=== PATIENT | female | born 1970 | race Hispanic/Latino ===

== ENCOUNTER 2017-10-21 18:14 | Inpatient (IN) | payer SELFPAY ==
[2017-10-21 19:00] LABS: #Basophils 0.1 thou/uL (0.0-0.2); #Eosinphils 0.2 thou/uL (0.0-0.7); #Lymphocytes 1.7 thou/uL (1.20-3.40); #Monocytes 0.6 thou/uL (0.11-0.59); %Basophils 0.9 % (0.0-1.0); %Lymphocytes 22.5 % (21.0-51.0); %Monocytes 7.6 % (0.0-10.0); Hematocrit 33.2 % (36.0-47.0); Mean Platelet Volume 8.1 fL (7.4-10.4); Red Blood Cell (RBC) Count 3.48 mill/uL (4.20-5.40); White Blood Cell (WBC) Count 7.5 thou/uL (4.8-10.8)
[2017-10-21 19:24] LABS: ALT (SGPT) 9 U/L (8-55); AST (SGOT) 12 U/L (5-34); Alkaline Phosphatase 125 U/L (40-150); Anion Gap 14 mmol/L (10-20); BUN (Urea Nitrogen) 28 mg/dL (7.0-18.7); Bilirubin, Total 0.2 mg/dL (0.2-1.2); CK (CPK) 61 U/L (29-168); Calc. Creatinine Clearance 0 mL/min (70-130); Calcium 8.8 mg/dL (7.8-10.44); Carbon Dioxide 18 mmol/L (22-29); Chloride 110 mmol/L (98-107); Estimated GFR-MDRD 27; Globulin 4.2 g/dL (2.4-3.5)
[2017-10-21 19:28] LABS: Troponin I 0.024 ng/mL (< 0.028)
--- NOTE | 2017-10-21 20:30 | RAD ---
PORTABLE CHEST 10/21/17 PROVIDED CLINICAL HISTORY: Dyspnea. FINDINGS: No comparisons. The cardiac silhouette is within normal limits for portable technique. There is blunting of the left costophrenic angle compatible with pleural fluid. There is patchy parenchymal opacity at the left neetu g base which may reflect subsegmental atelectasis or infiltrate. Right lung appears clear. No evidenc e for pneumothorax. IMPRESSION: Left pleural effusion with adjacent atelectasis or infiltrate. Radiographic followup is recommended. POS: CHRISTO
[2017-10-21] MEDS ORDERED: Dextrose 50% Abboject 50 ML SYRINGE ONE (20:33)
[2017-10-21] MEDS ORDERED: Insulin Regular 300 UNITS/3 ML VIAL ONE (20:33)
[2017-10-21] MEDS ORDERED: Calcium Chloride 1 GM/10 ML Abboject SYRINGE ONE (20:33)
[2017-10-21] MEDS ORDERED: hydrALAZINE 20 MG/ML VIAL ONE (20:48)
[2017-10-21] MEDS ORDERED: Furosemide 20 MG/2 ML VIAL ONE (21:54)
[2017-10-21] MEDS ORDERED: HYDROcodone/Acetaminophen 5/325 mg Tablet ONE (21:54)
[2017-10-21] MEDS ORDERED: HumaLOG 300 UNITS/3 ML VIAL SC PRN (22:30)
[2017-10-21] MEDS ORDERED: Dextrose 5% in Water 1,000 ML IV PRN (22:30)
[2017-10-21] MEDS ORDERED: Ondansetron HCl/PF 4 MG/2 ML Vial IVP PRN (22:30)
[2017-10-21] MEDS ORDERED: Dextrose 50% Abboject 50 ML SYRINGE SLOW IVP PRN (22:30)
[2017-10-21] MEDS ORDERED: Bisacodyl 5 MG TAB PO PRN (22:30)
--- NOTE | 2017-10-21 23:46 | HP ---
PRIMARY CARE PROVIDER: César Lal. CHIEF COMPLAINT: Abnormal blood work. HISTORY OF PRESENT ILLNESS: Ms. Schaeffer is a pleasant 47-year-old lady who was seen at [facility] on 10/21/2017, after she was sent to the emergency room by her primary care pro vider for abnormal blood work. She reportedly had flu-like symptoms, 1-1/2 months ago. At that time, she was not eating or drinking well. Early October, she reports that she had blood work checked and it was presumably normal. At that time, she was started on losartan-hydrochlorothiazide combination pill. She reports that she i s still not eating well. She reports that she has been having orthopnea and paroxysmal nocturnal dys pnea. She denies any chest pain. She reports leg swelling. She was started on furosemide 2 days a go by her primary care provider. Blood work was also done. She was advised to go to the emergency r oom today because of elevated creatinine. She denies any fevers or chills. She denies any nausea, vomiting, or diarrhea. REVIEW OF SYSTEMS: The following complete review of systems was negative, unless otherwise mentioned in the HPI or below: Constitutional: Weight loss or gain, sense of well-being, ability to conduct usual activities, exerc ise tolerance. Skin/Breast: Rash, itching, changes in hair growth or loss, nail changes, breast lumps, tenderness, swelling, nipple discharge. Eyes: Vision, double vision, tearing, blind spots, pain. ENT/Mouth: Headaches (location, time of onset, duration, precipitating factors), vertigo, lightheade dness, injury. Vision, double vision, tearing, blind spots, pain, nose bleeding, colds, obstruction, discharge, dental difficulties, gingival bleeding, dentures, neck stiffness, pain, tenderness, masses in thyroid or other areas. Cardiovascular: Precordial pain, substernal distress, palpitations, syncope, dyspnea on exertion, or thopnea, nocturnal paroxysmal dyspnea, edema, cyanosis, hypertension, heart murmurs, varicosities, ph lebitis, claudication. Respiratory: Pain, shortness of breath, wheezing, stridor, cough, hemoptysis, fever or night sweats. Gastrointestinal: Poor appetite, dysphagia, indigestion, abdominal pain, heartburn, eructation, naus ea, vomiting, hematemesis, jaundice, constipation, or diarrhea, abnormal stools (carla-colored, tarry, bloody, greasy, foul smelling), flatulence, hemorrhoids, recent changes in bowel habits. Genitourinary: Urgency, frequency, dysuria, nocturia, hematuria, polyuria, oliguria, unusual (or niesha nge in) color of urine, stones, hesitancy, change in size of stream, dribbling, acute retention or in continence, libido, potency. Musculoskeletal: Pain, swelling, redness or heat of muscles or joints, limitation, of motion, muscul ar weakness, atrophy, cramps. Neurologic/Psychiatric: Convulsions, paralyzes, tremor, incoordination, paresthesias, difficulties w ith memory of speech, sensory or motor disturbances, or muscular coordination (ataxia, tremor), emoti onal problems, anxiety, depression, previous psychiatric care, unusual perceptions, hallucinations. Allergy/Immunologic: Skin rash, anemia, bleeding tendency, polydipsia, polyuria, intolerance to heat or cold. PAST MEDICAL HISTORY: Significant for diabetes mellitus on insulin therapy, dyslipidemia, and hypert ension. PAST SURGICAL HISTORY: None. FAMILY HISTORY: Significant for diabetes, end-stage renal disease, and stroke in her father. SOCIAL HISTORY: Patient denies tobacco use, alcohol use, or recreational drug use. ALLERGIES: No known drug allergies. CURRENT MEDICATIONS: Include Lasix 40 mg daily, atorvastatin 40 mg daily, losartan/hydrochlorothiazi de 100/25 mg daily, iron 325 mg 2 times a day, aspirin 81 mg daily, and Levemir FlexPen 10 units subc utaneously daily. PHYSICAL EXAMINATION: GENERAL: Ms. Schaeffer is awake and alert, not in acute distress. She appears tired. VITAL SIGNS: Blood pressure is 177/90, pulse is 91. She is breathing at rate of 18 and saturating 9 9% on room air. EYES: No scleral icterus, no conjunctival pallor. ENT: Moist mucosal membranes, no oropharyngeal erythema or exudates. NECK: Supple, nontender, she has jugular venous distention, no thyromegaly, trachea midline. RESPIRATORY: Accessory muscles of breathing are not active. Chest wall movements are symmetric bila terally. LUNGS: Reveals a few bibasilar crackles. CARDIOVASCULAR: S1 and S2 are heard, regular. Peripheral pulses are palpable. No carotid bruit, no pericardial rub. ABDOMEN: Soft, nontender, bowel sounds heard, no hepatomegaly, no splenomegaly. NEUROLOGIC: Cranial nerves II-XII are intact. Deep tendon reflexes are 2+. MUSCULOSKELETAL: Power is 5/5 in all 4 extremities. Normal range of movement at all major extremity joints. SKIN: No rashes or subcutaneous nodules. She has bilateral lower extremity edema. LYMPHATIC: No cervical lymphadenopathy. PSYCHIATRIC: Normal mood, normal affect, patient is oriented to person, place, and time. LABORATORY DATA: Ms. Schaeffer's labs and investigations were reviewed. I reviewed her electrocardio gram, which shows normal sinus rhythm, no ST changes to suggest an acute coronary syndrome. I also r eviewed her chest x-ray, which shows small left pleural effusion. Laboratory investigation show norm al white count, normocytic anemia with hemoglobin 10.3, elevated platelet count of 481,September 25, 017. Sodium normal at 136, potassium elevated at 5.6. Blood urea nitrogen is elevated at 28, creati nine elevated at 1.99, elevated BNP of 1416, albumin decreased at 2.8, liver function tests otherwise unremarkable. ASSESSMENT AND PLAN: Ms. Schaeffer is a pleasant 47-year-old lady who was seen at [facility] on 10/21/2017. Her problem list includes: 1. Acute renal failure: Etiology unclear at this time, could be prerenal secondary to poor oral int armond. She is also on ARB. We will hold ARB for now. She is also in congestive heart failure. We wi ll not provide intravenous fluids at this time, we will recheck her creatinine level and potassium le roberta in the morning. 2. Hyperkalemia: Hold ARB, patient has received calcium, insulin, and Kayexalate. Recheck potassiu m level. 3. Congestive heart failure exacerbation: New onset congestive heart failure, we will check 2D echo cardiogram. We will provide gentle diuresis. We will consult Cardiology Service. 4. Diabetes mellitus: Continue Levemir insulin, start Accu-Cheks and insulin sliding scale. 5. Thrombocythemia: Etiology unclear, recheck platelet level. 6. Hypertension: Monitor vital signs, titrate antihypertensives as needed. Many thanks for allowing me to participate in your patient's care. Please feel free to contact me wi th any questions or concerns. LEVEL OF RISK: High. LEVEL OF COMPLEXITY: High.
[2017-10-21 23:49] VITALS: BMI 22.6
[2017-10-22 03:07] LABS: Potassium, Urine 15.3 mmol/L
[2017-10-22 04:38] LABS: #Eosinphils 0.2 thou/uL (0.0-0.7); #Lymphocytes 1.9 thou/uL (1.20-3.40); #Monocytes 0.6 thou/uL (0.11-0.59); #Neutrophils 4.5 thou/uL (1.40-6.50); %Basophils 0.6 % (0.0-1.0); %Eosinophils 2.9 % (0.0-10.0); %Lymphocytes 26.4 % (21.0-51.0); %Monocytes 7.9 % (0.0-10.0); Hematocrit 26.9 % (36.0-47.0); Red Blood Cell (RBC) Count 2.83 mill/uL (4.20-5.40); White Blood Cell (WBC) Count 7.2 thou/uL (4.8-10.8)
[2017-10-22 04:53] LABS: Anion Gap 11 mmol/L (10-20); BUN (Urea Nitrogen) 27 mg/dL (7.0-18.7); Calc. Creatinine Clearance 34 mL/min (70-130); Calcium 9.3 mg/dL (7.8-10.44); Carbon Dioxide 19 mmol/L (22-29); Chloride 112 mmol/L (98-107); Estimated GFR-MDRD 29
[2017-10-22] MEDS: Furosemide 20 MG/2 ML VIAL SLOW IVP SCH ×2 (06:05→15:20)
[2017-10-22] MEDS: Heparin 5,000 UNITS/ML VIAL SC SCH ×3 (08:52→21:42)
--- NOTE | 2017-10-22 10:36 | PDOC.PN ---
- Subjective Encounter Start Date: 10/22/17 Encounter Start Time: 08:00 Subjective: sob better, no chest pain - Objective MAR Reviewed: Yes Vital Signs & Weight: Vital Signs (12 hours) Temp Pulse Resp BP Pulse Ox 10/22/17 08:18 87 162/87 H 10/22/17 07:20 98.1 F 106 H 16 213/104 H 96 10/22/17 04:00 97.7 F 86 16 174/81 H 97 10/21/17 22:52 97.7 F 89 18 151/74 H 97 Weight Weight 129 lb 12.8 oz I&O: 10/21/17 10/22/17 10/23/17 06:59 06:59 06:59 Output Total 300 Balance -300 Result Diagrams: 10/22/17 04:12 10/22/17 04:12 Additional Labs: Accuchecks 10/21/17 22:44 POC Glucose 102 Phys Exam - Physical Examination HEENT: PERRLA, moist MMs Neck: no JVD, supple Respiratory: no wheezing basal rales+ Cardiovascular: RRR, no significant murmur Gastrointestinal: soft, non-tender, no distention, positive bowel sounds Musculoskeletal: no edema, pulses present Neurological: non-focal, moves all 4 limbs Psychiatric: A&O x 3 Dx/Plan (1) Acute exacerbation of CHF (congestive heart failure) Code(s): I50.9 - HEART FAILURE, UNSPECIFIED Status: Acute Qualifiers: Congestive heart failure type: unspecified congestive heart failure type Qualified Code(s): I50.9 - Heart failure, unspecified (2) WHITNEY (acute kidney injury) Code(s): N17.9 - ACUTE KIDNEY FAILURE, UNSPECIFIED Status: Acute (3) Metabolic acidosis Code(s): E87.2 - ACIDOSIS Status: Acute (4) DM type 2 (diabetes mellitus, type 2) Status: Chronic Qualifiers: Diabetes mellitus complication status: with kidney complications Diabetes mellitus complication detail: with chronic kidney disease Diabetes mellitus penitentiary insulin use: without termite treater use Chronic kidney disease stage: stage 3 (moderate) Qualified Code(s): E11.22 - Type 2 diabetes mellitus with diabetic chronic kidney disease; N18.3 - Chronic kidney disease, stage 3 ( moderate); N18.3 - Chronic kidney disease, stage 3 (moderate) (5) Hypoalbuminemia due to protein-calorie malnutrition Code(s): E46 - UNSPECIFIED PROTEIN-CALORIE MALNUTRITION Status: Chronic (6) HTN (hypertension) Code(s): I10 - ESSENTIAL (PRIMARY) HYPERTENSION Status: Chronic Qualifiers: Hypertension type: essential hypertension Qualified Code(s): I10 - Essential (primary) hypertension (7) Dyslipidemia Code(s): E78.5 - HYPERLIPIDEMIA, UNSPECIFIED Status: Chronic (8) Anemia Code(s): D64.9 - ANEMIA, UNSPECIFIED Status: Chronic Qualifiers: Anemia type: unspecified type Qualified Code(s): D64.9 - Anemia, unspecified - Plan jose r with reflex -: iron studies -: echo pending, is on lasix 20mg q12h -: nephr consult, likely has proteinuria, alb is 2.8 -: cardio consult, tropx1 is -ve. Add coreg and hydralazine for now * . Review of Systems - Medications/Allergies Allergies/Adverse Reactions: Allergies Allergy/AdvReac Type Severity Reaction Status Date / Time No Known Drug Allergies Allergy Verified 10/22/17 01:50 Medications: Current Medications Bisacodyl (Dulcolax) 10 mg PO DAILYPRN PRN PRN Reason: Constipation Dextrose/Water (Dextrose 50%) 25 gm SLOW IVP PRN PRN PRN Reason: Hypoglycemia Furosemide (Lasix) 20 mg SLOW IVP 0600,1400 [facility] Last Admin: 10/22/17 06:05 Dose: 20 mg Glucagon (Glucagon) 1 mg IM PRN PRN PRN Reason: Hypoglycemia Heparin Sodium (Porcine) (Heparin) 5,000 units SC TID [facility] Last Admin: 10/22/17 08:52 Dose: 5,000 units Dextrose/Water (D5w) 1,000 mls @ 0 mls/hr IV .Q0M PRN; As Directed PRN Reason: Hypoglycemia Insulin Human Lispro (Humalog) 0 units SC .MILD SLIDING SCALE PRN PRN Reason: Mild Correctional Scale Ondansetron HCl (Zofran) 4 mg IVP Q6H PRN PRN Reason: Nausea/Vomiting Last Admin: 10/22/17 08:52 Dose: 4 mg
[2017-10-22 12:53] LABS: Iron 24 ug/dL (50-170)
--- NOTE | 2017-10-22 14:10 | CON ---
DATE OF CONSULTATION: 10/22/2017 HISTORY OF PRESENT ILLNESS: The patient is a pleasant 47-year-old woman who presents for evaluation of increasing dyspnea. The patient states approximately a month ago she started noting dyspnea on exertion. She developed progressive shortness of breath. She started developing PND and orthopnea. The patient was started on Lasix. She presented to the emergency room with increasing dyspnea. The patient denies having any chest discomfort. The patient has multiple cardiac risk factors including hypertension, hypercholesterolemia and diabetes mellitus. PAST MEDICAL HISTORY: 1. Diabetes mellitus. 2. Hypertension. 3. Hypercholesterolemia. PAST SURGICAL HISTORY: None. SOCIAL HISTORY: Nonsmoker. MEDICATIONS ON ADMISSION: Losartan 125 daily, Lasix 40 daily, aspirin 81 daily. ALLERGIES: No known drug allergies. REVIEW OF SYSTEMS: Ten-point system otherwise unremarkable. No history of easy bruising or bleeding. PHYSICAL EXAMINATION: GENERAL: This is a well-developed woman in no acute distress. VITAL SIGNS: Blood pressure is 162/87. NECK: Showed no jugular venous distention. LUNGS: Decreased breath sounds in the left base. HEART: Regular rate and rhythm, normal S1, S2, no murmurs. ABDOMEN: Nondistended. EXTREMITIES: Showed trace edema. SKIN: Warm and dry. NEUROLOGIC: Nonfocal. VASCULAR: Radial pulses are 2+. LABORATORY DATA: Sodium 137, potassium 4.8, chloride 112, bicarbonate 19, BUN 27, creatinine 1.86. Troponin 0.24. BNP is 1416. EKG revealed her to have normal sinus rhythm with nonspecific T-wave abnormality. IMPRESSION: 1. Congestive heart failure probably secondary to diastolic dysfunction. 2. Pleural effusion. 3. Hypertension. 4. Diabetes mellitus. 5. Chronic renal insufficiency. 6. Anemia. This patient presents with congestive heart failure with a large pleural effusion. From a cardiac standpoint, she is being diuresed with IV Lasix. We will obtain a Lexiscan stress to see if there is evidence of ischemia. We would recommend a renal evaluation. The patient appears to have chronic renal failure since she is severely anemic. We will also consider the patient for thoracentesis as she appears to have a large pleural effusion on her echocardiogram. We will follow this patient with you through her hospitalization. CONSTANCE
[2017-10-22 15:13] LABS: Bilirubin Negative (Negative); Blood, Urine Trace (Negative); Glucose, Urine (Dipstick) 250 mg/dL (Negative); Ketone, Urine Negative (Negative); Nitrite Negative (Negative); Protein, Urine (Dipstick) 300 mg/dL (Neg-Trace); Urobilinogen 0.2 mg/dL (0.2-1.0)
[2017-10-22 15:16] LABS: Bacteria/HPF 4+ HPF (None Seen); Hyaline Casts/LPF 0-3 HYALINE CAST LPF (0-3 Hyaline); Squamous Epithelial 0-3 HPF (0-3)
[2017-10-22] MEDS: hydrALAZINE 25 MG TAB PO SCH ×2 (15:20→21:41)
[2017-10-22] MEDS: Carvedilol 6.25 MG TAB PO SCH (17:30)
--- NOTE | 2017-10-22 19:29 | ULT ---
RENAL ULTRASOUND COMPLETE: 10/22/17 HISTORY: 47-year-old female with acute kidney insufficiency. The right kidney measures 10.3 x 4.8 x 5.3 cm. The left kidney measures 10.2 x 5.8 x 5.5 cm. There is no renal hydronephrosis. The urinary bladder appears unremarkable. There is evidence for left pleura l effusion. IMPRESSION: No evidence for renal hydronephrosis or perinephric process. Unremarkable appearing bladder. Left ple ural effusion. POS: H
[2017-10-22] MEDS ORDERED: Ferrous Sulfate 325 MG TAB PO SCH (20:30)
[2017-10-22] MEDS ORDERED: INSULIN DETEMIR 100 UNIT SQ SCH (21:00)
[2017-10-22] MEDS ORDERED: Insulin Detemir 100 UNITS/ML 100 UNITS in Pre-Filled Syringe 1 EACH SC SCH (21:00)
[2017-10-22] MEDS: Insulin Detemir 100 UNITS/ML 12 UNITS in Pre-Filled Syringe 1 EACH SC SCH (21:42)
--- NOTE | 2017-10-23 02:07 | CON ---
DATE OF CONSULTATION: 10/22/2017 CONSULTING PHYSICIAN: Luana Karimi M.D. REASON FOR CONSULTATION: Proteinuria. HISTORY OF PRESENT ILLNESS: A 47-year-old female with history of type 2 diabetes, hyperlipidemia, hy pertension, diabetic retinopathy, and diastolic dysfunction, who came to the hospital with abnormal b lood work and is being evaluated. She was found to have acute kidney injury with a creatinine of 1.8 6. Baseline is around 1.9 and also proteinuria of 3+ protein and Nephrology is consulted. The patie nt denies any chest pain, palpitation, no fever or chills. He is having cardiac evaluation to o. The patient was having some nausea, vomiting lately. PAST MEDICAL HISTORY: Positive for type 2 diabetes, hypertension, hyperlipidemia, diabetic retinopat hy. PAST SURGICAL HISTORY: None. HOME MEDICATIONS: Lasix, atorvastatin, losartan, hydrochlorothiazide, iron, aspirin, Levemir. ALLERGIES: No known drug allergies. SOCIAL HISTORY: No smoking, alcohol or illicit drug use. FAMILY HISTORY: Positive for diabetes and end-stage renal disease. REVIEW OF SYSTEMS: The following complete review of systems was negative, unless otherwise mentioned in the HPI or below: Constitutional: Weight loss or gain, ability to conduct usual activities. Skin: Rash, itching. Ey es: Double vision, pain. ENT/Mouth: Nose bleeding, neck stiffness, pain, tenderness. Cardiovascul ar: Palpitations, dyspnea on exertion, orthopnea. Respiratory: Shortness of breath, wheezing, coug h, hemoptysis, fever or night sweats. Gastrointestinal: Poor appetite, abdominal pain, heartburn, n ausea, vomiting, constipation, or diarrhea. Genitourinary: Urgency, frequency, dysuria, nocturia. Musculoskeletal: Pain, swelling. Neurologic/Psychiatric: Anxiety, depression. Allergy/Immunologic : Skin rash, bleeding tendency. PHYSICAL EXAMINATION: GENERAL: This is a thin-built female in no apparent distress. VITAL SIGNS: Temperature 97.9, pulse 84, respiratory rate 18, blood pressure 174/79. HEENT: Atraumatic, normocephalic. Oral mucosa is moist. NECK: Supple, no masses. CARDIOVASCULAR: S1, S2 heard. Rate and rhythm regular. RESPIRATORY: Clear. ABDOMEN: Soft. MUSCULOSKELETAL: DERMATOLOGIC: No skin rash. NEUROLOGIC: Alert, awake. PSYCHIATRIC: Mood and affect normal. LABORATORY AND X-RAY FINDINGS: Hemoglobin is 8.6, is 10, is 23, potassium is 4.8. Urine protein 3+. ASSESSMENT AND PLAN: 1. Acute kidney injury seems like getting better. 2. Acidosis, mild. 3. Severe anemia with hemoglobin less than 10 with iron deficiency. 4. Iron deficiency. We will increase iron tablets to 325 mg p.o. t.i.d. as tolerated and rule out a ny bleed. 5. Consider . 6. Proteinuria, most likely from diabetes. We will check RENUKA and other immunologic workup to rule o ut any immunological process involved. The patient does have a strong history of diabetes and family history of diabetic nephropathy. 7. Hypertension. Titrate blood pressure medicines. I agree with holding losartan for now, up titra te carvedilol as tolerated. 8. Diastolic dysfunction. Follow with Cardiology. Currently on Lasix. 9. We will monitor renal function. Check urine studies and immunological workup. Thank you for the consultation. We will follow.
[2017-10-23 04:57] LABS: Anion Gap 10 mmol/L (10-20); BUN (Urea Nitrogen) 30 mg/dL (7.0-18.7); Calc. Creatinine Clearance 31 mL/min (70-130); Calcium 8.7 mg/dL (7.8-10.44); Carbon Dioxide 23 mmol/L (22-29); Chloride 111 mmol/L (98-107); Estimated GFR-MDRD 26
[2017-10-23 05:05] LABS: #Eosinphils 0.2 thou/uL (0.0-0.7); #Lymphocytes 1.8 thou/uL (1.20-3.40); #Monocytes 0.5 thou/uL (0.11-0.59); #Neutrophils 3.6 thou/uL (1.40-6.50); %Basophils 0.7 % (0.0-1.0); %Eosinophils 3.6 % (0.0-10.0); %Lymphocytes 28.6 % (21.0-51.0); %Monocytes 8.3 % (0.0-10.0); Hematocrit 25.9 % (36.0-47.0); Mean Platelet Volume 8.2 fL (7.4-10.4); Red Blood Cell (RBC) Count 2.73 mill/uL (4.20-5.40); White Blood Cell (WBC) Count 6.2 thou/uL (4.8-10.8)
[2017-10-23] MEDS: Furosemide 20 MG/2 ML VIAL SLOW IVP SCH (06:12)
[2017-10-23] MEDS: Carvedilol 6.25 MG TAB PO SCH ×2 (07:32→17:01)
[2017-10-23 08:15] LABS: U1RNP/snRNP IGG Autoabs <0.2 AI (0.0-0.9)
[2017-10-23] MEDS ORDERED: Ferrous Sulfate 325 MG TAB PO SCH (09:00)
[2017-10-23] MEDS: Heparin 5,000 UNITS/ML VIAL SC SCH ×3 (11:39→20:45)
[2017-10-23] MEDS: Ferrous Sulfate 325 MG TAB PO SCH ×3 (11:41→17:01)
[2017-10-23] MEDS: hydrALAZINE 25 MG TAB PO SCH ×2 (11:42→20:46)
[2017-10-23] MEDS: Atorvastatin Calcium 40 MG TAB PO SCH (11:42)
[2017-10-23] MEDS: Insulin Detemir 100 UNITS/ML 12 UNITS in Pre-Filled Syringe 1 EACH SC SCH ×2 (11:45→20:46)
--- NOTE | 2017-10-23 12:03 | PDOC.PN ---
- Subjective Encounter Start Date: 10/23/17 Encounter Start Time: 08:30 Subjective: getting stress test done - Objective MAR Reviewed: Yes Vital Signs & Weight: Vital Signs (12 hours) Temp Pulse Resp BP BP Pulse Ox 10/23/17 11:42 80 131/66 10/23/17 08:00 98.0 F 80 20 173/86 H 96 10/23/17 07:50 98.4 F 81 18 98 10/23/17 04:00 98.4 F 81 18 142/75 H 98 10/23/17 00:03 98.3 F 83 16 166/79 H 98 Weight Weight 125 lb 3.2 oz I&O: 10/22/17 10/23/17 10/24/17 06:59 06:59 06:59 Intake Total 752 Output Total 300 200 Balance -300 552 Result Diagrams: 10/23/17 03:55 10/23/17 03:55 Additional Labs: Accuchecks 10/23/17 10/22/17 10/22/17 05:36 20:38 17:06 POC Glucose 120 H 191 H 217 H Phys Exam - Physical Examination HEENT: PERRLA, moist MMs Neck: no JVD, supple Respiratory: no wheezing, no rales Cardiovascular: RRR, no significant murmur Gastrointestinal: soft, non-tender, positive bowel sounds Musculoskeletal: no edema, pulses present Neurological: non-focal, moves all 4 limbs Psychiatric: A&O x 3 Dx/Plan (1) Acute exacerbation of CHF (congestive heart failure) Code(s): I50.9 - HEART FAILURE, UNSPECIFIED Status: Acute Qualifiers: Congestive heart failure type: diastolic Qualified Code(s): I50.33 - Acute on chronic diastolic (congestive) heart failure (2) WHITNEY (acute kidney injury) Code(s): N17.9 - ACUTE KIDNEY FAILURE, UNSPECIFIED Status: Acute (3) Metabolic acidosis Code(s): E87.2 - ACIDOSIS Status: Acute (4) DM type 2 (diabetes mellitus, type 2) Status: Chronic Qualifiers: Diabetes mellitus complication status: with kidney complications Diabetes mellitus complication detail: with chronic kidney disease Diabetes mellitus 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 terminal manager insulin use: without intermediate use Chronic kidney disease stage: stage 3 (moderate) Qualified Code(s): E11.22 - Type 2 diabetes mellitus with diabetic chronic kidney disease; N18.3 - Chronic kidney disease, stage 3 ( moderate); N18.3 - Chronic kidney disease, stage 3 (moderate) (5) Hypoalbuminemia due to protein-calorie malnutrition Code(s): E46 - UNSPECIFIED PROTEIN-CALORIE MALNUTRITION Status: Chronic (6) HTN (hypertension) Code(s): I10 - ESSENTIAL (PRIMARY) HYPERTENSION Status: Chronic Qualifiers: Hypertension type: essential hypertension Qualified Code(s): I10 - Essential (primary) hypertension (7) Dyslipidemia Code(s): E78.5 - HYPERLIPIDEMIA, UNSPECIFIED Status: Chronic (8) Anemia Code(s): D64.9 - ANEMIA, UNSPECIFIED Status: Chronic Qualifiers: Anemia type: due to chronic kidney disease Chronic kidney disease stage: stage 3 (moderate) Qualified Code(s): N18.3 - Chronic kidney disease, stage 3 (moderate); D63.1 - Anemia in chronic kidney disease; D63.1 - Anemia in chronic kidney disease - Plan RENUKA is +ve, -ve for lupus -: electrophoresis, anca and stress test results are pending -: clinically feels better, reduce lasix to daily -: most of her symptoms are likely related to d.nephropathy/ckd -: will obtain renal artery resistive indices to r/o stenosis, oral [id number] * . Review of Systems - Medications/Allergies Allergies/Adverse Reactions: Allergies Allergy/AdvReac Type Severity Reaction Status Date / Time No Known Drug Allergies Allergy Verified 10/22/17 01:50 Medications: Current Medications Aspirin (Aspirin Chewable) 81 mg PO DAILY [facility] Last Admin: 10/23/17 11:42 Dose: 81 mg Atorvastatin Calcium (Lipitor) 40 mg PO DAILY [facility] Last Admin: 10/23/17 11:42 Dose: 40 mg Bisacodyl (Dulcolax) 10 mg PO DAILYPRN PRN PRN Reason: Constipation Carvedilol (Coreg) 6.25 mg PO BID-[facility] Last Admin: 10/23/17 07:32 Dose: Not Given Dextrose/Water (Dextrose 50%) 25 gm SLOW IVP PRN PRN PRN Reason: Hypoglycemia Ferrous Sulfate (Feosol) 325 mg PO TID-[facility] Last Admin: 10/23/17 11:46 Dose: Not Given Furosemide (Lasix) 20 mg SLOW IVP DAILY [facility] Glucagon (Glucagon) 1 mg IM PRN PRN PRN Reason: Hypoglycemia Heparin Sodium (Porcine) (Heparin) 5,000 units SC TID [facility] Last Admin: 10/23/17 11:39 Dose: Not Given Hydralazine HCl (Apresoline) 25 mg PO TID [facility] Last Admin: 10/23/17 11:42 Dose: 25 mg Dextrose/Water (D5w) 1,000 mls @ 0 mls/hr IV .Q0M PRN; As Directed PRN Reason: Hypoglycemia Insulin Detemir 12 units/ (Miscellaneous Medication) 0.12 mls @ 0 mls/hr SC BID [facility] Last Admin: 10/23/17 11:45 Dose: Not Given Insulin Human Lispro (Humalog) 0 units SC .MILD SLIDING SCALE PRN PRN Reason: Mild Correctional Scale Ondansetron HCl (Zofran) 4 mg IVP Q6H PRN PRN Reason: Nausea/Vomiting Last Admin: 10/22/17 08:52 Dose: 4 mg
[2017-10-23] MEDS ORDERED: hydrALAZINE 25 MG TAB PO SCH (12:15)
--- NOTE | 2017-10-23 14:13 | NM ---
NUCLEAR MEDICINE CARDIAC STRESS TEST WITH EJECTION FRACTION: HISTORY: Congestive heart failure. COMPARISON: None. FINDINGS: Exam was performed using a nuclear Lexiscan stress protocol. No abnormal findings seen. The stress and rest exam was performed after the intravenous administration of 29 and 9 mCi technetiu m-99m sestamibi, respectively. There is no evidence of ischemia or scar. There is mildly poor contractility with ejection fraction o f 42%. IMPRESSION: 1. No evidence of ischemia or scar. 2. Ejection fraction 42%. POS: CHRISTO
[2017-10-23] MEDS ORDERED: Regadenoson 0.4 MG/5 ML SYRINGE ONE (16:18)
--- NOTE | 2017-10-23 17:40 | CON ---
DATE OF CONSULTATION: 10/23/2017 Ms. Schaeffer is a 47-year-old female. She was sent to the hospital by her physician, because of an a bnormal potassium. I was consulted for a small pleural effusion. PAST MEDICAL HISTORY: She has a history of diabetes, lipid disorder, and hypertension. MEDICATIONS: Prior to admission, she was on Lasix, atorvastatin, losartan, hydrochlorothiazide, iron , aspirin, and Levemir. SOCIAL HISTORY: She is a non-smoker, nondrinker. ALLERGIES: No drug use. FAMILY HISTORY: Positive for diabetes, family members on dialysis, and stroke. She has never been in the hospital here before. PHYSICAL EXAMINATION: GENERAL: She is afebrile, heart rate is 90, respiratory rate is 20, oximetry is 97, blood pressure 1 52/72. Blood pressure has been as high as 171/85 today. HEENT: Pupils are equal. Sclerae is anicteric. Extraocular movements are full. NECK: Supple, no lymphadenopathy. LUNGS: Remarkable for decreased breath sounds, but only at the very bottom of the left lung. HEART: Regular rhythm, no S3. Grade 2/6 systolic murmur. ABDOMEN: Soft and nontender. EXTREMITIES: Without asymmetry. LABORATORY DATA: White count 6.2, hemoglobin 8.3, platelets 410,000. Sodium 139, potassium 4.7, chl oride 111, bicarbonate 23, BUN 30, creatinine 2.04 Urine shows 300 mg per deciliter of protein. Chest radiographs, reviewed by me, shows a small left effusion. IMPRESSION: Left effusion. She had a BNP of 1416 on admission. I suspect this is secondary to some component of diastolic dysfunction with her hypertension as well as mitral regurgitation and low onc otic pressure with an albumin of 2.8. I do not feel thoracentesis is indicated. My index of suspici on for malignant process or an infected pleural space is extremely low. I will be happy to follow th shadi radiographs as an outpatient once she is discharged. Greater than 50% of the time was spent in counseling the patient, reviewing records and on the unit. This is a 70-minute consult note.
--- NOTE | 2017-10-23 17:56 | ULT ---
ULTRASOUND RENAL ARTERY VASCULAR DUPLEX INCLUDING COLOR AND SPECTRAL DOPPLER IMAGIN10/23/17 HISTORY: Elevated blood pressure. Renal anatomy ultrasound examination was performed on 10/22/17 and comparison is made. There is no significant focal abnormal increased renal artery velocities. Resistive indices are borde rline at 0.7 bilaterally. Renal artery to aortic ratios are unremarkable. IMPRESSION: No definitive ultrasound evidence for significant renal artery stenosis. If that remains a clinical c oncern, followup renal artery CTA or MRA study should be considered. POS: [facility]
--- NOTE | 2017-10-23 22:05 | PRG ---
DATE OF SERVICE: 10/23/2017 SUBJECTIVE: The patient was seen and examined at bedside and overnight events noted. The patient den ies any shortness of breath or chest pain or palpitation. No history of nausea or vomiting or diarrh ea or fever or chills or cramps. OBJECTIVE: General: This is a well-built white female in no apparent distress. Vital Signs: Temperature 98.5, pulse 81, respiratory 18, and blood pressure 127/67. HEENT: Atraumatic, normocephalic. Oral mucosa is moist. Neck: Supple. Cardiovascular: S1and S2 heard. Rate and rhythm regular. Respiratory: Clear to auscultation. Gastrointestinal: Abdomen is soft. Musculoskeletal: No tenderness. No edema. Dermatologic: No skin rash. Neurologic: Alert and awake and oriented X3. No focal neurologic deficits. Moving all the extremit ies. Psychiatric: Mood and affect normal. LABORATORY DATA: Sodium is 139, BUN 30, creatinine is 2.04. RENUKA is positive, but substances are neg ative. ASSESSMENT AND PLAN: 1. Acute kidney injury. Seems to be stable. 2. Acidosis. 3. Severe anemia. Continue iron supplements. 4. Proteinuria secondary to most likely from diabetes. RENUKA is positive, but sepsis negative, need R heumatology followup. 5. Hypertension. We will check anti-Strickland antibodies. 6. Diastolic dysfunction, stable. The patient needs follow up with Rheumatology for positive RENUKA test less likely lupus given the negat diane anti-Strickland . We will follow.
[2017-10-24] MEDS ORDERED: Furosemide 20 MG/2 ML VIAL SLOW IVP SCH (09:00)
[2017-10-24] MEDS ORDERED: Amlodipine 5 MG TAB PO SCH (09:00)
[2017-10-24] MEDS: Carvedilol 6.25 MG TAB PO SCH (09:39)
[2017-10-24] MEDS: Ferrous Sulfate 325 MG TAB PO SCH ×2 (09:40→12:57)
[2017-10-24] MEDS: Atorvastatin Calcium 40 MG TAB PO SCH (09:40)
[2017-10-24] MEDS: hydrALAZINE 25 MG TAB PO SCH (09:41)
[2017-10-24] MEDS: Heparin 5,000 UNITS/ML VIAL SC SCH (09:41)
[2017-10-24] MEDS: Insulin Detemir 100 UNITS/ML 12 UNITS in Pre-Filled Syringe 1 EACH SC SCH (09:41)
--- NOTE | 2017-10-24 10:48 | PDOC.PN ---
- Subjective Encounter Start Date: 10/24/17 Encounter Start Time: 07:00 Subjective: no sob, feels better -: is amb in room, wants to go home - Objective MAR Reviewed: Yes Vital Signs & Weight: Vital Signs (12 hours) Temp Pulse Resp BP BP Pulse Ox 10/24/17 09:41 80 166/83 H 10/24/17 09:40 80 166/83 H 10/24/17 09:39 166/83 H 10/24/17 07:06 98.5 F 80 18 166/83 H 98 10/24/17 03:41 98.3 F 78 18 143/74 H 97 10/23/17 23:29 98.3 F 84 16 143/70 H 95 Weight Weight 125 lb 4.8 oz I&O: 10/23/17 10/24/17 10/25/17 06:59 06:59 06:59 Intake Total 752 420 Output Total 200 Balance 552 420 Result Diagrams: 10/23/17 03:55 10/23/17 03:55 Additional Labs: Accuchecks 10/24/17 10/23/17 10/23/17 06:26 20:45 17:18 POC Glucose 129 H 199 H 318 H 10/23/17 12:37 POC Glucose 181 H Phys Exam - Physical Examination HEENT: PERRLA, moist MMs Neck: no JVD, supple Respiratory: no wheezing, no rales Cardiovascular: RRR, no significant murmur Gastrointestinal: soft, non-tender, positive bowel sounds Musculoskeletal: no edema, pulses present Neurological: non-focal, moves all 4 limbs Psychiatric: A&O x 3 Dx/Plan (1) Acute exacerbation of CHF (congestive heart failure) Code(s): I50.9 - HEART FAILURE, UNSPECIFIED Status: Acute Qualifiers: Congestive heart failure type: diastolic Qualified Code(s): I50.33 - Acute on chronic diastolic (congestive) heart failure (2) WHITNEY (acute kidney injury) Code(s): N17.9 - ACUTE KIDNEY FAILURE, UNSPECIFIED Status: Acute (3) Metabolic acidosis Code(s): E87.2 - ACIDOSIS Status: Resolved (4) DM type 2 (diabetes mellitus, type 2) Status: Chronic Qualifiers: Diabetes mellitus complication status: with kidney complications Diabetes mellitus complication detail: with chronic kidney disease Diabetes mellitus watermaster insulin use: without half-way use Chronic kidney disease stage: stage 3 (moderate) Qualified Code(s): E11.22 - Type 2 diabetes mellitus with diabetic chronic kidney disease; N18.3 - Chronic kidney disease, stage 3 ( moderate); N18.3 - Chronic kidney disease, stage 3 (moderate) (5) Hypoalbuminemia due to protein-calorie malnutrition Code(s): E46 - UNSPECIFIED PROTEIN-CALORIE MALNUTRITION Status: Chronic (6) HTN (hypertension) Code(s): I10 - ESSENTIAL (PRIMARY) HYPERTENSION Status: Chronic Qualifiers: Hypertension type: essential hypertension Qualified Code(s): I10 - Essential (primary) hypertension (7) Dyslipidemia Code(s): E78.5 - HYPERLIPIDEMIA, UNSPECIFIED Status: Chronic (8) Anemia Code(s): D64.9 - ANEMIA, UNSPECIFIED Status: Chronic Qualifiers: Anemia type: due to chronic kidney disease Chronic kidney disease stage: stage 3 (moderate) Qualified Code(s): N18.3 - Chronic kidney disease, stage 3 (moderate); D63.1 - Anemia in chronic kidney disease; D63.1 - Anemia in chronic kidney disease - Plan increase norvasc to 10mg daily -: stress test -ve, no sign of renal art stenosis on usg -: may dc home if ok with cardio -: Needs to f/u with [employer] for RENUKA being +ve -: adv to obtain med insurance * .
[2017-10-24 11:53] VITALS: TEMP 98.4
[2017-10-24 13:34] VITALS: BP 115/65
--- NOTE | 2017-10-24 19:29 | DIS ---
DATE OF ADMISSION: 10/21/2017 DATE OF DISCHARGE: 10/24/2017 DISCHARGE DISPOSITION: To home. PRIMARY DISCHARGE DIAGNOSES: Acute congestive heart failure exacerbation with diastolic dysfunction, acute kidney injury with metabolic acidosis, diabetic nephropathy, hypoalbuminemia likely due to falguni betic nephropathy, hypertension which was uncontrolled initially, dyslipidemia, chronic anemia likely due to chronic kidney disease. PROCEDURES DONE DURING HOSPITALIZATION: Echo with 2D Doppler done showed EF of 50%-55%. Chest x-ray done showed left pleural effusion. Nuclear stress test done showed ejection fraction of 42%. There was no evidence of ischemia or scar. Ultrasound kidneys showed no evidence of renal hydronephrosis or perinephric process. Renal artery resistive indices were within normal limits. There is no ultra sound evidence for significant renal artery stenosis, hemoglobin and hematocrit 8 and 25, platelet co unt 410, MCV was 94. BNP was 1416, initial BUN and creatinine 28 and 1.9, potassium was 5.6 with ser um bicarbonate of 18 on the day of admission, albumin was 2.8. Serum iron 24, ferritin was 23. Ninfa min B12 619, folic acid 12, urine creatinine was 43.8. Urine random total protein was 746 mg per dec iliter. RENUKA screen was positive. Anti-Strickland double stranded DNA SSA IgG and SSB IgG and ribo-nuclea r protein IgG all of these were negative, although her RENUKA was positive. DISCHARGE MEDICATIONS: Norvasc 10 mg p.o. daily, aspirin 81 mg p.o. daily, atorvastatin 40 mg p.o. d aily, Coreg 12.5 mg p.o. twice daily, ferrous sulfate 325 mg p.o. three times daily, furosemide 40 mg p.o. daily, hydralazine 50 mg p.o. 3 times daily, and Levemir 12 units subcu twice daily. ALLERGIES: No known drug allergies. INPATIENT CONSULTS: Dr. Mcdonnell for Cardiology and Dr. Medina for Nephrology. BRIEF COURSE DURING HOSPITALIZATION: Patient initially was sent from our primary care physician's of [facility] for abnormal blood work. She was also started on Lasix just 2 days back for lower extremity alee ma. On arrival, the patient had hemoglobin of 10 with BNP of 1400 and creatinine of 1.9 with signs o f metabolic acidosis as well. In view of this, patient was admitted to telemetry. She has had compl ete cardiac workup and nephrology workup done as well. Her echo revealed normal ejection fraction, b ut likely has diastolic dysfunction. The patient also has diabetic nephropathy with proteinuria. Sh mike has had Rheumatology workup done which showed RENUKA being positive, but the rest of the labs and Rheu matology screen with RENUKA reflex was negative. She has had a stress test done as well which was negat diane. The patient is ambulating and eating well. She has been advised to continue ferrous sulfate al thelma with new medications for her blood pressure including Norvasc, hydralazine, Lasix, and Coreg as p rescribed. She will also be on Lipitor, aspirin, and Levemir for diabetes. Patient has been strongl y counseled to go see a machine setter sheet metal in the outpatient setting in view of her RENUKA being positive. She was evaluated by Dr. Mcdonnell for Cardiology and Dr. Medina for Nephrology. The patient needs t o follow up with Dr. Medina in 2 weeks. She does not have health insurance and has been strongly co unseled to obtain one in view of her current multiple medical issues. Please see a face to face docu mentation on [employer] for the day of discharge.
--- NOTE | 2017-10-24 23:23 | PRG ---
DATE OF SERVICE: 10/24/2017 SUBJECTIVE: Patient was seen and examined at bedside and overnight events noted. Patient denies any shortness of breath or chest pain or palpitation. No history of nausea or vomiting or diarrhea or f ever or chills or cramps. OBJECTIVE: GENERAL: This is a well-built female in no apparent distress. VITAL SIGNS: Temperature . HEENT: Atraumatic, normocephalic. Oral mucosa is moist. NECK: Supple. CARDIOVASCULAR: S1, S2 heard. Rate and rhythm regular. RESPIRATORY: Clear to auscultation. GASTROINTESTINAL: Abdomen is soft. MUSCULOSKELETAL: No tenderness. No edema. DERMATOLOGIC: No skin rash. NEUROLOGIC: Alert and awake and oriented X3. No focal neurologic deficits. Moving all the extremit ies. PSYCHIATRIC: Mood and affect normal. LABORATORY DATA: Labs done today, urine with more than 10 grams of protein. ASSESSMENT AND PLAN: 1. Acute kidney injury. Renal function is stable. 2. Edema is much controlled. 3. Severe anemia. 4. Proteinuria, most likely diabetes, but other causes are also possible. The patient does admit to taking lot of jyqa-snj-[id number] pain medications. 5. Hypertension. 6. Positive RENUKA. 7. Diastolic dysfunction. Patient is to follow up with Rheumatology for positive RENUKA. Patient's family was advised that the bunny kerr might need a renal biopsy, but currently she is on aspirin. Patient was advised to hold aspiri n. She was taking aspirin by herself without any advice from the doctors for any cardiac or neurolog ical reasons. Plan is to hold the aspirin. Follow up with the clinic in 1 week and consider a renal biopsy to evaluate the cause of his nephrotic range proteinuria.
[2017-10-26 13:11] LABS: Kappa Lambda Light Chain Ratio 1.73 (0.26-1.65)
[2017-10-26 16:10] LABS: A/G Ratio 0.6 (0.7-1.7); Alpha 1 0.3 g/dL (0.0-0.4); Alpha 2 1.1 g/dL (0.4-1.0); Beta 0.9 g/dL (0.7-1.3); Gamma 0.9 g/dL (0.4-1.8); Globulin, Total 3.1 g/dL (2.2-3.9); M-Spike Not Observed g/dL (Not Observed)
[2017-10-27 09:12] LABS: Beta-Ur 13.9 % (.); Gamma-Ur 12.4 % (.); Protein, Urine 779.9 mg/dL (Not Estab.)
[2017-10-27 14:14] LABS: ANCA Pattern <1:20 titer (Neg:<1:20); ANCA Total <1:20 titer (Neg:<1:20); Myeloperoxidase AutoAbs <9.0 U/mL (0.0-9.0); Proteinase-3 AutoAbs Less than 3.5 U/mL (0.0-3.5)
== END 2017-10-24 13:32 | disposition home or self-care (01) | DRG 291 ==
LOC: ERS 18:14 → 2SE 21:56
PROVIDERS: ADMIT Internal Medicine; ATTEND Internal Medicine
DX: I13.0 Hypertensive heart and chronic kidney disease with heart failure and stage 1 through stage 4 chronic kidney disease, or unspecified chronic kidney disease (principal); I50.33 Acute on chronic diastolic (congestive) heart failure; N17.9 Acute kidney failure, unspecified; E87.2 Acidosis; E46 Unspecified protein-calorie malnutrition; E11.21 Type 2 diabetes mellitus with diabetic nephropathy; N18.3 Chronic kidney disease, stage 3 (moderate); E11.319 Type 2 diabetes mellitus with unspecified diabetic retinopathy without macular edema; E87.5 Hyperkalemia; E88.09 Other disorders of plasma-protein metabolism, not elsewhere classified; D47.3 Essential (hemorrhagic) thrombocythemia; Z79.4 Long term (current) use of insulin; Z79.82 Long term (current) use of aspirin; R79.89 Other specified abnormal findings of blood chemistry; D50.9 Iron deficiency anemia, unspecified; E78.00 Pure hypercholesterolemia, unspecified; E11.22 Type 2 diabetes mellitus with diabetic chronic kidney disease; Z68.21 Body mass index [BMI] 21.0-21.9, adult; D63.1 Anemia in chronic kidney disease
CPT/HCPCS: 36415; 36416; 71010; 76700; 76770; 78452; 80048; 80053; 81001; 82436; 82550; 82553; 82570; 82607; 82728; 82746; 83520; 83540; 83550; 83880; 83883; 84133; 84156; 84165; 84166; 84300; 84484; 85025; 86021; 86038; 93005; 93017; 93306; 93798; 96374; 96375; A9500; J0360; J1644; J1815; J1940; J2405; J2785

== ENCOUNTER 2017-11-11 17:54 | Emergency (ER) | payer OTHER, SELFPAY ==
[2017-11-11 18:58] LABS: #Eosinphils 0.1 thou/uL (0.0-0.7); #Monocytes 0.7 thou/uL (0.11-0.59); #Neutrophils 6.3 thou/uL (1.40-6.50); %Basophils 0.4 % (0.0-1.0); %Eosinophils 1.2 % (0.0-10.0); %Lymphocytes 21.6 % (21.0-51.0); %Monocytes 7.3 % (0.0-10.0); %Neutrophils 69.5 % (42.0-75.0); Hemoglobin 9.9 g/dL (12.0-16.0); Mean Corpuscular HGB CONC 31.6 g/dL (32.0-36.0); Mean Corpuscular Hemoglobin 29.3 pg (27.0-31.0); Mean Corpuscular Volume 92.9 fl (81.0-99.0); Mean Platelet Volume 8.3 fL (7.4-10.4); Platelet Count 508 thou/uL (130-400); RBC Distribution Width 12.8 % (11.5-14.5); Red Blood Cell (RBC) Count 3.36 mill/uL (4.20-5.40); White Blood Cell (WBC) Count 9.1 thou/uL (4.8-10.8)
[2017-11-11 19:20] LABS: ALT (SGPT) 11 U/L (8-55); AST (SGOT) 9 U/L (5-34); Albumin 2.9 g/dL (3.5-5.0); Alkaline Phosphatase 108 U/L (40-150); Anion Gap 10 mmol/L (10-20); BUN (Urea Nitrogen) 59 mg/dL (7.0-18.7); Bilirubin, Total 0.2 mg/dL (0.2-1.2); Calc. Creatinine Clearance 0 mL/min (70-130); Calcium 9.8 mg/dL (7.8-10.44); Carbon Dioxide 19 mmol/L (22-29); Chloride 109 mmol/L (98-107); Estimated GFR-MDRD 20; Globulin 4.4 g/dL (2.4-3.5); Glucose 271 mg/dL (70-105); Potassium 5.3 mmol/L (3.5-5.1); Protein, Total 7.3 g/dL (6.0-8.3); Sodium 133 mmol/L (136-145)
== END 2017-11-11 22:13 | disposition home or self-care (01) ==
LOC: ERS 17:54
DX: E87.5 Hyperkalemia (principal); E11.9 Type 2 diabetes mellitus without complications; E78.5 Hyperlipidemia, unspecified; D64.9 Anemia, unspecified; Z79.4 Long term (current) use of insulin
CPT/HCPCS: 80053; 85025; 93005

== ENCOUNTER 2017-12-03 08:31 | Day surgery (SDC) | payer OTHER ==
[~2017-12-03 08:31] MED LIST: FLU VACC QS2017-18 36 mo. & older 0.5 ML SYRINGE IM ONE; Prevnar 13-Val Conj/PF 0.5 ML SYRINGE IM ONE
[2017-12-03 09:37] LABS: PTT 38.2 SEC (22.9-36.1); Prothrombin Time 13.4 SEC (12.0-14.7)
[2017-12-03 10:05] VITALS: TEMP 99.2
[2017-12-03] MEDS ORDERED: Midazolam HCl 2 mg/2 ml Vial ONE (10:15)
[2017-12-03] MEDS ORDERED: Sodium Bicarbonate 2.4 MEQ/5 ML ONE (10:15)
[2017-12-03] MEDS ORDERED: Fentanyl 100 MCG/2 ML VIAL ONE (10:15)
--- NOTE | 2017-12-03 12:14 | CT ---
CT GUIDED RIGHT RENAL BIOPSY: Date: 12/03/17 INDICATION: History of Stage III chronic kidney disease and diabetes mellitus with increased proteinuria. TECHNIQUE: Informed consent was obtained. The patient was placed prone on the CT table. Preprocedure CT evaluati on was performed for guiding purposes. Site overlying the lower pole of the right kidney was marked. Patient underwent conscious sedation under guidance of the radiology nurse. The patient received 1 mg of Versed and 50 mcg of IV Fentanyl for the exam. Skin overlying the lower pole of the right kidney was prepped and draped in the usual sterile fashion . Buffered 1% lidocaine was administered to overlying subcutaneous tissues. Under CT fluoroscopic beny dance, a 17 gauge 6.7 cm trocar needle was guided down to the lower pole of the right kidney. One 2.2 cm 18 gauge core sample was obtained of the lower pole of the right kidney. Pathology was on site wi Dr. Elliott, verifying adequacy of the tissue sampling. There was a request for an additional tissue sample of the right kidney. The needle was slightly displaced following obtainment of the first core specimen. The needle was then repositioned in the lower pole of the right kidney. An additional 1.3 cm core sample was obtained of the lower pole of the right kidney. Upon confirmed adequacy of the carmelo pling, Surgifoam plugs were then placed within the trocar needle and advanced to the level of the bio psy site. Pressure was held at the biopsy site until hemostasis was obtained. Postprocedural CT exami [facility] demonstrates a small perinephric hematoma overlying the biopsy site of the inferior pole of th e right kidney. The patient tolerated the biopsy without difficulty. FINDINGS: There is nephrolithiasis involving both kidneys without evidence of hydronephrosis. There are mild va scular calcifications involving the abdominal aorta. IMPRESSION: Successful CT guided nonfocal right renal biopsy. POS: [facility]
== END 2017-12-03 13:50 | disposition home or self-care (01) ==
LOC: CT 08:31
PROVIDERS: ATTEND Internal Medicine Nephrology
PROC: 0TB03ZX Excision of Right Kidney, Percutaneous Approach, Diagnostic (ICD-10-PCS; principal; 2017-12-03)
DX: I13.0 Hypertensive heart and chronic kidney disease with heart failure and stage 1 through stage 4 chronic kidney disease, or unspecified chronic kidney disease (principal); E11.22 Type 2 diabetes mellitus with diabetic chronic kidney disease; N18.3 Chronic kidney disease, stage 3 (moderate); I50.32 Chronic diastolic (congestive) heart failure; N17.9 Acute kidney failure, unspecified; D63.1 Anemia in chronic kidney disease; E11.21 Type 2 diabetes mellitus with diabetic nephropathy; E78.5 Hyperlipidemia, unspecified; N20.0 Calculus of kidney; Z79.4 Long term (current) use of insulin; Z79.899 Other long term (current) drug therapy; Z83.3 Family history of diabetes mellitus; Z82.3 Family history of stroke
CPT/HCPCS: 50200; 77012; 85610; 85730; 88329; 99152; 99153; J2250; J3010

== ENCOUNTER 2018-08-10 13:54 | Inpatient (IN) | payer OTHER, SELFPAY ==
[~2018-08-10 13:54] MED LIST changes: -FLU VACC QS2017-18 36 mo. & older 0.5 ML SYRINGE IM ONE; +Heparin 1,000 UNITS/ML VIAL ONE; -Prevnar 13-Val Conj/PF 0.5 ML SYRINGE IM ONE
[2018-08-10 14:20] LABS: #Eosinphils 0.2 thou/uL (0.0-0.7); #Lymphocytes 1.4 thou/uL (1.20-3.40); #Monocytes 0.5 thou/uL (0.11-0.59); #Neutrophils 3.7 thou/uL (1.40-6.50); %Basophils 0.6 % (0.0-1.0); %Eosinophils 3.1 % (0.0-10.0); %Lymphocytes 24.5 % (21.0-51.0); %Monocytes 8.4 % (0.0-10.0); %Neutrophils 63.3 % (42.0-75.0); Hemoglobin 7.9 g/dL (12.0-16.0); Mean Corpuscular HGB CONC 32.2 g/dL (32.0-36.0); Mean Corpuscular Hemoglobin 28.1 pg (27.0-31.0); Mean Corpuscular Volume 87.3 fL (78.0-98.0); Platelet Count 407 thou/uL (130-400); RBC Distribution Width 13.8 % (11.5-14.5); Red Blood Cell (RBC) Count 2.82 mill/uL (4.20-5.40); White Blood Cell (WBC) Count 5.8 thou/uL (4.8-10.8)
[2018-08-10 14:43] LABS: ALT (SGPT) 14 U/L (8-55); AST (SGOT) 9 U/L (5-34); Alkaline Phosphatase 103 U/L (40-150); Anion Gap 19 mmol/L (10-20); BUN (Urea Nitrogen) 119 mg/dL (7.0-18.7); Bilirubin, Total 0.4 mg/dL (0.2-1.2); Calc. Creatinine Clearance 0 mL/min (70-130); Calcium 7.9 mg/dL (7.8-10.44); Carbon Dioxide 13 mmol/L (22-29); Chloride 111 mmol/L (98-107); Estimated GFR-MDRD 6; Globulin 4.1 g/dL (2.4-3.5); Glucose 67 mg/dL (70-105); Lipase 61 U/L (8-78); Potassium 4.8 mmol/L (3.5-5.1); Protein, Total 7.1 g/dL (6.0-8.3); Sodium 138 mmol/L (136-145)
--- NOTE | 2018-08-10 16:13 | HP ---
PRIMARY CARE PROVIDER: Shashi Martinez M.D. STRUCTURED CABLING TECHNICIAN: Treasure Medina M.D. HISTORY OF PRESENT ILLNESS: Patient has been nauseated with diarrhea for 2 weeks. She is making a l ittle amount of urine. She has been short of breath, lightheaded. She was seen by her PCP. Referre d to the emergency room for outstanding laboratory. Sound was called. PAST MEDICAL HISTORY: Chronic kidney disease secondary to diabetes mellitus type 2 which is now insu jessica-dependent, hypertension, elevated cholesterol and chronic anemia. CURRENT MEDICATIONS: Amlodipine 5 mg a day, iron 325 mg twice a day, losartan 25 mg a day, furosemid e 40 mg a day, Coreg 25 mg a day. ALLERGIES: No known medical allergies. PAST SURGICAL HISTORY: Tubal ligation. FAMILY HISTORY: Father and paternal grandmother had end-stage renal disease, diabetes, and hypertens ion. SOCIAL HISTORY: She is , at bedside. Nonsmoker, nonalcohol drinker. CODE STATUS: FULL CODE status. next of kin. REVIEW OF SYSTEMS: GENERAL: Malaise, lightheaded, no fainting. EYES: Blurred vision occasionally . She relates to changes in blood sugar. No double vision, flashing lights. EAR, NOSE, AND THROAT: No ear pain or drainage, nasal bleeding, trouble swallowing. CARDIAC: She has very occasional pre ssure chest pain. She has no paroxysmal nocturnal dyspnea or orthopnea. RESPIRATORY: Dyspnea on ex ertion, no wheezing or asthma. No cough. GASTROINTESTINAL: See present illness. No hematemesis, h ematochezia, or melena. GENITOURINARY: No blood or pain on urination. MUSCULOSKELETAL: Cramps in her legs. No swelling in her legs. No pain in her joints. PSYCHIATRIC: She has mild anxiety, does not take any medicines. NEUROLOGIC: No strokes, seizures or focal weakness. SKIN: No bruising, b leeding or rash. HEME/LYMPH: No tender or swollen lymph nodes in axilla, inguinal or cervical area. PHYSICAL EXAMINATION: GENERAL: Alert, oriented, chronically ill appearing woman. VITAL SIGNS: Blood pressure 126/70, pulse 69, respirations 16, temperature 97.6. HEENT: Examination of head, eyes, ears, nose, and throat reveal pupils equal, round, and reactive. Extraocular movements are intact. Sclerae are white. Tympanic membranes clear. Nose clear. Oral m ucous membranes appear dry. Dental hygiene is adequate. NECK: Supple, without jugular venous distention, adenopathy or thyromegaly. CHEST: Clear to auscultation and percussion. HEART: Regular rate and rhythm. First and second heart sounds are clear. There was a soft 2/6 syst olic murmur. ABDOMEN: Soft, bowel sounds are normal. There is no hepatosplenomegaly, no mass, no rebound, no bru its. EXTREMITIES: Reveal no cyanosis, clubbing or edema. PULSES: Carotid, radial, femoral, and dorsalis pedis pulses intact and symmetric. SKIN: Warm and dry without bruises or rash. HEME/LYMPH: No tender or swollen lymph nodes in axilla, inguinal or cervical area. PULSES: Carotid, radial, femoral, and dorsalis pedis pulses intact. NEUROLOGICAL: Cranial nerves II-XII intact. Deep tendon reflexes symmetric. Moves all extremities. IMAGING DATA: No EKG is presented. No chest x-ray is presented. LABORATORY DATA: Sodium 138, potassium 4.8, chloride 111, carbon dioxide 13, BUN 119, creatinine 7.3 9. Blood sugar 67, albumin 3.0, globulin 4.1, hemoglobin 7.9 with normocytic normochromic indices. White count 5.8 and platelet count 407,000. ADMITTING DIAGNOSES: 1. Uremic syndrome. 2. Acute kidney failure on chronic kidney disease. 3. Hypertension. 4. Diabetes mellitus type 2, insulin-dependent. 5. Metabolic acidosis, most suggestive of uremic syndrome. 6. Nausea, vomiting, diarrhea. 7. Shortness of breath. PLAN: 1. I have called Dr. Treasure Medina about emergent hemodialysis. 2. Gentle IV fluids. 3. Hold ARB Lasix. 4. Accu-Cheks, sliding scale. 5. Serial lab.
[2018-08-10] MEDS ORDERED: CEFAZOLIN/Water 2 GM/20 ML SYRINGE SLOW IVP SCH (16:45)
[2018-08-10 17:06] VITALS: BMI 31.8
[2018-08-10] MEDS: Epoetin (NON-ESRD) 10,000 UNITS/ML VIAL IVP SCH (18:16)
[2018-08-10 19:12] LABS: HBSAg Index 0.15 S/CO (0-0.99); Hep B Surf Ag Non-Reactive S/CO (NonReactive)
[2018-08-10] MEDS ORDERED: Ondansetron HCl/PF 4 MG/2 ML Vial IVP PRN (19:57)
[2018-08-10] MEDS ORDERED: Dextrose 50% Abboject 50 ML SYRINGE SLOW IVP PRN (19:57)
[2018-08-10] MEDS ORDERED: Zolpidem Tartrate 5 MG TAB PO PRN (19:57)
[2018-08-10] MEDS ORDERED: Dextrose 5% in Water 1,000 ML IV PRN (19:57)
[2018-08-10] MEDS ORDERED: Sodium Chloride 0.9% 1,000 ML IV SCH (19:57)
[2018-08-10] MEDS ORDERED: Acetaminophen 325 MG TAB PO PRN (19:57)
[2018-08-10] MEDS ORDERED: Tuberculin PPD 0.1 ML VIAL I-DERMAL SCH (20:00)
[2018-08-10 20:37] LABS: Magnesium 2.1 mg/dL (1.6-2.6); Phosphorus 8.6 mg/dL (2.3-4.7)
--- NOTE | 2018-08-10 20:37 | OP ---
PREOPERATIVE DIAGNOSIS: End-stage renal disease, insulin-dependent diabetes mellitus, hypertension, recently provided in the emergency room. POSTOPERATIVE DIAGNOSIS: End-stage renal disease, insulin-dependent diabetes mellitus, hypertension, recently provided in the emergency room. PROCEDURE: Right femoral vein Trialysis catheter. SURGEON: Dr. Boo Paris. ANESTHESIA: 1% Xylocaine. PROCEDURE: With the patient's bedside, her right groin was prepared with ChloraPrep, draped in routi ne fashion. Local anesthetic infiltrated into skin and subcutaneous tissue. Trocar catheter was use d to cannulate the femoral vein. J-wire threaded. Trocar catheter removed. Skin was incised and en larged sharply. Seldinger technique used to place a smaller and medium sized dilators and a larger c atheter over the J-wire into the femoral vein, removing the J-wire securing the catheter with 3-0 nyl on suture and sterile dressings applied. Each port aspirated blood and flushed with heparinized sali ne solution. Patient tolerated the procedure well.
--- NOTE | 2018-08-10 21:25 | RAD ---
TWO VIEW CHEST: 08/10/18 HISTORY: Shortness of breath. No comparison available. The heart is mildly enlarged. Vascular markings upper normal. There is a small left pleural effusion and possibly tiny right effusion. No infiltrate. IMPRESSION: Borderline cardiomegaly and small left pleural effusion. POS: [facility]
--- NOTE | 2018-08-10 22:35 | HP ---
HISTORY OF PRESENT ILLNESS: A 48-year-old female who presents to the emergency room, referred by her primary care physician for end-stage renal disease and anemia. She was seen in the emergency room a nd given a turkey sandwich, even though she had been n.p.o. since last night. She has chronic kidney disease with acute renal failure, acidotic, CO2 13, GFR 6. I have been asked to place a dialysis ca theter, but will have to place a femoral catheter because she had just eaten. ALLERGIES: None. TOBACCO: None. ALCOHOL: None. MEDICATIONS: Apresoline, insulin, furosemide, iron sulfate, carvedilol, atorvastatin, aspirin, amlod ipine. PAST SURGICAL HISTORY: Tubal ligation. PAST MEDICAL HISTORY: Diabetes mellitus, hypertension, chronic kidney disease. REVIEW OF SYSTEMS: Noncontributory. Echocardiogram normal, recent hospitalization. PHYSICAL EXAMINATION: VITAL SIGNS: Blood pressure 120/70, respiratory rate 18, heart rate 78. HEAD, EARS, EYES, NOSE, AND THROAT: Unremarkable. LUNGS: Clear to auscultation. CARDIAC: Regular rate and rhythm without murmur or gallop. ABDOMEN: Soft, nontender. IV in hand. EXTREMITIES: Unremarkable. Small vein, cephalic wrist. No visibly demonstrable vein, antecubital a surinder. LABORATORY DATA: White count 5, hemoglobin 7.9. Sodium 138, potassium 4.8, carbon dioxide 13, creat inine 7.39, GFR 6. ASSESSMENT AND PLAN: 1. Chronic kidney disease with end-stage renal disease. Plan placement of femoral dialysis catheter due to the fact that she recently consumed turkey sandwich in the emergency room, although she is n. p.o. on presentation. Dr. Seals and I will be out of town next 2 days. Next week, we will place a cuffed tunneled hemodialysis catheter, possibly central line in left or right arm fistula, possible graft pending vein mapping to select side. The patient is a good candidate for peritoneal dialysis a nd should be counseled as to that. She could have a peritoneal dialysis catheter to avoid a prosthet ic graft. We will await her vein mapping and allow her gas burner operator to family life counselor her as far as PD. 2. Diabetes mellitus, insulin dependent. 3. Hypertension.
--- NOTE | 2018-08-11 00:41 | CON ---
DATE OF CONSULTATION: 08/10/2018 CONSULTING PHYSICIAN: Dr. Lamar. REASON FOR CONSULTATION: Worsening renal failure. REASON FOR ADMISSION: Nausea and shortness of breath. HISTORY OF PRESENT ILLNESS: This is a 48-year-old female with a past medical history of type 2 diabe matt, hypertension, hyperlipidemia, chronic anemia, came to the hospital with above symptoms and Nephr ology is consulted as the patient's creatinine was 7.3. The patient does have anemia 7.9 and bicarbo aby of 13 elevated BNP of 1563 which also suggests worsening chronic kidney disease, worsening end-stage renal disease. No fever or chills reported. No skin rash, no chest pain, palpitation, no shortness of breath. PAST MEDICAL HISTORY: 1. Positive for chronic kidney disease, type 2 diabetes, diabetic nephropathy, biopsy proven. 2. Hypertension. 3. Hyperlipidemia. 4. Chronic anemia. PAST SURGICAL HISTORY: Tubal ligation. HOME MEDICATIONS: Amlodipine, iron, losartan, furosemide, Coreg. ALLERGIES: No known drug allergies. SOCIAL HISTORY: No smoking, alcohol, or illicit drug abuse. FAMILY HISTORY: No history of kidney disease. REVIEW OF SYSTEMS: The following complete review of systems was negative, unless otherwise mentioned in the HPI or below: Constitutional: Weight loss or gain, ability to conduct usual activities. Sk in: Rash, itching. Eyes: Double vision, pain. ENT/Mouth: Nose bleeding, neck stiffness, pain, te nderness. Cardiovascular: Palpitations, dyspnea on exertion, orthopnea. Respiratory: Shortness of breath, wheezing, cough, hemoptysis, fever or night sweats. Gastrointestinal: Poor appetite, abdom inal pain, heartburn, nausea, vomiting, constipation, or diarrhea. Genitourinary: Urgency, frequenc y, dysuria, nocturia. Musculoskeletal: Pain, swelling. Neurologic/Psychiatric: Anxiety, depressio n. Allergy/Immunologic: Skin rash, bleeding tendency. PHYSICAL EXAMINATION: GENERAL: This is a thin-built female in no apparent distress. VITAL SIGNS: Temperature 99.4, pulse 84, respiratory rate 18, blood pressure 128/62. HEENT: Atraumatic, normocephalic. Oral mucosa is moist. NECK: Supple, no masses. HEART: S1, S2 heard. Rate and rhythm regular. RESPIRATORY: Clear. ABDOMEN: Soft. MUSCULOSKELETAL: 1+ edema. DERMATOLOGIC: No rash. NEUROLOGIC: Alert and awake. PSYCHIATRIC: Mood and affect normal. LABORATORY DATA: Potassium is 4.8, BUN 119, creatinine 7.3, albumin is 3.0, hemoglobin is 7.9. ASSESSMENT AND PLAN: 1. End-stage renal disease. The patient will be started on hemodialysis. Patient was having worsen ing renal function and is being monitored and it is to the point that she has uremic symptoms and carlie n is to start dialysis. Patient does not have insurance. We will have case management consult for o utpatient placement. We would also appreciate help from Surgery for temporary dialysis catheter. Th e patient needs a tunneled dialysis catheter and possibly PD catheter if patient is agreeable. 2. Metabolic acidosis secondary to renal failure. We will start dialysis. 3. Anemia of chronic kidney disease. We will start Epogen with dialysis. Continue iron supplements . 4. Hypoalbuminemia. 5. Proteinuria. 6. Biopsy proven diabetic nephropathy, slightly better BMP, we will remove fluid if tolerated with d ialysis. 7. Hypertension. Blood pressure is stable. 8. Type 2 diabetes with proteinuria. Plan is to start dialysis as tolerated. Case management consult for outpatient placement, PPD orders placed and a Surgery consult placed for access placement. Patient was educated on PD and might need a PD catheter before discharge planning to place access early next week. Thank you for the consult again. We will follow.
[2018-08-11 05:23] LABS: #Eosinphils 0.1 thou/uL (0.0-0.7); #Monocytes 0.5 thou/uL (0.11-0.59); %Basophils 0.5 % (0.0-1.0); %Eosinophils 1.8 % (0.0-10.0); %Lymphocytes 14.8 % (21.0-51.0); %Monocytes 7.6 % (0.0-10.0); %Neutrophils 75.3 % (42.0-75.0); Hemoglobin 7.8 g/dL (12.0-16.0); Mean Corpuscular HGB CONC 32.1 g/dL (32.0-36.0); Mean Corpuscular Hemoglobin 27.7 pg (27.0-31.0); Mean Corpuscular Volume 86.5 fL (78.0-98.0); Mean Platelet Volume 8.6 fL (7.4-10.4); Platelet Count 398 thou/uL (130-400); RBC Distribution Width 13.6 % (11.5-14.5); Red Blood Cell (RBC) Count 2.82 mill/uL (4.20-5.40); White Blood Cell (WBC) Count 6.6 thou/uL (4.8-10.8)
[2018-08-11 05:44] LABS: Anion Gap 16 mmol/L (10-20); BUN (Urea Nitrogen) 66 mg/dL (7.0-18.7); Calc. Creatinine Clearance 24 mL/min (70-130); Calcium 7.9 mg/dL (7.8-10.44); Carbon Dioxide 19 mmol/L (22-29); Chloride 109 mmol/L (98-107); Estimated GFR-MDRD 9; Glucose 156 mg/dL (70-105); Potassium 3.6 mmol/L (3.5-5.1); Sodium 140 mmol/L (136-145)
--- NOTE | 2018-08-11 08:07 | ULT ---
RENAL ULTRASOUND: HISTORY: Renal failure, frequent UTIs. FINDINGS: Real-time imaging of the right and left kidneys was performed. The right kidney measured 11.0 and th e left kidney 10.4 cm in size. Both kidneys are of increased echogenicity. There are no signs of cy st, mass, or obstruction. There are some small echogenic areas within both kidneys, potentially tiny nonobstructing stones. The bladder is incompletely distended. IMPRESSION: 1. Possible tiny nonobstructing renal calculi. 2. Increased echogenicity to both kidneys suggesting underlying medical renal parenchymal disease. POS: CHRISTO
[2018-08-11] MEDS ORDERED: Heparin 10,000 UNITS/ 10 ML VIAL ONE (08:20)
[2018-08-11] MEDS: Epoetin (NON-ESRD) 10,000 UNITS/ML VIAL IVP SCH (08:55)
--- NOTE | 2018-08-11 09:50 | PRG ---
Patient Name: SABINE MURRAY Date of service: 08/11/2018 Subjective: Patient was seen and examined at bedside and overnight events noted. Patient denies any shortness of breath or chest pain or palpitation. No history of nausea or vomiting or diarrhea or fever or chills or cramps. Objective: General: This is a thin built female in no apparent distress. Vital signs: Temperature 98.4, pulse 80, respiratory rate 18, blood pressure 162/78. HEENT: Atraumatic, normocephalic. Oral mucosa is moist. Neck: Supple. Cardiovascular: S1 S2 heard. Rate and rhythm regular. Respiratory: Clear to auscultation. Gastrointestinal: Abdomen is soft. Musculoskeletal: No tenderness. No edema. Dermatologic: No skin rash. Neurologic: Alert and awake and oriented X3. No focal neurologic deficits. Moving all the extremit ies. Psychiatric: Mood and affect normal. LABORATORY DATA: Potassium 3.6, BUN 66, creatinine is 5.04. ASSESSMENT AND PLAN: 1. End-stage renal disease. Continue on hemodialysis as tolerated. 2. Edema, controlled. 3. Anemia. 4. Metabolic acidosis. 5. Proteinuria. 6. Hypoalbuminemia. Plan is to continue on dialysis as tolerated. We will follow. Case management consult for outpatien t placement and PD education will be given.
--- NOTE | 2018-08-11 13:50 | PDOC.PN ---
- Subjective Encounter Start Date: 08/11/18 Encounter Start Time: 13:49 Subjective: no sob, N&V resolved - Objective Resuscitation Status: Resuscitation Status FULL:Full Resuscitation MAR Reviewed: Yes Vital Signs & Weight: Vital Signs (12 hours) Temp Pulse Resp BP Pulse Ox 08/11/18 11:30 98.4 F 85 16 184/85 H 94 L 08/11/18 07:21 98.4 F 81 20 162/78 H 95 08/11/18 04:00 99.7 F H 84 18 164/78 H 93 L Weight Weight 248 lb 2 oz I&O: 08/10/18 08/11/18 08/12/18 06:59 06:59 06:59 Intake Total 460 Balance 460 Result Diagrams: 08/11/18 05:10 08/11/18 05:10 Additional Labs: Accuchecks 08/11/18 08/10/18 04:07 20:40 POC Glucose 124 H 160 H Phys Exam - Physical Examination Neck: no JVD Respiratory: clear to auscultation bilateral Cardiovascular: RRR, no significant murmur Gastrointestinal: soft, positive bowel sounds Musculoskeletal: no edema Dx/Plan (1) Uremia Code(s): N19 - UNSPECIFIED KIDNEY FAILURE Status: Acute (2) Acute on chronic renal failure Code(s): N17.9 - ACUTE KIDNEY FAILURE, UNSPECIFIED; N18.9 - CHRONIC KIDNEY DISEASE, UNSPECIFIED Status: Acute Qualifiers: Acute renal failure type: unspecified Chronic kidney disease stage: unspecified stage Qualified Code(s): N17.9 - Acute kidney failure, unspecified ; N18.9 - Chronic kidney disease, unspecified (3) Anemia Code(s): D64.9 - ANEMIA, UNSPECIFIED Status: Chronic Qualifiers: Anemia type: due to chronic kidney disease (4) DM type 2 (diabetes mellitus, type 2) Status: Chronic Qualifiers: Diabetes mellitus assisted insulin use: with financial supervisor use Diabetes mellitus complication status: with kidney complications Diabetes mellitus complication detail: with chronic kidney disease Chronic kidney disease stage : unspecified stage Qualified Code(s): E11.22 - Type 2 diabetes mellitus with diabetic chronic kidney disease; 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
[2018-08-11] MEDS ORDERED: Amlodipine 5 MG TAB PO SCH (14:00)
[2018-08-11 14:11] LABS: HBSAB Concentration 1.73 mIU/mL; HBSAg Index 0.15 S/CO (0-0.99); Hep B Core Total Ab Non-Reactive (NonReactive); Hep B Core Total Index 0.13 S/CO (0-0.79); Hep B Surf AB Non-Reactive (NonReactive); Hep B Surf Ag Non-Reactive S/CO (NonReactive); Hep C IgG Ab Non-Reactive (NonReactive); Hep C Index 0.29 S/CO (0-0.79)
--- NOTE | 2018-08-11 15:57 | ULT ---
VENOUS DUPLEX SONOGRAM BILATERAL UPPER EXTREMITY FOR VEIN MAPPING: HISTORY: Renal disease. Need for hemodialysis access. FINDINGS: Good color and spectral Doppler flow are present within each internal jugular and subclavian vein and each axillary and brachial vein. Measurements are as follows. RIGHT: Brachial artery 4 mm Radial artery 1 mm Ulnar artery 2 mm CEPHALIC VEIN: Proximal humerus 2 mm Mid humerus 1 mm Distal 1 mm Antecubital fossa 1 mm Proximal forearm 2 mm Mid 2 mm Distal 2 mm BASILIC VEIN: Proximal humerus 5 mm Mid humerus 4 mm Distal 4 mm Antecubital fossa 2 mm Proximal forearm 2 mm Mid 2 mm Distal 2 mm LEFT: Brachial artery 3 mm Radial artery 2 mm Ulnar artery 2 mm CEPHALIC VEIN: Proximal humerus 4 mm Mid humerus 3 mm Distal 2 mm Antecubital fossa 2 mm Proximal forearm 3 mm Mid 2 mm Distal 2 mm BASILIC VEIN: Proximal humerus 4 mm Mid humerus 3 mm Distal 3 mm Antecubital fossa 3 mm Proximal forearm 2 mm Mid 2 mm Distal 1 mm IMPRESSION: Patent vascular structures within each upper extremity with measurements as detailed above. POS: CHRISTO
[2018-08-11] MEDS: HumaLOG 300 UNITS/3 ML VIAL SC PRN (17:12)
[2018-08-12] MEDS: Amlodipine 5 MG TAB PO SCH (08:21)
[2018-08-12] MEDS: HumaLOG 300 UNITS/3 ML VIAL SC PRN ×2 (13:08→17:38)
--- NOTE | 2018-08-12 14:40 | PDOC.PN ---
- Subjective Encounter Start Date: 08/12/18 Encounter Start Time: 12:00 Subjective: f/u for ESRD initiated on HD. States feeling much better today and -: appetite improved. - Objective Resuscitation Status: Resuscitation Status FULL:Full Resuscitation MAR Reviewed: Yes Vital Signs & Weight: Vital Signs (12 hours) Temp Pulse Resp BP Pulse Ox 08/12/18 11:30 97.8 F 78 20 149/68 H 96 08/12/18 08:19 98.1 F 75 18 157/72 H 96 Weight Weight 248 lb 2 oz I&O: 08/11/18 08/12/18 08/13/18 06:59 06:59 06:59 Intake Total 460 500 Output Total 1800 Balance 460 -1300 Result Diagrams: 08/11/18 05:10 08/11/18 05:10 Additional Labs: Accuchecks 08/12/18 08/11/18 08/11/18 00:20 16:19 11:29 POC Glucose 196 H 232 H 109 Phys Exam - Physical Examination Constitutional: NAD HEENT: PERRLA, sclera anicteric, oral pharynx no lesions Neck: no nodes, no JVD, supple, full ROM Respiratory: no wheezing, no rales, no rhonchi, clear to auscultation bilateral Cardiovascular: RRR, no significant murmur, no rub, gallop Gastrointestinal: soft, non-tender, no distention, positive bowel sounds Musculoskeletal: no edema, pulses present Neurological: non-focal, normal sensation, moves all 4 limbs Psychiatric: normal affect, A&O x 3 Skin: no rash, normal turgor, cap refill <2 seconds Dx/Plan (1) ESRD (end stage renal disease) on dialysis Code(s): N18.6 - END STAGE RENAL DISEASE; Z99.2 - DEPENDENCE ON RENAL DIALYSIS Status: Acute Comment: Receiving HD currently, plan for outpt HD when coordinated with CM (2) Uremia Code(s): N19 - UNSPECIFIED KIDNEY FAILURE Status: Acute Comment: Resolving with HD (3) HTN (hypertension) Code(s): I10 - ESSENTIAL (PRIMARY) HYPERTENSION Status: Chronic Qualifiers: Hypertension type: essential hypertension Comment: Continue Amlodipine 5mg daily, add Coreg 6.25mg BID (4) DM type 2 (diabetes mellitus, type 2) Status: Chronic Qualifiers: Diabetes mellitus ad operations specialist insulin use: with assisted use Diabetes mellitus complication status: with kidney complications Diabetes mellitus complication detail: with chronic kidney disease Chronic kidney disease stage : unspecified stage Qualified Code(s): E11.22 - Type 2 diabetes mellitus with diabetic chronic kidney disease; 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
--- NOTE | 2018-08-12 15:07 | PRG ---
DATE OF SERVICE: 08/12/2018 SUBJECTIVE: Patient was seen and examined at bedside and overnight events noted. Patient denies any shortness of breath or chest pain or palpitation. No history of nausea or vomitin g or diarrhea or fever or chills or cramps. OBJECTIVE: GENERAL: This is a well-built female, in no apparent distress. VITAL SIGNS: Temperature 97.8, pulse 71, respiratory rate 20, blood pressure 149/68. HEENT: Atraumatic, normocephalic. Oral mucosa is moist. NECK: Supple. CARDIOVASCULAR: S1 and S2 heard. Rate and rhythm regular. RESPIRATORY: Clear to auscultation. GASTROINTESTINAL: Abdomen is soft. MUSCULOSKELETAL: No tenderness. No edema. DERMATOLOGIC: No skin rash. NEUROLOGIC: Alert and awake and oriented x3. No focal neurologic deficits. Moving all the extremit ies. PSYCHIATRIC: Mood and affect normal. LABORATORY DATA: No labs done today. ASSESSMENT AND PLAN: 1. End-stage renal disease. Continue on hemodialysis. 2. Edema, controlled. 3. Anemia. 4. Metabolic acidosis. 5. Proteinuria. 6. Hypoalbuminemia. We will continue on dialysis as tolerated.
[2018-08-12 17:06] LABS: #Eosinphils 0.1 thou/uL (0.0-0.7); #Lymphocytes 1.6 thou/uL (1.20-3.40); #Monocytes 0.9 thou/uL (0.11-0.59); #Neutrophils 4.6 thou/uL (1.40-6.50); %Basophils 0.6 % (0.0-1.0); %Eosinophils 2.1 % (0.0-10.0); %Lymphocytes 22.1 % (21.0-51.0); %Monocytes 12.3 % (0.0-10.0); %Neutrophils 62.9 % (42.0-75.0); Hemoglobin 8.3 g/dL (12.0-16.0); Mean Corpuscular HGB CONC 30.9 g/dL (32.0-36.0); Mean Corpuscular Hemoglobin 27.4 pg (27.0-31.0); Mean Corpuscular Volume 88.8 fL (78.0-98.0); Mean Platelet Volume 9.1 fL (7.4-10.4); Platelet Count 395 thou/uL (130-400); RBC Distribution Width 13.9 % (11.5-14.5); Red Blood Cell (RBC) Count 3.02 mill/uL (4.20-5.40); White Blood Cell (WBC) Count 7.3 thou/uL (4.8-10.8)
[2018-08-12] MEDS: READ PPD TEST SITE PO SCH (21:00)
[2018-08-12] MEDS ORDERED: Insulin Glargine 6 UNITS in Pre-Filled Syringe 1 EACH SC SCH (21:00)
[2018-08-12] MEDS: Ferrous Sulfate 325 MG TAB PO SCH (21:38)
[2018-08-13 06:06] LABS: Hemoglobin A1c 7.6 % (4.0-6.0)
[2018-08-13] MEDS: Carvedilol 25 MG TAB PO SCH (08:29)
[2018-08-13] MEDS: Amlodipine 5 MG TAB PO SCH (08:29)
[2018-08-13] MEDS: Ferrous Sulfate 325 MG TAB PO SCH ×2 (08:29→20:35)
--- NOTE | 2018-08-13 09:00 | PRG ---
DATE OF SERVICE: 08/13/2018 SUBJECTIVE: Patient was seen and examined at bedside and overnight events noted. Patient denies any shortness of breath or chest pain or palpitation. No history of nausea or vomiting or diarrhea or f ever or chills or cramps. OBJECTIVE: GENERAL: This is a thin built female in no apparent distress. VITAL SIGNS: Temperature 98.0, pulse 79, respiratory rate 14, blood pressure 158/81. HEENT: Atraumatic, normocephalic. Oral mucosa is moist. NECK: Supple. CARDIOVASCULAR: S1, S2 heard. Rate and rhythm regular. RESPIRATORY: Clear to auscultation. GASTROINTESTINAL: Abdomen is soft. MUSCULOSKELETAL: No tenderness, no edema. DERMATOLOGIC: No skin rash. NEUROLOGIC: Alert and awake and oriented x3. No focal neurologic deficits. Moving all the extremit ies. PSYCHIATRIC: Mood and affect normal. LABORATORY DATA: Not done today. ASSESSMENT AND PLAN: 1. End-stage renal disease. Continue on dialysis Wednesday, Wednesday and Wednesday. 2. Edema. 3. Anemia. 4. Metabolic acidosis. 5. Proteinuria. 6. Hypoalbuminemia. We will continue on dialysis as tolerated.
[2018-08-13] MEDS ORDERED: Heparin 10,000 UNITS/ 10 ML VIAL ONE (10:00)
--- NOTE | 2018-08-13 11:46 | PDOC.PN ---
- Subjective Encounter Start Date: 08/13/18 Encounter Start Time: 11:45 Subjective: f/u for ESRD on HD and DMII. Feeling ok overall. No CP, SOB. Tolerating -: HD. - Objective Resuscitation Status: Resuscitation Status FULL:Full Resuscitation MAR Reviewed: Yes Vital Signs & Weight: Vital Signs (12 hours) Temp Pulse Resp BP BP Pulse Ox 08/13/18 11:00 98.0 F 75 16 131/68 94 L 08/13/18 08:29 79 158/81 H 08/13/18 08:00 95 08/13/18 07:33 98.0 F 79 14 158/81 H 95 Weight Weight 248 lb 2 oz I&O: 08/12/18 08/13/18 08/14/18 06:59 06:59 06:59 Intake Total 500 1250 Output Total 1800 Balance -1300 1250 Result Diagrams: 08/12/18 05:45 08/11/18 05:10 Additional Labs: Accuchecks 08/13/18 08/12/18 08/12/18 04:43 19:46 16:04 POC Glucose 180 H 253 H 362 H 08/12/18 08/12/18 11:05 06:11 POC Glucose 354 H 156 H Laboratory Tests 08/13/18 05:45 Hemoglobin A1c 7.6 H Phys Exam - Physical Examination Constitutional: NAD HEENT: PERRLA, sclera anicteric, oral pharynx no lesions Neck: no nodes, no JVD, supple, full ROM Respiratory: no wheezing, no rales, no rhonchi, clear to auscultation bilateral Cardiovascular: RRR, no significant murmur, no rub, gallop Gastrointestinal: soft, non-tender, no distention, positive bowel sounds Musculoskeletal: no edema, pulses present Neurological: non-focal, normal sensation, moves all 4 limbs Psychiatric: normal affect, A&O x 3 Skin: normal turgor, cap refill <2 seconds Dx/Plan (1) ESRD (end stage renal disease) on dialysis Code(s): N18.6 - END STAGE RENAL DISEASE; Z99.2 - DEPENDENCE ON RENAL DIALYSIS Status: Acute Comment: Receiving HD currently, plan for outpt HD when coordinated with CM (2) Uremia Code(s): N19 - UNSPECIFIED KIDNEY FAILURE Status: Acute Comment: Resolving with HD (3) HTN (hypertension) Code(s): I10 - ESSENTIAL (PRIMARY) HYPERTENSION Status: Chronic Qualifiers: Hypertension type: essential hypertension Comment: Continue Amlodipine 5mg daily, add Coreg 6.25mg BID (4) DM type 2 (diabetes mellitus, type 2) Status: Chronic Qualifiers: Diabetes mellitus intermediate manager insulin use: with nursing home use Diabetes mellitus complication status: with kidney complications Diabetes mellitus complication detail: with chronic kidney disease Chronic kidney disease stage : unspecified stage Qualified Code(s): E11.22 - Type 2 diabetes mellitus with diabetic chronic kidney disease; 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
[2018-08-13] MEDS: HumaLOG 300 UNITS/3 ML VIAL SC PRN ×2 (12:57→17:15)
[2018-08-13] MEDS: Insulin Glargine 12 UNITS in Pre-Filled Syringe 1 EACH SC SCH (20:35)
[2018-08-13] MEDS: READ PPD TEST SITE PO SCH (22:42)
[2018-08-14] MEDS: Amlodipine 5 MG TAB PO SCH (07:52)
[2018-08-14] MEDS: Carvedilol 25 MG TAB PO SCH (07:52)
[2018-08-14] MEDS: Ferrous Sulfate 325 MG TAB PO SCH ×2 (07:52→20:39)
[2018-08-14] MEDS: HumaLOG 300 UNITS/3 ML VIAL SC PRN ×2 (12:05→16:23)
--- NOTE | 2018-08-14 13:35 | PRG ---
DATE OF SERVICE: 08/14/2018 SUBJECTIVE: Patient was seen and examined at bedside and overnight events noted. Patient denies any shortness of breath or chest pain or palpitation. No history of nausea or vomiting or diarrhea or fever or chills or cramps. OBJECTIVE: GENERAL: This is a thin built female in no apparent distress. VITAL SIGNS: Temperature , pulse 77, respiratory rate . HEENT: Atraumatic, normocephalic. Oral mucosa is moist. NECK: Supple. CARDIOVASCULAR: S1 and S2 heard. Rate and rhythm regular. RESPIRATORY: Clear to auscultation. GASTROINTESTINAL: Abdomen is soft. MUSCULOSKELETAL: No tenderness. No edema. DERMATOLOGIC: No skin rash. NEUROLOGIC: Alert and awake and oriented x3. No focal neurologic deficits. Moving all the extremit ies. PSYCHIATRIC: Mood and affect normal. LABORATORY DATA: Not done today. ASSESSMENT AND PLAN: 1. End-stage renal disease. Continue on dialysis as tolerated. Plan is to continue dialysis Grant y. Plan for dialysis access surgery tomorrow. 2. Edema, better. 3. Proteinuria. 4. Hypoalbuminemia. 5. Metabolic acidosis. Follow up with case management for outpatient placement. We will follow.
--- NOTE | 2018-08-14 16:01 | PDOC.PN ---
- Subjective Encounter Start Date: 08/14/18 Encounter Start Time: 15:45 Subjective: f/u for ESRD with current HD. No new complaints. - Objective Resuscitation Status: Resuscitation Status FULL:Full Resuscitation MAR Reviewed: Yes Vital Signs & Weight: Vital Signs (12 hours) Temp Pulse Resp BP BP Pulse Ox 08/14/18 10:51 98.3 F 77 16 130/72 97 08/14/18 08:00 98 08/14/18 07:58 97.9 F 16 98 08/14/18 07:52 74 153/88 H 08/14/18 04:00 98.6 F 73 16 160/79 H 98 Weight Weight 113 lb 2 oz I&O: 08/13/18 08/14/18 08/15/18 06:59 06:59 06:59 Intake Total 1250 480 Output Total 2500 Balance 1250 -2019 Result Diagrams: 08/12/18 05:45 08/11/18 05:10 Additional Labs: Accuchecks 08/14/18 08/14/18 08/13/18 10:49 04:04 20:35 POC Glucose 195 H 104 258 H 08/13/18 17:07 POC Glucose 198 H Phys Exam - Physical Examination Constitutional: NAD HEENT: PERRLA, sclera anicteric, oral pharynx no lesions Neck: no nodes, no JVD, supple, full ROM Respiratory: no wheezing, no rales, no rhonchi, clear to auscultation bilateral Cardiovascular: RRR, no significant murmur, no rub, gallop Gastrointestinal: soft, non-tender, no distention, positive bowel sounds Musculoskeletal: no edema, pulses present Neurological: normal sensation, moves all 4 limbs Psychiatric: normal affect, A&O x 3 Deviation from normal: L forearm with erythema, no prominent induration Skin: normal turgor, cap refill <2 seconds Dx/Plan (1) ESRD (end stage renal disease) on dialysis Code(s): N18.6 - END STAGE RENAL DISEASE; Z99.2 - DEPENDENCE ON RENAL DIALYSIS Status: Acute Comment: Receiving HD currently, plan for outpt HD when coordinated with CM (2) Uremia Code(s): N19 - UNSPECIFIED KIDNEY FAILURE Status: Acute Comment: Resolving with HD (3) HTN (hypertension) Code(s): I10 - ESSENTIAL (PRIMARY) HYPERTENSION Status: Chronic Qualifiers: Hypertension type: essential hypertension Comment: Continue Amlodipine 5mg daily, add Coreg 6.25mg BID (4) DM type 2 (diabetes mellitus, type 2) Status: Chronic Qualifiers: Diabetes mellitus longterm insulin use: with longterm use Diabetes mellitus complication status: with kidney complications Diabetes mellitus complication detail: with chronic kidney disease Chronic kidney disease stage : unspecified stage Qualified Code(s): E11.22 - Type 2 diabetes mellitus with diabetic chronic kidney disease; Z79.4 - emt intermediate (current) use of insulin Comment: ISS, ADA, Increase Levemir 12u sc HS - Plan Stable currently -: Plan for AV fistula placement 08/15/18 -: Will need new temporary HD catheter placed given current femoral -: Reviewed PCXR 08/10/18 and clear -: OOB/ambulate * .
[2018-08-14] MEDS: Insulin Glargine 12 UNITS in Pre-Filled Syringe 1 EACH SC SCH (20:41)
[2018-08-15] MEDS: Carvedilol 25 MG TAB PO SCH (05:27)
[2018-08-15 06:10] LABS: Anion Gap 14 mmol/L (10-20); BUN (Urea Nitrogen) 43 mg/dL (7.0-18.7); Calc. Creatinine Clearance 11 mL/min (70-130); Calcium 8.6 mg/dL (7.8-10.44); Carbon Dioxide 24 mmol/L (22-29); Chloride 103 mmol/L (98-107); Estimated GFR-MDRD 9; Glucose 76 mg/dL (70-105); Potassium 4.1 mmol/L (3.5-5.1); Sodium 137 mmol/L (136-145)
[2018-08-15] MEDS: Amlodipine 5 MG TAB PO SCH (08:17)
[2018-08-15] MEDS: Ferrous Sulfate 325 MG TAB PO SCH ×2 (08:17→19:58)
[2018-08-15] MEDS ORDERED: Midazolam HCl 2 mg/2 ml Vial ONE ×2 (10:56→12:06)
[2018-08-15] MEDS ORDERED: Fentanyl 100 MCG/2 ML VIAL ONE ×2 (10:56→12:06)
[2018-08-15] MEDS ORDERED: Lidocaine 1% (PF) 30 ML VIAL ONE (10:56)
--- NOTE | 2018-08-15 11:01 | PRG ---
Patient Name: SABINE MURRAY Date of service: 08/15/2018 Subjective: Patient was seen and examined at bedside and overnight events noted. Patient denies any shortness of breath or chest pain or palpitation. No history of nausea or vomiting or diarrhea or fever or chills or cramps. Objective: General: This is a thin built female in no apparent distress. Vital signs: Temperature 97.5, pulse 60, respiratory 18, blood pressure 142/73. HEENT: Atraumatic, normocephalic. Oral mucosa is moist. Neck: Supple. Cardiovascular: S1 S2 heard. Rate and rhythm regular. Respiratory: Clear to auscultation. Gastrointestinal: Abdomen is soft. Musculoskeletal: No tenderness. No edema. Dermatologic: No skin rash. Neurologic: Alert and awake and oriented X3. No focal neurologic deficits. Moving all the extremit ies. Psychiatric: Mood and affect normal. LABORATORY DATA: Potassium is 4.1, BUN 43, creatinine 5.7. ASSESSMENT AND PLAN: 1. End-stage renal disease. Continue dialysis as tolerated. Plan for dialysis tomorrow. I appreci ate help from surgeon for dialysis access placement. 2. Follow with case management for outpatient placement. 3. Edema, better, stable. 4. Proteinuria. 5. Hypoalbuminemia. 6. Metabolic acidosis, stable. Overall, stable. We will continue dialysis as tolerated.
[2018-08-15] MEDS ORDERED: Propofol 500 MG/50 ML VIAL ONE (12:06)
[2018-08-15] MEDS ORDERED: traMADol HCl 50 MG TAB PO PRN (12:19)
[2018-08-15] MEDS ORDERED: Acetaminophen 500 MG TAB PO PRN (12:19)
[2018-08-15] MEDS ORDERED: CEFAZOLIN/Water 2 GM/20 ML SYRINGE ONE (12:24)
[2018-08-15] MEDS ORDERED: Sodium Chloride 0.9% 10 ML ONE (13:05)
[2018-08-15] MEDS ORDERED: Promethazine HCl 25 MG/ML VIAL IM PRN (13:50)
[2018-08-15] MEDS ORDERED: Promethazine HCl 25 MG/ML VIAL SLOW IVP PRN (13:50)
[2018-08-15] MEDS ORDERED: Bupivacaine HCl 0.5%/Epinephrine 1:200,000/PF 30 ml Vial ONE ×2 (14:10→16:22)
[2018-08-15] MEDS ORDERED: Heparin 5,000 UNITS/ML VIAL ONE (14:12)
[2018-08-15] MEDS ORDERED: Sodium Chloride 0.9% 30 ML ONE (14:12)
[2018-08-15] MEDS ORDERED: Lidocaine 2% PF Inj 2 ML VIAL ONE (14:12)
[2018-08-15] MEDS ORDERED: Heparin 0 ML ONE (14:12)
[2018-08-15] MEDS ORDERED: Heparin 10,000 UNITS/1 ML VIAL ONE (14:12)
[2018-08-15] MEDS ORDERED: Protamine Sulfate 50 MG/5 ML VIAL ONE (14:12)
--- NOTE | 2018-08-15 15:26 | OP ---
DATE OF PROCEDURE: 08/15/2018 PREOPERATIVE DIAGNOSIS: End-stage renal disease, poor IV access. POSTOPERATIVE DIAGNOSIS: End-stage renal disease, poor IV access. PROCEDURE: Right IJ cuffed tunnel hemodialysis catheter, left IJ central line, left arm primary fist sultana, perforating branch antecubital vein to the proximal radial artery, outflow cephalic vein only, r etrograde antecubital vein preserved. No communication of basilic vein appreciated. SURGEON: Boo Paris M.D. ANESTHESIA: Left arm regional anesthesia, intravenous sedation, local 0.5% Marcaine with epinephrine 30 mL mixed with 2% Xylocaine 10 mL. Fluoroscopy and ultrasound used for central line placement. PROCEDURE IN DETAIL: Patient was taken to the operating room where under intravenous sedation, neck and chest and left upper extremity prepared with ChloraPrep, draped in routine fashion. Ultrasound u sed to cannulate the right and left internal jugular veins after anesthetizing the operative field an d the neck and chest with local anesthetic. J-wire was threaded into both the right and left interna l jugular veins and trocar catheter removed. Skin incised and enlarged sharply. On the left side, S eldinger technique used to place a triple-lumen catheter securing it with 3-0 Prolene suture. Aspira joslyn each port with saline blood and flushed with saline solution. Sterile dressing was applied. On the right side, a stab incision made over the right chest. A precurved angiodynamics cuffed tunne l hemodialysis catheter tunneled between two incisions, placing the fabric cuff beneath the skin exit site and catheter secured with 2 interrupted sutures of 3-0 Prolene. Smaller medium-sized dilators placed over the J-wire into the internal jugular vein removed. Dilator and pull-away sheath placed o jasmina the J-wire into the superior vena cava and dilator and J-wire removed. Catheter placed with pull -away sheath. Pull-away sheath removed. Platysma approximated with 4-0 Monocryl, skin with subderma l 4-0 Monocryl and DermaGlue and sterile dressings applied. Each port aspirated blood and flushed wi th heparinized saline solution, 1000 units heparin per mL indicated volume of the port. Fluoroscopic images revealed good line placement. Attention was turned to the left arm. Incision made in the proximal volar forearm longitudinally, ca rried down the skin and subcutaneous tissue just below the antecubital fossa and antecubital vein dis sected free. The cephalic vein was adequate caliber. Perforating branch antecubital vein was of goo d caliber and dissected free. Branches divided between 4-0 silk ties and clips. It was spatulated o jasmina a branch point and interrogated. Coronary dilators passed from a 2 mm to a 3.5 mm coronary dilat or, unobstructed up the cephalic vein. No communication to the basilic vein appreciated. Retrograde antecubital vein preserved. Proximal radial artery dissected free, controlled proximally and distal ly with vascular clamps after administering 6000 units heparin intravenously. Longitudinal arterioto my made sharply and elongated with Schilling scissors and end vein to side proximal radial artery anastom osis created with continuous suture of 6-0 Prolene and vascular clamps released noting good flow in t he fistula outflow. Doppler interrogation revealed good flow. The patient given 25 mg intravenously protamine by Anesthesia. Surgicel applied. Good hemostasis noted. Skin and subcutaneous tissues a pproximated with 3-0 Monocryl, skin with subdermal 4-0 Monocryl, and DermaGlue applied. The patient tolerated the procedure well.
--- NOTE | 2018-08-15 15:32 | RAD ---
PORTABLE CHEST ONE VIEW: History: 48-year-old female with history of right vascular access catheter placement for position evaluation. Comparison: 08-10-18 FINDINGS: Left central venous catheter and right dual-lumen venous access catheters are in place. There is card iomegaly. No pneumothorax or other significant acute process. IMPRESSION: Cardiomegaly. No pneumothorax or other post procedure complication following left jugular venous cath eter and right dual-lumen venous access catheter. POS: [facility]
[2018-08-15] MEDS ORDERED: Heparin 10,000 UNITS/ 10 ML VIAL ONE (16:33)
[2018-08-15] MEDS ORDERED: Lidocaine 1% PF 5 ML VIAL ONE (16:33)
[2018-08-15] MEDS ORDERED: PROPOFOL 200 MG/20 ML VIAL ONE (16:33)
--- NOTE | 2018-08-15 18:46 | PDOC.PN ---
- Subjective Encounter Start Date: 08/15/18 Encounter Start Time: 17:00 Subjective: f/u ESRD with HD, s/p L AV fistula placement and R IJ tunneled HD -: catheter placment. No new complaints - Objective Resuscitation Status: Resuscitation Status FULL:Full Resuscitation MAR Reviewed: Yes Vital Signs & Weight: Vital Signs (12 hours) Temp Pulse Resp BP Pulse Ox 08/15/18 08:17 68 08/15/18 08:00 99 08/15/18 07:16 97.5 F L 68 18 142/73 H 99 Weight Weight 114 lb 5 oz I&O: 08/14/18 08/15/18 08/16/18 06:59 06:59 06:59 Intake Total 480 1200 150 Output Total 2500 Balance -2019 1200 150 Result Diagrams: 08/12/18 05:45 08/15/18 05:30 Additional Labs: Accuchecks 08/15/18 08/15/18 08/14/18 16:24 05:31 20:06 POC Glucose 89 76 303 H Phys Exam - Physical Examination Constitutional: NAD HEENT: PERRLA, sclera anicteric, oral pharynx no lesions Neck: no nodes, no JVD, supple, full ROM Respiratory: no wheezing, no rales, no rhonchi, clear to auscultation bilateral S1, S2 Cardiovascular: RRR, no significant murmur, no rub, gallop Gastrointestinal: soft, non-tender, no distention, positive bowel sounds LUE AV fistula in place R IJ tunneled HD catheter Musculoskeletal: pulses present Neurological: normal sensation, moves all 4 limbs Psychiatric: normal affect, A&O x 3 Skin: normal turgor, cap refill <2 seconds Dx/Plan (1) ESRD (end stage renal disease) on dialysis Code(s): N18.6 - END STAGE RENAL DISEASE; Z99.2 - DEPENDENCE ON RENAL DIALYSIS Status: Acute Comment: Receiving HD currently, plan for outpt HD when coordinated with CM (2) Uremia Code(s): N19 - UNSPECIFIED KIDNEY FAILURE Status: Acute Comment: Resolving with HD (3) HTN (hypertension) Code(s): I10 - ESSENTIAL (PRIMARY) HYPERTENSION Status: Chronic Qualifiers: Hypertension type: essential hypertension Comment: Continue Amlodipine 5mg daily, add Coreg 6.25mg BID (4) DM type 2 (diabetes mellitus, type 2) Status: Chronic Qualifiers: Diabetes mellitus senior living insulin use: with moth exterminator use Diabetes mellitus complication status: with kidney complications Diabetes mellitus complication detail: with chronic kidney disease Chronic kidney disease stage : unspecified stage Qualified Code(s): E11.22 - Type 2 diabetes mellitus with diabetic chronic kidney disease; Z79.4 - long term care social worker (current) use of insulin Comment: ISS, ADA, Increase Levemir 12u sc HS - Plan social media senior associate, out of bed/ambulate Stable overall -: Continue HD per Renal service -: Continue Amlodipine/Coreg -: OOB/ambulate -: Likely home in 24-48h * .
[2018-08-15] MEDS: Insulin Glargine 12 UNITS in Pre-Filled Syringe 1 EACH SC SCH (19:58)
[2018-08-15] MEDS: traMADol HCl 50 MG TAB PO PRN (19:58)
[2018-08-16] MEDS: HumaLOG 300 UNITS/3 ML VIAL SC PRN (05:51)
[2018-08-16] MEDS ORDERED: Heparin 10,000 UNITS/ 10 ML VIAL ONE (09:00)
--- NOTE | 2018-08-16 11:12 | PRG ---
DATE OF SERVICE: 08/16/2018 Subjective: Patient was seen and examined at bedside and overnight events noted. Patient denies any shortness of breath or chest pain or palpitation. No history of nausea or vomiting or diarrhea or fever or chills or cramps. Objective: General: This is a well-built female, in no acute distress Vital signs : Temperature 97.8. Pulse 71. Respiratory rate 18. Blood pressure 151/78. HEENT: Atraumatic, normocephalic, Oral mucosa is moist Neck: Supple Cardiovascular: S1S2 heard, Rate and rhythm regular Respiratory: Clear to auscultation Gastrointestinal: Abdomen is soft Musculoskeletal : No tenderness, No edema Dermatologic : No skin rash Neurologic: Alert and awake and oriented X3, No focal neurologic deficits. Moving all the extremities . Psychiatric: Mood and affect normal Laboratory data: . Assessment and Plan: 1. End-stage renal disease. Continue dialysis and positive PPD skin test. Denies much symptoms. W e will have chest x-ray to rule out TB. 2. Edema. 3. Proteinuria. 4. Hypoalbuminemia . 5. Metabolic acidosis. Overall, tolerating dialysis well. Follow with Case Management for outpatient placement. We will ch grace chest x-ray today.
--- NOTE | 2018-08-16 11:32 | PRG ---
DATE OF SERVICE: 08/16/2018 Viji Schaeffer is doing well today. Her left arm was good. Her surgical site looks good. She lizama s a good signal in her left upper arm cephalic vein fistula, hemodialysis catheter is present. Groin catheter has been removed. Good hand function, left. VITAL SIGNS: Temperature 97.8 degrees, 151/78. ASSESSMENT AND PLAN: 1. End-stage renal disease with a left upper arm fistula. There was no communication branch to the basilic vein. Hopefully, this will work out well for her for dialysis access. There are collateral veins in the upper arm and despite her small stature, BMI 15, 117 pounds, 6 feet 2 inches height, she does not have a visible cephalic vein and hopefully this will mature. If it does not, she is at ris k for having to have a dialysis prosthetic graft or consider PD. I have recommended she exercise her left arm. There are no restraints in usage of her left arm. There are no weight limits. I have en couraged her to visit my office in 3-4 weeks, sooner if she has any problems. I will see her as need ed this hospitalization. Please call if necessary. The patient is stable for discharge from a surgi tian standpoint at any time.
[2018-08-16] MEDS: Ferrous Sulfate 325 MG TAB PO SCH ×2 (13:39→20:59)
[2018-08-16] MEDS: traMADol HCl 50 MG TAB PO PRN (13:39)
[2018-08-16] MEDS: Carvedilol 25 MG TAB PO SCH (13:39)
[2018-08-16] MEDS: Amlodipine 5 MG TAB PO SCH (13:40)
--- NOTE | 2018-08-16 15:36 | RAD ---
TWO VIEWS CHEST: Date: 08-16-18 Provided Clinical History: Screening for tuberculosis. Comparison: 08-15-18 FINDINGS: Cardiac silhouette remains enlarged. Right and left IJ central catheters were again noted in similar positions. No focal consolidation, pleural fluid, or pneumothorax apparent. IMPRESSION: Cardiomegaly without evidence for acute cardiopulmonary process. POS: [facility]
[2018-08-16] MEDS: Insulin Glargine 12 UNITS in Pre-Filled Syringe 1 EACH SC SCH (20:59)
--- NOTE | 2018-08-16 21:35 | PDOC.PN ---
- Subjective Encounter Start Date: 08/16/18 Encounter Start Time: 14:00 Subjective: f/u for ESRD with HD. s/p LUE AV fistula and Tunneled R IJ HD catheter -: 08/15/18. Feels ok overall with some soreness of L arm and R neck region. - Objective Resuscitation Status: Resuscitation Status FULL:Full Resuscitation MAR Reviewed: Yes Vital Signs & Weight: Vital Signs (12 hours) Temp Pulse Resp BP Pulse Ox 08/16/18 20:20 98.0 F 76 16 156/74 H 97 08/16/18 13:40 82 Weight Weight 117 lb I&O: 08/15/18 08/16/18 08/17/18 06:59 06:59 06:59 Intake Total 1200 150 200 Balance 1200 150 200 Result Diagrams: 08/12/18 05:45 08/15/18 05:30 Additional Labs: Accuchecks 08/16/18 08/16/18 08/15/18 16:16 04:20 19:44 POC Glucose 147 H 168 H 243 H Radiology Reviewed by me: Yes (PCXR - no acute process) Phys Exam - Physical Examination Constitutional: NAD HEENT: PERRLA, sclera anicteric, oral pharynx no lesions tunneled R IJ HD catheter in place Neck: no nodes, no JVD, supple, full ROM Respiratory: no wheezing, no rales, no rhonchi, clear to auscultation bilateral S1, S2 Cardiovascular: RRR, no significant murmur, no rub, gallop Gastrointestinal: soft, non-tender, no distention, positive bowel sounds LUE with mild edema, pulses palpable distally Musculoskeletal: pulses present Neurological: normal sensation, moves all 4 limbs Psychiatric: normal affect, A&O x 3 Skin: normal turgor, cap refill <2 seconds Dx/Plan (1) ESRD (end stage renal disease) on dialysis Code(s): N18.6 - END STAGE RENAL DISEASE; Z99.2 - DEPENDENCE ON RENAL DIALYSIS Status: Acute Comment: Receiving HD currently, plan for outpt HD when coordinated with CM (2) Uremia Code(s): N19 - UNSPECIFIED KIDNEY FAILURE Status: Acute Comment: Resolving with HD (3) HTN (hypertension) Code(s): I10 - ESSENTIAL (PRIMARY) HYPERTENSION Status: Chronic Qualifiers: Hypertension type: essential hypertension Comment: Continue Amlodipine 5mg daily, add Coreg 6.25mg BID (4) DM type 2 (diabetes mellitus, type 2) Status: Chronic Qualifiers: Diabetes mellitus half-way insulin use: with half-way use Diabetes mellitus complication status: with kidney complications Diabetes mellitus complication detail: with chronic kidney disease Chronic kidney disease stage : unspecified stage Qualified Code(s): E11.22 - Type 2 diabetes mellitus with diabetic chronic kidney disease; Z79.4 - rotary drier (current) use of insulin Comment: ISS, ADA, Increase Levemir 12u sc HS - Plan plan discussed w/ family, child protective services social worker, out of bed/ambulate Stable overall -: Continue HD per Renal service -: OOB/ambulate -: Continue Norvasc and Coreg -: CM assisting with outpt coordination for HD * .
[2018-08-17 07:47] VITALS: TEMP 97.9
[2018-08-17] MEDS: Carvedilol 25 MG TAB PO SCH (08:09)
[2018-08-17] MEDS: Amlodipine 5 MG TAB PO SCH (08:09)
[2018-08-17] MEDS: Ferrous Sulfate 325 MG TAB PO SCH (08:09)
[2018-08-17 11:19] VITALS: BP 123/72
[2018-08-17] MEDS: HumaLOG 300 UNITS/3 ML VIAL SC PRN (13:25)
--- NOTE | 2018-08-18 13:43 | DIS ---
DATE OF ADMISSION: 08/10/2018 DATE OF DISCHARGE: 08/17/2018 DISCHARGE DISPOSITION: Home. FOLLOWUP: 1. Follow up with primary care physician at [facility] in 1 week. 2. Follow up with Nephrology, Dr. Medina as scheduled. 3. Follow up with Dr. Paris in 3-4 weeks. 4. Outpatient dialysis has been arranged. ALLERGIES: No known drug allergies. DISCHARGE MEDICATIONS: Lasix and lisinopril are held. 1. Amlodipine 5 mg daily. 2. Carvedilol 25 mg daily. 3. Ferrous sulfate 325 mg b.i.d. INPATIENT CONSULTANTS: Nephrology, Dr. Medina and General Surgery, Dr. Paris. INPATIENT PROCEDURES: On 08/10/2018, the patient underwent right femoral vein Trialysis catheter carlie cement. On 08/15/2018, the patient underwent right IJ cuffed tunnel hemodialysis catheter with left arm fistula. BRIEF HOSPITAL COURSE: The patient is a 48-year-old female with diabetes mellitus type 2 and chronic kidney disease who presented to the emergency room with diarrhea of 2 weeks' duration. She was shor t of breath, lightheaded and was making little amount of urine. Please refer to the history and phys ical for further details. The patient was admitted to the medical floor with a diagnosis of worsening acute kidney injury and u remic symptoms. She was started on emergent hemodialysis. She is doing okay now. Her symptoms have significantly improved. She will follow up with General Surgery and Nephrology as outpatient. Outp atient dialysis has been arranged. FINAL DIAGNOSES: 1. Acute kidney injury on chronic kidney disease stage 5. The patient has been started on hemodialy sis. 2. Uremic symptoms. 3. Diabetes mellitus type 2 with diabetic nephropathy. 4. Hypertension. 5. Hyperlipidemia. 6. Anemia secondary to renal insufficiency. 7. Mild protein calorie malnutrition. 8. Secondary hyperparathyroidism. 9. Metabolic acidosis secondary to renal failure. 10. Nausea, vomiting and diarrhea secondary to uremia, resolved. 11. Shortness of breath secondary to volume overload, resolved. Plan of care was discussed with the patient in detail. She stated understanding.
== END 2018-08-17 15:50 | disposition home or self-care (01) | DRG 673 ==
LOC: ERS 13:54 → OBSVTOIN 15:07 → 2SW 15:07 → T4-B 16:57
PROVIDERS: ADMIT Internal Medicine; ATTEND Internal Medicine
PROC: 06HM33Z Insertion of Infusion Device into Right Femoral Vein, Percutaneous Approach (ICD-10-PCS; principal; 2018-08-10)
PROC: 5A1D70Z Performance of Urinary Filtration, Intermittent, Less than 6 Hours Per Day (ICD-10-PCS; 2018-08-10)
PROC: 031B0ZF Bypass Right Radial Artery to Lower Arm Vein, Open Approach (ICD-10-PCS; 2018-08-15)
PROC: 0JH63XZ Insertion of Tunneled Vascular Access Device into Chest Subcutaneous Tissue and Fascia, Percutaneous Approach (ICD-10-PCS; 2018-08-15)
PROC: 05HY33Z Insertion of Infusion Device into Upper Vein, Percutaneous Approach (ICD-10-PCS; 2018-08-15)
DX: I12.0 Hypertensive chronic kidney disease with stage 5 chronic kidney disease or end stage renal disease (principal); N18.6 End stage renal disease; N17.9 Acute kidney failure, unspecified; E87.2 Acidosis; Z68.1 Body mass index [BMI] 19.9 or less, adult; N25.81 Secondary hyperparathyroidism of renal origin; E44.1 Mild protein-calorie malnutrition; E11.22 Type 2 diabetes mellitus with diabetic chronic kidney disease; D63.1 Anemia in chronic kidney disease; E78.00 Pure hypercholesterolemia, unspecified; R80.9 Proteinuria, unspecified; R11.2 Nausea with vomiting, unspecified; R19.7 Diarrhea, unspecified; R06.02 Shortness of breath; R76.11 Nonspecific reaction to tuberculin skin test without active tuberculosis; Z79.4 Long term (current) use of insulin
CPT/HCPCS: 36416; 71045; 71046; 76770; 80048; 80053; 83036; 83690; 83735; 83880; 84100; 85025; 86580; 86704; 86706; 86803; 86850; 86900; 86901; 87340; 90935; 93005; 93010; 93970; 99284; C1752; C1769; G0257; G0365; J0670; J0885; J1642; J1644; J2001; J2250; J2704; J2720; J3010

== ENCOUNTER 2018-09-06 18:23 | Observation (INO) | payer OTHER, SELFPAY ==
[2018-09-06 18:54] LABS: #Eosinphils 0.2 thou/uL (0.0-0.7); #Lymphocytes 1.8 thou/uL (1.20-3.40); #Monocytes 0.7 thou/uL (0.11-0.59); #Neutrophils 5.8 thou/uL (1.40-6.50); %Basophils 0.4 % (0.0-1.0); %Eosinophils 2.3 % (0.0-10.0); %Lymphocytes 21.4 % (21.0-51.0); %Monocytes 7.8 % (0.0-10.0); %Neutrophils 68.1 % (42.0-75.0); Hemoglobin 8.2 g/dL (12.0-16.0); Mean Corpuscular HGB CONC 31.4 g/dL (32.0-36.0); Mean Corpuscular Hemoglobin 28.6 pg (27.0-31.0); Mean Corpuscular Volume 91.1 fL (78.0-98.0); Mean Platelet Volume 9.3 fL (7.4-10.4); Platelet Count 274 thou/uL (130-400); RBC Distribution Width 15.3 % (11.5-14.5); Red Blood Cell (RBC) Count 2.87 mill/uL (4.20-5.40); White Blood Cell (WBC) Count 8.5 thou/uL (4.8-10.8)
[2018-09-06 19:04] LABS: PTT 27.2 SEC (22.9-36.1)
[2018-09-06 19:14] LABS: ALT (SGPT) 19 U/L (8-55); AST (SGOT) 20 U/L (5-34); Albumin 3.2 g/dL (3.5-5.0); Alkaline Phosphatase 133 U/L (40-150); Anion Gap 15 mmol/L (10-20); BUN (Urea Nitrogen) 39 mg/dL (7.0-18.7); Bilirubin, Total 0.4 mg/dL (0.2-1.2); CK (CPK) 64 U/L (29-168); Calc. Creatinine Clearance 0 mL/min (70-130); Calcium 8.5 mg/dL (7.8-10.44); Carbon Dioxide 27 mmol/L (22-29); Chloride 92 mmol/L (98-107); Estimated GFR-MDRD 10; Globulin 4.4 g/dL (2.4-3.5); Glucose 521 mg/dL (70-105); Protein, Total 7.6 g/dL (6.0-8.3); Sodium 130 mmol/L (136-145)
[2018-09-06 19:18] LABS: CKMB 2.1 ng/mL (0-6.6)
[2018-09-06 19:22] LABS: Troponin I 0.029 ng/mL (< 0.028)
--- NOTE | 2018-09-06 19:57 | CT ---
CT OF THE BRAIN WITHOUT CONTRAST: 09/06/18 INDICATION; Level II stroke alert with aphasia. COMPARISON: None. FINDINGS: No definite acute infarct, hemorrhage, or hydrocephalus is present. The septum pellucidum and third v entricle are midline. Mastoid air cells and paranasal sinuses are clear. There are vascular calcifica tions involving the intracranial arteries. IMPRESSION: 1. No acute intracranial abnormality. 2. Findings to Dr. Washington at 6:57 p.m. on 09/06/18. Code CR POS: [facility]
[2018-09-06] MEDS ORDERED: Insulin Glargine 17 UNITS in Pre-Filled Syringe 1 EACH SC SCH (20:15)
[2018-09-06] MEDS ORDERED: Bisacodyl 5 MG TAB PO PRN (22:53)
[2018-09-06] MEDS ORDERED: Ondansetron ODT 4 MG TAB PO PRN (22:53)
[2018-09-06] MEDS ORDERED: Ondansetron PF 4 MG/2 ML Vial IVP PRN (22:53)
[2018-09-06] MEDS ORDERED: Acetaminophen 325 MG TAB PO PRN (22:53)
[2018-09-06] MEDS ORDERED: Senokot S 8.6-50 MG TAB PO PRN (22:53)
[2018-09-06] MEDS ORDERED: Labetalol HCl 100 MG/20 ML VIAL SLOW IVP PRN (22:53)
[2018-09-06] MEDS ORDERED: hydrALAZINE 20 MG/ML VIAL SLOW IVP PRN (22:53)
[2018-09-06 22:55] VITALS: BMI 20.5
[2018-09-06] MEDS ORDERED: Dextrose 50% Abboject 50 ML SYRINGE SLOW IVP PRN (23:02)
[2018-09-06] MEDS ORDERED: Dextrose 5% in Water 1,000 ML IV PRN (23:02)
[2018-09-06] MEDS ORDERED: HumaLOG 300 UNITS/3 ML VIAL SC PRN (23:02)
[2018-09-07 04:46] LABS: Reticulocyte Count 2.6 % (0.5-1.5)
[2018-09-07 04:53] LABS: #Eosinphils 0.3 thou/uL (0.0-0.7); #Lymphocytes 1.9 thou/uL (1.20-3.40); #Monocytes 0.7 thou/uL (0.11-0.59); #Neutrophils 4.7 thou/uL (1.40-6.50); %Basophils 0.5 % (0.0-1.0); %Eosinophils 3.9 % (0.0-10.0); %Lymphocytes 24.8 % (21.0-51.0); %Monocytes 9.4 % (0.0-10.0); %Neutrophils 61.4 % (42.0-75.0); Mean Corpuscular Hemoglobin 27.2 pg (27.0-31.0); Mean Corpuscular Volume 90.9 fL (78.0-98.0); Mean Platelet Volume 8.4 fL (7.4-10.4); Platelet Count 265 thou/uL (130-400); Red Blood Cell (RBC) Count 2.92 mill/uL (4.20-5.40); White Blood Cell (WBC) Count 7.7 thou/uL (4.8-10.8)
[2018-09-07 05:09] LABS: Anion Gap 14 mmol/L (10-20); BUN (Urea Nitrogen) 44 mg/dL (7.0-18.7); Calc. Creatinine Clearance 12 mL/min (70-130); Calcium 8.8 mg/dL (7.8-10.44); Carbon Dioxide 29 mmol/L (22-29); Cardiac Risk 3.8 (Less than 4.5); Chloride 97 mmol/L (98-107); Cholesterol 232 mg/dl (< 200 Desired); Estimated GFR-MDRD 10; Glucose 63 mg/dL (70-105); HDL Cholesterol 61 mg/dL (>60 Neg Risk); Iron 39 ug/dL (50-170); Iron Binding Capacity, Total 258 mcg/dL (265-497); LDL Cholesterol, Calculated 144 mg/dL; Potassium 3.1 mmol/L (3.5-5.1); Sodium 137 mmol/L (136-145); Triglycerides 134 mg/dL (Less than 150)
--- NOTE | 2018-09-07 05:23 | HP ---
CHIEF COMPLAINT: "I am not able to speak." HISTORY OF PRESENT ILLNESS: This is a 48-year-old female with past medical history significant for t ype 2 diabetes mellitus, hyperlipidemia, hypertension, anemia, end-stage renal disease on hemodialysi s, being admitted for chief complaint of not being able to speak. Per the patient, she is able to us ually speak without any difficulties. She states that in the past couple of days, she has been havin g vomiting and diarrhea and prior to the day of admission, she was having severe diarrhea, which she thought that it was most likely due to a viral infection. Patient stated that she has not been aroun d any sick contact, but she stated that she has just been feeling sick. Patient also states that she was on the phone with the bank and she was not able to state her social security number when she was asked for her to recite her social security number. Patient also stated that she was looking her cr edit cards, she saw the number 5, but she was not able to tell the number 5. Patient stated that she could not remember the name of the number and she was having difficulty speaking. Per electronic me dical records, the patient had been having the symptoms for quite some time, but has currently now im proved and per the son, patient had nausea at dialysis yesterday and the patient was given medication to help with nausea. Otherwise, the patient denies any blurry vision, weakness, difficulty with swa llowing, fever, chills, abdominal pain. REVIEW OF SYSTEMS: Positive for aphasia, nausea, otherwise as documented in the HPI. All other syst ems were reviewed and are negative. FAMILY HISTORY: Reviewed and noncontributory. PAST MEDICAL HISTORY: Diabetes mellitus type 2; hyperlipidemia; anemia; end-stage renal disease, on hemodialysis, Mondays, Wednesdays, and Fridays; hypertension. PAST SURGICAL HISTORY: Tubal ligation,, HemoSplit right subclavian, left arm AV fistula placement. PSYCHIATRIC HISTORY: No previous psychiatric history. SOCIAL HISTORY: The patient denies alcohol use. The patient denies any illicit drug use. The patie nt denies smoking history. Patient lives at home. ALLERGIES: No known drug allergies. CURRENT MEDICATION: The patient is on amlodipine 5 mg, carvedilol 25 mg, Levemir 17 units subc u. PHYSICAL EXAMINATION: VITAL SIGNS: Blood pressure 162/102, pulse is 80, respiratory rate is 22, temperature is 98.5, O2 sa t 100 on room air. GENERAL: The patient is lying in bed, alert, oriented to person, place, and time. Patient is able t o now speak, but has some subtle agitation and patient is able to speak eventually, but patient state d that this is not her baseline. HEENT: Normocephalic, atraumatic. Pupils are equal, round, and reactive to light. Extraocular move ments are intact. No scleral icterus. No conjunctival pallor. Mucous membranes are moist. NECK: No JVD. Trachea is midline. Full range of motion. LUNGS: Clear to auscultation bilaterally. No wheezing, no rales, no rhonchi appreciated. CARDIOVASCULAR: Positive S1, S2. Regular rate and rhythm. No murmurs, no gallops, no rubs apprecia jolsyn. The patient has a 3/6 systolic murmur that can be appreciated. ABDOMEN: Soft, nontender, nondistended, positive bowel sounds in all quadrants. No masses, no perit cardona signs. EXTREMITIES: Patient has 5/5 upper extremity strength with good pulses bilaterally. No edema. At t he lower extremity, the patient has 5/5 strength with good pulses and no edema. NEUROLOGIC: Cranial nerves II through XII grossly intact. No gross deficits noted. SKIN: Warm, dry, and intact. EK-lead shows sinus rhythm with a rate of 80. IMAGING: Head CT is negative, no bleed, no mass, no acute ischemic stroke, no acute changes. ED COURSE: The patient was given Levemir in the ED. LABORATORY DATA: WBC is 8.5, hemoglobin is 8.2, hematocrit is 26.1, MCV is 91.1, RDW is 15.3, platel et count is 274,000. Electrolytes: Sodium is 130, potassium is 4.0, chloride is 92, carbon dioxide 27, anion gap of 15, BUN is 39, creatinine is 4.62, glucose is 521, AST is 20, ALT is 19, alkaline ph osphatase is 113. Troponins x1 is 0.029. INR is 1.0. ASSESSMENT AND PLAN: This is a 48-year-old female with past medical history of diabetes mellitus typ e 2, hypertension, hyperlipidemia, being admitted for; 1. Aphasia, most likely due to possible cerebrovascular accident. At this point, CT scan of the hea d is negative. We are going to admit the patient and we are going to order MRI of the head to rule o ut any ischemic or hemorrhagic strokes. We will start the patient on aspirin, atorvastatin, and will continue this medication. We have consulted Neurology. We will follow up with neurology's recommen dations. Patient is currently improving. We will monitor the patient closely. 2. Normocytic anemia most likely due to chronic inflammation. Patient's hemoglobin is 8.6. At this point, we will continue to monitor the patient with ordered anemia panel, we will follow up on the r esults. 3. End-stage renal disease, on hemodialysis Mondays, Wednesdays, and Fridays. We will continue charlotte ent on her regimen of hemodialysis. We will continue to monitor the patient. 4. Diabetes mellitus type 2. Patient's blood glucose is currently uncontrolled. We will start the patient on aggressive insulin sliding scale. We will continue patient on sliding scale. We will sta rt patient on her home medications. We will continue to monitor the patient. 5. Hyperlipidemia. We will continue patient on current regimen. We will continue to monitor the pa cirilo. 6. Hyperlipidemia. We will monitor the patient's blood pressure closely and we will adjust medicati ons accordingly. We will continue to follow the patient.
[2018-09-07 05:41] LABS: Folate (Folic Acid) 11.9 ng/mL (7.0-31.4)
[2018-09-07] MEDS ORDERED: Enoxaparin Sodium 40 MG/0.4 ML SYRINGE SC SCH (09:00)
[2018-09-07] MEDS ORDERED: Famotidine/PF 20 mg/2ml Vial SLOW IVP SCH (09:00)
[2018-09-07] MEDS: Aspirin 81 mg Enteric Coated Tablet PO SCH (09:04)
[2018-09-07] MEDS: Ferrous Sulfate 325 MG TAB PO SCH ×2 (09:04→20:57)
[2018-09-07] MEDS: Carvedilol 25 MG TAB PO SCH ×2 (09:05→20:57)
[2018-09-07] MEDS: Amlodipine 10 MG TAB PO SCH (09:06)
[2018-09-07] MEDS ORDERED: Lorazepam 0.5 MG TAB PO SCH (09:45)
--- NOTE | 2018-09-07 10:36 | PRG ---
DATE OF SERVICE: 09/07/2018 SUBJECTIVE: The patient is seen and examined at the bedside. Her is present in the room dur ing my visit. She is able to speak. According to him, her speech is almost back to normal. There w as not any unexpected event overnight. OBJECTIVE: VITAL SIGNS: Blood pressure is 163/74, pulse is 76, temperature is 98.0, respiratory rate 18, pulse oximetry is 96% on room air. HEENT: Head is atraumatic and normocephalic. Eyes: PERRLA. Sclerae are nonicteric. Oral mucosa is slightly dry. NECK: She has a Kenney catheter in the right subclavian vein. She has a fistula in the left upper extremity, just recently placed. LUNGS: Bilateral wheezes present. No rales, no crackles. HEART: S1 and S2, somewhat distant. No S3 and no S4. ABDOMEN: Soft and nontender. Bowel sounds are present, no organomegaly. EXTREMITIES: No clubbing, cyanosis, or edema. NEUROLOGICAL EXAMINATION: She follows my commands. She moves all 4 extremities. There are not any sensory deficits. Cranial nerves are intact. Her speech is somewhat slow and a little bit slurred. SKIN: No skin rash or erythema. LABORATORY DATA: Labs showed white count of 7.7, hemoglobin 8.0, hematocrit 26.5, platelet count 265 ,000. Retic count is 2.6. Sodium of 137, potassium 3.1, chloride 97, CO2 of 29, BUN 44, creatinine 4.78. Glycemia ranging from 145-475. Iron 39, total iron binding capacity 258 with percent saturati on of 15, triglycerides 134, cholesterol 232, LDL 144, HDL 61. Vitamin B12 of 911, folate 11.9. IMPRESSION: 1. Aphasia, improved with negative CT scan of the brain. MRI is pending. It will be done today. C linically, she is improved. Neurology consultation pending. 2. End-stage renal disease, on hemodialysis [address] Medina was consulted and he will s ee the patient and make some arrangements for 2 days hemodialysis she is supposed to have. 3. Diabetes mellitus, uncontrolled. Hemoglobin A1c at home was almost 8. She is only on 17 units o f long-acting insulin. She might have postprandial hyperglycemia what I suspect. We will check her Accu-Cheks 2 hours after the meal x3 and continue the regimen. 4. Hyperlipidemia. She is on a statin. 5. Normocytic anemia, which is secondary to chronic inflammation secondary to chronic kidney disease . PLAN: As mentioned above, she will have 1 dose of Ativan p.o. 0.5 mg prior to her MRI since she voic ed some claustrophobia problem. We will have MRI done. We will have neurologist to see her and Dr. Medina is going to arrange her dialysis today, and we will continue DVT prophylaxis with SCDs. Cont inue her amlodipine, aspirin, atorvastatin, carvedilol, and 17 units of insulin Glargine once a day.
[2018-09-07] MEDS ORDERED: Potassium Chloride 20 MEQ TAB PO SCH (11:00)
[2018-09-07] MEDS ORDERED: Heparin 10,000 UNITS/ 10 ML VIAL ONE (12:00)
--- NOTE | 2018-09-07 12:47 | MRI ---
BRAIN MRI NONCONTRAST: Indication: TIA, slurred speech. FINDINGS: Ventricular system is normal in size. There is no acute territorial infarction, intracranial mass eff ect, midline shift of hemorrhagic susceptibility. Skull base flow voids are patent, where visualized. There is mild right mastoid fluid. IMPRESSION: No acute intracranial abnormality. POS: [facility]
--- NOTE | 2018-09-07 13:21 | CON ---
DATE OF CONSULTATION: 09/07/2018 REASON FOR CONSULTATION: End-stage renal disease, on maintenance hemodialysis. HISTORY OF PRESENT ILLNESS: This is a very pleasant 48-year-old female who presented to the hospital with expressive aphasia. The patient at this time denies . Denies any nausea, vomiting, chest pain. PAST MEDICAL HISTORY: Significant for hypertension, anemia, end-stage renal disease and diabetes karri litus. PAST SURGICAL HISTORY: Significant for tubal ligation, AV fistula, tunneled dialysis catheter. SOCIAL HISTORY: No alcohol or drug use. FAMILY HISTORY: Negative for ESRD. ALLERGIES: Reviewed. HOME MEDICATIONS: List reviewed. PHYSICAL EXAMINATION: GENERAL: Patient is awake, alert. VITAL SIGNS: Afebrile, pulse 75, breathing at 16, blood pressure was 159/75. HEAD/NECK: Normocephalic. Atraumatic. EYES: EOMI. No deformity. EARS: Clear. No ulcers. NOSE: Intact. No lesions. MOUTH: Clear. No discharge. THROAT: Clear. No exudate. LUNGS: Clear. No crackles. CARDIAC: S1, S2. No rub. ABDOMEN: Benign. BS+. GENITALIA/RECTUM: Morris absent. BACK/EXTREMITIES: Edema 0+ Ulcer- NEUROLOGICAL: Alert and motor intact. SKIN: Rash- Bruise- LYMPHATICS: Edema- Ulcer- ASSESSMENT AND RECOMMENDATIONS: 1. Stage 6 chronic kidney disease, plan hemodialysis. 2. Hypertension, stable. 3. Hypokalemia. Use a 4 K bath. 4. Medications based on glomerular filtration rate are appropriate.
[2018-09-07] MEDS: HumaLOG 300 UNITS/3 ML VIAL SC PRN (19:20)
[2018-09-07] MEDS ORDERED: INSULIN DETEMIR SC SCH (21:00)
[2018-09-07] MEDS ORDERED: INSULIN GLARGINE SC SCH (21:00)
[2018-09-07] MEDS ORDERED: Atorvastatin Calcium 40 MG TAB PO SCH (21:00)
--- NOTE | 2018-09-07 23:33 | CON ---
DATE OF CONSULTATION: 09/07/2018 CONSULTING PHYSICIAN: Hospitalist Service. IMPRESSION: Transient ischemic attack versus complex migraine. PLAN: 1. Aspirin 81 mg per day. 2. Start statin. 3. Echocardiogram. 4. Carotid ultrasound. HISTORY OF PRESENT ILLNESS: Ms. Schaeffer is a 48-year-old female with a history of hyperten josselin, end-stage renal disease. She had an episode of expressive aphasia that lasted for what she tho ught to be a few hours. It is not associated with headache, facial droop, right-sided weakness or nu mbness. She never had anything like this before. She has had migraines when she was a child, but lizama s not been bothered with them lately. She has no other vascular risk factors. PAST MEDICAL HISTORY: End-stage renal disease, hypertension. ALLERGIES: As per chart. SOCIAL HISTORY: No tobacco use. FAMILY HISTORY: Noncontributory. REVIEW OF SYSTEMS: No complaints of chest pain, shortness of breath. PHYSICAL EXAMINATION: GENERAL: She is a healthy-appearing middle-aged woman in no distress. HEENT: Unremarkable. EXTREMITIES: No cyanosis. NEUROLOGIC: She is alert and appropriate. Her speech is fluent and clear. Cranial nerves II-XII ar e intact. Motor exam shows equal strength. Sensation is equal to touch. No abnormal movements were seen. Gait was not testable at this time due to dialysis. MRI of the brain was reviewed and appears unremarkable. EKG normal sinus rhythm. SUMMARY: A middle-aged woman with a transient episode of expressive aphasia and a normal MRI given h er risk factors, I would go ahead and start her on antiplatelet therapy and be happy to follow up wit h her.
[2018-09-08 04:46] LABS: #Eosinphils 0.2 thou/uL (0.0-0.7); #Lymphocytes 1.5 thou/uL (1.20-3.40); #Monocytes 0.6 thou/uL (0.11-0.59); #Neutrophils 4.2 thou/uL (1.40-6.50); %Basophils 0.6 % (0.0-1.0); %Eosinophils 2.9 % (0.0-10.0); %Lymphocytes 23.2 % (21.0-51.0); %Monocytes 9.1 % (0.0-10.0); %Neutrophils 64.3 % (42.0-75.0); Hemoglobin 7.7 g/dL (12.0-16.0); Mean Corpuscular HGB CONC 30.7 g/dL (32.0-36.0); Mean Corpuscular Hemoglobin 28.3 pg (27.0-31.0); Mean Platelet Volume 8.5 fL (7.4-10.4); Platelet Count 265 thou/uL (130-400); RBC Distribution Width 15.1 % (11.5-14.5); Red Blood Cell (RBC) Count 2.72 mill/uL (4.20-5.40); White Blood Cell (WBC) Count 6.6 thou/uL (4.8-10.8)
[2018-09-08 05:03] LABS: Anion Gap 8 mmol/L (10-20); BUN (Urea Nitrogen) 20 mg/dL (7.0-18.7); Calc. Creatinine Clearance 18 mL/min (70-130); Calcium 8.1 mg/dL (7.8-10.44); Carbon Dioxide 30 mmol/L (22-29); Chloride 101 mmol/L (98-107); Estimated GFR-MDRD 15; Glucose 258 mg/dL (70-105); Potassium 3.8 mmol/L (3.5-5.1); Sodium 135 mmol/L (136-145)
[2018-09-08] MEDS: HumaLOG 300 UNITS/3 ML VIAL SC PRN ×3 (05:49→16:58)
[2018-09-08] MEDS ORDERED: Famotidine 20 MG TAB PO SCH (09:00)
[2018-09-08] MEDS ORDERED: Enoxaparin Sodium 30 MG/0.3 ML SYRINGE SC SCH (09:00)
[2018-09-08] MEDS: Aspirin 81 mg Enteric Coated Tablet PO SCH (09:02)
[2018-09-08] MEDS: Ferrous Sulfate 325 MG TAB PO SCH (09:02)
[2018-09-08] MEDS: Amlodipine 10 MG TAB PO SCH (09:03)
[2018-09-08] MEDS: Carvedilol 25 MG TAB PO SCH (09:03)
--- NOTE | 2018-09-08 09:06 | ULT ---
BILATERAL CAROTID DUPLEX ULTRASOUND WITH SPECTRAL ANALYSIS AND COLOR FLOW EVALUATION: Date: 09/08/18 HISTORY: TIA. Slurred speech 1 day ago. FINDINGS: Keenna scale, color flow, Doppler evaluation, and spectral analysis of the bilateral carotid arteries i s performed with 2D imaging. There is mild atherosclerotic plaque seen in the region of the carotid bulbs bilaterally. There is a moderate (50-69%) stenosis involving the left internal carotid artery based on a peak syst olic velocity of 183.1 cm/sec. The left ICA/CCA ratio is 1.97. There is less than 50% maximal stenosis in the right internal carotid artery based on a peak systolic velocity of 101.9 cm/sec. The right ICA/CCA ratio is 1.18. There is a prominent calcified atherosclerotic plaque seen within the mid left common carotid artery. Antegrade flow is demonstrated in vertebral arteries bilaterally. IMPRESSION: 1. Moderate (50-69%) stenosis involving the left internal carotid artery. 2. Prominent calcified atherosclerotic plaque in the mid left common carotid artery. 3. No hemodynamically significant stenosis in the right internal carotid artery. POS: [facility]
[2018-09-08 12:08] VITALS: TEMP 97.9
[2018-09-08] MEDS ORDERED: Epoetin (ESRD) 10,000 UNITS/ML VIAL SC SCH (14:00)
--- NOTE | 2018-09-08 14:00 | PRG ---
DATE OF SERVICE: 09/08/2018 SUBJECTIVE: This is a 48-year-old female being seen for end-stage renal disease. The patient denies any nausea, vomiting, or chest pain. PHYSICAL EXAMINATION: GENERAL: Patient is awake, alert. VITAL SIGNS: Afebrile, pulse 73, breathing 16, blood pressure 136/62. OBJECTIVE: See above. Awake, alert, in no acute distress. GENERAL APPEARANCE AND MENTAL STATUS: Fair. HEAD/NECK: Normocephalic. Atraumatic. EYES: EOMI. No deformity. EARS: Clear. No ulcers. NOSE: Intact. No lesions. MOUTH: Clear. No discharge. THROAT: Clear. No exudate. LUNGS: Clear. No crackles. CARDIAC: S1, S2. No rub. ABDOMEN: Benign. BS+. GENITALIA/RECTUM: Morris absent. BACK/EXTREMITIES: Edema 0+ Ulcer- NEUROLOGICAL: Alert and motor intact. SKIN: Rash- Bruise- LYMPHATICS: Edema- Ulcer- LABORATORY: Hemoglobin 7.7, potassium 3.8. ASSESSMENT AND RECOMMENDATIONS: 1. Stage 6 chronic kidney disease, continue hemodialysis with a 4 K bath. 2. Hypertension, stable. 3. Anemia, stable. 4. Medications based on glomerular filtration rate are appropriate.
[2018-09-08 16:20] VITALS: BP 149/70
--- NOTE | 2018-09-09 00:16 | DIS ---
DATE OF ADMISSION: 09/06/2018 DATE OF DISCHARGE: 09/08/2018 CONSULTANTS: Dr. Gómez, neurology service; Dr. Armstrong, nephrology service. FINAL DIAGNOSES: 1. Transient ischemic attack presenting as aphasia with negative CT and negative MRI of the brain. 2. End-stage renal disease on hemodialysis, 3 times a week. 3. Carotid atherosclerosis. 4. Diabetes mellitus, uncontrolled. 5. Hyperlipidemia. 6. Normocytic anemia secondary to chronic kidney disease. HOSPITAL COURSE: The patient is a 48-year-old female with past medical history significant for type 2 diabetes mellitus, hyperlipidemia, hypertension, anemia, end-stage renal disease on hemod ialysis who presented to the emergency room with inability to speak. Prior to this hospitalization, she had some vomiting and diarrhea. It was felt that this was caused by viral infection. Apparently when she was on the phone with somebody, she was not able to state her social security number when s he was asked for her to reside her social security number and when she was looking at her credit card s, she is only #5, but she was not able to say #5. She could not remember the name of the number and she was having difficulty speaking. In the emergency room, her white count was 8.5, hemoglobin 8.2, hematocrit 26.1, MCV 91.1, RDW 15.3, platelet count 274,000. Sodium 130, potassium 4.0, chloride 92 , CO2 of 27. BUN 39, creatinine 4.62, glucose 521. AST was 20, ALT 19, alkaline phosphatase 113. T roponin was 0.029 and INR was 1.0. Her EKG showed normal sinus rhythm with a rate of 80 no any other abnormalities. Imaging showed CT of the head was negative for any bleed, mass, or acute ischemic st roke. The patient got admitted to the hospital to stroke unit. MRI of the brain was set up for the next day. She was started on aspirin, atorvastatin, and Neurology was consulted. Her hemoglobin was 8.6. Dr. Armstrong was consulted for Nephrology management. She got dialyzed the next day. Her glycemi a was elevated and it was felt that maybe she has postprandial hyperglycemia on her current regimen a t home. When she checks her blood sugar every morning, it is running quite good, but Accu-Cheks show ed some at the end of the day. The patient was observed in stroke unit. She had MRI of the br ain, which did not show any intracranial abnormalities. Her aphasia improved completely to the basel ine. Echocardiogram was done which showed ejection fraction estimated at 50%-55%, moderate concentri c left ventricular hypertrophy and diastolic dysfunction was present. The left atrium was mildly dil ated. Also, she underwent carotid Doppler study, which showed moderate from 50%-69% stenosis involvi ng the left internal carotid artery. Also, she had prominent calcified atherosclerotic plaque at the mid left common carotid artery, and there was not any hemodynamically significant stenosis in the [facility] internal carotid artery. The patient did well, her symptoms improved to the point that she is at her baseline. She is able to speak. Her blood pressure is 136/62, pulse is 76, temperature is 97.9 , respirations 16, and O2 saturation is 98% on room air. She is examined and evaluated before, she is discharged home. She was seen by Dr. Gómez during thi s hospitalization and he recommended to start her on antiplatelet therapy and follow up with him in h is office. DISCHARGE DISPOSITION: Home. ACTIVITIES: As tolerated. DIET: Renal diet and 1800 calories ADA diet. Her medications at the time of discharge, amlodipine 5 mg once a day, aspirin 81 mg once a day, atorv astatin 80 mg at bedtime, Carvedilol 25 mg twice a day, epoetin 10,000 units every 7 days during dial ysis, ferrous sulfate mg twice a day, insulin glargine 20 units subcutaneously at bedtime. She will follow up with her primary care physician in 1 week and she will follow up with Dr. Gómez. mike needs to call his office and find out when she wants to see her as a followup post-hospitalization. Patient is released in good condition. The time on this discharge is less than 30 minutes.
== END 2018-09-08 18:04 | disposition home or self-care (01) ==
LOC: ERS 18:23 → 2SE 21:04
PROVIDERS: ADMIT Internal Medicine; ATTEND Internal Medicine
DX: G45.9 Transient cerebral ischemic attack, unspecified (principal); R47.01 Aphasia; I12.0 Hypertensive chronic kidney disease with stage 5 chronic kidney disease or end stage renal disease; E11.22 Type 2 diabetes mellitus with diabetic chronic kidney disease; N18.6 End stage renal disease; D63.1 Anemia in chronic kidney disease; E78.5 Hyperlipidemia, unspecified; E87.6 Hypokalemia; Z79.4 Long term (current) use of insulin; Z79.899 Other long term (current) drug therapy; Z99.2 Dependence on renal dialysis
CPT/HCPCS: 36415; 36416; 70450; 70551; 80048; 80053; 80061; 82550; 82553; 82607; 82728; 82746; 83540; 83550; 84484; 85025; 85046; 85610; 85730; 90935; 93005; 93306; 93880; 96372; 96374; G0257; G0378; G8978-GP-CK; G8979-GP-CK; G8980-GP-CK; G9162-GN-CI; G9163-GN-CH; J1644; J1650; Q4081; S0028

== ENCOUNTER 2018-09-09 00:44 | Inpatient (IN) | payer SELFPAY ==
[2018-09-09] MEDS ORDERED: Lorazepam 2 MG/ML VIAL ONE (00:55)
[2018-09-09 01:21] LABS: Base Excess-Venous 1.6 mmol/L (0 (+/- 2.5)); Bicarbonate (HCO3v) 25.2 mmol/L (1.0-85.0); CO2 Tension (PvCO2) 34.2 mmHg (41.0-51.0); Calcium, Ionized 1.03 mmol/L (1.12-1.32); Hemoglobin - Calc 8.4 g/dL (12.0-18.0); O2 Tension (PvO2) 54.5 mmHg (35.0-45.0); T. Carbon Dioxide 26.2 mmol/L (1.0-85.0); pH (Venous) 7.476 (7.35-7.45); vO2 Saturation-calc 90.3 % (94-98)
[2018-09-09 01:23] LABS: #Eosinphils 0.2 thou/uL (0.0-0.7); #Lymphocytes 1.4 thou/uL (1.20-3.40); #Monocytes 0.7 thou/uL (0.11-0.59); #Neutrophils 5.2 thou/uL (1.40-6.50); %Basophils 0.6 % (0.0-1.0); %Eosinophils 2.5 % (0.0-10.0); %Lymphocytes 19.2 % (21.0-51.0); %Monocytes 8.8 % (0.0-10.0); %Neutrophils 68.9 % (42.0-75.0); Hemoglobin 7.9 g/dL (12.0-16.0); Mean Corpuscular HGB CONC 30.5 g/dL (32.0-36.0); Mean Corpuscular Hemoglobin 28.6 pg (27.0-31.0); Mean Corpuscular Volume 93.6 fL (78.0-98.0); Mean Platelet Volume 8.8 fL (7.4-10.4); Platelet Count 294 thou/uL (130-400); RBC Distribution Width 15.6 % (11.5-14.5); Red Blood Cell (RBC) Count 2.78 mill/uL (4.20-5.40); White Blood Cell (WBC) Count 7.5 thou/uL (4.8-10.8)
[2018-09-09 01:28] LABS: INR-International Normal Ratio 0.9; PTT 33.2 SEC (22.9-36.1); Prothrombin Time 12.7 SEC (12.0-14.7)
[2018-09-09] MEDS ORDERED: levETIRAcetam In NaCl (Iso-Os) 1,000 MG in Premix Bag 1 BAG IVPB SCH (01:30)
[2018-09-09 01:36] LABS: Bilirubin Negative (Negative); Blood, Urine Small (Negative); Clarity CLOUDY (Clear); Glucose, Urine (Dipstick) >=1000 mg/dL (Negative); Leukocyte Trace (Negative); Nitrite Negative (Negative); Protein, Urine (Dipstick) > or equal to 300 mg/dL (Neg-Trace); Specific Gravity, Urine 1.021 (1.002-1.036); Urobilinogen 0.2 mg/dL (0.2-1.0); pH, Urine 7.5 (5.0-9.0)
[2018-09-09 01:39] LABS: Bacteria/HPF None Seen HPF (None Seen); Squamous Epithelial None Seen HPF (0-3)
[2018-09-09 01:40] LABS: ALT (SGPT) 21 U/L (8-55); AST (SGOT) 17 U/L (5-34); Albumin 3.1 g/dL (3.5-5.0); Alkaline Phosphatase 123 U/L (40-150); Anion Gap 15 mmol/L (10-20); BUN (Urea Nitrogen) 33 mg/dL (7.0-18.7); Bilirubin, Total 0.3 mg/dL (0.2-1.2); CK (CPK) 49 U/L (29-168); Calc. Creatinine Clearance 0 mL/min (70-130); Calcium 8.4 mg/dL (7.8-10.44); Carbon Dioxide 24 mmol/L (22-29); Chloride 100 mmol/L (98-107); Estimated GFR-MDRD 11; Globulin 3.8 g/dL (2.4-3.5); Glucose 428 mg/dL (70-105); Lipase 41 U/L (8-78); Potassium 4.3 mmol/L (3.5-5.1); Protein, Total 6.9 g/dL (6.0-8.3); Sodium 135 mmol/L (136-145)
[2018-09-09 01:40] LABS: Pathc Cast-AUWi Flag 4.79 (0-2.49)
[2018-09-09 01:41] LABS: Hyaline Casts/LPF NONE SEEN LPF (0-3 Hyaline); Other Casts/LPF None Seen LPF (0-3 Hyaline)
[2018-09-09 01:41] LABS: CKMB 2.3 ng/mL (0-6.6); Troponin I Less than 0.010 ng/mL (< 0.028)
[2018-09-09] MEDS ORDERED: cefTRIAXone\\ROCEPHIN 1 GM VIAL ONE (02:03)
[2018-09-09] MEDS ORDERED: HumaLOG 300 UNITS/3 ML VIAL ONE (02:33)
[2018-09-09] MEDS ORDERED: Insulin Regular 300 UNITS/3 ML VIAL ONE (02:34)
[2018-09-09] MEDS ORDERED: Ondansetron ODT 4 MG TAB SL PRN (03:54)
[2018-09-09] MEDS ORDERED: Acetaminophen 325 MG TAB PO PRN (03:54)
[2018-09-09] MEDS ORDERED: Ondansetron PF 4 MG/2 ML Vial IVP PRN ×2 (03:54→15:19)
[2018-09-09] MEDS ORDERED: Dextrose 5% in Water 1,000 ML IV PRN (03:59)
[2018-09-09] MEDS ORDERED: Insulin Regular 300 UNITS/3 ML VIAL SC PRN (03:59)
[2018-09-09] MEDS ORDERED: Dextrose 50% Abboject 50 ML SYRINGE IVP PRN (03:59)
[2018-09-09] MEDS ORDERED: Senokot S 8.6-50 MG TAB PO PRN (04:32)
[2018-09-09 04:46] VITALS: BMI 19.9
[2018-09-09] MEDS ORDERED: Lorazepam 2 MG/ML VIAL SLOW IVP PRN (04:52)
--- NOTE | 2018-09-09 05:33 | HP ---
PRIMARY CARE PROVIDER: [facility]. CHIEF COMPLAINT: Seizure. HISTORY OF PRESENT ILLNESS: Ms. Schaeffer is a pleasant 48-year-old lady, who was seen at [facility] on 09/09/2018. She was hospitalized here from 09/06/2018 to 09/08/2018 and wa s discharged home yesterday. That hospitalization was for transient ischemic attack, presenting as a phasia. She had a negative CT and negative MRI of the brain. The patient is lethargic right now, unable to provide any significant history. Collateral history wa s obtained from the patient's spouse by the bedside, review of medical records and discussion with mike emergency room physician. After the patient went home yesterday, she continued to improve. She was last seen normal at 2230 ho urs yesterday. Shortly after midnight, she had an episode where she woke up and tensed up and became unresponsive after that. She was therefore brought to the emergency room. In the emergency room, s he had another witnessed seizure involving face and right upper extremity. She received Ativan. REVIEW OF SYSTEMS: Could not be completed because of patient's nonresponsive status. PAST MEDICAL HISTORY: Diabetes mellitus, type 2; dyslipidemia; hypertension; TIA; anemia; end-stage renal disease with dialysis on Wednesday, Wednesday, and Wednesday. PAST SURGICAL HISTORY: Tubal ligation and a right subclavian HemoSplit. SOCIAL HISTORY: No history of tobacco use, alcohol use or recreational drug use. FAMILY HISTORY: No history of seizure disorder. ALLERGIES: No known drug allergies. CURRENT MEDICATIONS: Amlodipine 5 mg daily, carvedilol 25 mg 2 times a day, Auryxia 210 mg daily, Le vemir 20 units subcutaneously daily, Plavix 75 mg daily, Lipitor 20 mg daily, and aspirin 81 mg daily . PHYSICAL EXAMINATION: GENERAL: On examination, Ms. Schaeffer is sleepy, but arousable, not in acute distress. VITAL SIGNS: Blood pressure is 157/86, pulse 83, respiratory rate 12, and oxygen saturation 96% on 2 liters of oxygen by nasal cannula. She is afebrile. EYES: No scleral icterus. No conjunctival pallor. ENT: Moist mucosal membranes, no oropharyngeal erythema or exudate. NECK: Supple, nontender, trachea is midline. RESPIRATORY: Accessory muscles of breathing are not active. Chest wall movements are symmetric bila terally. Lungs are clear to auscultation without wheeze, rhonchi or crepitations. CARDIOVASCULAR: S1 and S2 are heard, regular. Peripheral pulses palpable. No carotid bruit, no per icardial rub. ABDOMEN: Soft, nontender, bowel sounds are heard, no hepatomegaly, no splenomegaly. NEUROLOGIC: Full neurologic examination was not possible secondary to the patient's noncooperation. Cranial nerves II-XII intact. Power is 5/5 in all 4 extremities. Deep tendon reflexes are 2+. Jacuqie ntars downgoing bilaterally. SKIN: No rashes or subcutaneous nodules. LYMPHATIC: No cervical lymphadenopathy. PSYCHIATRIC: Normal mood, patient is oriented to person and place, not to time. IMAGING AND LABORATORY DATA: Ms. Schaeffer's labs and investigations were reviewed. I reviewed her e lectrocardiogram, which shows normal sinus rhythm, no ST changes to suggest an acute coronary syndrom e. I also reviewed her chest x-ray, which does not show any pulmonary infiltrates. She also had a n oncontrast CT scan of the brain, which did not show any acute intracranial findings. She has a raven l white count, normocytic anemia with hemoglobin 7.9, which is around her baseline, normal platelet c ount, INR 0.9, decreased sodium of 135, normal potassium, elevated blood urea nitrogen of 33, elevate d creatinine of 4.36, elevated glucose of 428, decreased albumin of 3.1, otherwise unremarkable liver profile, elevated prolactin level of 123, urinalysis positive for small amount of blood and trace le ukocyte esterase and beta hydroxybutyrate level normal at 0.08. ASSESSMENT AND PLAN: Ms. Schaeffer is a pleasant 48-year-old lady, who was seen at [facility] on 09/09/2018. Her problem list includes: 1. Acute metabolic encephalopathy: Most likely secondary to seizure. [facility]. 2. Seizure: This is a new diagnosis of seizure for this patient. We will check EEG. She recently had MRI, therefore I will not repeat imaging. We will consult Neurology Service for opinion and help with further management. 3. Diabetes mellitus, type 2: Sugars are poorly controlled. We will start her on insulin sliding s iva and monitor Accu-Cheks. 4. End-stage renal disease, on dialysis: Nephrology Service will be consulted for help with mainten ance dialysis. 5. Dyslipidemia: Continue statin. 6. Hypertension: Monitor vital signs, titrate antihypertensives as needed. Many thanks for allowing me to participate in your patient's care. Please feel free to contact me wi th any questions or concerns. LEVEL OF RISK: High. LEVEL OF COMPLEXITY: High.
[2018-09-09] MEDS: Sodium Chloride 0.9% 1,000 ML IV SCH ×2 (05:41→15:23)
[2018-09-09] MEDS: HumaLOG 300 UNITS/3 ML VIAL SC PRN (06:32)
--- NOTE | 2018-09-09 08:15 | PRG ---
DATE OF SERVICE: 09/09/2018 CONSULTING PHYSICIAN: Hospitalist Service. Ms. Schaeffer had a witnessed generalized seizure while sleeping. Her reports that it recurre d again while she was in the emergency room. She was brought back to the emergency room for evaluati on. They repeated a CT scan of the brain. Laboratory studies were unremarkable other than blood glu coses in the 300s. She reports at this point she is feeling fairly tired, but has no other particula r complaints. Her vital signs have been stable and she has been afebrile. I go ahead and start her on Keppra 500 mg twice a day. She has had an MRI of the brain done just rec ently and there is no point in repeating any more imaging. There is no point in an EEG either. I wi ll be happy to follow up with her as an outpatient.
--- NOTE | 2018-09-09 08:25 | RAD ---
CHEST 1 VIEW: Date: 09/09/18 HISTORY: Chest pain. Stroke alert. COMPARISON: Radiograph dated 08/15/18. FINDINGS: There are extensive interstitial opacities throughout the lungs. Small effusions, larger on the left. No pneumothorax. Cardiac silhouette is enlarged. IMPRESSION: Findings suggesting volume overload. POS: [facility]
--- NOTE | 2018-09-09 08:50 | CT ---
PRELIMINARY REPORT/[facility]/EMERGENTY AFTER-HOURS PROCEDURE The findings were verbally communicated via telephone conference with VAHE RAMSEY at 1:02 AM MARA o dea 09/09/2018. The findings were acknowledged and understood. Initial Report created on 09/09/2018 12:59 AM Central Time ([place] & [place]) CT Head Without Intravenous Contrast EXAM DATE/TIME: 09/09/2018 12:49 AM CLINICAL HISTORY: 48 years old, female; Signs and symptoms; Other: Unresponsible; Patient HX: stroke alert f49, dis charged today with TIA, around 2230 was unresponsive, patient becoming for responsive TECHNIQUE: Axial computed tomography images of the head/brain without intravenous contrast. COMPARISON: No relevant prior studies available. FINDINGS: Brain: No evidence for acute territorial infarct. No hemorrhage. No significant white matter disease. No edema. Ventricles: No ventriculomegaly. Bones/joints: No acute fracture. Sinuses: No significant abnormality. Mastoid air cells: No mastoid effusion. Soft tissues: No acute abnormality. Vasculature: There is vascular calcification in the internal carotid and vertebral arteries at the sk ull base. IMPRESSION: 1: No acute intracranial findings. 2: ASPECT Score 10 Thank you for allowing us to participate in the care of your patient. Dictated and Authenticated by: Yovany Loyd MD 09/09/2018 12:59 AM Central Time ([place] & [place]) FINAL REPORT CT HEAD NONCONTRAST: DATE: 09/09/2018. TIME: Performed on an emergency basis at 0049 hours. HISTORY: Altered mental status. COMPARISON: 09/06/2018. FINDINGS: Agree with the preliminary report by Dr. Loyd from [facility]. No acute intracranial abnorma lities are demonstrated. POS: [facility]
--- NOTE | 2018-09-09 08:58 | PRG ---
DATE OF SERVICE: 09/09/2018 SUBJECTIVE: This is a female being seen for end-stage renal disease. The patient denies any nausea, vomiting or chest pain. PHYSICAL EXAMINATION: GENERAL: Patient is awake, alert. VITAL SIGNS: Afebrile, pulse 80, breathing 16, blood pressure 103/76. OBJECTIVE: See above. Awake, alert, in no acute distress. GENERAL APPEARANCE AND MENTAL STATUS: Fair. HEAD/NECK: Normocephalic. Atraumatic. EYES: EOMI. No deformity. EARS: Clear. No ulcers. NOSE: Intact. No lesions. MOUTH: Clear. No discharge. THROAT: Clear. No exudate. LUNGS: Clear. No crackles. CARDIAC: S1, S2. No rub. ABDOMEN: Benign. BS+. GENITALIA/RECTUM: Morris absent. BACK/EXTREMITIES: Edema 0+ Ulcer- NEUROLOGICAL: Alert and motor intact. SKIN: Rash- Bruise- LYMPHATICS: Edema- Ulcer- LABORATORY DATA: Show hemoglobin 7.9, potassium 4. ASSESSMENT: 1. Stage 6 chronic kidney disease, continue hemodialysis. 2. Hypertension, stable. 3. Anemia, stable. 4. Medication based on glomerular filtration rate are appropriate.
[2018-09-09] MEDS: Enoxaparin Sodium 30 MG/0.3 ML SYRINGE SC SCH (09:45)
[2018-09-09] MEDS ORDERED: Ondansetron ODT 4 MG TAB PO PRN (15:18)
--- NOTE | 2018-09-09 15:23 | PDOC.PN ---
- Subjective Encounter Start Date: 09/09/18 Encounter Start Time: 15:10 Subjective: f/u for new-onset seizures of unclear etiology. Started on Keppra -: and no seizures noted per nursing. Feels ok except some nausea after -: eating. - Objective MAR Reviewed: Yes Vital Signs & Weight: Vital Signs (12 hours) Temp Pulse Resp BP Pulse Ox 09/09/18 11:59 100.6 F H 90 16 158/75 H 93 L 09/09/18 09:45 95 09/09/18 07:50 97.9 F 83 20 163/72 H 95 09/09/18 03:40 96 09/09/18 03:30 97.8 F 83 12 157/86 H 96 Weight Weight 116 lb Result Diagrams: 09/09/18 01:10 09/09/18 01:10 Additional Labs: Accuchecks 09/09/18 09/09/18 09/09/18 10:35 07:09 06:16 POC Glucose 94 242 H 255 H 09/09/18 09/09/18 09/09/18 04:06 03:16 02:30 POC Glucose 255 H 306 H 364 H 09/09/18 00:48 POC Glucose 392 H Laboratory Tests 08/13/18 09/07/18 09/08/18 05:45 04:35 04:29 Hgb 8.0 L 7.7 L Hemoglobin A1c 7.6 H B-Natriuretic Peptide Prolactin 09/09/18 09/09/18 01:10 01:10 Hgb Hemoglobin A1c B-Natriuretic Peptide 1680.2 H Prolactin 123.56 H Radiology Reviewed by me: Yes (CT brain - negative) EKG Reviewed by me: Yes (Tele - SR) Phys Exam - Physical Examination Constitutional: NAD sleepy HEENT: PERRLA, sclera anicteric, oral pharynx no lesions Neck: no nodes, no JVD, supple, full ROM Respiratory: no wheezing, no rales, no rhonchi, clear to auscultation bilateral S1, S2 Cardiovascular: RRR, no significant murmur, no rub, gallop Gastrointestinal: soft, non-tender, no distention, positive bowel sounds Musculoskeletal: no edema, pulses present Neurological: normal sensation, moves all 4 limbs Psychiatric: normal affect, A&O x 3 Skin: no rash, normal turgor, cap refill <2 seconds Dx/Plan (1) New onset seizure Code(s): R56.9 - UNSPECIFIED CONVULSIONS Status: Acute Comment: ? etiology, monitor glucose trend, Keppra 500mg BID (2) Acute metabolic encephalopathy Code(s): G93.41 - METABOLIC ENCEPHALOPATHY Status: Acute Comment: Likey post -ictal as main component, resolving (3) ESRD (end stage renal disease) on dialysis Code(s): N18.6 - END STAGE RENAL DISEASE; Z99.2 - DEPENDENCE ON RENAL DIALYSIS Status: Acute Comment: Receiving HD currently, plan for outpt HD when coordinated with CM (4) DM type 2 (diabetes mellitus, type 2) Status: Chronic Qualifiers: Diabetes mellitus skilled nursing insulin use: with skilled nursing use Diabetes mellitus complication status: with kidney complications Diabetes mellitus complication detail: with chronic kidney disease Chronic kidney disease stage : unspecified stage Qualified Code(s): E11.22 - Type 2 diabetes mellitus with diabetic chronic kidney disease; Z79.4 - custodial (current) use of insulin Comment: ISS, ADA, Levemir 10u HS (5) HTN (hypertension) Code(s): I10 - ESSENTIAL (PRIMARY) HYPERTENSION Status: Chronic Qualifiers: Hypertension type: essential hypertension Comment: Continue Amlodipine 5mg daily, add Coreg 6.25mg BID - Plan PT/OT, social worker school, out of bed/ambulate, DVT proph w/SCDs Stable overall -: Continue Keppra 500mg BID -: Resume home Coreg, Amlodipine and monitor BP trend -: Zofran prn nausea -: HD per Renal service * Likely home in 09/10/18
[2018-09-09] MEDS: Acetaminophen 325 MG TAB PO PRN (15:59)
[2018-09-09] MEDS: Carvedilol 25 MG TAB PO SCH (20:56)
[2018-09-09] MEDS: levETIRAcetam 500 MG TAB PO SCH (20:56)
[2018-09-09] MEDS ORDERED: Non-Formulary Item 1 EACH (Levemir Flexpen [Levemir Flexpen] 10 UNIT) SC SCH (21:00)
[2018-09-09] MEDS: Insulin Glargine 10 UNITS in Pre-Filled Syringe 1 EACH SC SCH (21:02)
[2018-09-10 04:34] LABS: #Basophils 0.1 thou/uL (0.0-0.2); #Eosinphils 0.1 thou/uL (0.0-0.7); #Lymphocytes 1.7 thou/uL (1.20-3.40); #Monocytes 0.7 thou/uL (0.11-0.59); %Basophils 0.7 % (0.0-1.0); %Eosinophils 1.4 % (0.0-10.0); %Lymphocytes 19.7 % (21.0-51.0); %Monocytes 8.5 % (0.0-10.0); %Neutrophils 69.6 % (42.0-75.0); Hemoglobin 6.9 g/dL (12.0-16.0); Mean Corpuscular HGB CONC 30.7 g/dL (32.0-36.0); Mean Corpuscular Hemoglobin 28.5 pg (27.0-31.0); Mean Corpuscular Volume 92.8 fL (78.0-98.0); Platelet Count 261 thou/uL (130-400); RBC Distribution Width 15.3 % (11.5-14.5); Red Blood Cell (RBC) Count 2.42 mill/uL (4.20-5.40); White Blood Cell (WBC) Count 8.7 thou/uL (4.8-10.8)
[2018-09-10 05:07] LABS: Anion Gap 8 mmol/L (10-20); BUN (Urea Nitrogen) 41 mg/dL (7.0-18.7); Calc. Creatinine Clearance 12 mL/min (70-130); Calcium 8.4 mg/dL (7.8-10.44); Carbon Dioxide 26 mmol/L (22-29); Chloride 109 mmol/L (98-107); Estimated GFR-MDRD 10; Glucose 68 mg/dL (70-105); Potassium 4.4 mmol/L (3.5-5.1); Sodium 139 mmol/L (136-145)
[2018-09-10] MEDS ORDERED: FERRIC CITRATE 210 MG PO SCH (09:00)
[2018-09-10] MEDS: Enoxaparin Sodium 30 MG/0.3 ML SYRINGE SC SCH (09:46)
[2018-09-10] MEDS: Amlodipine 10 MG TAB PO SCH (09:46)
[2018-09-10] MEDS: levETIRAcetam 500 MG TAB PO SCH (09:48)
[2018-09-10] MEDS: Carvedilol 25 MG TAB PO SCH ×2 (09:48→22:21)
[2018-09-10] MEDS: Clopidogrel Bisulfate 75 MG TAB PO SCH (09:48)
[2018-09-10] MEDS: Aspirin 81 mg Enteric Coated Tablet PO SCH (09:48)
[2018-09-10] MEDS ORDERED: Heparin 1,000 UNITS/ML VIAL ONE (11:11)
--- NOTE | 2018-09-10 11:13 | PRG ---
DATE OF SERVICE: 09/06/2018 SUBJECTIVE: This is a 48-year-old female being seen for end-stage renal disease. The patient is res ting, vital signs afebrile, no nausea, vomiting reported. PHYSICAL EXAMINATION: GENERAL: Patient is resting. VITAL SIGNS: Afebrile, pulse 79, breathing 16, blood pressure 130/61. HEAD/NECK: Normocephalic. Atraumatic. EYES: EOMI. No deformity. EARS: Clear. No ulcers. NOSE: Intact. No lesions. MOUTH: Clear. No discharge. THROAT: Clear. No exudate. LUNGS: Clear. No crackles. CARDIAC: S1, S2. No rub. ABDOMEN: Benign. BS+. GENITALIA/RECTUM: Morris absent. BACK/EXTREMITIES: Edema 0+ Ulcer- NEUROLOGICAL: Alert and motor intact. SKIN: Rash- Bruise- LYMPHATICS: Edema- Ulcer- LABORATORY DATA: Show hemoglobin 6.9. ASSESSMENT AND RECOMMENDATIONS: 1. Stage 6 chronic kidney disease, plan hemodialysis. 2. Hypertension, stable. 3. Anemia, stable. 4. Hyperkalemia, stable.
--- NOTE | 2018-09-10 12:42 | PDOC.PN ---
- Subjective Encounter Start Date: 09/10/18 Encounter Start Time: 12:30 Subjective: f/u for new seizure onset on current Keppra. Feels better overall but still -: sleepy. Plan for HD today. - Objective MAR Reviewed: Yes Vital Signs & Weight: Vital Signs (12 hours) Temp Pulse Resp BP Pulse Ox 09/10/18 09:46 79 09/10/18 07:40 98.2 F 79 16 132/61 95 09/10/18 03:35 99.3 F 83 18 140/68 93 L Weight Weight 116 lb I&O: 09/09/18 09/10/18 09/11/18 06:59 06:59 06:59 Intake Total 375 Balance 375 Result Diagrams: 09/10/18 04:13 09/10/18 04:13 Additional Labs: Accuchecks 09/10/18 09/09/18 09/09/18 05:34 20:40 16:37 POC Glucose 66 L 200 H 156 H Microbiology 09/09/18 01:41 Venous blood - Left Arm Blood Culture - Preliminary Specimen has been received and culture in progress. No Growth to date. 09/09/18 01:20 Urine Straight Catheter Urine Culture - Preliminary NO GROWTH AT 12 HOURS 09/09/18 01:08 Venous blood - Right Hand Blood Culture - Preliminary Specimen has been received and culture in progress. No Growth to date. Laboratory Tests 08/13/18 09/07/18 09/08/18 05:45 04:35 04:29 Hgb 8.0 L 7.7 L Hemoglobin A1c 7.6 H B-Natriuretic Peptide Prolactin 09/09/18 09/09/18 09/09/18 01:10 01:10 01:10 Hgb 7.9 L Hemoglobin A1c B-Natriuretic Peptide 1680.2 H Prolactin 123.56 H EKG Reviewed by me: Yes (Tele - SR in 70's) Phys Exam - Physical Examination Constitutional: NAD sleepy, awakes and answers questions HEENT: PERRLA, sclera anicteric, oral pharynx no lesions Neck: no nodes, no JVD, supple, full ROM Respiratory: no wheezing, no rales, no rhonchi, clear to auscultation bilateral S1, S2 Cardiovascular: RRR, no significant murmur, no rub, gallop Gastrointestinal: soft, non-tender, no distention, positive bowel sounds Musculoskeletal: no edema, pulses present Neurological: normal sensation, moves all 4 limbs Skin: normal turgor, cap refill <2 seconds Dx/Plan (1) New onset seizure Code(s): R56.9 - UNSPECIFIED CONVULSIONS Status: Acute Comment: ? etiology, monitor glucose trend, decrease Keppra 250mg BID due to somnolence (2) Acute metabolic encephalopathy Code(s): G93.41 - METABOLIC ENCEPHALOPATHY Status: Acute Comment: Likey post -ictal as main component, resolving (3) ESRD (end stage renal disease) on dialysis Code(s): N18.6 - END STAGE RENAL DISEASE; Z99.2 - DEPENDENCE ON RENAL DIALYSIS Status: Acute Comment: Receiving HD currently, plan for outpt HD when coordinated with CM (4) DM type 2 (diabetes mellitus, type 2) Status: Chronic Qualifiers: Diabetes mellitus ad terminal makeup operator insulin use: with detention use Diabetes mellitus complication status: with kidney complications Diabetes mellitus complication detail: with chronic kidney disease Chronic kidney disease stage : unspecified stage Qualified Code(s): E11.22 - Type 2 diabetes mellitus with diabetic chronic kidney disease; Z79.4 - retirement (current) use of insulin Comment: ISS, ADA, Levemir 10u HS (5) HTN (hypertension) Code(s): I10 - ESSENTIAL (PRIMARY) HYPERTENSION Status: Chronic Qualifiers: Hypertension type: essential hypertension Comment: Continue Amlodipine 5mg daily, add Coreg 6.25mg BID (6) Anemia due to chronic kidney disease Code(s): N18.9 - CHRONIC KIDNEY DISEASE, UNSPECIFIED; D63.1 - ANEMIA IN CHRONIC KIDNEY DISEASE Status: Chronic Comment: Transfuse 1u PRBC's with HD today, repeat CBC in am - Plan plan discussed w/ family, PT/OT, social welfare administrator, out of bed/ambulate Stable currently -: HD planned for today -: Transfuse 1u PRBC's today -: Decrease Keppra 250mg BID -: AM lab: CBC * Likely home 09/11/18
[2018-09-10 16:52] LABS: Hep B Surf Ag Non-Reactive S/CO (NonReactive)
[2018-09-10 16:53] LABS: HBSAg Index 0.19 S/CO (0-0.99)
[2018-09-10] MEDS ORDERED: Nitroglycerin 0.4 MG TAB (25 Tab Bottle) ONE (18:53)
[2018-09-10] MEDS: Insulin Glargine 10 UNITS in Pre-Filled Syringe 1 EACH SC SCH (22:20)
[2018-09-10] MEDS: levETIRAcetam 500 mg/5 ml Oral Solution PO SCH (22:21)
[2018-09-10] MEDS: Acetaminophen 325 MG TAB PO PRN (22:31)
[2018-09-11 04:37] LABS: Anion Gap 9 mmol/L (10-20); BUN (Urea Nitrogen) 20 mg/dL (7.0-18.7); Calc. Creatinine Clearance 18 mL/min (70-130); Carbon Dioxide 28 mmol/L (22-29); Chloride 104 mmol/L (98-107); Estimated GFR-MDRD 16; Potassium 3.9 mmol/L (3.5-5.1); Sodium 137 mmol/L (136-145)
[2018-09-11 04:39] LABS: Band 3 % (5-11); Eosinophils 2 % (0-10); Hemoglobin 7.8 g/dL (12.0-16.0); Lymphocytes 31 % (21-51); MDiff Complete? YES; Mean Corpuscular HGB CONC 31.4 g/dL (32.0-36.0); Mean Corpuscular Hemoglobin 28.5 pg (27.0-31.0); Mean Platelet Volume 8.7 fL (7.4-10.4); Monocytes 6 % (0-10); Neutrophil 58 % (42-75); Platelet Count 268 thou/uL (130-400); RBC Distribution Width 14.7 % (11.5-14.5); Red Blood Cell (RBC) Count 2.74 mill/uL (4.20-5.40); White Blood Cell (WBC) Count 7.7 thou/uL (4.8-10.8)
[2018-09-11 04:49] LABS: Glucose 52 mg/dL (70-105)
[2018-09-11] MEDS: levETIRAcetam 500 mg/5 ml Oral Solution PO SCH (09:39)
[2018-09-11] MEDS: Amlodipine 10 MG TAB PO SCH (09:40)
[2018-09-11] MEDS: Clopidogrel Bisulfate 75 MG TAB PO SCH (09:41)
[2018-09-11] MEDS: Aspirin 81 mg Enteric Coated Tablet PO SCH (09:41)
[2018-09-11] MEDS: Enoxaparin Sodium 30 MG/0.3 ML SYRINGE SC SCH (09:41)
[2018-09-11] MEDS: Carvedilol 25 MG TAB PO SCH (09:41)
[2018-09-11] MEDS: HumaLOG 300 UNITS/3 ML VIAL SC PRN (11:28)
[2018-09-11 11:55] VITALS: BP 162/76; TEMP 98.4
--- NOTE | 2018-09-11 14:55 | PRG ---
DATE OF SERVICE: 09/11/2018 SUBJECTIVE: A 48-year-old female being seen for end-stage renal disease. The patient denies any shahnaz sea, vomiting or chest pain. PHYSICAL EXAMINATION: GENERAL: Patient is awake, alert. VITAL SIGNS: Afebrile, pulse 80, breathing 16, blood pressure 123/73. HEAD/NECK: Normocephalic. Atraumatic. EYES: EOMI. No deformity. EARS: Clear. No ulcers. NOSE: Intact. No lesions. MOUTH: Clear. No discharge. THROAT: Clear. No exudate. LUNGS: Clear. No crackles. CARDIAC: S1, S2. No rub. ABDOMEN: Benign. BS+. GENITALIA/RECTUM: Morris absent. BACK/EXTREMITIES: Edema 0+ Ulcer- NEUROLOGICAL: Alert and motor intact. SKIN: Rash- Bruise- LYMPHATICS: Edema- Ulcer- LABORATORY DATA: Show hemoglobin 7.8. ASSESSMENT AND RECOMMENDATIONS: 1. Stage 6 chronic kidney disease, stable. 2. Hypertension, stable. 3. Anemia, stable. 4. Medications based on glomerular filtration rate are appropriate.
--- NOTE | 2018-09-11 16:21 | DIS ---
DATE OF ADMISSION: 09/09/2018 DATE OF DISCHARGE: 09/11/2018 DISCHARGE DIAGNOSES: 1. New onset seizure disorder, stable. 2. Acute metabolic encephalopathy secondarily to #1, resolved. 3. End-stage renal disease with hemodialysis. 4. Diabetes mellitus type 2, insulin requiring. 5. Hypertension, stable. 6. Anemia due to chronic kidney disease status post 1 unit of packed red blood cells. CONSULTATIONS: Dr. Stan Gómez with Neurology Service and Dr. Armstrong with Nephrology Service. PERTINENT LABORATORY DATA: Creatinine ranged between 3.13-4.79, estimated GFR ranged between 11-16, prolactin level 124. LFTs within normal limits. BNP 1680. CBC showed hemoglobin ranging between 6. 9-7.9, MCV 91, beta hydroxybutyrate level 09/09/2018 is 0.08. Hepatitis B surface antigen nonreactiv e on 09/10/2018. Blood cultures x2 dated 09/09/2018 showed no growth at 48 hours. Urine culture sacha ed 09/09/2018 showed no growth at [address] of the brain without contrast dated 09/09/2018 showed no acute intracranial process. Portable chest x-ray dated 09/09/2018 showed mild volume overload. Carotid Doppler study dated 09/08/2018 showed moderate stenosis of the left internal carotid artery. No hemodynamically significant stenosis noted. A 2D transthoracic echocardiogram dated 09/07/2018 s howed ejection fraction of 50%-55%. Moderate left ventricular hypertrophy. Diastolic dysfunction no joslyn. MRI of the brain dated 09/07/2018 showed no acute intracranial process. HOSPITAL COURSE: The patient was initially admitted to the stroke unit after presenting with seizure activity of new onset. The patient with recent hospitalization on 09/06/2018-09/08/2018 for questio nable TIA. The patient's workup was essentially unremarkable as noted with negative MRI imaging. Th e patient was treated for metabolic encephalopathy due to seizure activity and placed on IV Keppra. The patient clinically improved and was evaluated by the Neurology Service. Current recommendations are to continue Keppra and follow up as an outpatient for further management and monitoring. Keppra dose was decreased to 250 mg b.i.d. due to increased somnolence with 500 b.i.d. dosing. The patient may need additional titration on an ongoing basis after discharge. The patient continued her mainten ance hemodialysis sessions during the hospital course without complication. The patient did receive 1 unit of packed red blood cells with hemodialysis with stable hemoglobin by the time of discharge. I have examined the patient at the time of discharge and discussed followup instructions. The patien t verbalized understanding and agreement and ready for discharge on 09/11/2018. DISCHARGE MEDICATIONS: 1. Amlodipine 5 mg p.o. daily. 2. Carvedilol 25 mg p.o. b.i.d. 3. Ferric citrate 210 mg p.o. daily. 4. Enteric-coated aspirin 81 mg p.o. daily. 5. Plavix 75 mg p.o. daily. 6. Lantus 8 units subcutaneously at bedtime. 7. Keppra 250 mg p.o. b.i.d. FOLLOWUP: Patient may follow up with her primary care provider at [facility] in [place], [place]. The patient will follow up with Dr. Stan Gómez with Neurology Service and to call his office for appoin tment time and date. CONDITION ON DISCHARGE: Stable. ACTIVITY: Ad rogelio. DIET: Heart healthy and renal. CODE STATUS: FULL. DISPOSITION: Home 09/11/2018.
[2018-09-11] MEDS ORDERED: Insulin Glargine 8 UNITS in Pre-Filled Syringe SC SCH (21:00)
--- NOTE | 2018-09-12 16:59 | EKG ---
Test Reason : Blood Pressure : / mmHG Vent. Rate : 096 BPM Atrial Rate : 096 BPM P-R Int : 148 ms QRS Dur : 094 ms QT Int : 372 ms P-R-T Axes : 023 012 065 degrees QTc Int : 469 ms Sinus rhythm WNL Confirmed by DR. Celestino MICHELLE ([id number]) on 09/12/2018 4:59:30 PM Referred By: GARRISON Confirmed By:DR. Celestino MICHELLE
== END 2018-09-11 14:37 | disposition home or self-care (01) | DRG 100 ==
LOC: ERS 00:44 → 2SE 02:35
PROVIDERS: ADMIT Internal Medicine; ATTEND Internal Medicine
PROC: 30233N1 Transfusion of Nonautologous Red Blood Cells into Peripheral Vein, Percutaneous Approach (ICD-10-PCS; principal; 2018-09-10)
PROC: 5A1D70Z Performance of Urinary Filtration, Intermittent, Less than 6 Hours Per Day (ICD-10-PCS; 2018-09-10)
DX: G40.409 Other generalized epilepsy and epileptic syndromes, not intractable, without status epilepticus (principal); N18.6 End stage renal disease; I12.0 Hypertensive chronic kidney disease with stage 5 chronic kidney disease or end stage renal disease; Z99.2 Dependence on renal dialysis; E11.22 Type 2 diabetes mellitus with diabetic chronic kidney disease; Z79.4 Long term (current) use of insulin; D63.1 Anemia in chronic kidney disease; Z91.81 History of falling; E78.5 Hyperlipidemia, unspecified; E11.65 Type 2 diabetes mellitus with hyperglycemia; Z86.73 Personal history of transient ischemic attack (TIA), and cerebral infarction without residual deficits; E87.5 Hyperkalemia
CPT/HCPCS: 36415; 36416; 36430; 51701; 70450; 71045; 80048; 80053; 81003; 81015; 82010; 82330; 82553; 82803; 83690; 83880; 84146; 84484; 85007; 85025; 85027; 85610; 85730; 86850; 86900; 86901; 87040; 87086; 87340; 90935; 93005; 93010; 96365; 96367; 96375; A4353; G0257; J0696; J1644; J1650; J1815; J1953; J2060; J2405; P9016

== ENCOUNTER 2018-12-14 20:12 | Inpatient (IN) | payer MEDICARE, MEDICAID ==
[2018-12-14] MEDS ORDERED: hydrALAZINE 20 MG/ML VIAL ONE (20:44)
[2018-12-14 20:59] LABS: #Eosinphils 0.1 thou/uL (0.0-0.7); #Lymphocytes 1.2 thou/uL (1.20-3.40); #Monocytes 0.5 thou/uL (0.11-0.59); #Neutrophils 4.9 thou/uL (1.40-6.50); %Basophils 0.7 % (0.0-1.0); %Eosinophils 1.5 % (0.0-10.0); %Lymphocytes 17.7 % (21.0-51.0); %Monocytes 7.7 % (0.0-10.0); %Neutrophils 72.5 % (42.0-75.0); Hemoglobin 12.1 g/dL (12.0-16.0); Mean Corpuscular HGB CONC 32.2 g/dL (32.0-36.0); Mean Corpuscular Hemoglobin 31.5 pg (27.0-31.0); Mean Corpuscular Volume 98.1 fL (78.0-98.0); Mean Platelet Volume 8.2 fL (7.4-10.4); Platelet Count 323 thou/uL (130-400); RBC Distribution Width 13.8 % (11.5-14.5); Red Blood Cell (RBC) Count 3.84 mill/uL (4.20-5.40); White Blood Cell (WBC) Count 6.8 thou/uL (4.8-10.8)
--- NOTE | 2018-12-14 21:09 | RAD ---
PORTABLE CHEST: 12/14/18 HISTORY: Dyspnea. Hypertension. COMPARISON: 09/09/18 study. Right sided hemosplit catheter is again present. Heart size is enlarged. Pulmonary vessels are engorg ed with increased interstitial markings very similar to the prior examination suggestive of recurren t edema. IMPRESSION: Cardiomegaly with pulmonary edema type changes. POS: [facility]
[2018-12-14 21:18] LABS: ALT (SGPT) 31 U/L (8-55); AST (SGOT) 23 U/L (5-34); Albumin 3.8 g/dL (3.5-5.0); Alkaline Phosphatase 121 U/L (40-150); Anion Gap 13 mmol/L (10-20); BUN (Urea Nitrogen) 21 mg/dL (7.0-18.7); Bilirubin, Total 0.5 mg/dL (0.2-1.2); CK (CPK) 33 U/L (29-168); Calc. Creatinine Clearance 0 mL/min (70-130); Calcium 9.9 mg/dL (7.8-10.44); Carbon Dioxide 33 mmol/L (22-29); Chloride 95 mmol/L (98-107); Estimated GFR-MDRD 16; Globulin 4.3 g/dL (2.4-3.5); Glucose 299 mg/dL (70-105); Protein, Total 8.1 g/dL (6.0-8.3)
[2018-12-14 21:25] LABS: Sodium 137 mmol/L (136-145)
[2018-12-14] MEDS ORDERED: Carvedilol 25 MG TAB PO SCH (21:45)
[2018-12-14] MEDS ORDERED: cloNIDine 0.1 MG TAB PO PRN (23:20)
[2018-12-15 00:22] LABS: Troponin I 0.036 ng/mL (< 0.028)
[2018-12-15] MEDS ORDERED: Ondansetron ODT 4 MG TAB PO PRN (00:42)
[2018-12-15] MEDS ORDERED: Ondansetron PF 4 MG/2 ML Vial IVP PRN (00:42)
[2018-12-15] MEDS ORDERED: Acetaminophen 325 MG TAB PO PRN (00:42)
[2018-12-15 02:54] LABS: #Basophils 0.1 thou/uL (0.0-0.2); #Eosinphils 0.2 thou/uL (0.0-0.7); #Lymphocytes 1.2 thou/uL (1.20-3.40); #Monocytes 0.8 thou/uL (0.11-0.59); #Neutrophils 6.7 thou/uL (1.40-6.50); %Basophils 0.7 % (0.0-1.0); %Eosinophils 1.9 % (0.0-10.0); %Lymphocytes 13.7 % (21.0-51.0); %Monocytes 8.5 % (0.0-10.0); %Neutrophils 75.2 % (42.0-75.0); Hemoglobin 10.9 g/dL (12.0-16.0); Mean Corpuscular HGB CONC 31.9 g/dL (32.0-36.0); Mean Corpuscular Hemoglobin 31.5 pg (27.0-31.0); Mean Corpuscular Volume 98.8 fL (78.0-98.0); Mean Platelet Volume 8.3 fL (7.4-10.4); Platelet Count 292 thou/uL (130-400); RBC Distribution Width 13.7 % (11.5-14.5); Red Blood Cell (RBC) Count 3.46 mill/uL (4.20-5.40); White Blood Cell (WBC) Count 8.9 thou/uL (4.8-10.8)
[2018-12-15 03:17] LABS: Troponin I 0.031 ng/mL (< 0.028)
[2018-12-15 03:46] LABS: Anion Gap 18 mmol/L (10-20); BUN (Urea Nitrogen) 25 mg/dL (7.0-18.7); Calc. Creatinine Clearance 0 mL/min (70-130); Calcium 9.5 mg/dL (7.8-10.44); Carbon Dioxide 26 mmol/L (22-29); Chloride 99 mmol/L (98-107); Estimated GFR-MDRD 14; Glucose 274 mg/dL (70-105); Potassium 4.1 mmol/L (3.5-5.1); Sodium 139 mmol/L (136-145)
--- NOTE | 2018-12-15 06:19 | HP ---
PRIMARY CARE DOCTOR: The patient goes to [facility]. CODE STATUS: Full code. TIME OF EVALUATION: 1215 hours. CHIEF COMPLAINT: Blood pressure is uncontrolled. HISTORY OF PRESENT ILLNESS: This is a 48-year-old female patient with past medical history of hypertension and end-stage renal disease, on hemodialysis, came to the hospital after having systolic blood pressure higher than 200 as stated by the patient's fiancee. She went to dialysis and her initial blood pressure was good and when she went home, then the systolic was above 200. The patient follows with Dr. Medina, who has been trying to adjust medication in the past few encounters with the patient. The patient has no other significant symptoms except for nausea and fatigue. No clear triggers. No alleviating factors. Symptoms were reported as mild to moderate. Blood pressure was severely high. REVIEW OF SYSTEMS: CONSTITUTIONAL: The patient had no fever, chills, or generalized weakness. RESPIRATORY: No cough, sputum production, or shortness of breath. CARDIOVASCULAR: The patient has high blood pressure. No chest pain or palpitation. GASTROINTESTINAL: The patient has nausea. No vomiting, diarrhea, or abdominal pain. ENGAGEMENT DIRECTOR: No dizziness, headache, or feeling lightheaded. GENITOURINARY: No burning on urination. EXTREMITIES: No leg swelling. All other systems were reviewed and negative except for the findings mentioned above. PAST MEDICAL HISTORY: Positive for seizures, diabetes type 2, hypertension, end-stage renal disease on hemodialysis, she goes to see Dr. Medina Wednesday, Wednesday, and Wednesday, also history of TIA. PAST SURGICAL HISTORY: Tubal ligation, left arm AV fistula. PSYCHIATRIC HISTORY: No previous psych history. SOCIAL HISTORY: History of alcohol abuse. drink alcohol for a long time. No smoking history. Lives at home with family. FAMILY HISTORY: Reviewed. The patient has a history of diabetes, heart problems, and hypertension in the family. KNOWN ALLERGIES: No known drug allergies reported. MEDICATIONS: 1. Carvedilol. 2. Auryxia. 3. Plavix. 4. Aspirin 81. 5. Nifedipine. 6. Atorvastatin. 7. Levetiracetam. PHYSICAL EXAMINATION: VITAL SIGNS: On presentation, the patient had a blood pressure of 199/111, heart rate 80, respiratory rate was 18, temperature 98.5, oxygen saturation was 94. GENERAL APPEARANCE: The patient is alert, oriented, not in acute distress. HEENT: Eyes, normal conjunctiva. Moist oral mucosa. Anicteric. No JVD. RESPIRATORY: Bilateral air entry. No rales. No wheezes. Symmetric expansion. CARDIOVASCULAR: Normal rate, regular rhythm. No murmurs. No gallop. No edema. Hypertension. ABDOMEN: Soft. Normal bowel sounds. MUSCULOSKELETAL: Baseline range of motion. No sternal tenderness. SKIN: Warm, intact. No pallor. No rash. No redness. Peripheral pulses are present. Capillary refill seems to be intact. NEURO: No evidence of any new focal weakness. Baseline speech. Cranial nerves seems to be intact. PSYCH: The patient has good mood. No anxiety. Optimal judgment. DIAGNOSTIC STUDIES: IMAGING RESULTS: EKG was reviewed. The patient had normal sinus rhythm at a rate of 79, MT 176, QRS 90, QT corrected 449. Chest x-ray was reviewed. The patient has cardiomegaly with pulmonary edema type changes. LABORATORY DATA: LABORATORY RESULTS: Labs were reviewed. The patient has a white count of 6.8, hemoglobin 12.1, MCV 98.1, platelet count 323. Chemistry; sodium 137, potassium 4.0, chloride 95, carbon dioxide 33, anion gap 13, BUN 21, creatinine 3.11, GFR 16, glucose 299, calcium 9.9. Total bilirubin 0.5, AST 23, ALT 31, alkaline phosphatase 121. CK 33. Troponin was mildly elevated twice with an initial value of 0.036, the second one 0.031. Beta-natriuretic peptide was elevated at 338. ASSESSMENT AND PLAN: The patient will be placed in the hospital with following medical problems: 1. Hypertensive urgency. Difficult to control blood pressure. The patient's blood pressure has been labile, occasionally might be low and then goes high as per the patient's report, the patient has end-stage renal disease. The patient is on hemodialysis, follows with Dr. Medina. We will follow recommendation from Dr. Medina for better blood pressure medication reconciliation. We will reconcile home medications and adjust as needed to get blood pressure control. 2. End-stage renal disease, on hemodialysis. Dr. Medina has been consulted for recommendations. Might need hemodialysis as inpatient. 3. Uncontrolled diabetes, reconcile home medications and place the patient on sliding scale for optimal control. 4. Wgo-[id number] myocardial infarction, likely [id number] myocardial infarction type 2. This patient has a very minimal troponin 0.036, 0.031. Also, this patient is a renal patient, it might be another reason for elevation of troponin. 5. History of seizure, we will reconcile home medication, it is chronic, stable. 6. Pulmonary edema. The patient will need hemodialysis for fluid removal. The patient is not in distress, breathing properly as of now. 7. Deep venous thrombosis prophylaxis. Job ID: [id number]
[2018-12-15] MEDS ORDERED: hydrALAZINE 20 MG/ML VIAL SLOW IVP PRN (08:00)
[2018-12-15] MEDS ORDERED: Labetalol HCl 100 MG/20 ML VIAL SLOW IVP PRN (08:00)
[2018-12-15] MEDS ORDERED: Heparin 5,000 UNITS/ML VIAL SC SCH (09:00)
[2018-12-15] MEDS ORDERED: Amlodipine 5 MG TAB PO SCH (09:00)
[2018-12-15] MEDS ORDERED: Carvedilol 25 MG TAB PO SCH (09:00)
[2018-12-15] MEDS ORDERED: Amlodipine 10 MG TAB PO SCH (09:00)
[2018-12-15] MEDS ORDERED: Non-Formulary Item 1 EACH (Levetiracetam [Keppra] 250 MG) PO SCH (09:00)
--- NOTE | 2018-12-15 09:44 | PDOC.PN ---
- Subjective Encounter Start Date: 12/15/18 Encounter Start Time: 09:43 Ms. Schaeffer was seen today in follow-up of HTN urgency. she says her blood pressure has been very labile and difficult to control. she also notes the same thing with her blood glucose. She says her blood pressure is usually high at night, especially when she sleeps for a long time. She also notes more elvated blood glucose in the evenings as well. - Objective Resuscitation Status - Order Detail: 12/15/18 00:42 Resuscitation Status Routine Resuscitation Status: FULL: Full Resuscitation MAR Reviewed: Yes Vital Signs & Weight: Vital Signs (12 hours) Pulse BP 12/15/18 08:08 77 191/99 H Result Diagrams: 12/15/18 02:46 12/15/18 02:46 Additional Labs: Accuchecks 12/15/18 08:29 POC Glucose 193 H Phys Exam - Physical Examination HEENT: PERRLA Respiratory: no wheezing, no rales, no rhonchi, clear to auscultation bilateral Cardiovascular: RRR, no significant murmur, no rub Gastrointestinal: soft, non-tender, positive bowel sounds Musculoskeletal: no edema, pulses present no foot lesions Dx/Plan (1) Hypertensive urgency Code(s): I16.0 - HYPERTENSIVE URGENCY Status: Acute (2) HTN (hypertension) Code(s): I10 - ESSENTIAL (PRIMARY) HYPERTENSION Status: Chronic Qualifiers: Hypertension type: essential hypertension Comment: Continue Amlodipine 5mg daily, add Coreg 6.25mg BID (3) DM type 2 (diabetes mellitus, type 2) Status: Chronic Qualifiers: Diabetes mellitus typists supervisor insulin use: with shelter use Diabetes mellitus complication status: with kidney complications Diabetes mellitus complication detail: with chronic kidney disease Chronic kidney disease stage : unspecified stage Qualified Code(s): E11.22 - Type 2 diabetes mellitus with diabetic chronic kidney disease; Z79.4 - scrub technician (current) use of insulin Comment: ISS, ADA, Levemir 10u HS (4) Seizure disorder Code(s): G40.909 - EPILEPSY, UNSP, NOT INTRACTABLE, WITHOUT STATUS EPILEPTICUS Status: Chronic (5) ESRD (end stage renal disease) on dialysis Code(s): N18.6 - END STAGE RENAL DISEASE; Z99.2 - DEPENDENCE ON RENAL DIALYSIS Status: Chronic Comment: Receiving HD currently, plan for outpt HD when coordinated with CM - Plan * Hypertensive Urgency- Will re-start her home medications. I suspect she will need a PRN medication at home for optimal control- will try Clonidine * DM- Labile, and uncontrolled as well- will start Lantus/ Levemir 10 units daily plus a SSI * ESRD- consult Nephrology for maintenance HD * SZ- re-start Keppra.
[2018-12-15] MEDS ORDERED: Levemir Flexpen 100 UNITS/ML PEN SC SCH (09:48)
[2018-12-15] MEDS: levETIRAcetam 500 MG TAB PO SCH ×3 (09:48→21:27)
[2018-12-15] MEDS ORDERED: HumaLOG 300 UNITS/3 ML VIAL SC PRN (09:49)
[2018-12-15] MEDS ORDERED: Dextrose 5% in Water 1,000 ML IV PRN (09:49)
[2018-12-15] MEDS ORDERED: Dextrose 50% Abboject 50 ML SYRINGE SLOW IVP PRN (09:49)
[2018-12-15] MEDS ORDERED: Amlodipine 5 MG TAB ONE (10:42)
[2018-12-15] MEDS: Aspirin 81 mg Enteric Coated Tablet PO SCH (10:49)
[2018-12-15] MEDS ORDERED: Insulin Glargine 10 UNITS in Pre-Filled Syringe 1 EACH SC SCH (11:00)
[2018-12-15] MEDS ORDERED: Ondansetron PF 4 MG/2 ML Vial ONE (12:20)
[2018-12-15] MEDS ORDERED: HumaLOG 300 UNITS/3 ML VIAL ONE (14:10)
[2018-12-15] MEDS: HumaLOG 300 UNITS/3 ML VIAL SC PRN (14:17)
[2018-12-15 17:41] VITALS: BMI 20.7
[2018-12-15] MEDS: Carvedilol 25 MG TAB PO SCH ×2 (20:32→21:28)
[2018-12-15] MEDS: Amlodipine 10 MG TAB PO SCH (21:26)
[2018-12-16] MEDS: Carvedilol 25 MG TAB PO SCH ×2 (08:52→20:13)
[2018-12-16] MEDS: Insulin Glargine 10 UNITS in Pre-Filled Syringe 1 EACH SC SCH (09:00)
--- NOTE | 2018-12-16 10:16 | PDOC.PN ---
- Subjective Encounter Start Date: 12/16/18 Encounter Start Time: 10:14 Ms. Schaeffer was seen today in follow-up of hypertensive urgency. She says she feels much better this morning. - Objective Resuscitation Status - Order Detail: 12/15/18 00:42 Resuscitation Status Routine Resuscitation Status: FULL: Full Resuscitation MAR Reviewed: Yes Vital Signs & Weight: Vital Signs (12 hours) Temp Pulse Resp BP Pulse Ox 12/16/18 07:54 97.8 F 70 18 167/79 H 100 12/16/18 03:00 97.8 F 67 19 177/73 H 97 12/15/18 23:46 98 F 72 15 178/81 H 98 Weight Weight 119 lb 6.4 oz I&O: 12/15/18 12/16/18 12/17/18 06:59 06:59 06:59 Intake Total 640 Output Total 350 Balance 290 Result Diagrams: 12/15/18 02:46 12/15/18 02:46 Additional Labs: Accuchecks 12/16/18 12/15/18 12/15/18 05:33 20:25 14:08 POC Glucose 108 269 H 256 H 12/15/18 11:19 POC Glucose 287 H Phys Exam - Physical Examination HEENT: PERRLA Respiratory: no wheezing, no rales, no rhonchi, clear to auscultation bilateral Cardiovascular: RRR, no significant murmur, no rub Gastrointestinal: soft, non-tender, positive bowel sounds Musculoskeletal: no edema, pulses present Dx/Plan (1) Hypertensive urgency Code(s): I16.0 - HYPERTENSIVE URGENCY Status: Acute (2) HTN (hypertension) Code(s): I10 - ESSENTIAL (PRIMARY) HYPERTENSION Status: Chronic Qualifiers: Hypertension type: essential hypertension Comment: Continue Amlodipine 5mg daily, add Coreg 6.25mg BID (3) DM type 2 (diabetes mellitus, type 2) Status: Chronic Qualifiers: Diabetes mellitus longwall foreman insulin use: with care home use Diabetes mellitus complication status: with kidney complications Diabetes mellitus complication detail: with chronic kidney disease Chronic kidney disease stage : unspecified stage Qualified Code(s): E11.22 - Type 2 diabetes mellitus with diabetic chronic kidney disease; Z79.4 - termite helper (current) use of insulin Comment: ISS, ADA, Levemir 10u HS (4) Seizure disorder Code(s): G40.909 - EPILEPSY, UNSP, NOT INTRACTABLE, WITHOUT STATUS EPILEPTICUS Status: Chronic (5) ESRD (end stage renal disease) on dialysis Code(s): N18.6 - END STAGE RENAL DISEASE; Z99.2 - DEPENDENCE ON RENAL DIALYSIS Status: Chronic Comment: Receiving HD currently, plan for outpt HD when coordinated with CM - Plan * Hypetensive Urgency- resolved * HTN- blood pressure is better controlled- will send her home with Hydralazine as needed * DM- blood glucose is stable- will add a short acting insulin Sliding scale, along with Levemir at 10 units a day * Seizure disorder- stable * ESRD- stable on dialysis * Hopefully home today after dialysis
--- NOTE | 2018-12-16 10:21 | CON ---
DATE OF CONSULTATION: REASON FOR CONSULTATION: End-stage renal disease. HISTORY OF PRESENT ILLNESS: Laury is a 48-year-old female being seen for end-stage renal disease, presented to the hospital with uncontrolled hypertension. The patient denies any nausea, vomiting, or chest pain. PAST MEDICAL HISTORY: Significant for seizure, hypertension, hemodialysis, tubal ligation, AV fistula, tunneled dialysis catheter. SOCIAL HISTORY: No alcohol or drug use. FAMILY HISTORY: Negative for ESRD. ALLERGIES: REVIEWED. HOME MEDICATIONS: List reviewed. REVIEW OF SYSTEMS: 15-point review of system was performed, negative except for what was noted above. NECK: No swelling or lumps. NOSE: No epistaxis or discharge. EYES: No diplopia or pain. MUSCULOSKELETAL: No joint pain. NEUROPSYCHIATRIC SYSTEMS: No suicidal ideation. No ideation. SKIN: Denies any rash or ulcer. CONSTITUTIONAL: No fever or chills. PHYSICAL EXAMINATION: GENERAL: The patient is awake and alert. VITAL SIGNS: Afebrile, pulse 73, breathing 16, blood pressure 167/79. GENERAL APPEARANCE AND MENTAL STATUS: Fair. HEAD/NECK: Normocephalic. Atraumatic. EYES: EOMI. No deformity. EARS: Clear. No ulcers. NOSE: Intact. No lesions. MOUTH: Clear. No discharge. THROAT: Clear. No exudate. LUNGS: Clear. No crackles. CARDIAC: S1, S2. No rub. ABDOMEN: Benign. Bowel sounds positive. GENITALIA/RECTUM: Morris absent. BACK/EXTREMITIES: Edema 0+. NEUROLOGICAL: Alert and motor intact. LABORATORY DATA: Labs show hemoglobin 10.9. ASSESSMENT: 1. Stage 6 chronic kidney disease, continue with hemodialysis today. 2. Hypertension, stable. 3. Anemia, stable. 4. Medication based on GFR appropriate. Job ID: [id number]
[2018-12-16] MEDS ORDERED: Heparin 1,000 UNITS/ML VIAL ONE (11:11)
[2018-12-16] MEDS: Amlodipine 10 MG TAB PO SCH ×2 (16:19→20:12)
[2018-12-16] MEDS: levETIRAcetam 500 MG TAB PO SCH ×2 (16:20→20:12)
[2018-12-16] MEDS: Clopidogrel Bisulfate 75 MG TAB PO SCH (16:21)
[2018-12-16] MEDS: Aspirin 81 mg Enteric Coated Tablet PO SCH (16:21)
[2018-12-16] MEDS: HumaLOG 300 UNITS/3 ML VIAL SC PRN (16:32)
--- NOTE | 2018-12-17 00:39 | DIS ---
DATE OF ADMISSION: 12/14/2018 DATE OF DISCHARGE: 12/16/2018 PRIMARY CARE PHYSICIAN: The patient's primary care is through the [facility] and Dr. Shashi Martinez, there. DISCHARGE DISPOSITION: Home. PRIMARY DISCHARGE DIAGNOSES: 1. Hypertensive urgency. 2. Hypertension, uncontrolled. 3. Diabetes mellitus, uncontrolled. 4. End-stage renal disease, on hemodialysis. 5. Seizure disorder. DISCHARGE MEDICATIONS: The patient is being discharged on: 1. Amlodipine 10 mg twice daily. 2. Aspirin 81 mg daily. 3. Lipitor 80 mg at bedtime. 4. Lipitor 25 mg twice a day. 5. Plavix 75 mg at bedtime. 6. Auryxia 210 mg two tablets t.i.d. 7. Levemir insulin 10 units daily. 8. NovoLog sliding scale. 9. Keppra 500 mg at bedtime. 10. Hydralazine 25 mg t.i.d. as needed for systolic blood pressure greater than 180. PROCEDURES DONE DURING THE ADMISSION: There were no special procedures. CODE STATUS: Full code. ALLERGIES: NO KNOWN DRUG ALLERGIES. HOSPITAL COURSE: Ms. Schaeffer is a very pleasant 48-year-old female, who presented to the emergency room with complaints of uncontrolled blood pressure and says that her blood pressure was going up as high as 200 systolic. During this time, she did feel anxious and had a fairly severe headache. She came to the emergency room and was admitted for hypertensive urgency. Her blood pressure medications were adjusted. She also noted that her blood glucose has been difficult to control as well. It appears as if her blood pressure does tend to vary with dialysis and therefore, it would likely be difficult to get one regimen that would control her blood pressure at all times. Therefore, she likely will need a p.r.n. medication. Therefore, it appears as if amlodipine had better affect with less side effects as compared to the Procardia and her search marketing specialist already intended to change that medication. Therefore, we will change her back to amlodipine and we will be adding hydralazine 25 mg only as needed. Also for her diabetes, we will be placing her on Levemir 10 units just once daily and short-acting insulin for her sliding scale as she had been trying to use her Levemir insulin in a sliding scale fashion. The patient will be followed up closely in the outpatient setting and also with her search marketing specialist as counseled. Job ID: [id number]
[2018-12-17] MEDS: Clopidogrel Bisulfate 75 MG TAB PO SCH (08:39)
[2018-12-17] MEDS: Amlodipine 10 MG TAB PO SCH (08:39)
[2018-12-17] MEDS: levETIRAcetam 500 MG TAB PO SCH (08:39)
[2018-12-17] MEDS: Aspirin 81 mg Enteric Coated Tablet PO SCH (08:39)
[2018-12-17] MEDS: Insulin Glargine 10 UNITS in Pre-Filled Syringe 1 EACH SC SCH (08:40)
[2018-12-17] MEDS: Carvedilol 25 MG TAB PO SCH (08:40)
[2018-12-17] MEDS: HumaLOG 300 UNITS/3 ML VIAL SC PRN (08:41)
--- NOTE | 2018-12-17 12:50 | PRG ---
DATE OF SERVICE: 12/17/2018 SUBJECTIVE: A 48-year-old female being seen for end-stage renal disease. The patient denies any nausea, vomiting, or chest pain. OBJECTIVE: See above. Awake, alert, in no acute distress. VITAL SIGNS: Afebrile, pulse 70, breathing 16, and blood pressure 158/74. GENERAL APPEARANCE AND MENTAL STATUS: Fair. HEAD/NECK: Normocephalic. Atraumatic. EYES: EOMI. No deformity. EARS: Clear. No ulcers. NOSE: Intact. No lesions. MOUTH: Clear. No discharge. THROAT: Clear. No exudate. LUNGS: Clear. No crackles. CARDIAC: S1, S2. No rub. ABDOMEN: Benign. Bowel sounds positive. GENITALIA/RECTUM: Morris absent. BACK/EXTREMITIES: Edema 0+. NEUROLOGICAL: Alert and motor intact. SKIN: LYMPHATICS: ASSESSMENT: 1. End-stage renal disease, stable. 2. Hypertension. We will recommend increasing the Coreg to 37.5 q.12. Medication based on GFR appropriate. 3. Anemia, stable. Medication based on GFR appropriate. Job ID: [id number]
[2018-12-17 16:04] VITALS: BP 133/69; TEMP 97
--- NOTE | 2018-12-20 17:01 | PQF ---
SABINE MURRAY TONI MD [id number] [facility] [id number] CLINICAL DOCUMENTATION CLARIFICATION FORM: POST DISCHARGE Please exercise your independent, professional judgment in responding to the clarification form. Clinical indicators are provided on the bottom of this form for your review Please check appropriate box(s) to clarify if the following diagnosis has been ruled in or ruled out: NSTEMI [ ] Ruled in diagnosis [ ] Continue to treat [ ] Resolved [X ] Ruled out diagnosis [ ] Cannot rule out diagnosis [ ] Type II AL [ ] Other diagnosis [ ] Unable to determine CLINICAL INDICATORS - SIGNS / SYMPTOMS / LABS 12/14 H&P A&P #4. "NON-ST ELEVATION AL, LIKELY NON-ST ELEVATION AL TYPE 2. THIS PATIENT HAS A VERY MINIMAL TROPONIN 0.036, 0.0.3. ALSO THIS PATIENT IS A RENAL PATIENT, IT MIGHT BE ANOTHER REASON FOR THE ELEVATION OF TROPONIN" RIS[employer]ORS HYPERTENSIVE URGENCY ESRD TREATMENTS CARDIAC ENZYME MONITORING RENAL CONSULT (This form is maintained as a part of the permanent medical record) 2014 [employer] All Rights Reserved Julia [email or web address] [phone] MTDD
--- NOTE | 2018-12-24 14:06 | EKG ---
Test Reason : Blood Pressure : / mmHG Vent. Rate : 079 BPM Atrial Rate : 079 BPM P-R Int : 176 ms QRS Dur : 090 ms QT Int : 392 ms P-R-T Axes : 036 -16 094 degrees QTc Int : 449 ms Normal sinus rhythm Possible Left atrial enlargement Abnormal QRS-T angle, consider primary T wave abnormality Abnormal ECG Confirmed by HUNTER BANG M.D. ([id number]), editor in chief newspaper NORA LUCIO ([id number]) on 12/24/2018 2:04:52 PM Referred By: Confirmed By:HUNTER BANG M.D.
== END 2018-12-17 15:59 | disposition home or self-care (01) | DRG 304 ==
LOC: ERS 20:12 → ERHOLD 23:42 → 2NO 12-15 17:08
PROVIDERS: ADMIT Hospitalist; ATTEND Hospitalist
PROC: 5A1D70Z Performance of Urinary Filtration, Intermittent, Less than 6 Hours Per Day (ICD-10-PCS; principal; 2018-12-16)
DX: I16.0 Hypertensive urgency (principal); N18.6 End stage renal disease; I12.0 Hypertensive chronic kidney disease with stage 5 chronic kidney disease or end stage renal disease; E11.22 Type 2 diabetes mellitus with diabetic chronic kidney disease; Z99.2 Dependence on renal dialysis; E11.65 Type 2 diabetes mellitus with hyperglycemia; D63.1 Anemia in chronic kidney disease; G40.909 Epilepsy, unspecified, not intractable, without status epilepticus; Z79.4 Long term (current) use of insulin; Z79.02 Long term (current) use of antithrombotics/antiplatelets; Z79.82 Long term (current) use of aspirin
CPT/HCPCS: 36415; 36416; 71045; 80048; 80053; 82550; 83880; 84484; 85025; 90935; 93005; 96374; G0257; J0360; J1644; J1825; J2405; J3490

== ENCOUNTER 2019-01-11 08:53 | Observation (INO) | payer MEDICARE, MEDICAID ==
[2019-01-11 09:26] LABS: Base Excess-Venous 5.8 mmol/L (-2.0 to 3.0); CO2 Tension (PvCO2) 41.1 mmHg (40.0-50.0); Calcium, Ionized 1.04 mmol/L (See Comments:); Chloride 99 mmol/L (98-107); Hemoglobin - Calc 11.8 g/dL (12.0-16.0); O2 Tension (PvO2) 45.9 mmHg (35.0-45.0); Potassium 3.6 mmol/L (3.5-5.1); Sodium 138 mmol/L (138-145); T. Carbon Dioxide 31.2 mmol/L (22.0-28.0); pH (Venous) 7.471 (7.320-7.430); vO2 Saturation-calc 84.1 % (60.0-85.0)
[2019-01-11 09:27] LABS: #Basophils 0.1 thou/uL (0.0-0.2); #Eosinphils 0.2 thou/uL (0.0-0.7); #Lymphocytes 0.8 thou/uL (1.20-3.40); #Monocytes 0.6 thou/uL (0.11-0.59); #Neutrophils 6.5 thou/uL (1.40-6.50); %Basophils 0.7 % (0.0-1.0); %Eosinophils 1.9 % (0.0-10.0); %Lymphocytes 10.2 % (21.0-51.0); %Monocytes 7.1 % (0.0-10.0); %Neutrophils 80.2 % (42.0-75.0); Hemoglobin 10.7 g/dL (12.0-16.0); Mean Corpuscular HGB CONC 32.7 g/dL (32.0-36.0); Mean Corpuscular Hemoglobin 31.7 pg (27.0-31.0); Mean Platelet Volume 9.1 fL (7.4-10.4); Platelet Count 278 thou/uL (130-400); RBC Distribution Width 13.7 % (11.5-14.5); Red Blood Cell (RBC) Count 3.37 mill/uL (4.20-5.40); White Blood Cell (WBC) Count 8.1 thou/uL (4.8-10.8)
--- NOTE | 2019-01-11 09:40 | RAD ---
PORTABLE CHEST: HISTORY: Shortness of breath since yesterday. COMPARISON: 12/14/2018 FINDINGS: Heart size is enlarged with elevation of the right hemidiaphragm. The lungs are clear of any infiltr ative process. There are some minimal linear changes in the right base, which could represent atelec tasis. No signs of failure. IMPRESSION: 1. Cardiomegaly. 2. Minimal subsegmental atelectatic change in the right lung base. 3. Right-sided HemoSplit catheter, unchanged in position. POS: CHRISTO
[2019-01-11 09:42] LABS: ALT (SGPT) 40 U/L (8-55); AST (SGOT) 23 U/L (5-34); Albumin 3.9 g/dL (3.5-5.0); Alkaline Phosphatase 131 U/L (40-150); Anion Gap 16 mmol/L (10-20); BUN (Urea Nitrogen) 37 mg/dL (7.0-18.7); Bilirubin, Total 0.6 mg/dL (0.2-1.2); CK (CPK) 59 U/L (29-168); Calc. Creatinine Clearance 0 mL/min (70-130); Calcium 9.4 mg/dL (7.8-10.44); Carbon Dioxide 30 mmol/L (22-29); Chloride 96 mmol/L (98-107); Estimated GFR-MDRD 9; Globulin 3.9 g/dL (2.4-3.5); Glucose 276 mg/dL (70-105); Lipase 38 U/L (8-78); Potassium 3.8 mmol/L (3.5-5.1); Protein, Total 7.8 g/dL (6.0-8.3); Sodium 138 mmol/L (136-145)
[2019-01-11] MEDS ORDERED: Acetaminophen 325 MG TAB PO PRN (10:50)
[2019-01-11] MEDS ORDERED: Insulin Glargine 9 UNITS in Pre-Filled Syringe 1 EACH SC SCH (12:00)
[2019-01-11 12:58] LABS: Troponin I Less than 0.010 ng/mL (< 0.028)
[2019-01-11 15:46] LABS: Troponin I 0.016 ng/mL (< 0.028)
[2019-01-11 16:40] VITALS: BMI 22.8
[2019-01-11] MEDS: Carvedilol 25 MG TAB PO SCH (17:03)
[2019-01-11] MEDS ORDERED: Dextrose 5% in Water 1,000 ML IV PRN (18:09)
[2019-01-11] MEDS ORDERED: Dextrose 50% Abboject 50 ML SYRINGE IVP PRN (18:09)
[2019-01-11] MEDS ORDERED: Insulin Regular 300 UNITS/3 ML VIAL SC PRN (18:09)
[2019-01-11] MEDS: levETIRAcetam 500 MG TAB PO SCH (20:32)
[2019-01-11] MEDS ORDERED: Atorvastatin Calcium 40 MG TAB PO SCH (21:00)
[2019-01-12 05:27] LABS: Anion Gap 16 mmol/L (10-20); BUN (Urea Nitrogen) 50 mg/dL (7.0-18.7); Calc. Creatinine Clearance 11 mL/min (70-130); Calcium 8.9 mg/dL (7.8-10.44); Carbon Dioxide 29 mmol/L (22-29); Chloride 98 mmol/L (98-107); Estimated GFR-MDRD 7; Glucose 82 mg/dL (70-105); Potassium 4.5 mmol/L (3.5-5.1); Sodium 138 mmol/L (136-145)
[2019-01-12] MEDS: Carvedilol 25 MG TAB PO SCH ×2 (08:19→16:08)
[2019-01-12] MEDS: levETIRAcetam 500 MG TAB PO SCH (08:20)
[2019-01-12] MEDS ORDERED: Folic Acid/Vit B Comp W-C PO SCH (09:00)
[2019-01-12] MEDS ORDERED: Insulin Glargine 9 UNITS in Pre-Filled Syringe 1 EACH SC SCH (09:00)
[2019-01-12] MEDS ORDERED: Clopidogrel Bisulfate 75 MG TAB PO SCH (09:00)
[2019-01-12] MEDS ORDERED: Aspirin 81 mg Enteric Coated Tablet PO SCH (09:00)
[2019-01-12] MEDS ORDERED: Amlodipine 10 MG TAB PO SCH (09:00)
[2019-01-12] MEDS ORDERED: ADENOSINE 60 MG/20 ML VIAL ONE (09:32)
--- NOTE | 2019-01-12 12:40 | CON ---
DATE OF CONSULTATION: REASON FOR CONSULTATION: End-stage renal disease, missed dialysis. HISTORY OF PRESENT ILLNESS: A 48-year-old female admitted to the hospital with chest pain into 1 hour in dialysis. The patient has dyspnea and desaturation when she lays flat. The patient denies any chest pain at this time. PAST MEDICAL HISTORY: Significant for end-stage renal disease, hypertension, anemia, history of tubal ligation. MEDICATIONS: Home medications list reviewed. Hospital medications list reviewed. REVIEW OF SYSTEMS: A 15-point review of system was performed, negative except for positives noted above. GENERAL: HEAD: NECK: No swelling or lumps. NOSE: No epistaxis or discharge. EYES: No diplopia or pain. RESPIRATORY: CARDIOVASCULAR: GASTROINTESTINAL: /[employer] SUPERVISOR: MUSCULOSKELETAL: No joint pain. NEUROPSYCHIATIC SYSTEMS: No suicidal ideation. No ideation. SKIN: Denies any rash or ulcer. CONSTITUTIONAL: No fever or chills. FAMILY HISTORY: Negative for ESRD. PHYSICAL EXAMINATION: GENERAL: The patient is awake and alert. VITAL SIGNS: Afebrile, pulse 68, breathing 16, blood pressure 136/65. GENERAL APPEARANCE AND MENTAL STATUS: Fair. HEAD/NECK: Normocephalic. Atraumatic. EYES: EOMI. No deformity. EARS: Clear. No ulcers. NOSE: Intact. No lesions. MOUTH: Clear. No discharge. THROAT: Clear. No exudate. LUNGS: Clear. No crackles. CARDIAC: S1, S2. No rub. ABDOMEN: Benign. Bowel sounds positive. GENITALIA/RECTUM: Morris absent. BACK/EXTREMITIES: Edema 0+. NEUROLOGICAL: Alert and motor intact. SKIN: LYMPHATICS: LABORATORY DATA: Reviewed. ASSESSMENT AND PLAN: 1. Stage 6 chronic kidney disease. Plan, dialysis today. 2. Orthopnea. Plan, dialysis today. 3. Anemia, stable. Medications based on GFR appropriate. 4. Hypertension, stable. Job ID: [id number]
--- NOTE | 2019-01-12 14:59 | NM ---
CARDIAC SPECT: HISTORY: A 48-year-old female with chest pain, shortness of breath, hypertension, diabetes, and dyslipidemia. TECHNIQUE: A myocardial perfusion scan is performed using the single-isotope 1-day protocol with Technetium 99m sestamibi. Nine mCi were injected intravenously for the rest exam followed by 29 mCi for the stress study. Pharmacologic stress with adenosine is monitored and interpreted by Dr. Stewart. FINDINGS: Homogeneous tracer distribution is seen in the myocardial segments on stress and rest images without fixed or reversible defects. GATED SPECT LVEF: 59%. WALL MOTION EXAM: Normal. IMPRESSION: Normal myocardial perfusion scan. POS: CHRISTO
[2019-01-12 16:10] VITALS: BP 146/69; TEMP 98.7
[2019-01-12 22:38] LABS: HBSAg Index 0.23 S/CO (0-0.99); Hep B Surf Ag Non-Reactive S/CO (NonReactive)
--- NOTE | 2019-01-13 05:40 | DIS ---
DATE OF ADMISSION: 01/11/2019 DATE OF DISCHARGE: 01/12/2019 ALLERGIES: NO KNOWN DRUG ALLERGIES. CHIEF COMPLAINT: Chest pain and shortness of breath. FINAL DIAGNOSES: 1. Atypical chest pain, acute coronary syndrome ruled out, nuclear stress test negative for reversible ischemia. 2. End-stage renal disease, on dialysis. 3. History of transient ischemic attack and seizure disorder. 4. Type 2 diabetes mellitus. 5. Hypertension, labile. 6. chronic anemia LABORATORY RESULTS: Hemoglobin 10.7 and hematocrit 32.7. Sodium 138, potassium 4.5, BUN 50, creatinine 6.15, and blood sugar is 70. IMAGING RESULTS: 1. Myocardial perfusion imaging showed homogeneous tracer distribution seen in the myocardial segment on stress and rest images without fixed or reversible defects. EF is 59%. Impression, normal myocardial perfusion scan. 2. Chest x-ray showed cardiomegaly, minimal submental atelectatic change in the right lung base. Right-sided HemoSplit catheter unchanged. CONSULTATION: Dr. Armstrong of Nephrology. HOSPITAL COURSE: The patient is a pleasant 48-year-old female with past medical history significant for end-stage renal disease, on dialysis; TIA, seizure disorder, labile hypertension, and type 2 diabetes mellitus, who presented to the ER with complaints of chest pain that began during dialysis. She only received 1 hour of hemodialysis dialysis when she started experiencing chest pain that she describes as sharp and needle-like through the middle of her chest. She did also have associated shortness of breath. She states that over the past several weeks, she has noticed some increasing dyspnea on exertion as well. Given her symptoms and risk factors, she was admitted to the hospital for chest pain rule out. Her EKG shows sinus rhythm and no acute ST or T-wave changes. Her troponin has been negative x3. She had a nuclear stress test with results as described above, which were normal. The patient did also receive her dialysis session after her stress test. The patient is currently resting comfortable. She has had no further chest pain since her admission. She denies any shortness of breath at this time. PHYSICAL EXAMINATION: VITAL SIGNS: Temperature is 98.7, pulse 72, respirations 16, O2 saturation is 96% on room air, and blood pressure 146/69. GENERAL: This is a well-appearing, thin female, in no acute distress. HEENT: Atraumatic and normocephalic. Eye movements intact. NECK: Supple. No lymphadenopathy. No carotid bruits. No JVD. RESPIRATORY: Regular respiratory rate and pattern, clear to auscultation bilaterally. CV: S1, S2. Regular rate and rhythm. No appreciable murmurs, rubs, or gallops. GI: Positive bowel sounds. Soft, nontender. PERIPHERAL VASCULAR: No lower extremity edema. She has +2 DP pulses bilaterally. MUSCULOSKELETAL: No joint effusion or swelling. NEUROLOGIC: She is awake and alert. Cranial nerves 2 through 12 grossly intact. She is nonfocal. SKIN: Warm and dry. No rashes or discoloration. CONDITION AT DISCHARGE: Stable. DISCHARGE MEDICATIONS: 1. Amlodipine 10 mg one tablet p.o. daily. 2. Aspirin 81 mg daily. 3. Atorvastatin 80 mg one p.o. at bedtime. 4. Carvedilol 25 mg tablet 1-1/2 tablets p.o. b.i.d. 5. Clopidogrel bisulfate 75 mg tablet one tablet p.o. daily. 6. Ferric citrate 2 tablets p.o. t.i.d. 7. Hydralazine 25 mg tablet one tablet p.o. t.i.d. 8. Insulin aspart 4 to 8 units subcu t.i.d. 9. Insulin detemir 90 units subcu daily. 10. Keppra 500 mg tablet one tablet p.o. at bedtime. 11. The patient also takes folic acid and omega-3 supplementation. DISCHARGE DISPOSITION: Home. PLAN: The patient will continue her home medications as they have been prescribed to her. Her blood pressure has been under control. She will continue aspirin and Plavix. She may need outpatient workup for noncardiac chest pain if it were to reoccur. She will follow up with [facility], who is her primary care provider. She will also receive dialysis tomorrow as scheduled. Job ID: [id number] [facility]
[2019-01-13] MEDS ORDERED: Heparin 10,000 UNITS/ 10 ML VIAL ONE (08:12)
--- NOTE | 2019-01-19 09:27 | STRESS ---
Acquisition Time: 2019-01-12 11:53:56 Total Exercise Time: 00:04:00 Test Indications: CHEST PAIN Medications: Protocol: ADENOSINE Max HR: 068 BPM 39% of Pred: 171 BPM Max BP: 140/068 mmHG Max Work Load: 1.0 METS RESTING ECG: NORMAL SINUS RHYTHM AT 64 BPM WITH POOR R-WAVE PROGRESSION SYMPTOMS: DYSPNEA NORMAL BP RESPONSE ECTOPY: NONE ECG STRESS: NO SIGNIFICANT CHANGES INTERPRETATION: AWAIT NUCLEAR IMAGES FOR DEFINITIVE DIAGNOSIS Confirmed by LINWOOD SINGH ([id number]), acquisitions editor EFRA NAVARRO ([id number]) on 01/19/2019 9:26:21 AM Referred By: JUANITA TUTTLE Confirmed By:LINWOOD SINGH
== END 2019-01-12 19:03 | disposition home or self-care (01) ==
LOC: ERS 08:53 → ERHOLD 10:38 → 2SW 16:54
PROVIDERS: ADMIT Internal Medicine; ATTEND Internal Medicine
DX: R07.89 Other chest pain (principal); I12.0 Hypertensive chronic kidney disease with stage 5 chronic kidney disease or end stage renal disease; E11.22 Type 2 diabetes mellitus with diabetic chronic kidney disease; N18.6 End stage renal disease; D63.1 Anemia in chronic kidney disease; G40.909 Epilepsy, unspecified, not intractable, without status epilepticus; Z86.73 Personal history of transient ischemic attack (TIA), and cerebral infarction without residual deficits; Z79.4 Long term (current) use of insulin; Z79.82 Long term (current) use of aspirin; Z79.899 Other long term (current) drug therapy; Z99.2 Dependence on renal dialysis
CPT/HCPCS: 71045; 78452; 80048; 80053; 82330; 82435; 82550; 82803; 82962 ×2; 83690; 84132; 84295; 84484 ×2; 85014; 85025; 86850; 86900; 86901; 87340; 93005; 93017; 94760; 99285; A9500; G0378 ×2; 36415; 36416; J0153; J1644; J1825

== ENCOUNTER 2019-04-05 15:20 | Outpatient (CLI) | payer MEDICARE, BC ==
--- NOTE | 2019-04-05 16:23 | RAD ---
CHEST TWO VIEW 04/05/19 HISTORY: TB skin test reaction. COMPARISON: Chest radiograph 01/11/19. FINDINGS: Dialysis catheter tip is at the inferior SVC. Heart size is mildly enlarged. Small right effusion. No pneumothorax. No acute osseous abnormality. IMPRESSION: No evidence for active tuberculosis. POS: TPC
== END 2019-04-05 15:21 | disposition home or self-care (01) ==
LOC: RAD 15:20
PROVIDERS: ATTEND Internal Medicine Nephrology
DX: R76.11 Nonspecific reaction to tuberculin skin test without active tuberculosis (principal)
CPT/HCPCS: 71046

== ENCOUNTER 2019-05-15 06:16 | Observation (INO) | payer MEDICARE, BC ==
[2019-05-15 06:45] LABS: #Eosinphils 0.2 thou/uL (0.0-0.7); #Lymphocytes 1.2 thou/uL (1.20-3.40); #Monocytes 0.6 thou/uL (0.11-0.59); #Neutrophils 5.4 thou/uL (1.40-6.50); %Basophils 0.4 % (0.0-1.0); %Eosinophils 2.5 % (0.0-10.0); %Lymphocytes 16.1 % (21.0-51.0); %Monocytes 8.6 % (0.0-10.0); %Neutrophils 72.5 % (42.0-75.0); Hemoglobin 10.5 g/dL (12.0-16.0); Mean Corpuscular HGB CONC 30.9 g/dL (32.0-36.0); Mean Platelet Volume 8.6 fL (7.4-10.4); Platelet Count 237 thou/uL (130-400); RBC Distribution Width 14.4 % (11.5-14.5); Red Blood Cell (RBC) Count 3.38 mill/uL (4.20-5.40); White Blood Cell (WBC) Count 7.4 thou/uL (4.8-10.8)
[2019-05-15 07:06] LABS: ALT (SGPT) 24 U/L (8-55); AST (SGOT) 19 U/L (5-34); Albumin 3.7 g/dL (3.5-5.0); Alkaline Phosphatase 186 U/L (40-150); Anion Gap 16 mmol/L (10-20); BUN (Urea Nitrogen) 45 mg/dL (7.0-18.7); Bilirubin, Total 0.8 mg/dL (0.2-1.2); Calc. Creatinine Clearance 0 mL/min (70-130); Calcium 9.8 mg/dL (7.8-10.44); Carbon Dioxide 29 mmol/L (22-29); Chloride 98 mmol/L (98-107); Estimated GFR-MDRD 6; Globulin 3.8 g/dL (2.4-3.5); Glucose 161 mg/dL (70-105); Potassium 3.6 mmol/L (3.5-5.1); Protein, Total 7.5 g/dL (6.0-8.3); Sodium 139 mmol/L (136-145)
--- NOTE | 2019-05-15 09:54 | RAD ---
PORTABLE CHEST 1 VIEW: Date: 05/15/19 Time: 0721 hours HISTORY: Shortness of breath. FINDINGS/IMPRESSION: Comparison made with exam of 04/05/19. Right-sided Port-A-Cath remains in place. The heart is enlarged. There is continued elevation of the right hemidiaphragm. There is pulmonary vascular congestion. No lobar consolidation or large effusion s are seen. POS: OFF
[2019-05-15] MEDS ORDERED: ISOVUE-370 76%-LOCM 1 ML ONE (13:46)
[2019-05-15 16:42] LABS: Troponin I 0.026 ng/mL (< 0.028)
--- NOTE | 2019-05-15 16:44 | CT ---
CT angiogram chest: 05/15/2019 COMPARISON: None HISTORY: End-stage renal disease, shortness of breath, transient ischemic attack, assess for pulmonar y embolism TECHNIQUE: Axial CT imaging at 2.5 mm intervals through the chest with IV contrast using CT angiogram protocol. Coronal and oblique sagittal 3-D reformatted imaging obtained. FINDINGS: Small left and moderate right pleural effusion noted. Right-sided dialysis catheter present. No pneumothorax on either side. Small volume superior mediastinal fluid. No lymphadenopathy is evident. Limited assessment of the upp er abdomen is unremarkable. There is a mild degree of bilateral lower lobe atelectasis. There is good opacification of the pulmonary arterial vasculature. There is no evidence for pulmonary arterial embolism. No acute osseous abnormality noted. IMPRESSION: No evidence for pulmonary arterial embolism. Bilateral pleural effusions.
[2019-05-15 16:50] LABS: Anion Gap 14 mmol/L (10-20); BUN (Urea Nitrogen) 12 mg/dL (7.0-18.7); Calc. Creatinine Clearance 0 mL/min (70-130); Calcium 9.4 mg/dL (7.8-10.44); Carbon Dioxide 29 mmol/L (22-29); Chloride 99 mmol/L (98-107); Estimated GFR-MDRD 21; Glucose 130 mg/dL (70-105); Potassium 3.5 mmol/L (3.5-5.1); Sodium 138 mmol/L (136-145)
[2019-05-15] MEDS ORDERED: Ondansetron PF 4 MG/2 ML Vial IVP PRN (19:33)
[2019-05-15] MEDS ORDERED: HYDROcodone/Acetaminophen 5/325 mg Tablet PO PRN ×2 (19:33)
[2019-05-15] MEDS ORDERED: Acetaminophen 325 MG TAB PO PRN (19:33)
[2019-05-15] MEDS ORDERED: Ondansetron ODT 4 MG TAB SL PRN (19:33)
[2019-05-15 23:24] VITALS: BMI 22.4
[2019-05-15] MEDS ORDERED: hydrALAZINE 25 MG TAB PO PRN (23:44)
[2019-05-15] MEDS ORDERED: Dextrose 5% in Water 1,000 ML IV PRN (23:45)
[2019-05-15] MEDS ORDERED: Dextrose 50% Abboject 50 ML SYRINGE SLOW IVP PRN (23:45)
[2019-05-16] MEDS: HumaLOG 300 UNITS/3 ML VIAL SC PRN ×2 (06:00→11:45)
--- NOTE | 2019-05-16 06:04 | HP ---
DATE/TIME OF EVALUATION: 05/15/19 at approximately 10:30 p.m. CHIEF COMPLAINT: Shortness of breath. HISTORY OF PRESENT ILLNESS: Ms. Schaeffer is a 48-year-old female with past medical history significant for end-stage renal disease, on dialysis, chronic diastolic heart failure, history of TIA and seizure disorder, who presented to the hospital with complaints of shortness of breath and weakness that began over the weekend. The patient is dialyzed on a Wednesday, Wednesday, Wednesday schedule. The patient stated that over the weekend, she began to feel more short of breath and weak. The patient does have some chronic orthopnea, and this did not change. The patient denies any chest pain. She did have 1 or 2 episodes of diarrhea. The patient denies any nausea, fever, or chills. The patient has no cough. Because of her generalized weakness and worsening shortness of breath, she presented to the emergency department today for further evaluation as opposed to dialysis. The patient was dialyzed today, Dr. Medina was consulted. The patient had 2.5 L of fluid removed; however, the goal was 3 L; however, the patient did not tolerate this secondary to leg cramping. The patient did feel somewhat improved after dialysis; however, continued to be hypoxic, requiring oxygen supplementation to maintain O2 saturation greater than 93%. She did undergo a CTA, which was negative for pulmonary embolism, but did show bilateral pleural effusions. Chest x-ray showed pulmonary vascular congestion. Her troponin was negative; however, BNP was elevated at over 3000, which is higher than previous hospitalizations. She was admitted to the hospitalist service for further workup and treatment. Of note, while in the ER and seated on the ER bed, the patient did have a brief syncopal episode. The patient did not report significant prodrome prior to event, and quickly returned to baseline level of cognition and function. REVIEW OF SYSTEMS: A 12-point review of systems performed and is negative except that stated above. PAST MEDICAL HISTORY: Diabetes mellitus, requiring insulin, end-stage renal disease, on hemodialysis, followed by Dr. Medina, hypertension, TIA, seizure disorder, and chronic anemia. The patient also has chronic diastolic heart failure. PAST SURGICAL HISTORY: Tubal ligation in the past, Port-A-Cath placement, and AV fistula for dialysis. FAMILY HISTORY: Positive for diabetes, heart disease and hypertension. SOCIAL HISTORY: Has a remote history of alcohol abuse, but has not had any alcohol for a very long period of time. She has no smoking history. She lives at home with family. ALLERGIES: NO KNOWN DRUG ALLERGIES. HOME MEDICATIONS: 1. Amlodipine 10 mg tablet one tablet p.o. b.i.d. 2. Aspirin 81 mg daily. 3. Atorvastatin 80 mg tablet half tab p.o. at bedtime. 4. Clopidogrel bisulfate 75 mg tablet one tablet daily. 5. Folic acid vitamin B12 complex one tablet daily. 6. Levemir Flextouch insulin along with NovoLog insulin. 7. Keppra 500 mg tablet one tablet p.o. b.i.d. 8. Carvedilol 25 mg tablet 1-1/2 tablet p.o. b.i.d. 9. Hydralazine 25 mg p.o. t.i.d. p.r.n. hypertension. PHYSICAL EXAMINATION: VITAL SIGNS: Blood pressure 162/75, pulse 73, respirations 20, O2 saturation is 96% on 2 L nasal cannula. GENERAL: The patient is a thin female, sitting up in bed, in no acute distress. HEENT: Head is atraumatic and normocephalic. Mucous membranes are moist. NECK: Supple. Trachea is midline. No JVD. CV: S1 and S2. Regular rate and rhythm. No appreciable murmurs, rubs, or gallops. LUNGS: Regular respiratory rate and pattern, decreased breath sounds bilaterally and overall poor air entry with faint crackles noted. ABDOMEN: Positive bowel sounds. Soft, nontender. EXTREMITIES: No edema. NEUROLOGIC: Cranial nerves 2 through 12 are grossly intact. The patient is nonfocal. SKIN: Warm and dry. LABORATORY DATA: White blood cell count 7.4, hemoglobin 10.5, hematocrit 33.9, platelet count is 237. Sodium 138, potassium 3.5, chloride 99, BUN 12, creatinine post dialysis is 2.41, was 6.91 on arrival, blood glucose 277. Troponin 0.021, 0.026. BNP 3400. ASSESSMENT: 1. Shortness of breath, likely secondary to volume overload, with bilateral pleural effusions and hypoxemia. 2. Syncopal event, unclear etiology, questionable secondary to hypoxemia, patient not orthostatic. 3. End-stage renal disease, on hemodialysis. 4. Acute on chronic diastolic heart failure exacerbation. 5. History of carotid artery stenosis, moderate 50% to 69% stenosis on the left per carotid Doppler late last year. 6. Diabetes mellitus. 7. History of transient ischemic attack, on aspirin and Plavix. 8. Seizure disorder. 9. Hypertension. 10. Anemia of chronic disease. PLAN: Dr. Medina has been consulted, likely the patient will need further dialysis with attempted fluid removal tomorrow. Regarding her syncopal episode, we will obtain echocardiogram and carotid Doppler to rule out any new acute finding or worsening of her carotid artery stenosis. Hopefully, her hypoxemia will resolve with dialysis, as well as her shortness of breath. Further recommendations based on hospital course, patient's response to dialysis, and noninvasive testing. Job ID: [id number] [facility] INSANEJacquelin
[2019-05-16] MEDS ORDERED: Clopidogrel Bisulfate 75 MG TAB ONE (07:43)
[2019-05-16] MEDS ORDERED: INSULIN DETEMIR 9 UNIT SQ SCH (09:00)
[2019-05-16] MEDS ORDERED: Folic Acid/Vit B Comp W-C PO SCH (09:00)
[2019-05-16] MEDS ORDERED: Carvedilol 25 MG TAB PO SCH (09:00)
[2019-05-16] MEDS ORDERED: Insulin Glargine 9 UNITS in Pre-Filled Syringe 1 EACH SC SCH (09:00)
[2019-05-16] MEDS ORDERED: levETIRAcetam 500 MG TAB PO SCH (09:00)
[2019-05-16] MEDS ORDERED: Aspirin 81 mg Enteric Coated Tablet PO SCH (09:00)
[2019-05-16] MEDS ORDERED: Amlodipine 10 MG TAB PO SCH (09:00)
[2019-05-16] MEDS ORDERED: FERRIC CITRATE PO SCH (09:00)
[2019-05-16] MEDS ORDERED: Prenatal Vitamin 1 TAB PO SCH (09:00)
--- NOTE | 2019-05-16 09:02 | ULT ---
Carotid arterial Doppler ultrasound: 05/16/2019 COMPARISON: None HISTORY: Syncope, carotid artery stenosis TECHNIQUE: Multiplanar grayscale sonographic imaging of the arterial structures of the neck obtained with color flow and spectral analysis FINDINGS: Antegrade blood flow and normal arterial waveforms are noted within the carotid and vertebr al system bilaterally. There is mild scattered plaque within bilateral common carotid arteries. Peak systolic velocity is 78 cm/s within the right common carotid artery, 80 cm/s within the right in ternal carotid artery, 95 cm/s within the left common carotid artery, and 156 cm/s within the left internal carotid artery. ICA/CCA ratio is 1.0 on the right and 1.6 on the left. IMPRESSION: Elevated velocity within the left internal carotid artery correlates with a moderate degr ee of stenosis (50-69%). This could be best assessed via CT angiogram neck.
[2019-05-16 11:55] VITALS: BP 162/72; TEMP 97.9
--- NOTE | 2019-05-16 12:47 | PDOC.PN ---
- Subjective Encounter Start Date: 05/16/19 Encounter Start Time: 11:00 Subjective: Patient examined, denies c/o today -: Reports she feels better than she did yesterday -: Denies SOB, CP, palpations - Objective Vital Signs & Weight: Vital Signs (12 hours) Temp Pulse Resp BP BP BP Pulse Ox 05/16/19 11:53 97.9 F 73 18 162/72 H 93 L 05/16/19 09:09 69 05/16/19 07:47 98.0 F 68 18 164/81 H 96 05/16/19 04:00 98.2 F 70 20 152/73 H 99 Weight Weight 59.1 kg I&O: 05/15/19 05/16/19 05/17/19 06:59 06:59 06:59 Intake Total 400 Balance 400 Result Diagrams: 05/15/19 06:31 05/15/19 16:08 Additional Labs: Accuchecks 05/16/19 05/16/19 05/15/19 10:51 04:39 19:54 POC Glucose 227 H 197 H 277 H 05/15/19 15:57 POC Glucose 124 H Phys Exam - Physical Examination HEENT: PERRLA Neck: no nodes, no JVD Respiratory: clear to auscultation bilateral Cardiovascular: RRR, no significant murmur Gastrointestinal: soft, non-tender Musculoskeletal: no edema, pulses present Neurological: non-focal, normal sensation Lymphatic: no nodes Psychiatric: normal affect, A&O x 3 Skin: cap refill <2 seconds Dx/Plan (1) Acute exacerbation of CHF (congestive heart failure) Code(s): I50.9 - HEART FAILURE, UNSPECIFIED Status: Acute Qualifiers: (2) Acute metabolic encephalopathy Code(s): G93.41 - METABOLIC ENCEPHALOPATHY Status: Acute Comment: Likey post -ictal as main component, resolving (3) Uremia Code(s): N19 - UNSPECIFIED KIDNEY FAILURE Status: Acute Comment: Resolving with HD (4) DM type 2 (diabetes mellitus, type 2) Status: Chronic Qualifiers: Comment: ISS, ADA, Levemir 10u HS (5) ESRD (end stage renal disease) on dialysis Code(s): N18.6 - END STAGE RENAL DISEASE; Z99.2 - DEPENDENCE ON RENAL DIALYSIS Status: Chronic Comment: Receiving HD currently, plan for outpt HD when coordinated with CM (6) HTN (hypertension) Code(s): I10 - ESSENTIAL (PRIMARY) HYPERTENSION Status: Chronic Qualifiers: Comment: Continue Amlodipine 5mg daily, add Coreg 6.25mg BID - Plan cont current plan of care Awaiting Echo report, -: Patient states she was told she would need another round of dialysis -: since she had IV contrast yesterday, Nephrology has been consulted. -: Creatinine has improved today, will continue to trend -: Will monitor, repeat labs in AM * . Review of Systems - Medications/Allergies Allergies/Adverse Reactions: Allergies Allergy/AdvReac Type Severity Reaction Status Date / Time No Known Drug Allergies Allergy Verified 12/15/18 18:08 Medications: Current Medications Amlodipine Besylate (Norvasc) 10 mg PO BID [facility] Last Admin: 05/16/19 09:09 Dose: 10 mg Aspirin (Ecotrin) 81 mg PO DAILY [facility] Last Admin: 05/16/19 09:09 Dose: 81 mg Atorvastatin Calcium (Lipitor) 40 mg PO HS [facility] Carvedilol (Coreg) 37.5 mg PO BID [facility] Last Admin: 05/16/19 09:08 Dose: 37.5 mg Clopidogrel Bisulfate (Plavix) 75 mg PO HS [facility] Dextrose/Water (Dextrose 50%) 25 gm SLOW IVP PRN PRN PRN Reason: Hypoglycemia Glucagon (Glucagon) 1 mg IM PRN PRN PRN Reason: Hypoglycemia Hydralazine HCl (Apresoline) 25 mg PO TID PRN PRN Reason: Hypertension Dextrose/Water (D5w) 1,000 mls @ 0 mls/hr IV .Q0M PRN PRN Reason: Hypoglycemia Insulin Glargine 9 units/ (Miscellaneous Medication) 0.09 mls @ 0 mls/hr SC QAM [facility] Last Admin: 05/16/19 09:07 Dose: 0.09 mls Insulin Human Lispro (Humalog) 0 units SC .MILD SLIDING SCALE PRN PRN Reason: Mild Correctional Scale Last Admin: 05/16/19 11:45 Dose: 3 unit Levetiracetam (Keppra) 500 mg PO BID [facility] Last Admin: 05/16/19 09:09 Dose: 500 mg Ferric Citrate [ (Auryxia] 2 Tab) 0 each PO TID [facility] Multivit/Folic Acid/Iron ( Vitamin) 1 tab PO DAILY [facility] Last Admin: 05/16/19 09:08 Dose: 1 tab Sodium Chloride (Flush - Normal Saline) 10 ml IVF Q12HR [facility] Last Admin: 05/16/19 09:10 Dose: 10 ml Sodium Chloride (Flush - Normal Saline) 10 ml IVF PRN PRN PRN Reason: Saline Flush Vitamin B Complex/Vit C/Folic Acid (Nephro-Yeimy Tablet) 1 tab PO DAILY [facility] Last Admin: 05/16/19 09:08 Dose: 1 tab
--- NOTE | 2019-05-16 13:32 | PRG ---
DATE OF SERVICE: 05/16/2019 SUBJECTIVE: This is a 48-year-old female, being seen for end-stage renal disease. The patient denied nausea, vomiting, or chest pain. OBJECTIVE: CONSTITUTIONAL: On examination, the patient is awake and alert. VITAL SIGNS: Pulse 73, breathing 16, blood pressure 150/73. GENERAL APPEARANCE AND MENTAL STATUS: Fair. HEAD/NECK: Normocephalic. Atraumatic. EYES: EOMI. No deformity. EARS: Clear. No ulcers. NOSE: Intact. No lesions. MOUTH: Clear. No discharge. THROAT: Clear. No exudate. LUNGS: Clear. No crackles. CARDIAC: S1, S2. No rub. ABDOMEN: Benign. Bowel sounds positive. GENITALIA/RECTUM: Morris absent. BACK/EXTREMITIES: Edema 0+. NEUROLOGICAL: Alert and motor intact. SKIN: LYMPHATICS: LABORATORY DATA: Reviewed. ASSESSMENT AND PLAN: 1. Stage 6 chronic kidney disease. Plan dialysis. 2. Pleural effusion. Plan dialysis. 3. Sleep apnea-like symptoms. Consider Pulmonary consult. Job ID: [id number]
--- NOTE | 2019-05-16 17:50 | CON ---
DATE OF CONSULTATION: 05/15/2019 REASON FOR CONSULTATION: End-stage renal disease and dyspnea. TIME: 10 a.m. HISTORY OF PRESENT ILLNESS: A very pleasant 48-year-old female with recurrent admissions, presented to the hospital with dyspnea. The patient was ruled for pulmonary embolism. Dialysis held. The patient denies any nausea, vomiting, or chest pain. PAST MEDICAL HISTORY: End-stage renal disease, hypertension, seizure disorder, anemia, congestive heart failure diastolic, AV fistula, and tunneled dialysis catheter. MEDICATIONS: Home medications list reviewed. Hospital medications list reviewed. REVIEW OF SYSTEMS: 15-point review of system was performed and negative except for positive noted above. GENERAL: HEAD: NECK: No swelling or lumps. NOSE: No epistaxis or discharge. EYES: No diplopia or pain. RESPIRATORY: CARDIOVASCULAR: GASTROINTESTINAL: /[employer]: MUSCULOSKELETAL: No joint pain. NEUROPSYCHIATIC SYSTEMS: No suicidal ideation. No ideation. SKIN: Denies any rash or ulcer. CONSTITUTIONAL: No fever or chills. PHYSICAL EXAMINATION: CONSTITUTIONAL: The patient is awake and alert. VITAL SIGNS: Pulse 75, breathing 16, and blood pressure 130/70. GENERAL APPEARANCE AND MENTAL STATUS: Fair. HEAD/NECK: Normocephalic. Atraumatic. EYES: EOMI. No deformity. EARS: Clear. No ulcers. NOSE: Intact. No lesions. MOUTH: Clear. No discharge. THROAT: Clear. No exudate. LUNGS: Clear. No crackles. CARDIAC: S1, S2. No rub. ABDOMEN: Benign. Bowel sounds positive. GENITALIA/RECTUM: Morris absent. BACK/EXTREMITIES: Edema 0+. NEUROLOGICAL: Alert and motor intact. SKIN: LYMPHATICS: LABORATORY DATA: Labs reviewed. ASSESSMENT AND PLAN: Stage 6 chronic kidney disease, plan dialysis. Pleural effusion, plan dialysis. Sleep apnea like symptoms, consult Pulmonary. Hypertension, stable. Medication based on GFR appropriate. Job ID: [id number]
[2019-05-16] MEDS ORDERED: Atorvastatin Calcium 40 MG TAB PO SCH (21:00)
[2019-05-16] MEDS ORDERED: Clopidogrel Bisulfate 75 MG TAB PO SCH (21:00)
--- NOTE | 2019-05-20 15:20 | EKG ---
Test Reason : Blood Pressure : / mmHG Vent. Rate : 068 BPM Atrial Rate : 068 BPM P-R Int : 178 ms QRS Dur : 094 ms QT Int : 466 ms P-R-T Axes : 027 053 067 degrees QTc Int : 495 ms Normal sinus rhythm Possible Left atrial enlargement Nonspecific T wave abnormality Prolonged QT Abnormal ECG Confirmed by TOBIAS BLACKMAN DO ([id number]), general expeditor OCTAVIA KENNEDY ([id number]) on 05/20/2019 3:20:21 PM Referred By: Confirmed By:TOBIAS BLACKMAN DO
--- NOTE | 2019-05-20 15:21 | EKG ---
Test Reason : Blood Pressure : / mmHG Vent. Rate : 072 BPM Atrial Rate : 072 BPM P-R Int : 166 ms QRS Dur : 106 ms QT Int : 426 ms P-R-T Axes : 031 023 077 degrees QTc Int : 466 ms Normal sinus rhythm Nonspecific ST and T wave abnormality Prolonged QT Abnormal ECG Confirmed by TOBIAS BLACKMAN DO ([id number]), analyzer sales OCTAVIA KENNEDY ([id number]) on 05/20/2019 3:21:16 PM Referred By: Confirmed By:TOBIAS BLACKMAN DO
== END 2019-05-16 18:49 | disposition home or self-care (01) ==
LOC: ERS 06:16 → T4-B 18:57
PROVIDERS: ADMIT Internal Medicine; ATTEND Internal Medicine
DX: E87.70 Fluid overload, unspecified (principal); R09.02 Hypoxemia; R06.02 Shortness of breath; J90 Pleural effusion, not elsewhere classified; R55 Syncope and collapse; R53.1 Weakness; I13.2 Hypertensive heart and chronic kidney disease with heart failure and with stage 5 chronic kidney disease, or end stage renal disease; E11.22 Type 2 diabetes mellitus with diabetic chronic kidney disease; N18.6 End stage renal disease; D63.1 Anemia in chronic kidney disease; I50.33 Acute on chronic diastolic (congestive) heart failure; Z79.4 Long term (current) use of insulin; Z79.82 Long term (current) use of aspirin; Z79.899 Other long term (current) drug therapy; Z86.73 Personal history of transient ischemic attack (TIA), and cerebral infarction without residual deficits; Z99.2 Dependence on renal dialysis
CPT/HCPCS: 71045; 71275; 80048; 80053; 82962 ×2; 83880; 84484 ×2; 85025; 93005; 93306; 93880; 94640; 99285; G0378 ×2; 36415; 36416; 90935; G0257; J1815; J7620; Q9966

== ENCOUNTER 2019-06-11 18:21 | Inpatient (IN) | payer MEDICARE, BC ==
[2019-06-11 18:51] LABS: #Eosinphils 0.1 thou/uL (0.0-0.7); #Monocytes 0.5 thou/uL (0.11-0.59); #Neutrophils 5.5 thou/uL (1.40-6.50); %Basophils 0.7 % (0.0-1.0); %Eosinophils 1.6 % (0.0-10.0); %Lymphocytes 13.5 % (21.0-51.0); %Monocytes 7.3 % (0.0-10.0); Hemoglobin 12.1 g/dL (12.0-16.0); Mean Corpuscular HGB CONC 32.6 g/dL (32.0-36.0); Mean Corpuscular Hemoglobin 32.9 pg (27.0-31.0); Mean Platelet Volume 8.7 fL (7.4-10.4); Platelet Count 235 thou/uL (130-400); RBC Distribution Width 13.9 % (11.5-14.5); Red Blood Cell (RBC) Count 3.68 mill/uL (4.20-5.40); White Blood Cell (WBC) Count 7.1 thou/uL (4.8-10.8)
[2019-06-11] MEDS ORDERED: Lidocaine Viscous Sol 2% 15 ml UD Cup ONE (18:56)
[2019-06-11] MEDS ORDERED: Mag-Al 1200 mg/1200 mg/30 ML UDCUP ONE (18:56)
[2019-06-11] MEDS ORDERED: Ondansetron PF 4 MG/2 ML Vial ONE (18:56)
--- NOTE | 2019-06-11 19:09 | RAD ---
XR Chest 1 View Portable History: Chest pain radiograph Comparison: May 15, 2019 Findings: Moderate effusions. Moderate edema. No pneumothorax. Dialysis catheter tip sits at the infe rior SVC. Heart size is enlarged. Impression: Moderate volume overload.
[2019-06-11 19:13] LABS: ALT (SGPT) 15 U/L (8-55); AST (SGOT) 16 U/L (5-34); Albumin 4.1 g/dL (3.5-5.0); Alkaline Phosphatase 199 U/L (40-150); Anion Gap 19 mmol/L (10-20); BUN (Urea Nitrogen) 34 mg/dL (7.0-18.7); CK (CPK) 61 U/L (29-168); Calc. Creatinine Clearance 0 mL/min (70-130); Calcium 10.1 mg/dL (7.8-10.44); Carbon Dioxide 29 mmol/L (22-29); Chloride 96 mmol/L (98-107); Estimated GFR-MDRD 7; Glucose 190 mg/dL (70-105); Lipase 33 U/L (8-78); Potassium 3.5 mmol/L (3.5-5.1); Protein, Total 8.1 g/dL (6.0-8.3); Sodium 140 mmol/L (136-145)
--- NOTE | 2019-06-11 19:31 | CT ---
CT Abdomen Pelvis WO Con History: Epigastric and diffuse abdominal pain Comparison: CT angiogram chest May 15, 2019 Findings: Large right and moderate left pleural effusions. Compressive atelectasis in both lung bases . Heart size is enlarged. Diffuse third spacing of fluid. Small volume ascites. Gallbladder sludge. Solid organ evaluation is limited due to lack of intravenous contrast. Extensive arterial medial sclerosis. No hydronephrosis. Congestive changes of the gallbladder wall. No acute osseous abnormality. No dilated loops of large or small bowel. Reactive retroperitoneal perinephric adenopathy. Impression: Extensive volume overload with large right and moderate left effusion, small-moderate asc ites, and extensive third spacing of fluid.
[2019-06-11 19:35] LABS: CKMB 1.7 ng/mL (0-6.6)
[2019-06-11] MEDS: Acetaminophen 325 MG TAB PO PRN (22:58)
[2019-06-11] MEDS: hydrALAZINE 20 MG/ML VIAL SLOW IVP PRN (22:58)
[2019-06-11] MEDS: Benzonatate 100 MG CAP PO PRN (22:58)
[2019-06-11] MEDS ORDERED: Morphine 4 MG/ML VIAL ONE (23:33)
[2019-06-11] MEDS ORDERED: Morphine 2 MG/ML SYRINGE IVP SCH (23:59)
[2019-06-12 00:14] LABS: Troponin I 0.049 ng/mL (< 0.028)
[2019-06-12] MEDS: hydrALAZINE 20 MG/ML VIAL SLOW IVP PRN ×4 (03:17→23:51)
[2019-06-12 03:25] LABS: Troponin I 0.046 ng/mL (< 0.028)
--- NOTE | 2019-06-12 04:10 | CON ---
DATE OF CONSULTATION: 06/11/2019 CONSULTING PHYSICIAN: Dr. Jeffrey of ER. REASON FOR CONSULTATION: End-stage renal disease evaluation. REASON FOR ADMISSION: Gastroenteritis, nausea, vomiting, and also fluid overload and hypoxia. HISTORY OF PRESENT ILLNESS: This is a 48-year-old female with history of end-stage renal disease, type 2 diabetes, hypertension, came to the hospital with nausea, vomiting, was found to have gastroenteritis, being admitted and evaluated. The patient also was found to have fluid overload with hypoxia. Nephrology was consulted. The patient has hemodialysis on Wednesday, Wednesday, Wednesday, and due for dialysis tomorrow. The patient denies any increased fluid intake. No fever or chills. No chest pain or palpitation reported. PAST MEDICAL HISTORY: Positive for type 2 diabetes, end-stage renal disease, hypertension, TIA, anemia. PAST SURGICAL HISTORY: Tubal ligation, AV fistula placement. HOME MEDICATIONS: 1. Amlodipine. 2. Aspirin. 3. Atorvastatin. 4. Plavix. 5. Levemir. 6. Keppra. 7. Carvedilol. 8. Hydralazine. ALLERGIES: NO KNOWN DRUG ALLERGIES. SOCIAL HISTORY: No smoking, alcohol, or illicit drugs. FAMILY HISTORY: Positive for diabetes. REVIEW OF SYSTEMS: CONSTITUTIONAL: Negative for weight loss or gain, ability to conduct usual activities. SKIN: Negative for rash, itching. EYES: Negative for double vision, pain. ENT/MOUTH: Negative for nose bleeding, neck stiffness, pain, tenderness. CARDIOVASCULAR: Negative for palpitations, dyspnea on exertion, orthopnea. RESPIRATORY: Negative for shortness of breath, wheezing, cough, hemoptysis, fever or night sweats. GASTROINTESTINAL: Negative for poor appetite, abdominal pain, heartburn, nausea, vomiting, constipation, or diarrhea. GENITOURINARY: Negative for urgency, frequency, dysuria, nocturia. MUSCULOSKELETAL: Negative for pain, swelling. NEUROLOGIC/PSYCHIATRIC: Negative for anxiety, depression. ALLERGY/IMMUNOLOGIC: Negative for skin rash, bleeding tendency. PHYSICAL EXAMINATION: GENERAL: Reveals a well-built female, in no apparent distress. VITAL SIGNS: Temperature is 97.8, pulse 75, respiratory rate 20, blood pressure 195/70. HEENT: Atraumatic, normocephalic. Oral mucosa is moist. NECK: Supple. CV: S1 and S2, rate and rhythm regular. RESPIRATORY: Clear. GASTROINTESTINAL: Abdomen is soft. MUSCULOSKELETAL: 1+ edema. DERMATOLOGIC: No skin rash. NEUROLOGIC: Alert and awake. PSYCHIATRIC: Mood and affect normal. LABORATORY DATA: Hemoglobin 12.1, potassium 3.5, BUN is 34, creatinine is 6.7, and albumin is 4.1. Chest x-ray with fluid overload. ASSESSMENT AND PLAN: 1. End-stage renal disease. Plan is to have dialysis today for 3 hours with fluid removal as tolerated. 2. Edema, controlled. 3. Hypertension. Continue home medication. We will remove fluid. 4. Anemia. Hemoglobin is stable. Plan is to have dialysis today. Dialysis nurse will notify with fluid removal as tolerated. Continue dialysis as tolerated. We will follow. Thank you for the consult. Job ID: [id number]
[2019-06-12] MEDS ORDERED: hydrALAZINE 20 MG/ML VIAL SLOW IVP SCH (06:15)
[2019-06-12] MEDS: Benzonatate 100 MG CAP PO PRN (08:23)
[2019-06-12] MEDS: Acetaminophen 325 MG TAB PO PRN (09:12)
[2019-06-12] MEDS ORDERED: Ondansetron PF 4 MG/2 ML Vial IVP PRN (12:31)
[2019-06-12] MEDS ORDERED: Acetaminophen 500 MG TAB PO PRN (12:31)
[2019-06-12] MEDS ORDERED: Dextrose 50% Abboject 50 ML SYRINGE SLOW IVP PRN (12:31)
[2019-06-12] MEDS ORDERED: HumaLOG 300 UNITS/3 ML VIAL SC PRN (12:31)
[2019-06-12] MEDS ORDERED: Ondansetron ODT 4 MG TAB PO PRN (12:31)
[2019-06-12] MEDS ORDERED: Dextrose 5% in Water 1,000 ML IV PRN (12:31)
--- NOTE | 2019-06-12 13:37 | PRG ---
DATE OF SERVICE: 06/12/2019 SUBJECTIVE: A 48-year-old female, being seen for end-stage renal disease. The patient denied any nausea, vomiting, or chest pain. OBJECTIVE: GENERAL: The patient is awake and alert. VITAL SIGNS: Pulse 78, breathing 16, blood pressure 154/74. GENERAL APPEARANCE AND MENTAL STATUS: Fair. HEAD/NECK: Normocephalic. Atraumatic. EYES: EOMI. No deformity. EARS: Clear. No ulcers. NOSE: Intact. No lesions. MOUTH: Clear. No discharge. THROAT: Clear. No exudate. LUNGS: Clear. No crackles. CARDIAC: S1, S2. No rub. ABDOMEN: Benign. Bowel sounds positive. GENITALIA/RECTUM: Morris absent. BACK/EXTREMITIES: Edema 0+. NEUROLOGICAL: Alert and motor intact. SKIN: LYMPHATICS: LABORATORY DATA: Reviewed. ASSESSMENT AND PLAN: 1. Stage 6 chronic kidney disease, continue hemodialysis. 2. Hypertension, stable. 3. Anemia, stable. 4. Medication based on GFR, appropriate. Job ID: [id number]
[2019-06-12] MEDS: Labetalol HCl 100 MG/20 ML VIAL SLOW IVP PRN ×2 (13:49→21:47)
[2019-06-12] MEDS ORDERED: Heparin 10,000 UNITS/1 ML VIAL ONE ×2 (15:00)
--- NOTE | 2019-06-12 16:36 | HP ---
PRIMARY CARE PROVIDER: Dr. Shashi Martinez, [place], [place]. CHIEF COMPLAINT: Shortness of breath and abdominal pain. HISTORY OF PRESENT ILLNESS: This is a 48-year-old female, who presented to [facility] Emergency Department complaining of increased abdominal pain as well as shortness of breath and inability to lay flat over the last several weeks. The patient initially described abdominal pain as pressure-like tightness with associated nausea and diarrhea over the last 24 hours. The patient denies any exposure history, but does state she has been compliant with her regular hemodialysis sessions which she last completed on 06/09/2019. The patient denied any melena or blood in her stool, initially rated the pain 7/10 in her abdomen. The patient had cramping sensation that was constant and did not take any medications to alleviate her symptoms. The patient denies any travel or family members with similar symptoms. The patient also admits to increased shortness of breath over the last several weeks and most recently evaluated at [facility] on 05/16/2019, for volume overload. The patient with history of end-stage renal disease, undergoing 2D transthoracic echocardiogram on 05/16/2019, showing an ejection fraction of 30% to 35%. The patient's previous ejection fraction noted 50% to 55% in September 2018. The patient states she was slated for a cardiac catheterization on 06/13/2019, by her primary board operator Dr. Mcdonnell. In the emergency room, the patient underwent general evaluation, receiving a GI cocktail in addition to Zofran. The patient also underwent CT imaging of the abdomen and pelvis showing extensive volume overload with large right and left pleural effusions with a moderate amount of ascites. The patient was also noted with extensive third-spacing. The patient was evaluated by the Nephrology Service, undergoing hemodialysis x2 sessions urgently. PAST MEDICAL HISTORY: 1. Cardiomyopathy with ejection fraction of 30% to 35%. 2. End-stage renal disease with hemodialysis. 3. Diabetes mellitus, type 2, insulin requiring. 4. Diabetic retinopathy. 5. Hypertension, labile. 6. History of TIAs. 7. Seizure disorder. 8. Chronic anemia secondary to chronic kidney disease. 9. Chronic systolic congestive heart failure. PAST SURGICAL HISTORY: 1. Status post bilateral tubal ligations. 2. Status post Port-A-Cath placement. 3. Status post AV fistula placement. CURRENT MEDICATIONS: 1. Enteric-coated aspirin 81 mg p.o. daily. 2. Lipitor 40 mg p.o. at bedtime. 3. Plavix 75 mg p.o. daily. 4. Ferric citrate two tablets p.o. t.i.d. 5. Folic acid with vitamin B and C complex 0.8 mg p.o. daily. 6. NovoLog 48 units subcutaneously t.i.d. with meals. 7. Levemir 9 units subcutaneously q.a.m. 8. Keppra 500 mg p.o. b.i.d. 9. Lisinopril 20 mg p.o. b.i.d. 10. Carvedilol 37.5 mg p.o. b.i.d. ALLERGIES: NO KNOWN DRUG ALLERGIES. FAMILY HISTORY: Positive for diabetes, heart disease, and hypertension. SOCIAL HISTORY: Resides in [place], [place]. No current alcohol, tobacco, or illicit drug use. REVIEW OF SYSTEMS: CONSTITUTIONAL: Negative for weight loss or gain, ability to conduct usual activities. SKIN: Negative for rash, itching. EYES: Negative for double vision, pain. ENT/MOUTH: Negative for nose bleeding, neck stiffness, pain, tenderness. CARDIOVASCULAR: Negative for palpitations, dyspnea on exertion, orthopnea. RESPIRATORY: Negative for shortness of breath, wheezing, cough, hemoptysis, fever or night sweats. GASTROINTESTINAL: Negative for poor appetite, abdominal pain, heartburn, nausea, vomiting, constipation, or diarrhea. GENITOURINARY: Negative for urgency, frequency, dysuria, nocturia. MUSCULOSKELETAL: Negative for pain, swelling. NEUROLOGIC/PSYCHIATRIC: Negative for anxiety, depression. ALLERGY/IMMUNOLOGIC: Negative for skin rash, bleeding tendency. Otherwise negative except as stated per HPI. PHYSICAL EXAMINATION: VITAL SIGNS: On admission, blood pressure 181/95, pulse 70, respiratory rate 18, temperature 98.2 degrees Fahrenheit, O2 saturation 96% on 4.5 L/minute by nasal cannula. GENERAL APPEARANCE: This is a 48-year-old female, alert and oriented x3, in mild respiratory distress, currently receiving hemodialysis. HEENT: Pupils are equal, round, reactive to light and accommodation. Extraocular muscles are intact. Subconjunctival hemorrhage is noted in the left sclera. Extraocular muscles are intact. Nares patent. OP is clear. NECK: Supple. No cervical adenopathy. No thyromegaly. No carotid bruits. No JVD appreciated. Cervical spine with full active and passive range of motion. No meningeal signs noted. CHEST: Absent breath sounds in bilateral lung bases. Coarse breath sounds in the upper lung graham bilaterally. CARDIOVASCULAR: S1 and S2 without noted murmur, rub, or gallop. ABDOMEN: Soft, rounded with mild tenderness to palpation diffusely. Bowel sounds are positive in all 4 quadrants. No palpable mass. No rebound or guarding appreciated. EXTREMITIES: No clubbing or cyanosis. Mild edema of the lower extremities. Pulses are palpable distally at the dorsalis pedis, posterior tibial, and popliteal arteries bilaterally. Capillary refill less than 2 seconds. NEUROLOGIC: Cranial nerves 2 through 12 are grossly intact. No focal or lateralizing signs appreciated. PERTINENT LAB AND X-RAY FINDINGS: Sodium 140, potassium 3.5, chloride 96, CO2 of 29, BUN 34, creatinine 6.75, glucose 125, calcium 10.1. LFT showed total bilirubin 1.0, AST 16, ALT of 15, alkaline phosphatase 199. Troponin I ranged between 0.046 to 0.052. Lipase 33. CBC showed a white blood cell count of 7.1, hemoglobin 12, hematocrit 37, MCV 101, platelet count 235 with 77% neutrophils. Portable chest x-ray dated 06/11/2019 showed moderate volume overload with pulmonary edema. CT of the abdomen and pelvis dated 06/11/2019, showed extensive volume overload with large right and left pleural effusions with moderate ascites with extensive third-spacing. EKG dated 06/11/2019, by my interpretation shows a sinus mechanism with heart rates in the 70s. Attenuated R-waves noted in the precordial leads. Normal axis. Baseline artifact noted. ASSESSMENT AND PLAN: 1. [id number] systolic congestive heart failure. The patient will be admitted to the telemetry unit. Ejection fraction of 30% to 35% by 2D transthoracic echocardiogram on 05/16/2019. Continue hemodialysis for volume removal. We will consult Cardiology Service for evaluation and consideration of left heart catheterization per formal ischemic rule out. The patient may be deemed an appropriate candidate for Entresto. Continue lisinopril 40 mg b.i.d. Monitor daily weight and I's and O's. 2. Acute hypoxic respiratory failure, secondary to #1. We will continue management as outlined above. Continue oxygen supplementation to maintain O2 saturations greater than or equal to 90%. 3. End-stage renal disease with hemodialysis. We will continue hemodialysis per Renal Service direction. Attempt volume removal with serial hemodialysis. 4. Gastroenteritis. Suspect viral source. Continue symptomatic and supportive management. Improved in the last 24 hours. If recurrence, we will pursue stool studies and further workup. 5. Demand ischemia of the myocardium. Suspect secondary to #1. Consult Cardiology Service for further evaluation and consideration of heart catheterization. Continue aspirin 81 mg daily. 6. Diabetes mellitus, type 2, insulin requiring. Insulin sliding scale for reflexive coverage. Continue Levemir 9 units subcutaneously q.a.m. Serial Accu-Cheks before meals and at bedtime. ADA diet. 7. Prophylaxis. SCDs while in bed. Pepcid 20 mg p.o. b.i.d.. CODE STATUS: Full. Surrogate medical decision maker is patient's spouse. Job ID: [id number]
[2019-06-12] MEDS: Nitroglycerin 2% Ointment 1 INCH/1 GM Packet TOP SCH ×2 (17:07→23:52)
[2019-06-12] MEDS: HumaLOG 300 UNITS/3 ML VIAL SC PRN (17:15)
[2019-06-12] MEDS: levETIRAcetam 500 MG TAB PO SCH (20:07)
[2019-06-12] MEDS: Carvedilol 25 MG TAB PO SCH (20:07)
[2019-06-12] MEDS: Clopidogrel Bisulfate 75 MG TAB PO SCH (20:07)
[2019-06-12] MEDS: Lisinopril 20 MG TAB PO SCH (20:07)
[2019-06-12] MEDS: Famotidine 20 MG TAB PO SCH (20:07)
[2019-06-12] MEDS: Atorvastatin Calcium 40 MG TAB PO SCH (20:08)
[2019-06-12] MEDS: FERRIC CITRATE PO SCH ×2 (21:51)
--- NOTE | 2019-06-12 23:04 | CON ---
DATE OF CONSULTATION: REASON FOR CONSULTATION: Shortness of breath. PRIMARY FEATHER BALER: Sarmad Mcdonnell MD HISTORY OF PRESENT ILLNESS: Ms. Schaeffer is a very pleasant 48-year-old woman with history of cardiomyopathy, admitted with shortness of breath. Ms. Schaeffer normally undergoes dialysis Wednesday, Wednesday, Wednesday. However, today she came to the emergency room because she had difficulty breathing. Chest x-ray and other evaluation indicated volume overload. She has undergone dialysis. She feels better, but still not back to normal. The patient does have a history of end-stage renal disease. She has an ejection fraction of 30% to 35% on 05/16/2019. The patient also reports that she had some subjective chills and felt hot. She has also just had blood cultures drawn. PAST MEDICAL HISTORY: 1. Cardiomyopathy, ejection fraction 30% to 35%. The plan is to do cardiac catheterization. 2. End-stage renal disease, on hemodialysis. 3. Diabetes, on insulin. 4. Diabetic retinopathy. PAST SURGICAL HISTORY: 1. Previous Port-A-Cath placement. 2. AV fistula placement. MEDICATIONS: 1. Aspirin 81 mg a day. 2. Lipitor 40 mg a day. 3. Plavix 75 mg a day. 4. Lisinopril 20 mg twice a day. 5. Carvedilol 37.5 mg twice a day. ALLERGIES: NONE KNOWN. FAMILY HISTORY: Positive for diabetes. SOCIAL HISTORY: Lives in [place]. No alcohol or tobacco. REVIEW OF SYSTEMS: CONSTITUTIONAL: Positive for fatigue and weakness and subjective chills. HEENT: Vision, no changes. Hearing, no changes. PULMONARY: Shortness of breath. CARDIAC: Shortness of breath. No chest pain. GASTROINTESTINAL: No nausea, vomiting, or diarrhea. SKIN: No rashes. NEUROLOGIC: No unilateral weakness or numbness. PSYCHIATRIC: Feels apprehensive somewhat because she is having some difficulty breathing. PHYSICAL EXAMINATION: GENERAL: This is a very pleasant, but thin woman. VITAL SIGNS: She is 5 feet 4 inches tall, 129 pounds. Blood pressure 173/75, pulse 90, it is regular. LUNGS: Clear anteriorly and posteriorly. CARDIAC: Normal S1. Normal S2. I do not hear a murmur, rub, or gallop. ABDOMEN: Soft and nontender. No hepatosplenomegaly. EXTREMITIES: Warm and dry. No clubbing. No cyanosis. No edema. PERTINENT LABORATORY DATA: Hemoglobin is 12.1, potassium 3.5. Chest x-ray shows some cardiomegaly with pleural effusions. EKG, sinus rhythm, no acute changes. ASSESSMENT: 1. Congestive heart failure systolic, acute on chronic. 2. End-stage renal disease. 3. Subjective chills. PLAN: 1. The patient indicates the blood cultures have been drawn. 2. Continue cardiac medicines. 3. Dr. Mcdonnell to see the patient, would need to wait to see what the blood culture show before any other therapy. Job ID: [id number]
[2019-06-13] MEDS: Nitroglycerin 2% Ointment 1 INCH/1 GM Packet TOP SCH ×4 (05:31→23:57)
[2019-06-13 06:00] LABS: Band 3 % (5-11); Hemoglobin 10.6 g/dL (12.0-16.0); Hypochromia SLIGHT = 6-15 cells (100X) (0-5/hpf); Lymphocytes 8 % (21-51); MDiff Complete? YES; Macrocytosis SLIGHT = 6-15 cells (100X) (0-5/hpf); Mean Corpuscular HGB CONC 32.6 g/dL (32.0-36.0); Mean Corpuscular Hemoglobin 33.5 pg (27.0-31.0); Mean Platelet Volume 8.9 fL (7.4-10.4); Monocytes 9 % (0-10); Neutrophil 80 % (42-75); Platelet Count 209 thou/uL (130-400); Platelet Morphology Comment Appears Adequate; Red Blood Cell (RBC) Count 3.16 mill/uL (4.20-5.40); White Blood Cell (WBC) Count 5.8 thou/uL (4.8-10.8)
[2019-06-13 06:02] LABS: Anion Gap 13 mmol/L (10-20); BUN (Urea Nitrogen) 16 mg/dL (7.0-18.7); Calc. Creatinine Clearance 19 mL/min (70-130); Carbon Dioxide 28 mmol/L (22-29); Chloride 101 mmol/L (98-107); Estimated GFR-MDRD 15; Glucose 167 mg/dL (70-105); Potassium 3.9 mmol/L (3.5-5.1); Sodium 138 mmol/L (136-145)
[2019-06-13] MEDS: Carvedilol 25 MG TAB PO SCH ×2 (08:44→21:14)
[2019-06-13] MEDS: Aspirin 81 mg Enteric Coated Tablet PO SCH (08:44)
[2019-06-13] MEDS: Famotidine 20 MG TAB PO SCH (08:44)
[2019-06-13] MEDS: Folic Acid/Vit B Comp W-C PO SCH (08:45)
[2019-06-13] MEDS: Lisinopril 20 MG TAB PO SCH ×2 (08:45→21:16)
[2019-06-13] MEDS: FERRIC CITRATE PO SCH ×3 (08:46→17:37)
[2019-06-13] MEDS: levETIRAcetam 500 MG TAB PO SCH ×2 (08:46→21:14)
[2019-06-13] MEDS ORDERED: PRE FILLED SC SCH (09:00)
[2019-06-13] MEDS ORDERED: INSULIN DETEMIR 9 UNIT SQ SCH (09:00)
[2019-06-13] MEDS ORDERED: INSULIN GLARGINE SC SCH (09:00)
--- NOTE | 2019-06-13 09:52 | PDOC.HOSPP ---
- Subjective Encounter Date: 06/13/19 Encounter Time: 09:30 Subjective: f/u for CHF and ESRD with HD. BP remains labile. Feels better overall. Had a fever spike last pm after HD but no recurrence. - Objective Vital Signs & Weight: Vital Signs (12 hours) Temp Pulse Resp BP BP Pulse Ox 06/13/19 08:45 187/88 H 06/13/19 08:00 98.0 F 77 18 187/88 H 88 L 06/13/19 04:00 98.1 F 78 20 175/76 H 94 L 06/13/19 00:00 180/87 H 06/12/19 23:51 182 H 181/95 H 06/12/19 21:47 182 H 181/95 H Weight Weight 130 lb 4.691 oz Result Diagrams: 06/13/19 05:04 06/13/19 05:04 Additional Labs: Accuchecks 06/13/19 06/12/19 06/12/19 05:50 20:13 17:02 POC Glucose 161 H 168 H 161 H 06/12/19 11:01 POC Glucose 138 H Microbiology 09/09/18 01:41 Venous blood - Left Arm Blood Culture - Preliminary Specimen has been received and culture in progress. No Growth to date. 09/09/18 01:20 Urine Straight Catheter Urine Culture - Preliminary NO GROWTH AT 12 HOURS 09/09/18 01:08 Venous blood - Right Hand Blood Culture - Preliminary Specimen has been received and culture in progress. No Growth to date. 06/12/19 16:52 Venous blood - Right Hand Blood Culture - Preliminary Specimen has been received and culture in progress. No Growth to date. 06/12/19 16:52 Venous blood - Left Hand Blood Culture - Preliminary Specimen has been received and culture in progress. No Growth to date. Laboratory Tests 08/13/18 09/07/18 09/08/18 05:45 04:35 04:29 Hgb 8.0 L 7.7 L Hemoglobin A1c 7.6 H B-Natriuretic Peptide Prolactin 09/09/18 09/09/18 09/09/18 01:10 01:10 01:10 Hgb 7.9 L Hemoglobin A1c B-Natriuretic Peptide 1680.2 H Prolactin 123.56 H 12/14/18 05/15/19 06/11/19 20:43 06:31 18:40 Hgb 12.1 Hemoglobin A1c B-Natriuretic Peptide 3038.7 H 3419.5 H Prolactin 06/12/19 15:07 Hgb Hemoglobin A1c B-Natriuretic Peptide 4277.7 H Prolactin EKG Reviewed by me: Yes (Tele - SR) ROS - Medication Medications: Active Medications Generic Name Dose Route Start Last Admin Trade Name Freq PRN Reason Stop Dose Admin Acetaminophen 1,000 mg 06/12/19 12:31 06/12/19 15:37 Tylenol PO 1,000 mg Q6H PRN Administration Mild Pain (1-3) Aspirin 81 mg 06/13/19 09:00 06/13/19 08:44 Ecotrin PO 81 mg DAILY ALMITA Administration Atorvastatin Calcium 40 mg 06/12/19 21:00 06/12/19 20:08 Lipitor PO 40 mg HS ALMITA Administration Carvedilol 37.5 mg 06/12/19 21:00 06/13/19 08:44 Coreg PO 37.5 mg BID ALMITA Administration Clopidogrel Bisulfate 75 mg 06/12/19 21:00 06/12/19 20:07 Plavix PO 75 mg HS ALMITA Administration Famotidine 20 mg 06/12/19 21:00 06/13/19 08:44 Pepcid PO 20 mg BID ALMITA Administration Hydralazine HCl 10 mg 06/12/19 12:31 06/12/19 23:51 Apresoline SLOW IVP 10 mg Q4H PRN Administration SBP > 180 and HR < 70 Insulin Glargine 9 units/ 0.09 mls @ 0 mls/hr 06/13/19 09:00 06/13/19 08:46 Miscellaneous Medication SC 0.09 mls QAM ALMITA Administration Insulin Human Lispro 0 units 06/12/19 12:31 06/12/19 17:15 Humalog SC 2 unit .MILD SLIDING SCALE PRN Administration Mild Correctional Scale Labetalol HCl 20 mg 06/12/19 12:31 06/12/19 21:47 Normodyne SLOW IVP 20 mg Q4H PRN Administration SBP > 180 and HR >/= 70 Levetiracetam 500 mg 06/12/19 21:00 06/13/19 08:46 Keppra PO 500 mg BID ALMITA Administration Lisinopril 20 mg 06/12/19 21:00 06/13/19 08:45 Zestril PO 20 mg BID ALMITA Administration Nitroglycerin 1 inch 06/12/19 18:00 06/13/19 05:31 Nitro-Bid 2% Ointment TOP 1 inch Q6HR ALMITA Administration (Ferric Citrate [ 2 tab 06/12/19 15:00 06/13/19 08:46 Auryxia] 2 Tab) PO 2 tab TID ALMITA Administration Vitamin B Complex/Vit C/Folic Acid 1 tab 06/13/19 09:00 06/13/19 08:45 Nephro-Yeimy Tablet PO 1 tab DAILY ALMITA Administration - Exam NAD, awake alert Eye: PERRL, anicteric sclera Eye - other findings: L eye with conjunctival erythema ENT: normocephalic atraumatic, no oropharyngeal lesions Neck: supple, symmetric, no JVD, no thyromegaly, no lymphadenopathy Heart: RRR, no gallops, no rubs, normal peripheral pulses Respiratory: rales, rhonchi Respiratory - other findings: diminished in bases Gastrointestinal: soft, non-tender, non-distended, normal bowel sounds, no palpable masses Extremities: no cyanosis, no clubbing, no edema Skin: normal turgor, no lesions Neurological: CN's grossly intact, no focal deficits, no new deficit Musculoskeletal: normal tone, normal strength Psychiatric: normal affect, A&O x 3 Hosp A/P (1) Acute exacerbation of CHF (congestive heart failure) Code(s): I50.9 - HEART FAILURE, UNSPECIFIED Status: Acute Qualifiers: Heart failure type: systolic Qualified Code(s): I50.23 - Acute on chronic systolic (congestive) heart failure Plan: Continue HD for volume removal, plan for eventual LHC to r/o CAD, consider Entresto (2) Hypertensive urgency Code(s): I16.0 - HYPERTENSIVE URGENCY Status: Acute Plan: Improved but BP labile, continue home BP regimen, serial monitoring (3) DM type 2 (diabetes mellitus, type 2) Status: Chronic Qualifiers: Plan: Continue Glargine, ISS, ADA (4) ESRD (end stage renal disease) on dialysis Code(s): N18.6 - END STAGE RENAL DISEASE; Z99.2 - DEPENDENCE ON RENAL DIALYSIS Status: Chronic Plan: Continue serial HD per Renal service (5) Seizure disorder Code(s): G40.909 - EPILEPSY, UNSP, NOT INTRACTABLE, WITHOUT STATUS EPILEPTICUS Status: Chronic Plan: Continue Keppra 500mg BID - Plan plan discussed w/ family, out of bed/ambulate, DVT proph w/SCDs Stable currently Titrate BP regimen for optimal control LHC pending HD per Renal service Likely will need Life[employer] application prior to d/c AM lab: BMP, CBC
[2019-06-13] MEDS: Isosorbide Dinitrate 20 MG TAB PO SCH ×3 (09:54→21:15)
[2019-06-13] MEDS: hydrALAZINE 25 MG TAB PO SCH ×3 (09:54→21:14)
[2019-06-13] MEDS: HumaLOG 300 UNITS/3 ML VIAL SC PRN (12:23)
[2019-06-13] MEDS: cloNIDine 0.1 MG TAB PO SCH ×2 (15:27→21:14)
--- NOTE | 2019-06-13 16:47 | PRG ---
DATE OF SERVICE: 06/13/2019 SUBJECTIVE: A 48-year-old female, being seen for end-stage renal disease. The patient denied any nausea, vomiting, or chest pain. OBJECTIVE: GENERAL: The patient is awake and alert. VITAL SIGNS: Pulse 86, breathing 16, and blood pressure 133/78. GENERAL APPEARANCE AND MENTAL STATUS: Fair. HEAD/NECK: Normocephalic. Atraumatic. EYES: EOMI. No deformity. EARS: Clear. No ulcers. NOSE: Intact. No lesions. MOUTH: Clear. No discharge. THROAT: Clear. No exudate. LUNGS: Clear. No crackles. CARDIAC: S1, S2. No rub. ABDOMEN: Benign. Bowel sounds positive. GENITALIA/RECTUM: Morris absent. BACK/EXTREMITIES: Edema 0+. NEUROLOGICAL: Alert and motor intact. SKIN: LYMPHATICS: LABORATORY DATA: Reviewed. ASSESSMENT AND PLAN: 1. Stage 6 chronic kidney disease. Continue hemodialysis. 2. Hypertension, stable. 3. Anemia, stable. 4. Medication based on GFR are appropriate. Job ID: [id number]
[2019-06-13] MEDS: cefTRIAXone\\ROCEPHIN 1 GM in Sodium Chloride 0.9% 100 ML IVPB SCH (17:36)
[2019-06-13] MEDS ORDERED: Communication Order-Pharmacy FS SCH (18:00)
[2019-06-13] MEDS: cloNIDine 0.1 MG TAB PO PRN (19:17)
[2019-06-13] MEDS: Clopidogrel Bisulfate 75 MG TAB PO SCH (21:15)
[2019-06-13] MEDS: Atorvastatin Calcium 20 MG TAB PO SCH (21:20)
[2019-06-13] MEDS: Atorvastatin Calcium 40 MG TAB PO SCH (22:42)
--- NOTE | 2019-06-13 22:54 | EKG ---
Test Reason : CHEST PAIN Blood Pressure : / mmHG Vent. Rate : 070 BPM Atrial Rate : 070 BPM P-R Int : 178 ms QRS Dur : 094 ms QT Int : 422 ms P-R-T Axes : 018 040 069 degrees QTc Int : 455 ms Poor data quality, interpretation may be adversely affected Normal sinus rhythm Nonspecific ST and T wave abnormality Abnormal ECG When compared with ECG of 11-JUN-2019 18:34, (Unconfirmed) ST now depressed in Anterior leads Confirmed by Mary Carmen MILLS ([id number]) on 06/13/2019 10:54:11 PM Referred By: CLAUDIA Confirmed By:Mary Carmen MILLS
[2019-06-14] MEDS: Nitroglycerin 2% Ointment 1 INCH/1 GM Packet TOP SCH ×4 (05:40→17:32)
[2019-06-14] MEDS ORDERED: Lidocaine 1% (PF) 30 ML VIAL ONE (07:33)
[2019-06-14] MEDS ORDERED: hydrALAZINE 20 MG/ML VIAL ONE (08:09)
[2019-06-14] MEDS ORDERED: Midazolam HCl 2 mg/2 ml Vial ONE (08:09)
[2019-06-14] MEDS ORDERED: Nitroglycerin 100MG/250ML BOT 250 ML ONE (08:38)
[2019-06-14] MEDS ORDERED: Nitroglycerin 2% Ointment 1 INCH/1 GM Packet ONE (08:46)
[2019-06-14] MEDS ORDERED: Acetaminophen/Codeine 30-300mg Tablet PO PRN ×2 (08:51)
[2019-06-14] MEDS ORDERED: Nitroglycerin 0.4 MG TAB (25 Tab Bottle) SL PRN (08:51)
[2019-06-14] MEDS ORDERED: Sodium Chloride 0.9% 200 ML IV PRN (08:51)
[2019-06-14] MEDS ORDERED: Nitroglycerin 4.9 GM Bottle ONE (08:54)
[2019-06-14] MEDS: Aspirin 81 mg Enteric Coated Tablet PO SCH (10:11)
[2019-06-14] MEDS: Carvedilol 25 MG TAB PO SCH ×2 (10:11→21:05)
[2019-06-14] MEDS: Isosorbide Dinitrate 20 MG TAB PO SCH ×3 (10:12→21:08)
[2019-06-14] MEDS: Folic Acid/Vit B Comp W-C PO SCH (10:12)
[2019-06-14] MEDS: cloNIDine 0.1 MG TAB PO SCH ×2 (10:12→13:25)
[2019-06-14] MEDS: Famotidine 20 MG TAB PO SCH (10:12)
[2019-06-14] MEDS: hydrALAZINE 25 MG TAB PO SCH ×3 (10:12→21:08)
[2019-06-14] MEDS: levETIRAcetam 500 MG TAB PO SCH ×2 (10:13→21:08)
[2019-06-14] MEDS: Lisinopril 20 MG TAB PO SCH ×2 (10:13→21:09)
[2019-06-14] MEDS: FERRIC CITRATE PO SCH ×3 (10:14→21:15)
[2019-06-14] MEDS ORDERED: Heparin 10,000 UNITS/ 10 ML VIAL ONE (11:11)
--- NOTE | 2019-06-14 11:19 | PRG ---
DATE OF SERVICE: 06/14/2019 SUBJECTIVE: This is a 48-year-old female, being seen for end-stage renal disease. The patient denied nausea, vomiting, or chest pain. OBJECTIVE: See above. GENERAL: The patient is awake and alert. VITAL SIGNS: Afebrile, pulse 70, breathing 16, and blood pressure 158/74. GENERAL APPEARANCE AND MENTAL STATUS: Fair. HEAD/NECK: Normocephalic. Atraumatic. EYES: EOMI. No deformity. EARS: Clear. No ulcers. NOSE: Intact. No lesions. MOUTH: Clear. No discharge. THROAT: Clear. No exudate. LUNGS: Clear. No crackles. CARDIAC: S1, S2. No rub. ABDOMEN: Benign. Bowel sounds positive. GENITALIA/RECTUM: Morris absent. BACK/EXTREMITIES: Edema 0+. NEUROLOGICAL: Alert and motor intact. SKIN: LYMPHATICS: LABORATORY DATA: Labs are reviewed. ASSESSMENT: 1. Stage 6 chronic kidney disease, plan dialysis. 2. Hypertension. I would recommend nifedipine to the current regimen. 3. Anemia, stable. 4. Medication based on GFR appropriate. 5. Recurrent episodes of respiratory distress. PLAN: The patient has an appointment with Pulmonary Clinic. Job ID: [id number]
--- NOTE | 2019-06-14 13:24 | PDOC.HOSPP ---
- Subjective Encounter Date: 06/14/19 Encounter Time: 08:15 - Objective Vital Signs & Weight: Vital Signs (12 hours) Temp Pulse Resp BP BP Pulse Ox 06/14/19 08:28 97.6 F 69 15 191/89 H 95 06/14/19 08:00 95 06/14/19 04:00 98 F 70 18 173/83 H 95 Weight Admit Weight 130 lb 4.691 oz Weight 130 lb 4.691 oz I&O: 06/13/19 06/14/19 06/15/19 06:59 06:59 06:59 Intake Total 1240 Balance 1240 Result Diagrams: 06/13/19 05:04 06/13/19 05:04 Additional Labs: Accuchecks 06/14/19 06/13/19 06/13/19 06:07 20:34 17:24 POC Glucose 93 111 H 128 H EKG Reviewed by me: Yes ROS - Review of Systems Constitutional: denies: fever, chills, sweats, weakness, malaise, other Eyes: denies: pain, vision change, conjunctivae inflammation, eyelid inflammation, redness, other ENT: denies: ear pain, ear discharge, nose pain, nose discharge, nose congestion , mouth pain, mouth swelling, throat pain, throat swelling, other Respiratory: denies: cough, dry, shortness of breath, hemoptysis, SOB with excertion, pleuritic pain, sputum, wheezing, other Cardiovascular: denies: chest pain, palpitations, orthopnea, paroxysmal noc. dyspnea, edema, light headedness, other Gastrointestinal: denies: nausea, vomitting, abdominal pain, diarrhea, constipation, melena, hematochezia, other Genitourinary: denies: dysuria, frequency, incontinence, hematuria, retention, other Musculoskeletal: denies: neck pain, shoulder pain, arm pain, back pain, hand pain, leg pain, foot pain, other Skin: denies: rash, lesions, lamberto, bruising, other - Medication Medications: Active Medications Generic Name Dose Route Start Last Admin Trade Name Freq PRN Reason Stop Dose Admin Acetaminophen 1,000 mg 06/12/19 12:31 06/12/19 15:37 Tylenol PO 1,000 mg Q6H PRN Administration Mild Pain (1-3) Aspirin 81 mg 06/13/19 09:00 06/14/19 10:11 Ecotrin PO Not Given DAILY COUNT INCLUDES [facility] Atorvastatin Calcium 40 mg 06/13/19 21:00 06/13/19 21:20 Lipitor PO 40 mg HS ALMITA Administration Carvedilol 37.5 mg 06/12/19 21:00 06/14/19 10:11 Coreg PO Not Given BID COUNT INCLUDES THE [facility] Clonidine 0.1 mg 06/12/19 12:31 06/13/19 19:17 Catapres PO 0.1 mg Q4H PRN Administration SBP Greater Than 170 Clonidine 0.1 mg 06/13/19 15:00 06/14/19 10:12 Catapres PO Not Given TID COUNT INCLUDES THE [facility] Clopidogrel Bisulfate 75 mg 06/12/19 21:00 06/13/19 21:15 Plavix PO 75 mg HS COUNT INCLUDES THE [facility] Administration Famotidine 20 mg 06/14/19 09:00 06/14/19 10:12 Pepcid PO Not Given DAILY COUNT INCLUDES THE [facility] Hydralazine HCl 10 mg 06/12/19 12:31 06/12/19 23:51 Apresoline SLOW IVP 10 mg Q4H PRN Administration SBP > 180 and HR < 70 Hydralazine HCl 50 mg 06/13/19 09:00 06/14/19 10:12 Apresoline PO Not Given TID COUNT INCLUDES THE [facility] Ceftriaxone Sodium 1 gm/ 100 mls @ 200 mls/hr 06/13/19 17:00 06/13/19 17:36 Sodium Chloride IVPB 100 mls Q24HR COUNT INCLUDES THE [facility] Administration Insulin Human Lispro 0 units 06/12/19 12:31 06/13/19 12:23 Humalog SC 4 unit .MILD SLIDING SCALE PRN Administration Mild Correctional Scale Isosorbide Dinitrate 20 mg 06/13/19 09:00 06/14/19 10:12 Isordil PO Not Given TID COUNT INCLUDES THE [facility] Labetalol HCl 20 mg 06/12/19 12:31 06/12/19 21:47 Normodyne SLOW IVP 20 mg Q4H PRN Administration SBP > 180 and HR >/= 70 Levetiracetam 500 mg 06/12/19 21:00 06/14/19 10:13 Keppra PO Not Given BID COUNT INCLUDES [facility] Lisinopril 20 mg 06/12/19 21:00 06/14/19 10:13 Zestril PO Not Given BID COUNT INCLUDES THE [facility] Nitroglycerin 1 inch 06/12/19 18:00 06/14/19 11:47 Nitro-Bid 2% Ointment TOP Not Given Q6HR COUNT INCLUDES THE [facility] Sodium Chloride 10 ml 06/13/19 09:00 06/14/19 10:13 Flush - Normal Saline IVF Not Given Q12HR COUNT INCLUDES THE [facility] Vitamin B Complex/Vit C/Folic Acid 1 tab 06/13/19 09:00 06/14/19 10:12 Nephro-Yeimy Tablet PO Not Given DAILY ALMITA - Exam NAD, awake alert Eye: PERRL, anicteric sclera ENT: normocephalic atraumatic, no oropharyngeal lesions Neck: supple, symmetric, no JVD Heart: RRR, no murmur, no gallops, no rubs Respiratory: CTAB, no wheezes, no rales, no ronchi Gastrointestinal: soft, non-tender, non-distended, normal bowel sounds Extremities: no cyanosis, no clubbing, no edema Skin: normal turgor, no lesions Neurological: CN's grossly intact, normal sensation to touch Musculoskeletal: normal tone, normal strength, no muscle wasting Psychiatric: normal affect, normal behavior, A&O x 3 Hosp A/P (1) Acute exacerbation of CHF (congestive heart failure) Code(s): I50.9 - HEART FAILURE, UNSPECIFIED Status: Acute Qualifiers: Heart failure type: systolic Qualified Code(s): I50.23 - Acute on chronic systolic (congestive) heart failure (2) Anemia due to chronic kidney disease Code(s): N18.9 - CHRONIC KIDNEY DISEASE, UNSPECIFIED; D63.1 - ANEMIA IN CHRONIC KIDNEY DISEASE Status: Chronic Qualifiers: Chronic kidney disease stage: on chronic dialysis Qualified Code(s): N18.6 - End stage renal disease; D63.1 - Anemia in chronic kidney disease; Z99.2 - Dependence on renal dialysis (3) DM type 2 (diabetes mellitus, type 2) Status: Chronic Qualifiers: (4) Dyslipidemia Code(s): E78.5 - HYPERLIPIDEMIA, UNSPECIFIED Status: Chronic (5) ESRD (end stage renal disease) on dialysis Code(s): N18.6 - END STAGE RENAL DISEASE; Z99.2 - DEPENDENCE ON RENAL DIALYSIS Status: Chronic (6) HTN (hypertension) Code(s): I10 - ESSENTIAL (PRIMARY) HYPERTENSION Status: Chronic Qualifiers: (7) Seizure disorder Code(s): G40.909 - EPILEPSY, UNSP, NOT INTRACTABLE, WITHOUT STATUS EPILEPTICUS Status: Chronic - Plan old records reviewed/req continue to adjust BP medication as per cardiology medication reviewed as above symptomatic treatment continue HD as per nephrology expecting discharge tomorrow
[2019-06-14] MEDS ORDERED: Iopamidol 370 76% 50 ML VIAL FS ONE (13:56)
[2019-06-14] MEDS ORDERED: Iopamidol 370 76% 100 ML VIAL ONE (13:56)
[2019-06-14] MEDS: cloNIDine 0.1 MG TAB PO PRN (17:31)
[2019-06-14] MEDS: cefTRIAXone\\ROCEPHIN 1 GM in Sodium Chloride 0.9% 100 ML IVPB SCH (17:32)
[2019-06-14] MEDS: Atorvastatin Calcium 20 MG TAB PO SCH (21:05)
[2019-06-14] MEDS: cloNIDine 0.2 MG TAB PO SCH (21:07)
[2019-06-14] MEDS: Clopidogrel Bisulfate 75 MG TAB PO SCH (21:07)
[2019-06-15] MEDS: Nitroglycerin 2% Ointment 1 INCH/1 GM Packet TOP SCH ×2 (00:14→06:04)
[2019-06-15] MEDS: hydrALAZINE 20 MG/ML VIAL SLOW IVP PRN ×2 (00:14→13:22)
[2019-06-15] MEDS ORDERED: PRE FILLED SC SCH (09:00)
[2019-06-15] MEDS ORDERED: INSULIN GLARGINE SC SCH (09:00)
[2019-06-15] MEDS ORDERED: Losartan 25 MG TAB PO SCH (09:00)
[2019-06-15] MEDS: cloNIDine 0.2 MG TAB PO SCH ×3 (09:19→19:49)
[2019-06-15] MEDS: Folic Acid/Vit B Comp W-C PO SCH (09:19)
[2019-06-15] MEDS: Aspirin 81 mg Enteric Coated Tablet PO SCH (09:19)
[2019-06-15] MEDS: Carvedilol 25 MG TAB PO SCH ×2 (09:19→19:48)
[2019-06-15] MEDS: hydrALAZINE 25 MG TAB PO SCH ×2 (09:20→15:55)
[2019-06-15] MEDS: Isosorbide Dinitrate 20 MG TAB PO SCH ×3 (09:20→19:49)
[2019-06-15] MEDS: levETIRAcetam 500 MG TAB PO SCH (09:20)
[2019-06-15] MEDS: Famotidine 20 MG TAB PO SCH (09:20)
[2019-06-15] MEDS: FERRIC CITRATE PO SCH (09:21)
--- NOTE | 2019-06-15 11:38 | PRG ---
DATE OF SERVICE: 06/15/2019 SUBJECTIVE: A 48-year-old female being seen for end-stage renal disease. The patient denied any nausea, vomiting, or chest pain. OBJECTIVE: See above. The patient is awake and alert, in no acute distress. VITAL SIGNS: Afebrile, pulse 75, breathing 16, blood pressure 173/88. GENERAL APPEARANCE AND MENTAL STATUS: Fair. HEAD/NECK: Normocephalic. Atraumatic. EYES: EOMI. No deformity. EARS: Clear. No ulcers. NOSE: Intact. No lesions. MOUTH: Clear. No discharge. THROAT: Clear. No exudate. LUNGS: Clear. No crackles. CARDIAC: S1, S2. No rub. ABDOMEN: Benign. Bowel sounds positive. GENITALIA/RECTUM: Morris absent. BACK/EXTREMITIES: Edema 0+. NEUROLOGICAL: Alert and motor intact. SKIN: LYMPHATICS: LABORATORY DATA: Labs are reviewed. ASSESSMENT AND PLAN: 1. Chronic kidney disease, stage 6. Plan dialysis. 2. Hypertension. Would recommend increasing the hydralazine to 100 b.i.d. 3. Anemia, stable. Medication based on GFR appropriate. Job ID: [id number]
[2019-06-15 12:39] VITALS: BMI 20.2
[2019-06-15] MEDS: HumaLOG 300 UNITS/3 ML VIAL SC PRN (13:22)
[2019-06-15] MEDS ORDERED: FERRIC CITRATE PO SCH ×2 (13:30→17:00)
[2019-06-15 15:53] VITALS: BP 157/75; TEMP 97.8
[2019-06-15] MEDS: cefTRIAXone\\ROCEPHIN 1 GM in Sodium Chloride 0.9% 100 ML IVPB SCH (18:24)
--- NOTE | 2019-06-15 21:42 | DIS ---
DATE OF ADMISSION: 06/12/2019 DATE OF DISCHARGE: 06/15/2019 DISCHARGE DIAGNOSES: As of the followin. Acute congestive heart failure exacerbation. 2. Anemia due to chronic kidney disease. 3. End-stage renal disease, on dialysis. 4. Diabetes. 5. Dyslipidemia. 6. Seizure disorder. HOSPITAL COURSE: The patient is a 48-year-old female, who initially presented to the hospital on 06/12 with complaints of shortness of breath and abdominal pain. The patient was noted to have low EF of 30% to 35%. The patient also had a CT abdomen and pelvis that showed extensive volume overload and large right and left cerebral effusion. She underwent dialysis. She also underwent a cardiac cath, which recommended medical management. She did have some lesions, however, none of them were stated above. The patient was seen by Cardiology and also by Nephrology. She continued to improve through the hospital stay, however, her blood pressure was a little bit hard to control. The patient at this time was put on multiple blood pressure medications. She continued to improve clinically and she was discharged home. The patient will follow up with Cardiology as an outpatient. HOME MEDICATIONS: 1. Coreg 37.5 mg b.i.d. 2. Isosorbide 20 mg t.i.d. 3. Cozaar 100 mg daily. 4. Clonidine 0.2 mg t.i.d. 5. Aspirin 81 mg daily. 6. Lipitor 40 mg daily. 7. Clopidogrel one tab p.o. at bedtime. 8. Iron two tabs t.i.d. 9. Insulin 48 units t.i.d. p.r.n. 10. Insulin Levemir 9 units q.a.m. 11. Keppra 1 tab p.o. b.i.d. PHYSICAL EXAMINATION: VITAL SIGNS: Temperature 97.8, 67, 15, 98% on room air, 157/75. GENERAL: She is awake, alert, and oriented x3. Does not appear in distress. CV: S1, S2 present. No murmurs, rubs, or gallops. ABDOMEN: Soft and nontender. Bowel sounds are present x2. She did have urine, which indicated Streptococcus agalactiae. Initially, she was put on Rocephin and have transition over to amoxicillin. She will get another three more doses after dialysis. The patient was asked to follow up with her primary and also her health services information specialist and animal control supervisor. Job ID: [id number]
--- NOTE | 2019-06-17 15:15 | EKG ---
Test Reason : Blood Pressure : / mmHG Vent. Rate : 074 BPM Atrial Rate : 074 BPM P-R Int : 166 ms QRS Dur : 104 ms QT Int : 420 ms P-R-T Axes : 020 024 090 degrees QTc Int : 466 ms Normal sinus rhythm Nonspecific ST and T wave abnormality Abnormal ECG Confirmed by LESLYE TAYLOR D.O. ([id number]), photographic editor NORA LUCIO ([id number]) on 06/17/2019 3:14:17 PM Referred By: Confirmed By:LESLYE TAYLOR D.O.
== END 2019-06-15 20:30 | disposition home or self-care (01) | DRG 286 ==
LOC: ERS 18:21 → ONC 21:01 → 2NO 23:33 → OBSVTOIN 06-12 12:31
PROVIDERS: ADMIT Family Medicine; ATTEND Family Medicine
PROC: 4A023N7 Measurement of Cardiac Sampling and Pressure, Left Heart, Percutaneous Approach (ICD-10-PCS; principal; 2019-06-12)
PROC: B2111ZZ Fluoroscopy of Multiple Coronary Arteries using Low Osmolar Contrast (ICD-10-PCS; 2019-06-12)
PROC: 5A1D70Z Performance of Urinary Filtration, Intermittent, Less than 6 Hours Per Day (ICD-10-PCS; 2019-06-14)
DX: I13.2 Hypertensive heart and chronic kidney disease with heart failure and with stage 5 chronic kidney disease, or end stage renal disease (principal); N18.6 End stage renal disease; I50.23 Acute on chronic systolic (congestive) heart failure; J96.01 Acute respiratory failure with hypoxia; I24.8 Other forms of acute ischemic heart disease; I42.9 Cardiomyopathy, unspecified; E11.319 Type 2 diabetes mellitus with unspecified diabetic retinopathy without macular edema; E11.22 Type 2 diabetes mellitus with diabetic chronic kidney disease; E87.70 Fluid overload, unspecified; D63.1 Anemia in chronic kidney disease; G40.909 Epilepsy, unspecified, not intractable, without status epilepticus; I16.0 Hypertensive urgency; K52.9 Noninfective gastroenteritis and colitis, unspecified; Z79.4 Long term (current) use of insulin; Z86.73 Personal history of transient ischemic attack (TIA), and cerebral infarction without residual deficits; Z98.51 Tubal ligation status
CPT/HCPCS: 36415; 36416; 71045; 74176; 80048; 80053; 82550; 82553; 83690; 83880; 84484; 85007; 85025; 85027; 87040; 87077; 87086; 93005; 93010; 93458; 93798; 94760; 96374; 99152; 99153; C1769; J0360; J0696; J1644; J1815; J2001; J2250; J2270; J2405; J3490; Q9967

== ENCOUNTER 2019-06-17 01:53 | Emergency (ER) | payer MEDICARE, BC ==
[2019-06-17 02:26] LABS: #Eosinphils 0.3 thou/uL (0.0-0.7); #Lymphocytes 0.8 thou/uL (1.20-3.40); #Monocytes 0.5 thou/uL (0.11-0.59); #Neutrophils 4.7 thou/uL (1.40-6.50); %Basophils 0.7 % (0.0-1.0); %Eosinophils 4.8 % (0.0-10.0); %Lymphocytes 13.1 % (21.0-51.0); %Neutrophils 73.3 % (42.0-75.0); Hemoglobin 11.2 g/dL (12.0-16.0); Mean Corpuscular HGB CONC 33.3 g/dL (32.0-36.0); Mean Corpuscular Hemoglobin 33.8 pg (27.0-31.0); Mean Platelet Volume 8.4 fL (7.4-10.4); Platelet Count 265 thou/uL (130-400); RBC Distribution Width 13.2 % (11.5-14.5); Red Blood Cell (RBC) Count 3.32 mill/uL (4.20-5.40); White Blood Cell (WBC) Count 6.3 thou/uL (4.8-10.8)
[2019-06-17 02:51] LABS: ALT (SGPT) 12 U/L (8-55); AST (SGOT) 18 U/L (5-34); Albumin 3.6 g/dL (3.5-5.0); Alkaline Phosphatase 168 U/L (40-150); BUN (Urea Nitrogen) 42 mg/dL (7.0-18.7); Bilirubin, Total 0.6 mg/dL (0.2-1.2); Calc. Creatinine Clearance 0 mL/min (70-130); Calcium 9.4 mg/dL (7.8-10.44); Carbon Dioxide 23 mmol/L (22-29); Chloride 99 mmol/L (98-107); Estimated GFR-MDRD 7; Globulin 3.5 g/dL (2.4-3.5); Glucose 217 mg/dL (70-105); Lipase 25 U/L (8-78); Potassium 4.8 mmol/L (3.5-5.1); Protein, Total 7.1 g/dL (6.0-8.3); Sodium 135 mmol/L (136-145)
[2019-06-17 02:54] LABS: Anion Gap 18 mmol/L (10-20)
[2019-06-17 03:08] LABS: CKMB 2.4 ng/mL (0-6.6)
[2019-06-17] MEDS ORDERED: cloNIDine 0.1 MG TAB ONE (03:42)
--- NOTE | 2019-06-17 08:42 | RAD ---
PORTABLE CHEST ONE VIEW: 06/17/2019 2:35 a.m. HISTORY: Hypertension. Nausea. COMPARISON: 06/11/2019 FINDINGS: The heart size is mildly enlarged but stable. There is pulmonary vascular congestion with small pleu ral effusions. Dialysis catheter remains in place. No pneumothoraces is identified. POS: [facility]
== END 2019-06-17 06:07 | disposition home or self-care (01) ==
LOC: ERS 01:53
DX: R11.0 Nausea (principal); I12.0 Hypertensive chronic kidney disease with stage 5 chronic kidney disease or end stage renal disease; E11.22 Type 2 diabetes mellitus with diabetic chronic kidney disease; E78.5 Hyperlipidemia, unspecified; D64.9 Anemia, unspecified; E78.00 Pure hypercholesterolemia, unspecified; N18.6 End stage renal disease; Z99.2 Dependence on renal dialysis; Z86.73 Personal history of transient ischemic attack (TIA), and cerebral infarction without residual deficits; Z79.899 Other long term (current) drug therapy; Z79.01 Long term (current) use of anticoagulants; Z79.82 Long term (current) use of aspirin; Z79.4 Long term (current) use of insulin
CPT/HCPCS: 36415; 71045; 80053; 82553; 83690; 84484; 85025; 93005

== ENCOUNTER 2019-06-17 13:08 | Inpatient (IN) | payer MEDICARE, BC ==
[~2019-06-17 13:08] MED LIST changes: -Heparin 1,000 UNITS/ML VIAL ONE; +Heparin 10,000 UNITS/ 10 ML VIAL ONE
[2019-06-17 13:30] LABS: #Basophils 0.1 thou/uL (0.0-0.2); #Eosinphils 0.3 thou/uL (0.0-0.7); #Lymphocytes 0.7 thou/uL (1.20-3.40); #Monocytes 0.4 thou/uL (0.11-0.59); #Neutrophils 5.1 thou/uL (1.40-6.50); %Basophils 0.9 % (0.0-1.0); %Eosinophils 4.1 % (0.0-10.0); %Lymphocytes 10.3 % (21.0-51.0); %Monocytes 6.1 % (0.0-10.0); %Neutrophils 78.6 % (42.0-75.0); Hemoglobin 11.6 g/dL (12.0-16.0); Mean Corpuscular HGB CONC 32.8 g/dL (32.0-36.0); Mean Corpuscular Hemoglobin 32.7 pg (27.0-31.0); Mean Corpuscular Volume 99.9 fL (78.0-98.0); Mean Platelet Volume 8.7 fL (7.4-10.4); Platelet Count 262 thou/uL (130-400); RBC Distribution Width 13.1 % (11.5-14.5); Red Blood Cell (RBC) Count 3.55 mill/uL (4.20-5.40); White Blood Cell (WBC) Count 6.5 thou/uL (4.8-10.8)
[2019-06-17] MEDS ORDERED: Methocarbamol 1 GM in Sodium Chloride 0.9% 250 ML 250 ML IVPB SCH (13:30)
[2019-06-17] MEDS ORDERED: Ondansetron PF 4 MG/2 ML Vial ONE (13:50)
[2019-06-17] MEDS ORDERED: Morphine 2 MG/ML SYRINGE ONE (13:52)
[2019-06-17 13:54] LABS: ALT (SGPT) 15 U/L (8-55); AST (SGOT) 20 U/L (5-34); Albumin 3.5 g/dL (3.5-5.0); Alkaline Phosphatase 167 U/L (40-150); Anion Gap 15 mmol/L (10-20); BUN (Urea Nitrogen) 12 mg/dL (7.0-18.7); Bilirubin, Total 0.7 mg/dL (0.2-1.2); CK (CPK) 32 U/L (29-168); Calc. Creatinine Clearance 0 mL/min (70-130); Calcium 9.3 mg/dL (7.8-10.44); Carbon Dioxide 29 mmol/L (22-29); Chloride 99 mmol/L (98-107); Estimated GFR-MDRD 19; Glucose 139 mg/dL (70-105); Potassium 3.6 mmol/L (3.5-5.1); Protein, Total 7.5 g/dL (6.0-8.3); Sodium 139 mmol/L (136-145)
--- NOTE | 2019-06-17 13:55 | RAD ---
PORTABLE CHEST ONE VIEW: 06/17/2019 1:27 p.m. HISTORY: Chest pain. COMPARISON: Exam from the same date at 2:35 a.m. FINDINGS: The heart size is stable. The right-sided dialysis catheter remains in place. There is pulmonary va scular congestion with small pleural effusions and atelectatic changes in the left lung base. No pne umothoraces are seen. POS: [facility]
[2019-06-17 14:14] LABS: CKMB 2.4 ng/mL (0-6.6)
[2019-06-17] MEDS ORDERED: hydrALAZINE 20 MG/ML VIAL ONE (15:44)
[2019-06-17] MEDS ORDERED: Nitroglycerin 0.4 MG TAB 1 EACH ONE (15:59)
[2019-06-17] MEDS ORDERED: Carvedilol 6.25 MG TAB PO SCH (17:15)
[2019-06-17] MEDS ORDERED: Acetaminophen 325 MG TAB PO PRN ×3 (17:59→21:31)
[2019-06-17] MEDS ORDERED: Ondansetron PF 4 MG/2 ML Vial IVP PRN ×3 (17:59→21:34)
[2019-06-17] MEDS ORDERED: Dextrose 5% in Water 1,000 ML IV PRN ×2 (18:10→21:31)
[2019-06-17] MEDS ORDERED: Dextrose 50% Abboject 50 ML SYRINGE SLOW IVP PRN ×2 (18:10→21:32)
[2019-06-17] MEDS ORDERED: HumaLOG 300 UNITS/3 ML VIAL SC PRN ×4 (18:10→21:33)
[2019-06-17] MEDS ORDERED: hydrALAZINE 20 MG/ML VIAL SLOW IVP PRN (18:15)
[2019-06-17] MEDS ORDERED: Labetalol HCl 100 MG/20 ML VIAL SLOW IVP PRN (18:15)
[2019-06-17] MEDS ORDERED: Acetaminophen 500 MG TAB PO PRN (18:15)
[2019-06-17 19:40] VITALS: BMI 21.1
[2019-06-17 19:48] LABS: Troponin I 0.062 ng/mL (< 0.028)
[2019-06-17] MEDS ORDERED: Famotidine 20 MG TAB PO SCH (21:00)
[2019-06-17] MEDS ORDERED: Isosorbide Dinitrate 20 MG TAB PO SCH (21:00)
[2019-06-17] MEDS ORDERED: levETIRAcetam 500 MG TAB PO SCH (21:45)
[2019-06-17] MEDS ORDERED: cloNIDine 0.2 MG TAB PO SCH (21:45)
[2019-06-18] MEDS: hydrALAZINE 20 MG/ML VIAL SLOW IVP PRN ×3 (04:57→23:44)
[2019-06-18] MEDS ORDERED: Nitroglycerin 0.4 MG TAB (25 Tab Bottle) ONE (05:04)
[2019-06-18] MEDS: Labetalol HCl 100 MG/20 ML VIAL SLOW IVP PRN ×2 (05:05→10:11)
--- NOTE | 2019-06-18 05:36 | PDOC.EVN ---
Event Note - Event Note Event Note: RN called - Patient continues to have CP - Will add NTG patch. 1 dose of Morphine.
[2019-06-18] MEDS ORDERED: Nitroglycerin 2% Ointment 1 INCH/1 GM Packet TOP SCH (05:45)
[2019-06-18] MEDS ORDERED: Morphine 2 MG/ML SYRINGE SLOW IVP SCH (05:45)
[2019-06-18] MEDS ORDERED: Lorazepam 2 MG/ML VIAL SLOW IVP SCH (06:00)
[2019-06-18 06:46] LABS: CKMB 2.2 ng/mL (0-6.6)
[2019-06-18] MEDS: Clopidogrel Bisulfate 75 MG TAB PO SCH (07:35)
[2019-06-18] MEDS: Aspirin 81 mg Enteric Coated Tablet PO SCH (07:35)
[2019-06-18] MEDS: levETIRAcetam 500 MG TAB PO SCH ×2 (07:35→20:27)
[2019-06-18] MEDS: Atorvastatin Calcium 40 MG TAB PO SCH (07:35)
[2019-06-18] MEDS: Folic Acid/Vit B Comp W-C PO SCH (07:35)
[2019-06-18] MEDS: Losartan 25 MG TAB PO SCH (07:36)
[2019-06-18] MEDS: cloNIDine 0.2 MG TAB PO SCH ×3 (07:36→20:27)
[2019-06-18] MEDS: Isosorbide Dinitrate 20 MG TAB PO SCH ×3 (07:36→20:26)
[2019-06-18] MEDS: Carvedilol 25 MG TAB PO SCH ×2 (07:37→16:00)
[2019-06-18] MEDS ORDERED: Famotidine 20 MG TAB PO SCH (09:00)
[2019-06-18] MEDS ORDERED: Folic Acid/Vit B Comp W-C PO SCH (09:00)
[2019-06-18] MEDS ORDERED: cloNIDine 0.2 MG TAB PO SCH (11:45)
--- NOTE | 2019-06-18 14:39 | PDOC.HOSPP ---
- Subjective Encounter Date: 06/18/19 Encounter Time: 10:00 Subjective: patient examined, denies new complaints, family at bedside state concern as BP has not been below 190's systolic after last DC home even after all of her medications have been given. Did not have dialysis on Wednesday or Wednesday. - Objective Vital Signs & Weight: Vital Signs (12 hours) Temp Pulse Resp BP BP Pulse Ox 06/18/19 11:42 98.3 F 75 20 177/80 H 97 06/18/19 10:58 195/86 H 06/18/19 10:11 77 06/18/19 10:05 182/88 H 06/18/19 09:10 77 197/86 H 06/18/19 07:30 98.4 F 77 20 189/87 H 96 06/18/19 06:26 79 179/84 H 95 06/18/19 06:21 80 187/86 H 96 06/18/19 06:06 79 194/85 H 93 L 06/18/19 05:45 79 178/84 H 95 06/18/19 05:16 80 186/87 H 97 06/18/19 05:09 79 188/89 H 96 06/18/19 05:05 80 193/89 H 06/18/19 04:57 77 193/89 H 06/18/19 04:50 98.2 F 75 16 194/90 H 92 L Weight Weight 54.114 kg I&O: 06/17/19 06/18/19 06/19/19 06:59 06:59 06:59 Intake Total 240 Balance 240 Result Diagrams: 06/17/19 13:20 06/17/19 13:20 Additional Labs: Accuchecks 06/18/19 06/18/19 06/17/19 11:47 06:29 21:21 POC Glucose 162 H 136 H 168 H ROS - Review of Systems Cardiovascular: reports: chest pain Neurological: reports: weakness - Medication Medications: Active Medications Generic Name Dose Route Start Last Admin Trade Name Freq PRN Reason Stop Dose Admin Aspirin 81 mg 06/18/19 09:00 06/18/19 07:35 Ecotrin PO 81 mg DAILY ALMITA Administration Atorvastatin Calcium 40 mg 06/18/19 09:00 06/18/19 07:35 Lipitor PO 40 mg DAILY ALMITA Administration Carvedilol 37.5 mg 06/18/19 08:00 08/18/19 07:37 Coreg PO 37.5 mg BID-WM ALMITA Administration Clonidine 0.2 mg 06/18/19 09:00 06/18/19 07:36 Catapres PO 0.2 mg TID ALMITA Administration Clopidogrel Bisulfate 75 mg 06/18/19 09:00 06/18/19 07:35 Plavix PO 75 mg DAILY ALMITA Administration Hydralazine HCl 10 mg 06/17/19 21:29 06/18/19 09:10 Apresoline SLOW IVP 10 mg Q4H PRN Administration SBP > 180 and HR < 70 Isosorbide Dinitrate 40 mg 06/18/19 09:00 06/18/19 07:36 Isordil PO 40 mg TID ALMITA Administration Labetalol HCl 20 mg 06/17/19 21:33 06/18/19 10:11 Normodyne SLOW IVP 20 mg Q4H PRN Administration SBP > 180 and HR >/= 70 Levetiracetam 500 mg 06/18/19 09:00 06/18/19 07:35 Keppra PO 500 mg BID ALMITA Administration Losartan Potassium 100 mg 06/18/19 09:00 06/18/19 07:36 Cozaar PO 100 mg DAILY ALMITA Administration (Ferric Citrate [ 2 each 06/18/19 08:00 06/18/19 11:19 Auryxia] 210 Mg Tab) PO 2 each TID-WM ALMITA Administration Vitamin B Complex/Vit C/Folic Acid 1 tab 06/18/19 09:00 06/18/19 07:35 Nephro-Yeimy Tablet PO 1 tab DAILY ALMITA Administration - Exam Eye: PERRL ENT: moist mucosa Neck: supple, no JVD Heart: RRR Respiratory: CTAB Gastrointestinal: soft, non-tender Extremities: no cyanosis Skin: normal turgor Neurological: CN's grossly intact Musculoskeletal: generalized weakness Psychiatric: normal affect, A&O x 3 Hosp A/P (1) Hypertensive urgency Code(s): I16.0 - HYPERTENSIVE URGENCY Status: Acute (2) Anemia Code(s): D64.9 - ANEMIA, UNSPECIFIED Status: Chronic Qualifiers: Anemia type: due to chronic kidney disease (3) DM type 2 (diabetes mellitus, type 2) Status: Chronic Qualifiers: (4) Dyslipidemia Code(s): E78.5 - HYPERLIPIDEMIA, UNSPECIFIED Status: Chronic (5) ESRD (end stage renal disease) on dialysis Code(s): N18.6 - END STAGE RENAL DISEASE; Z99.2 - DEPENDENCE ON RENAL DIALYSIS Status: Chronic - Plan old records reviewed/req, plan discussed w/ family BP is still high and labile, PRN meds are effective short term for control Denies chest pain today Dr. Medina has been consulted, patient is ESRD Will DC once BP lower than 190's and stable
[2019-06-18] MEDS ORDERED: NIFEdipine XL 30 MG TAB PO SCH (18:00)
--- NOTE | 2019-06-18 18:27 | CON ---
DATE OF CONSULTATION: REASON FOR CONSULTATION: End-stage renal disease, on maintenance hemodialysis. HISTORY OF PRESENT ILLNESS: This is a 48-year-old female, presented to the hospital with chest pain. The patient at this time denies any nausea, vomiting, or chest pain. The patient has dialysis on Wednesday, Wednesday, Wednesday. PAST MEDICAL HISTORY: Significant for hypertension, anemia, CKD, ESRD, history of recurrent hospitalizations, labile hypertension, TIA, tubal ligation, AV fistula, tunneled dialysis catheter. HOME MEDICATIONS: List reviewed. HOSPITAL MEDICATIONS: List reviewed. ALLERGIES: REVIEWED. REVIEW OF SYSTEMS: A 15-point review of systems was performed, negative except for positives noted above. GENERAL: HEAD: NECK: No swelling or lumps. NOSE: No epistaxis or discharge. EYES: No diplopia or pain. RESPIRATORY: CARDIOVASCULAR: GASTROINTESTINAL: /RELAY TELEGRAPHER: MUSCULOSKELETAL: No joint pain. NEUROPSYCHIATIC SYSTEMS: No suicidal ideation. No ideation. SKIN: Denies any rash or ulcer. CONSTITUTIONAL: No fever or chills. PHYSICAL EXAMINATION: GENERAL: The patient is awake and alert. VITAL SIGNS: Afebrile. Pulse 71, breathing 16, blood pressure 179/87. LABORATORY DATA: Reviewed. ASSESSMENT AND PLAN: 1. Stage 6 chronic kidney disease, plan dialysis tomorrow. 2. Hypertension. I would recommend adding minoxidil 2.5 to the current regimen. 3. Anemia, stable. 4. Medication based on GFR, appropriate. Job ID: [id number]
[2019-06-19] MEDS: Carvedilol 25 MG TAB PO SCH ×2 (06:36→17:17)
--- NOTE | 2019-06-19 07:23 | HP ---
CHIEF COMPLAINT: Chest pain. HISTORY OF PRESENT ILLNESS: Ms. Schaeffer is a 48-year-old female with past medical history significant for end-stage renal disease, on dialysis, chronic systolic congestive heart failure, and recently diagnosed coronary artery disease per left heart catheterization June 12, 2019, with Dr. Mcdonnell, hypertension, and history of TIA and seizure disorder, who presented to the hospital this morning after suffering from an episode of chest pain while at dialysis. The patient states that she was able to complete her dialysis session, although no fluid was removed. She describes the chest pain as sharp, but then developed into a pressure-type sensation. She presented to the emergency department for further workup and treatment. On arrival, EKG showed no acute ST or T-wave changes. Her troponin has been indeterminate at 0.064 and 0.05, which is chronic for the patient. She was significantly hypertensive in the emergency department with systolic blood pressures in the 190s to 200s. She takes multiple oral blood pressure medications and has had none of these today. The patient was recently admitted and discharged from this facility and was hospitalized from June 11, 2019 and discharged 2 days ago. During that hospitalization, she was treated for [id number] systolic congestive heart failure exacerbation. She underwent left heart catheterization with Dr. Mcdonnell, which revealed multivessel coronary artery disease including 40-70% stenosis noted on the LAD, and a 70% stenosis located on the circumflex, all with BRIGETTE-3 flow noted. Medical management was recommended. During that hospitalization, her medications were adjusted. The patient was started on Edarbi, and placed on isosorbide dinitrate 20 mg t.i.d. REVIEW OF SYSTEMS: Twelve point review of systems performed and is negative except that stated above. PAST MEDICAL HISTORY: 1. Insulin-requiring diabetes mellitus. 2. End-stage renal disease, on hemodialysis. 3. Hypertension. 4. TIA. 5. Seizure disorder. 6. Anemia of chronic disease. 7. Cardiomyopathy with ejection fraction 30-35%. 8. Macular degeneration, presumed wet requiring injections. PAST SURGICAL HISTORY: 1. Bilateral tubal ligation. 2. Port-A-Cath placement. 3. Scheduled AV fistula placement. FAMILY HISTORY: Positive for diabetes, heart disease and hypertension. SOCIAL HISTORY: Has a remote history of alcohol abuse, but has not had any alcohol for a very long period of time. No smoking history. She lives at home with her . She has a daughter who is about to have her 1st grandson. ALLERGIES: NO KNOWN DRUG ALLERGIES. HOME MEDICATIONS: 1. Carvedilol mg b.i.d. 2. Isosorbide dinitrate 20 mg p.o. t.i.d. 3. Edarbi 40 mg daily. 4. Clonidine 0.2 mg t.i.d. 5. Aspirin 81 mg daily. 6. Lipitor 40 mg at bedtime. 7. Plavix 75 mg daily. 8. Keppra 500 mg tablet one tablet p.o. b.i.d. 9. Sliding scale insulin. 10. [id number] iron supplement. OBJECTIVE: VITAL SIGNS: At the time of my evaluation in the ER, blood pressure 177/94, pulse is in the 70 sinus, O2 saturation is 98% on 2 L oxygen via nasal cannula. GENERAL: The patient is a thin female, resting in the ER bed in no acute distress. She is able to converse easily. HEENT: Head is atraumatic and normocephalic. Mucous membranes are moist. NECK: Trachea is midline. No appreciable JVD. CV: S1 and S2. Regular rate and rhythm. No appreciable murmurs, rubs, or gallops. LUNGS: Regular respiratory rate and pattern, decreased vesicular breath sounds at the bases, Port-A-Cath placement in right upper chest. ABDOMEN: Positive bowel sounds, nontender, soft. EXTREMITIES: No edema. LABORATORY DATA: White blood cell count 6.5, hemoglobin 11.6, hematocrit 35.4, platelet count is 262. Sodium 139, potassium 3.6, anion gap 15, creatinine 2.66, AST 20, ALT 15, alkaline phosphatase 167, creatine kinase 32, troponin 0.064, 0.050. ASSESSMENT: 1. Chest pain in the setting of hypertensive urgency. 2. End-stage renal disease, on dialysis. 3. Chronic indeterminate troponin secondary to above. 4. Recently diagnosed triple-vessel coronary artery disease, left heart catheterization performed June 12, 2019, with Dr. Mcdonnell, medical management recommended. 5. Chronic systolic heart failure, no evidence of acute exacerbation at this time, EF 30-35%. 6. Seizure disorder. 7. History of transient ischemic attacks. 8. Type 2 diabetes mellitus, requiring insulin. PLAN: At this time, we will admit the patient for chest pain rule out. Her troponin is chronically indeterminant, and has not elevated significantly, but beyond her baseline. Her EKG shows no dynamic ST or T-wave changes. She has not had any of her oral blood pressure medications, and we will get these reinstated, and the plan will be to increase her isosorbide dinitrate from 20 mg t.i.d. to 40 mg t.i.d. We will obtain one more troponin this evening and one more in the morning. If her blood pressure trends down, expect discharge tomorrow if the patient is chest pain free. She did have dialysis today and is not scheduled for dialysis until Wednesday, so I see no urgent need to consult Nephrology at this time. We will continue her aspirin and Plavix and other home medications as detailed above. , GI and DVT prophylaxis have been ordered. Further recommendations based on hospital course. Job ID: [id number]
[2019-06-19] MEDS ORDERED: Fentanyl 100 MCG/2 ML VIAL ONE ×2 (08:10→08:36)
[2019-06-19 08:34] LABS: #Eosinphils 0.3 thou/uL (0.0-0.7); #Lymphocytes 0.6 thou/uL (1.20-3.40); #Monocytes 0.5 thou/uL (0.11-0.59); #Neutrophils 6.1 thou/uL (1.40-6.50); %Basophils 0.3 % (0.0-1.0); %Eosinophils 3.4 % (0.0-10.0); %Lymphocytes 8.1 % (21.0-51.0); %Neutrophils 81.2 % (42.0-75.0); Hemoglobin 10.5 g/dL (12.0-16.0); Mean Corpuscular HGB CONC 32.2 g/dL (32.0-36.0); Mean Corpuscular Hemoglobin 32.6 pg (27.0-31.0); Mean Platelet Volume 8.6 fL (7.4-10.4); Platelet Count 279 thou/uL (130-400); RBC Distribution Width 13.2 % (11.5-14.5); Red Blood Cell (RBC) Count 3.21 mill/uL (4.20-5.40); White Blood Cell (WBC) Count 7.6 thou/uL (4.8-10.8)
[2019-06-19] MEDS ORDERED: Lidocaine 2% Jelly 5 ML TUBE ONE (08:36)
[2019-06-19] MEDS ORDERED: Propofol 1,000 MG/100 ML VIAL IV ONE (08:36)
[2019-06-19] MEDS ORDERED: ceFAZolin Sodium (SDC) 2 GM/100 ML BAG ONE (08:42)
[2019-06-19] MEDS ORDERED: Lidocaine 2% PF 5 ML VIAL ONE (08:44)
[2019-06-19] MEDS ORDERED: Bupivacaine HCl 0.5%/Epinephrine 1:200,000/PF 30 ml Vial ONE ×2 (08:44→11:44)
[2019-06-19] MEDS ORDERED: Heparin 5,000 UNITS/ML VIAL ONE (08:44)
[2019-06-19] MEDS ORDERED: Protamine Sulfate 50 MG/5 ML VIAL ONE (08:44)
[2019-06-19 09:04] LABS: Anion Gap 16 mmol/L (10-20); BUN (Urea Nitrogen) 30 mg/dL (7.0-18.7); Calc. Creatinine Clearance 10 mL/min (70-130); Calcium 9.5 mg/dL (7.8-10.44); Carbon Dioxide 28 mmol/L (22-29); Chloride 97 mmol/L (98-107); Estimated GFR-MDRD 8; Glucose 149 mg/dL (70-105); Potassium 4.6 mmol/L (3.5-5.1); Sodium 136 mmol/L (136-145)
[2019-06-19] MEDS ORDERED: Promethazine HCl 25 MG/ML VIAL SLOW IVP PRN (10:41)
[2019-06-19] MEDS ORDERED: Promethazine HCl 25 MG/ML VIAL IM PRN (10:41)
[2019-06-19] MEDS ORDERED: Ondansetron HCl/PF 4 MG/2 ML Vial IVP PRN (10:41)
--- NOTE | 2019-06-19 11:24 | PRG ---
DATE OF SERVICE: 06/19/2019 SUBJECTIVE: Patient was seen and examined at bedside and overnight events noted. Patient denies any shortness of breath or chest pain or palpitation. No history of nausea or vomiting or diarrhea or fever or chills or cramps. OBJECTIVE: GENERAL: This is a thin-built female, in no apparent distress. VITAL SIGNS: Temperature 99.3. Pulse 65. Respiratory rate 18. Blood pressure 129/65. HEENT: Atraumatic, normocephalic. Oral mucosa is moist NECK: Supple. CARDIOVASCULAR: S1, S2 heard. Rate and rhythm regular. RESPIRATORY: Clear to auscultation. GASTROINTESTINAL: Abdomen is soft. MUSCULOSKELETAL: No tenderness. No edema. DERMATOLOGIC: No skin rash. NEUROLOGIC: Alert and awake and oriented X3. No focal neurologic deficits. Moving all the extremities. PSYCHIATRIC: Mood and affect normal. LABORATORY DATA: Potassium 4.6, BUN is 30, and creatinine is 5.8. ASSESSMENT AND PLAN: 1. End-stage renal disease. Continue on dialysis Wednesday, Wednesday, and Wednesday. 2. Hypertension. Better blood pressure today. Continue to monitor. Follow with Cardiology. 3. Cardiorenal syndrome. 4. Edema. We will remove fluid with dialysis. 5. Anemia. Monitor hemoglobin. 6. Diabetic nephropathy, biopsy proven. 7. Heavy proteinuria. Plan to continue dialysis on Wednesday, Wednesday, Wednesday. Job ID: [id number]
[2019-06-19] MEDS ORDERED: Heparin 10,000 UNITS/ 10 ML VIAL ONE (12:53)
[2019-06-19] MEDS ORDERED: PROPOFOL 200 MG/20 ML VIAL ONE (12:53)
--- NOTE | 2019-06-19 13:06 | OP ---
DATE OF PROCEDURE: 06/19/2019 PREOPERATIVE DIAGNOSES: End-stage renal disease, thrombosed left arm fistula. POSTOPERATIVE DIAGNOSES: End-stage renal disease, thrombosed left arm fistula with occluded cephalic vein outflow upper arm from IV access. Note, IV access, this hospitalization, right antecubital area without IV right forearm in a patient with planned arteriovenous fistula today. PROCEDURE PERFORMED: Right arm primary arteriovenous fistula perforating branch antecubital vein to proximal radial artery outflow basilic vein only. Note, occluded cephalic vein outflow due to previous IV access. ANESTHESIA: Regional, TIVA, local of 0.5% Marcaine with epinephrine mixed with 2% Xylocaine 30 mL and 10 mL respectfully, 10 mL volume mixture used. Note, just prior to come back to the operating room, the patient expressed desires to have a PD catheter and we will discuss with Dr. Mcdonnell, cardiac clearance that she had a recent cardiac catheterization and plan laparoscopic PD catheter in right arm basilic vein transposition fistula in the next few weeks. DESCRIPTION OF PROCEDURE: The patient was taken to the operating room, where under regional anesthesia and IV sedation, right upper extremity was prepared with ChloraPrep and draped in routine fashion. The patient had venipuncture antecubital area and an IV to be removed from the right forearm in preop holding (the patient was admitted this hospitalization due to hypertension and chest pain issues). Incision was made in the proximal volar forearm longitudinally below the antecubital fossa, carried down through the skin and subcutaneous tissue. Cephalic vein upper arm was fibrotic. Basilic vein was of good adequate caliber and dissected free and perforating branch dissected free and branches were divided between clips and it was spatulated over branch point and she was given 6000 units of heparin intravenously. The proximal artery was of good caliber, dissected free, clamped proximally and distally. Cephalic perforating branch calibrated with coronary artery dilators, passing coronary artery dilators from a 2 mm to 3.5 mm coronary dye at the basilic vein outflow. It would not pass in the cephalic vein outflow to the previous IV access. The end perforating branch antecubital vein to the proximal artery anastomosis created with continuous suture of 6-0 Prolene. After completing the anastomosis, good hemostasis was noted with 6-0 Prolene and the patient given 25 mg of protamine by Anesthesia. Good Doppler signal noted in the basilic vein outflow. Subcutaneous tissue was approximated with 3-0 Monocryl, skin with subdermal 4-0 Monocryl, and Rosman glue applied. The patient tolerated the procedure well. Job ID: [id number]
--- NOTE | 2019-06-19 16:39 | PDOC.CTH ---
Cardiology Progress Note - Subjective The pt seen and examined. No overnight events. No cardiac complaints. - Objective Vital Signs Temp Pulse Resp BP Pulse Ox 06/19/19 12:28 98.3 F 62 20 154/74 H 94 L 06/19/19 07:30 98.3 F 65 18 129/65 93 L Weight 119 lb 4.8 oz 06/18/19 06/19/19 06/20/19 06:59 06:59 06:59 Intake Total 240 1200 Balance 240 1200 - Physical Examination General/Neuro: alert & oriented x3 Neck: no JVD present Lungs: other: (diminihsed at bases) Heart: RRR Abdomen: soft Extremities: other: (No edema) - Telemetry Telemetry Rhythm: SR - Labs Result Diagrams: 06/19/19 08:25 06/19/19 08:25 Troponin/CKMB CK-MB (CK-2) 2.2 ng/mL (0-6.6) 06/18/19 05:49 Troponin I 0.054 ng/mL (< 0.028) H 06/18/19 08:37 - Assessment/Plan 1. ESRD with HD - AV fistula placement today; plan for PD placement within a few wks. 2. HTN urgency - the pt has not had any BP med for today 3. Chronic systolic HF - On dialysis, ARB, and Coreg 4. CAD with S/p Cath on 06/14/2019 with 20% stenosis in LMCA, 70% in diag1, 50% in diag2, 40% in LAD, and 70% in Lt Cx with medical tx only; On Coreg, ASA, Plavix, and Lipitor 5. HLD - on Statin 6. Insulin depended DM - 7. Anemia - slightly decreased today MAR reviewed * S/p Cath on 06/14/2019 with 20% stenosis in LMCA, 70% in diag1, 50% in diag2, 40% in LAD, and 70% in Lt Cx with medical tx only * Echo on 05/16/2019 with EF 30-35%, mild dilated LA, mild ERA, mild-mod MR, mod -severe TR, and small pericardial effusion * From Cardiac standpoint, the pt is cleared for PD placement. Pt. seen and eval. by me. I agree with the A/P by the LOAD MANAGER. She is still hypertensive and her meds have recently been given. If the BP stabalizes she could be d/c'd later today. She has an appointment in [address] Mcdonnell. Chest clear. RRR. No edema. She will likely be a reasonable candidate for peritoneal dialysis catheter placement. Review of Systems - Review of Systems Constitutional: reports: no symptoms reported EENTM: reports: no symptoms reported Respiratory: reports: no symptoms reported Cardiac (ROS): reports: no symptoms reported ABD/GI: reports: no symptoms reported : reports: no symptoms reported Musculoskeletal: reports: no symptoms reported
[2019-06-19] MEDS: cloNIDine 0.2 MG TAB PO SCH ×4 (17:10→21:58)
[2019-06-19] MEDS: Clopidogrel Bisulfate 75 MG TAB PO SCH (17:13)
[2019-06-19] MEDS: Folic Acid/Vit B Comp W-C PO SCH (17:13)
[2019-06-19] MEDS: Atorvastatin Calcium 40 MG TAB PO SCH (17:13)
[2019-06-19] MEDS: Aspirin 81 mg Enteric Coated Tablet PO SCH (17:13)
[2019-06-19] MEDS: Famotidine 20 MG TAB PO SCH (17:13)
[2019-06-19] MEDS: Losartan 25 MG TAB PO SCH (17:14)
[2019-06-19] MEDS: levETIRAcetam 500 MG TAB PO SCH ×2 (17:14→21:58)
[2019-06-19] MEDS: Isosorbide Dinitrate 20 MG TAB PO SCH ×3 (17:14→21:58)
[2019-06-19] MEDS: Acetaminophen 500 MG TAB PO PRN (17:21)
--- NOTE | 2019-06-19 22:33 | PDOC.HOSPP ---
- Subjective Encounter Date: 06/19/19 Encounter Time: 17:30 Subjective: Patient seen earlier in dialysis and denied any complaints. She denied chest pain, palpitation, shortness of breath or abdominal pain. She is s/p OR for dialysis access and tolerated well. Plan was for discharge, but she developed increase in BP due to not taking morning medications since NPO and she was still requiring oxygen. - Objective Vital Signs & Weight: Vital Signs (12 hours) Temp Pulse Resp BP BP Pulse Ox 06/19/19 21:58 166/74 H 06/19/19 19:35 97.3 F L 75 18 166/74 H 96 06/19/19 18:45 71 174/80 H 06/19/19 17:14 185/92 H 06/19/19 17:10 192/90 H 06/19/19 16:00 97.6 F 71 18 185/92 H 94 L 06/19/19 12:28 98.3 F 62 20 154/74 H 94 L Weight Weight 119 lb 4.8 oz I&O: 06/18/19 06/19/19 06/20/19 06:59 06:59 06:59 Intake Total 240 1200 300 Output Total 2000 Balance 240 1200 -1700 Result Diagrams: 06/19/19 08:25 06/19/19 08:25 Additional Labs: Accuchecks 06/19/19 06/19/19 06/19/19 20:45 17:27 13:04 POC Glucose 267 H 88 135 H 06/19/19 05:52 POC Glucose 138 H Radiology Reviewed by me: Yes ROS - Review of Systems Constitutional: denies: fever, chills Eyes: denies: pain, redness ENT: denies: nose congestion, throat pain Respiratory: denies: cough, shortness of breath Cardiovascular: denies: chest pain, palpitations Gastrointestinal: denies: nausea, vomitting Musculoskeletal: denies: arm pain, back pain Skin: denies: rash Neurological: denies: weakness, numbness All other systems reviewed; all pertinent +/- noted in HPI/Subj - Medication Medications: Active Medications Generic Name Dose Route Start Last Admin Trade Name Freq PRN Reason Stop Dose Admin Acetaminophen 1,000 mg 06/17/19 21:34 06/19/19 17:21 Tylenol PO 1,000 mg Q6H PRN Administration Mild Pain (1-3) Aspirin 81 mg 06/18/19 09:00 06/19/19 17:13 Ecotrin PO 81 mg DAILY [facility] Administration Atorvastatin Calcium 40 mg 06/18/19 09:00 06/19/19 17:13 Lipitor PO 40 mg DAILY [facility] Administration Carvedilol 37.5 mg 06/18/19 08:00 06/19/19 17:17 Coreg PO 37.5 mg BID-WM [facility] Administration Clonidine 0.2 mg 06/18/19 09:00 06/19/19 21:58 Catapres PO 0.2 mg TID [facility] Administration Clopidogrel Bisulfate 75 mg 06/18/19 09:00 06/19/19 17:13 Plavix PO 75 mg DAILY [facility] Administration Famotidine 20 mg 06/19/19 09:00 06/19/19 17:13 Pepcid PO 20 mg DAILY [facility] Administration Hydralazine HCl 10 mg 06/17/19 21:29 06/18/19 23:44 Apresoline SLOW IVP 10 mg Q4H PRN Administration SBP > 180 and HR < 70 Isosorbide Dinitrate 40 mg 06/18/19 09:00 06/19/19 21:58 Isordil PO 40 mg TID [facility] Administration Labetalol HCl 20 mg 06/17/19 21:33 06/18/19 10:11 Normodyne SLOW IVP 20 mg Q4H PRN Administration SBP > 180 and HR >/= 70 Levetiracetam 500 mg 06/18/19 09:00 06/19/19 21:58 Keppra PO 500 mg BID [facility] Administration Losartan Potassium 100 mg 06/18/19 09:00 06/19/19 17:14 Cozaar PO 100 mg DAILY [facility] Administration (Ferric Citrate [ 2 each 06/18/19 08:00 06/19/19 17:10 Auryxia] 210 Mg Tab) PO Not Given TID[facility] Vitamin B Complex/Vit C/Folic Acid 1 tab 06/18/19 09:00 06/19/19 17:13 Nephro-Yeimy Tablet PO 1 tab DAILY [facility]A Administration - Exam NAD, awake alert Eye: PERRL ENT: normocephalic atraumatic, moist mucosa Neck: supple Heart: RRR, no murmur Respiratory: CTAB, no wheezes Gastrointestinal: soft, non-tender Extremities: no cyanosis, no edema Skin: normal turgor, no rashes Neurological: CN's grossly intact, no focal deficits Musculoskeletal: generalized weakness Psychiatric: normal affect, A&O x 3 Hosp A/P (1) ESRD (end stage renal disease) on dialysis Code(s): N18.6 - END STAGE RENAL DISEASE; Z99.2 - DEPENDENCE ON RENAL DIALYSIS Status: Acute (2) Hypertensive urgency Code(s): I16.0 - HYPERTENSIVE URGENCY Status: Acute (3) DM type 2 (diabetes mellitus, type 2) Status: Chronic Qualifiers: (4) Dyslipidemia Code(s): E78.5 - HYPERLIPIDEMIA, UNSPECIFIED Status: Chronic (5) HTN (hypertension) Code(s): I10 - ESSENTIAL (PRIMARY) HYPERTENSION Status: Chronic Qualifiers: - Plan old records reviewed/req Continue dialysis schedule Wednesday, Wednesday and Wednesday Monitor BP and other vitals, continue antihypertensives Wean oxygen as tolerated Hold discharge due to elevated blood pressures and still requiring oxygen
[2019-06-20] MEDS: cloNIDine 0.2 MG TAB PO SCH ×3 (04:18→21:30)
[2019-06-20] MEDS: Losartan 25 MG TAB PO SCH (04:18)
[2019-06-20] MEDS: HumaLOG 300 UNITS/3 ML VIAL SC PRN ×2 (06:27→18:12)
[2019-06-20] MEDS: hydrALAZINE 20 MG/ML VIAL SLOW IVP PRN (06:31)
[2019-06-20] MEDS ORDERED: Amlodipine 5 MG TAB PO SCH (09:00)
[2019-06-20] MEDS: Carvedilol 25 MG TAB PO SCH ×2 (10:16→18:14)
[2019-06-20] MEDS: Aspirin 81 mg Enteric Coated Tablet PO SCH (10:16)
[2019-06-20] MEDS: levETIRAcetam 500 MG TAB PO SCH ×2 (10:17→21:27)
[2019-06-20] MEDS: Folic Acid/Vit B Comp W-C PO SCH (10:18)
[2019-06-20] MEDS: Famotidine 20 MG TAB PO SCH (10:20)
[2019-06-20] MEDS: Isosorbide Dinitrate 20 MG TAB PO SCH ×3 (10:20→21:27)
[2019-06-20] MEDS ORDERED: hydrALAZINE 25 MG TAB PO SCH ×3 (11:30→21:00)
[2019-06-20] MEDS: Atorvastatin Calcium 40 MG TAB PO SCH ×2 (14:44→21:28)
[2019-06-20] MEDS: Clopidogrel Bisulfate 75 MG TAB PO SCH ×2 (14:44→21:31)
[2019-06-20] MEDS ORDERED: Heparin 10,000 UNITS/1 ML VIAL ONE (15:00)
--- NOTE | 2019-06-20 15:08 | PRG ---
DATE OF SERVICE: 06/20/2019 SUBJECTIVE: Patient was seen and examined at bedside and overnight events noted. Patient denies any shortness of breath or chest pain or palpitation. No history of nausea or vomiting or diarrhea or fever or chills or cramps. OBJECTIVE: GENERAL: This is a well-built female, in no apparent distress. VITAL SIGNS: Temperature 98.3. Heart rate 71. Respiratory rate 16. Blood pressure 164/84. HEENT: Atraumatic, normocephalic. Oral mucosa is moist NECK: Supple. CARDIOVASCULAR: S1, S2 heard. Rate and rhythm regular. RESPIRATORY: Clear to auscultation. GASTROINTESTINAL: Abdomen is soft. MUSCULOSKELETAL: No tenderness. No edema. DERMATOLOGIC: No skin rash. NEUROLOGIC: Alert and awake and oriented X3. No focal neurologic deficits. Moving all the extremities. PSYCHIATRIC: Mood and affect normal. LABORATORY DATA: Not done today. ASSESSMENT AND PLAN: 1. End-stage renal disease. Continue dialysis as tolerated. 2. Hypertension. Agree with hydralazine and up-titrating dose. 3. Cardiorenal syndrome. Follow up with Cardiology. 4. Anemia. 5. Heavy proteinuria with diabetic nephropathy. Plan is to continue on dialysis as tolerated. Job ID: [id number]
--- NOTE | 2019-06-20 18:39 | PDOC.HOSPP ---
- Subjective Encounter Date: 06/20/19 Encounter Time: 18:38 Subjective: Patient lying in bed, she continues to require oxygen and blood pressures remain high. She denies chest pain, shortness of breath but does endorse generalized weakness. - Objective Vital Signs & Weight: Vital Signs (12 hours) Temp Pulse Resp BP BP Pulse Ox 06/20/19 15:20 187/91 H 06/20/19 13:59 187/91 H 06/20/19 13:44 94 L 06/20/19 11:54 98.3 F 71 16 164/84 H 94 L 06/20/19 11:12 71 06/20/19 07:54 98.3 F 71 18 177/85 H 96 Weight Weight 122 lb I&O: 06/19/19 06/20/19 06/21/19 06:59 06:59 06:59 Intake Total 1200 1020 440 Output Total 2000 Balance 1200 -980 440 Result Diagrams: 06/19/19 08:25 06/19/19 08:25 Additional Labs: Accuchecks 06/20/19 06/20/19 06/20/19 17:04 10:48 05:29 POC Glucose 257 H 110 233 H 06/19/19 20:45 POC Glucose 267 H Radiology Reviewed by me: Yes ROS - Review of Systems Constitutional: denies: fever, chills Eyes: denies: vision change, conjunctivae inflammation ENT: denies: nose discharge, nose congestion, throat pain Respiratory: reports: SOB with excertion. denies: cough, dry, shortness of breath Cardiovascular: denies: chest pain, palpitations Gastrointestinal: denies: nausea, vomitting, abdominal pain Musculoskeletal: denies: shoulder pain, arm pain, back pain Skin: denies: rash, lesions Neurological: reports: weakness. denies: change in speech All other systems reviewed; all pertinent +/- noted in HPI/Subj - Medication Medications: Active Medications Generic Name Dose Route Start Last Admin Trade Name Freq PRN Reason Stop Dose Admin Acetaminophen 1,000 mg 06/17/19 21:34 06/19/19 17:21 Tylenol PO 1,000 mg Q6H PRN Administration Mild Pain (1-3) Aspirin 81 mg 06/18/19 09:00 06/20/19 10:16 Ecotrin PO 81 mg DAILY [facility] Administration Carvedilol 37.5 mg 06/18/19 08:00 06/20/19 18:14 Coreg PO 37.5 mg BID-WM [facility] Administration Clonidine 0.2 mg 06/18/19 09:00 06/20/19 15:20 Catapres PO 0.2 mg TID [facility] Administration Famotidine 20 mg 06/19/19 09:00 06/20/19 10:20 Pepcid PO 20 mg DAILY [facility] Administration Hydralazine HCl 10 mg 06/17/19 21:29 06/20/19 06:31 Apresoline SLOW IVP 10 mg Q4H PRN Administration SBP > 180 and HR < 70 Insulin Human Lispro 0 units 06/17/19 21:33 06/20/19 18:12 Humalog SC 4 unit .MILD SLIDING SCALE PRN Administration Mild Correctional Scale Isosorbide Dinitrate 40 mg 06/18/19 09:00 06/20/19 15:20 Isordil PO 40 mg TID [facility] Administration Labetalol HCl 20 mg 06/17/19 21:33 06/18/19 10:11 Normodyne SLOW IVP 20 mg Q4H PRN Administration SBP > 180 and HR >/= 70 Losartan Potassium 100 mg 06/18/19 09:00 06/20/19 04:18 Cozaar PO 100 mg DAILY [facility] Administration (Ferric Citrate [ 2 each 06/18/19 08:00 06/20/19 13:42 Auryxia] 210 Mg Tab) PO 2 each TID-WM [facility] Administration Sodium Chloride 10 ml 06/19/19 21:00 06/20/19 10:22 Flush - Normal Saline IVF 10 ml Q12HR [facility] Administration Vitamin B Complex/Vit C/Folic Acid 1 tab 06/18/19 09:00 06/20/19 10:18 Nephro-Yeimy Tablet PO 1 tab DAILY [facility] Administration - Exam NAD, awake alert Eye: anicteric sclera ENT: normocephalic atraumatic, no oropharyngeal lesions, moist mucosa Neck: supple, no JVD Heart: RRR, no murmur Respiratory: CTAB, no wheezes Gastrointestinal: soft, non-tender, normal bowel sounds Extremities: no edema Skin: no lesions Neurological: CN's grossly intact, normal sensation to touch Musculoskeletal: generalized weakness Psychiatric: normal affect, A&O x 3 Hosp A/P (1) ESRD (end stage renal disease) on dialysis Code(s): N18.6 - END STAGE RENAL DISEASE; Z99.2 - DEPENDENCE ON RENAL DIALYSIS Status: Acute (2) Hypertensive urgency Code(s): I16.0 - HYPERTENSIVE URGENCY Status: Acute (3) DM type 2 (diabetes mellitus, type 2) Status: Chronic Qualifiers: (4) Dyslipidemia Code(s): E78.5 - HYPERLIPIDEMIA, UNSPECIFIED Status: Chronic (5) HTN (hypertension) Code(s): I10 - ESSENTIAL (PRIMARY) HYPERTENSION Status: Chronic Qualifiers: - Plan Continue dialysis schedule Wednesday, Wednesday and Wednesday Monitor BP and other vitals, continue antihypertensives increase dose of hydralazine to 50mg TID Wean oxygen as tolerated Hopeful for discharge in the next 1-2 days
[2019-06-20] MEDS: hydrALAZINE 25 MG TAB PO SCH (21:28)
--- NOTE | 2019-06-20 22:12 | PDOC.CTH ---
Cardiology Progress Note - Subjective Pt. seen and eval. by me. No new overnight events. Still trying to control the BP. - Objective Vital Signs Temp Pulse Resp BP BP Pulse Ox 06/20/19 21:30 171/86 H 06/20/19 21:28 70 171/86 H 06/20/19 19:45 98.0 F 70 16 172/86 H 95 06/20/19 16:00 98.1 F 78 18 171/85 H 94 L 06/20/19 15:20 187/91 H 06/20/19 13:59 187/91 H 06/20/19 13:44 94 L 06/20/19 11:54 98.3 F 71 16 164/84 H 94 L 06/20/19 11:12 71 Weight 122 lb 06/19/19 06/20/19 06/21/19 06:59 06:59 06:59 Intake Total 1200 1020 440 Output Total 2000 Balance 1200 -980 440 - Physical Examination General/Neuro: alert & oriented x3 Neck: no JVD present Lungs: CTA Heart: RRR Abdomen: NT/ND, soft - Telemetry Telemetry Rhythm: NSR - Labs Result Diagrams: 06/19/19 08:25 06/19/19 08:25 Troponin/CKMB CK-MB (CK-2) 2.2 ng/mL (0-6.6) 06/18/19 05:49 Troponin I 0.054 ng/mL (< 0.028) H 06/18/19 08:37 - Assessment/Plan 1. ESRD with HD - AV fistula placed; plan for PD placement within a few wks. 2. HTN urgency - the BP is still poorly controlled. Nephrology to adjust meds. 3. Chronic systolic HF - On dialysis, ARB, and Coreg 4. CAD with S/p Cath on 06/14/2019 with 20% stenosis in LMCA, 70% in diag1, 50% in diag2, 40% in LAD, and 70% in Lt Cx with medical tx only; On Coreg, ASA, Plavix, and Lipitor 5. HLD - on Statin 6. Insulin depended DM - 7. Anemia - MAR reviewed * S/p Cath on 06/14/2019 with 20% stenosis in LMCA, 70% in diag1, 50% in diag2, 40% in LAD, and 70% in Lt Cx with medical tx only * Echo on 05/16/2019 with EF 30-35%, mild dilated LA, mild ERA, mild-mod MR, mod -severe TR, and small pericardial effusion * From Cardiac standpoint, the pt is cleared for PD placement. Hopefully home soon when the BP is stable.
--- NOTE | 2019-06-20 22:44 | EKG ---
Test Reason : STAT Blood Pressure : / mmHG Vent. Rate : 078 BPM Atrial Rate : 078 BPM P-R Int : 168 ms QRS Dur : 106 ms QT Int : 420 ms P-R-T Axes : 030 002 057 degrees QTc Int : 478 ms Normal sinus rhythm Nonspecific ST and T wave abnormality Abnormal ECG Confirmed by Mary Carmen MILLS ([id number]) on 06/20/2019 10:44:20 PM Referred By: DANYEL JI Confirmed By:Mary Carmen MILLS
[2019-06-21] MEDS: Acetaminophen 500 MG TAB PO PRN (01:00)
[2019-06-21] MEDS: Labetalol HCl 100 MG/20 ML VIAL SLOW IVP PRN (01:03)
[2019-06-21] MEDS: hydrALAZINE 25 MG TAB PO SCH ×3 (03:43→21:43)
[2019-06-21 04:43] LABS: #Eosinphils 0.3 thou/uL (0.0-0.7); #Lymphocytes 0.9 thou/uL (1.20-3.40); #Monocytes 0.6 thou/uL (0.11-0.59); #Neutrophils 5.3 thou/uL (1.40-6.50); %Basophils 0.5 % (0.0-1.0); %Eosinophils 4.7 % (0.0-10.0); %Lymphocytes 12.6 % (21.0-51.0); %Monocytes 8.2 % (0.0-10.0); Hemoglobin 10.2 g/dL (12.0-16.0); Mean Corpuscular Hemoglobin 34.8 pg (27.0-31.0); Mean Platelet Volume 8.5 fL (7.4-10.4); Platelet Count 284 thou/uL (130-400); Red Blood Cell (RBC) Count 2.93 mill/uL (4.20-5.40); White Blood Cell (WBC) Count 7.2 thou/uL (4.8-10.8)
[2019-06-21 04:44] LABS: Anion Gap 17 mmol/L (10-20); BUN (Urea Nitrogen) 27 mg/dL (7.0-18.7); Calc. Creatinine Clearance 11 mL/min (70-130); Calcium 9.4 mg/dL (7.8-10.44); Carbon Dioxide 24 mmol/L (22-29); Chloride 99 mmol/L (98-107); Estimated GFR-MDRD 9; Glucose 149 mg/dL (70-105); Potassium 4.5 mmol/L (3.5-5.1); Sodium 135 mmol/L (136-145)
[2019-06-21] MEDS: Carvedilol 25 MG TAB PO SCH ×2 (07:49→17:42)
[2019-06-21] MEDS: Losartan 25 MG TAB PO SCH (07:50)
[2019-06-21] MEDS: cloNIDine 0.2 MG TAB PO SCH ×3 (07:50→21:43)
[2019-06-21] MEDS: Isosorbide Dinitrate 20 MG TAB PO SCH ×3 (14:38→21:45)
[2019-06-21] MEDS ORDERED: Amlodipine 10 MG TAB PO SCH (14:45)
--- NOTE | 2019-06-21 15:07 | PDOC.HOSPP ---
- Subjective Encounter Date: 06/21/19 Encounter Time: 15:30 Subjective: pt up in bed no complains - Objective Vital Signs & Weight: Vital Signs (12 hours) Temp Pulse Resp BP BP Pulse Ox 06/21/19 08:00 97 06/21/19 07:50 193/92 H 06/21/19 07:48 97.7 F 71 16 193/92 H 91 L 06/21/19 03:48 98.5 F 74 15 96 06/21/19 03:43 74 195/96 H Weight Weight 122 lb I&O: 06/20/19 06/21/19 06/22/19 06:59 06:59 06:59 Intake Total 1020 440 Output Total 2000 Balance -980 440 Result Diagrams: 06/21/19 04:09 06/21/19 04:09 Additional Labs: Accuchecks 06/20/19 06/20/19 21:20 17:04 POC Glucose 166 H 257 H ROS - Review of Systems Cardiovascular: denies: chest pain, palpitations, orthopnea, paroxysmal noc. dyspnea, edema, light headedness, other Gastrointestinal: denies: nausea, vomitting, abdominal pain, diarrhea, constipation, melena, hematochezia, other Genitourinary: denies: dysuria, frequency, incontinence, hematuria, retention, other - Medication Medications: Active Medications Generic Name Dose Route Start Last Admin Trade Name Freq PRN Reason Stop Dose Admin Acetaminophen 1,000 mg 06/17/19 21:34 06/21/19 01:00 Tylenol PO 1,000 mg Q6H PRN Administration Mild Pain (1-3) Aspirin 81 mg 06/18/19 09:00 06/20/19 10:16 Ecotrin PO 81 mg DAILY [facility] Administration Atorvastatin Calcium 40 mg 06/20/19 21:00 06/20/19 21:28 Lipitor PO 40 mg QPM [facility] Administration Carvedilol 37.5 mg 06/18/19 08:00 06/21/19 07:49 Coreg PO 37.5 mg BID-WM [facility] Administration Clonidine 0.3 mg 06/20/19 21:00 06/21/19 07:50 Catapres PO 0.3 mg TID [facility] Administration Clopidogrel Bisulfate 75 mg 06/20/19 21:00 06/20/19 21:31 Plavix PO 75 mg QPM [facility] Administration Famotidine 20 mg 06/19/19 09:00 06/20/19 10:20 Pepcid PO 20 mg DAILY [facility] Administration Hydralazine HCl 50 mg 06/20/19 21:00 06/21/19 03:43 Apresoline PO 50 mg TID [facility] Administration Insulin Human Lispro 0 units 06/17/19 21:33 06/20/19 18:12 Humalog SC 4 unit .MILD SLIDING SCALE PRN Administration Mild Correctional Scale Isosorbide Dinitrate 40 mg 06/18/19 09:00 06/21/19 14:38 Isordil PO Not Given TID [facility] Labetalol HCl 20 mg 06/17/19 21:33 06/21/19 01:03 Normodyne SLOW IVP 20 mg Q4H PRN Administration SBP > 180 and HR >/= 70 Levetiracetam 500 mg 06/20/19 21:00 06/20/19 21:27 Keppra PO 500 mg QPM [facility] Administration Losartan Potassium 100 mg 06/18/19 09:00 06/21/19 07:50 Cozaar PO 100 mg DAILY [facility] Administration (Ferric Citrate [ 2 each 06/18/19 08:00 06/21/19 14:38 Auryxia] 210 Mg Tab) PO Not Given TID-WM [facility] Sodium Chloride 10 ml 06/19/19 21:00 06/21/19 14:39 Flush - Normal Saline IVF Not Given Q12HR [facility] Vitamin B Complex/Vit C/Folic Acid 1 tab 06/18/19 09:00 06/20/19 10:18 Nephro-Yeimy Tablet PO 1 tab DAILY [facility] Administration - Exam Neck: negative: supple, symmetric, no JVD, no thyromegaly, no lymphadenopathy, no carotid bruit, JVD Heart: negative: RRR, no murmur, no gallops, no rubs, normal peripheral pulses, irregular, diminshed peripheral pulses, murmur present, II/IV, III/IV Respiratory: negative: CTAB, no wheezes, no rales, no ronchi, normal chest expansion, no tachypnea, normal percussion, rales, rhonchi, tachypneic, wheezes Hosp A/P (1) ESRD (end stage renal disease) on dialysis Code(s): N18.6 - END STAGE RENAL DISEASE; Z99.2 - DEPENDENCE ON RENAL DIALYSIS Status: Acute (2) Hypertensive urgency Code(s): I16.0 - HYPERTENSIVE URGENCY Status: Acute (3) Anemia due to chronic kidney disease Code(s): N18.9 - CHRONIC KIDNEY DISEASE, UNSPECIFIED; D63.1 - ANEMIA IN CHRONIC KIDNEY DISEASE Status: Chronic Qualifiers: Chronic kidney disease stage: on chronic dialysis Qualified Code(s): N18.6 - End stage renal disease; D63.1 - Anemia in chronic kidney disease; Z99.2 - Dependence on renal dialysis (4) Seizure disorder Code(s): G40.909 - EPILEPSY, UNSP, NOT INTRACTABLE, WITHOUT STATUS EPILEPTICUS Status: Chronic - Plan pt's blood pressure still high, nephrology recommend norvasc which has helped her. she is off oxygen. will monitor.
[2019-06-21] MEDS: Aspirin 81 mg Enteric Coated Tablet PO SCH (15:14)
[2019-06-21] MEDS: Famotidine 20 MG TAB PO SCH (15:14)
[2019-06-21] MEDS: Folic Acid/Vit B Comp W-C PO SCH (15:17)
--- NOTE | 2019-06-21 15:58 | PRG ---
DATE OF SERVICE: 06/21/2019 SUBJECTIVE: Patient was seen and examined at bedside and overnight events noted. Patient denies any shortness of breath or chest pain or palpitation. No history of nausea or vomiting or diarrhea or fever or chills or cramps. OBJECTIVE: GENERAL: This is a thin built female, in no apparent distress. VITAL SIGNS: Temperature 97.7. Heart rate 71. Respiratory rate 16. Blood pressure 196/97. HEENT: Atraumatic, normocephalic. Oral mucosa is moist NECK: Supple. CARDIOVASCULAR: S1, S2 heard. Rate and rhythm regular. RESPIRATORY: Clear to auscultation. GASTROINTESTINAL: Abdomen is soft. MUSCULOSKELETAL: No tenderness. No edema. DERMATOLOGIC: No skin rash. NEUROLOGIC: Alert and awake and oriented X3. No focal neurologic deficits. Moving all the extremities. PSYCHIATRIC: Mood and affect normal. LABORATORY DATA: Potassium is 4.5, BUN is 27, and creatinine is 5.3. ASSESSMENT AND PLAN: 1. End-stage renal disease, continue on dialysis Wednesday, Wednesday, Wednesday. 2. Hypertension, not responding to fluid removal. Plan is to up-titrate medications. Plan is to start back her amlodipine. 3. Cardiorenal syndrome. Cardiology on case. 4. Anemia. 5. Diabetic nephropathy. 6. Long-term prognosis, poor. Plan is to add amlodipine as tolerated with close monitoring of blood pressure, and we will continue on dialysis as tolerated. Thank you for the consult. Job ID: [id number]
[2019-06-21] MEDS: HumaLOG 300 UNITS/3 ML VIAL SC PRN (17:43)
[2019-06-21] MEDS: hydrALAZINE 20 MG/ML VIAL SLOW IVP PRN (17:48)
[2019-06-21] MEDS: Atorvastatin Calcium 40 MG TAB PO SCH (21:43)
[2019-06-21] MEDS: Clopidogrel Bisulfate 75 MG TAB PO SCH (21:43)
[2019-06-21] MEDS: levETIRAcetam 500 MG TAB PO SCH (21:43)
[2019-06-22 04:55] LABS: #Eosinphils 0.3 thou/uL (0.0-0.7); #Lymphocytes 0.8 thou/uL (1.20-3.40); #Monocytes 0.6 thou/uL (0.11-0.59); #Neutrophils 4.8 thou/uL (1.40-6.50); %Basophils 0.5 % (0.0-1.0); %Eosinophils 4.8 % (0.0-10.0); %Lymphocytes 11.7 % (21.0-51.0); %Monocytes 8.6 % (0.0-10.0); %Neutrophils 74.5 % (42.0-75.0); Hemoglobin 10.3 g/dL (12.0-16.0); Mean Corpuscular Hemoglobin 33.7 pg (27.0-31.0); Mean Platelet Volume 8.6 fL (7.4-10.4); Platelet Count 290 thou/uL (130-400); RBC Distribution Width 13.1 % (11.5-14.5); Red Blood Cell (RBC) Count 3.05 mill/uL (4.20-5.40); White Blood Cell (WBC) Count 6.4 thou/uL (4.8-10.8)
[2019-06-22 05:09] LABS: Anion Gap 14 mmol/L (10-20); BUN (Urea Nitrogen) 19 mg/dL (7.0-18.7); Calc. Creatinine Clearance 16 mL/min (70-130); Calcium 9.5 mg/dL (7.8-10.44); Carbon Dioxide 27 mmol/L (22-29); Chloride 99 mmol/L (98-107); Estimated GFR-MDRD 13; Glucose 197 mg/dL (70-105); Potassium 4.4 mmol/L (3.5-5.1); Sodium 136 mmol/L (136-145)
[2019-06-22] MEDS: Carvedilol 25 MG TAB PO SCH ×2 (08:41→17:33)
[2019-06-22] MEDS: Isosorbide Dinitrate 20 MG TAB PO SCH ×3 (08:42→21:53)
[2019-06-22] MEDS: cloNIDine 0.2 MG TAB PO SCH ×3 (08:42→21:54)
[2019-06-22] MEDS: Aspirin 81 mg Enteric Coated Tablet PO SCH (08:43)
[2019-06-22] MEDS: Folic Acid/Vit B Comp W-C PO SCH (08:43)
[2019-06-22] MEDS: Losartan 25 MG TAB PO SCH (08:43)
[2019-06-22] MEDS: Famotidine 20 MG TAB PO SCH (08:44)
[2019-06-22] MEDS: hydrALAZINE 25 MG TAB PO SCH ×3 (08:44→21:53)
[2019-06-22] MEDS: Amlodipine 10 MG TAB PO SCH (08:44)
[2019-06-22] MEDS: Minoxidil 2.5 MG TAB PO SCH (09:39)
--- NOTE | 2019-06-22 10:55 | PRG ---
DATE OF SERVICE: 06/22/2019 SUBJECTIVE: Patient was seen and examined at bedside and overnight events noted. Patient denies any shortness of breath or chest pain or palpitation. No history of nausea or vomiting or diarrhea or fever or chills or cramps. OBJECTIVE: GENERAL: This is a thin-built female, in no apparent distress. VITAL SIGNS: Temperature 97.9. Heart rate 69. Respiratory rate 18. Blood pressure 197/93. HEENT: Atraumatic, normocephalic. Oral mucosa is moist NECK: Supple. CARDIOVASCULAR: S1, S2 heard. Rate and rhythm regular. RESPIRATORY: Clear to auscultation. GASTROINTESTINAL: Abdomen is soft. MUSCULOSKELETAL: No tenderness. No edema. DERMATOLOGIC: No skin rash. NEUROLOGIC: Alert and awake and oriented X3. No focal neurologic deficits. Moving all the extremities. PSYCHIATRIC: Mood and affect normal. LABORATORY DATA: Potassium 4.4, BUN is 19 and creatinine is 3.7. ASSESSMENT AND PLAN: 1. End-stage renal disease, continue on dialysis Wednesday, Wednesday, Wednesday. No dialysis today. 2. Hypertension, not responding to fluid removal with dialysis. Plan is up titrate medication. Agree with adding minoxidil and start her on amlodipine. We will monitor. Continue p.r.n. medication. 3. If blood pressure is not getting better, might have to look for secondary causes. Agree with TSH level. 4. Cardiorenal syndrome. 5. Anemia. 6. Diabetic nephropathy. 7. Plan is to continue close monitoring. Continue on blood pressure medicine. We will follow. Job ID: [id number]
[2019-06-22] MEDS: HumaLOG 300 UNITS/3 ML VIAL SC PRN ×2 (11:44→17:35)
[2019-06-22] MEDS: Atorvastatin Calcium 40 MG TAB PO SCH (21:49)
[2019-06-22] MEDS: levETIRAcetam 500 MG TAB PO SCH (21:49)
[2019-06-22] MEDS: Clopidogrel Bisulfate 75 MG TAB PO SCH (21:50)
[2019-06-22] MEDS: Senokot S 8.6-50 MG TAB PO SCH (21:50)
[2019-06-23] MEDS: HumaLOG 300 UNITS/3 ML VIAL SC PRN (06:23)
[2019-06-23] MEDS ORDERED: Heparin 10,000 UNITS/ 10 ML VIAL ONE (08:53)
[2019-06-23] MEDS: Amlodipine 10 MG TAB PO SCH ×2 (09:08→10:17)
[2019-06-23] MEDS: cloNIDine 0.2 MG TAB PO SCH ×3 (09:08→14:11)
[2019-06-23] MEDS: Folic Acid/Vit B Comp W-C PO SCH (09:08)
[2019-06-23] MEDS: hydrALAZINE 25 MG TAB PO SCH ×3 (09:08→14:11)
[2019-06-23] MEDS: Famotidine 20 MG TAB PO SCH ×2 (09:08→10:15)
[2019-06-23] MEDS: Aspirin 81 mg Enteric Coated Tablet PO SCH ×2 (09:08→10:16)
[2019-06-23] MEDS: Carvedilol 25 MG TAB PO SCH ×3 (09:08→16:24)
[2019-06-23] MEDS: Isosorbide Dinitrate 20 MG TAB PO SCH ×3 (09:09→14:12)
[2019-06-23] MEDS: Losartan 25 MG TAB PO SCH ×2 (09:09→10:17)
[2019-06-23] MEDS: Minoxidil 2.5 MG TAB PO SCH ×2 (09:09→10:15)
[2019-06-23] MEDS: Senokot S 8.6-50 MG TAB PO SCH (09:09)
--- NOTE | 2019-06-23 10:39 | PRG ---
DATE OF SERVICE: 06/23/2019 SUBJECTIVE: Patient was seen and examined at bedside and overnight events noted. Patient denies any shortness of breath or chest pain or palpitation. No history of nausea or vomiting or diarrhea or fever or chills or cramps. OBJECTIVE: GENERAL: This is a thin-built female, in no apparent distress. VITAL SIGNS: Temperature 98.1. Heart rate 73. Respiratory rate 16. Blood pressure 167/79. HEENT: Atraumatic, normocephalic. Oral mucosa is moist NECK: Supple. CARDIOVASCULAR: S1, S2 heard. Rate and rhythm regular. RESPIRATORY: Clear to auscultation. GASTROINTESTINAL: Abdomen is soft. MUSCULOSKELETAL: No tenderness. No edema. DERMATOLOGIC: No skin rash. NEUROLOGIC: Alert and awake and oriented X3. No focal neurologic deficits. Moving all the extremities. PSYCHIATRIC: Mood and affect normal. LABORATORY DATA: Not done today. ASSESSMENT AND PLAN: 1. End-stage renal disease. The patient is seen during dialysis. We will continue dialysis as tolerated. 2. Hypertension, seems to be getting better. Continue current medication. We will monitor after dialysis. 3. Cardiorenal syndrome. 4. Anemia. 5. Diabetic nephropathy. Continue to titrate blood pressure medicines. We will remove fluid with dialysis. We will follow. Job ID: [id number]
[2019-06-23] MEDS: hydrALAZINE 20 MG/ML VIAL SLOW IVP PRN (13:13)
[2019-06-23 16:23] VITALS: TEMP 98.1
[2019-06-23] MEDS: Nitroglycerin 0.4 MG TAB 1 EACH PO PRN ×2 (16:55→17:01)
[2019-06-23 17:06] VITALS: BP 163/75
--- NOTE | 2019-06-24 04:51 | DIS ---
DATE OF ADMISSION: 06/20/2019 DATE OF DISCHARGE: 06/23/2019 DISCHARGE DIAGNOSES: As of the followin. End-stage renal disease, on dialysis. 2. Shortness of breath secondary to heart failure. 3. Hypertensive urgency. 4. Anemia due to chronic kidney disease. 5. Seizure disorder. 6. Tricuspid regurgitation, moderate to severe. 7. Acute hypoxia, most likely secondary to heart failure. HOSPITAL COURSE: The patient is a 48-year-old female, who initially presented to the hospital on 06/17 with initial complaints of chest pain. She had a recent catheterization on June 12, 2019, with no intervention. When she came into the hospital, she had no acute ST elevation changes, however had indeterminate troponins. She was also found to be hypertensive. She initially was admitted to the hospital and Cardiology was consulted. The patient also was seen by Nephrology for her end-stage renal disease on dialysis. The patient continued to be hypertensive at this time. Again, Nephrology was consulted. She was given several blood pressure medications for her blood pressure control. Her chest pain resolved. Her previous echocardiogram that was done in May indicated an EF of 30% to 35% with ppex-el-wnivov tricuspid regurgitation, neog-hr-suredbao mitral regurgitation. She also had small trivial pericardial effusion. We have been having issues with controlling her blood pressure. She has been on multiple blood pressure medications. The patient was tested for aldosterone and renin which were sent. She, as I mentioned, was seen by Cardiology. From a cardiac standpoint, she was cleared to be discharged and also was cleared for a peritoneal dialysis with catheter placement. She underwent that and she has been getting dialyzed without any difficulties. The patient also was found to be hypoxic. She has ordered some oxygen on ambulation and rest as needed. The patient continued to improve. She was discharged home. She will follow up with Nephrology and Cardiology. HOME MEDICATIONS: As of the followin. Norvasc 10 mg daily. 2. Isosorbide 40 mg t.i.d. 3. Minoxidil 2.5 daily. 4. Hydralazine 50 mg t.i.d. 5. Edarbi 40 mg daily. 6. Clonidine 0.2 mg t.i.d. 7. Aspirin 81 mg daily. 8. Insulin 9 units q.a.m. 9. Insulin NovoLog 4 to 8 units t.i.d. p.r.n. 10. Carvedilol, she is on 37.5 b.i.d. 11. She is on Keppra 1 tablet p.o. daily. 12. Atorvastatin 40 mg daily. 13. Clopidogrel one p.o. q.p.m. PHYSICAL EXAMINATION: VITAL SIGNS: Temperature of 98.0, 72, 20, 92% on room air. Initially, her blood pressure was 167/79, then went up to 185/82. GENERAL: She is awake, alert, and oriented x3. Does not appear in distress. CV: S1, S2 present. No murmurs, rubs, or gallops. ABDOMEN: Soft and nontender. Bowel sounds are present x2. EXTREMITIES: No edema. Her H and H have been stable. She will be discharged home. She was asked to follow up with Cardiology and Nephrology as an outpatient. Consultants were Cardiology and Nephrology. The patient is in stable condition to be discharged. Job ID: [id number]
[2019-06-28 10:11] LABS: Renin Activity Less than 0.167 ng/mL/hr (0.167-5.380)
== END 2019-06-23 20:30 | disposition home or self-care (01) | DRG 264 ==
LOC: ERS 13:08 → 2SW 16:11 → ERS 18:22 → OBSVTOIN 06-20 13:42
PROVIDERS: ADMIT Internal Medicine; ATTEND Internal Medicine
PROC: 031B0ZF Bypass Right Radial Artery to Lower Arm Vein, Open Approach (ICD-10-PCS; principal; 2019-06-19)
PROC: 5A1D70Z Performance of Urinary Filtration, Intermittent, Less than 6 Hours Per Day (ICD-10-PCS; 2019-06-21)
DX: I16.0 Hypertensive urgency (principal); N18.6 End stage renal disease; T82.868A Thrombosis due to vascular prosthetic devices, implants and grafts, initial encounter; I42.9 Cardiomyopathy, unspecified; I50.22 Chronic systolic (congestive) heart failure; I13.2 Hypertensive heart and chronic kidney disease with heart failure and with stage 5 chronic kidney disease, or end stage renal disease; I25.10 Atherosclerotic heart disease of native coronary artery without angina pectoris; G40.909 Epilepsy, unspecified, not intractable, without status epilepticus; E11.22 Type 2 diabetes mellitus with diabetic chronic kidney disease; D63.1 Anemia in chronic kidney disease; E78.5 Hyperlipidemia, unspecified; E11.21 Type 2 diabetes mellitus with diabetic nephropathy; Y84.6 Urinary catheterization as the cause of abnormal reaction of the patient, or of later complication, without mention of misadventure at the time of the procedure; Z99.2 Dependence on renal dialysis; Z86.73 Personal history of transient ischemic attack (TIA), and cerebral infarction without residual deficits; Z98.51 Tubal ligation status; Z79.4 Long term (current) use of insulin
CPT/HCPCS: 36415; 36416; 71045; 80048; 80053; 82088; 82533; 82550; 82553; 83690; 84244; 84443; 84484; 85025; 90935; 93005; 93010; 96365; 96366; 96375; G0257; J0131; J0360; J0670; J0690; J1644; J2001; J2060; J2270; J2405; J2704; J2720; J2800; J3010; J7050

== ENCOUNTER 2019-07-11 09:00 | Outpatient (CLI) | payer MEDICARE, BC ==
--- NOTE | 2019-07-11 09:16 | RAD ---
EXAM: Right knee: 4 views INDICATIONS: Knee pain and swelling COMPARISON: None. FINDINGS: Joint spaces are maintained. Minimal degenerative change. No fracture. No evidence of joint effusion. Arterial calcification is noted in the popliteal artery. IMPRESSION: No acute finding
== END 2019-07-11 09:01 | disposition home or self-care (01) ==
LOC: BICRAD 09:00
PROVIDERS: ATTEND Family Medicine
DX: M25.561 Pain in right knee (principal)

== ENCOUNTER 2019-07-20 16:32 | Outpatient (CLI) | payer MEDICARE, BC ==
--- NOTE | 2019-07-20 16:48 | RAD ---
XR Chest Pa Lat STANDARD HISTORY: Rule out tuberculosis COMPARISON: 06/17/2019 and 04/05/2019 FINDINGS: Right-sided dialysis catheter remains in place. The heart size is enlarged. There is mild p ulmonary vascular congestion without lobar consolidation or pneumothoraces or pleural effusions. IMPRESSION: No definite evidence of active pulmonary tuberculosis.
== END 2019-07-20 16:33 | disposition home or self-care (01) ==
LOC: BICRAD 16:32
PROVIDERS: ATTEND Internal Medicine Nephrology
DX: R91.8 Other nonspecific abnormal finding of lung field (principal)
CPT/HCPCS: 71046

== ENCOUNTER 2019-07-21 05:18 | Emergency (ER) | payer MEDICARE, BC ==
[2019-07-21 05:45] LABS: #Eosinphils 0.2 thou/uL (0.0-0.7); #Lymphocytes 0.8 thou/uL (1.20-3.40); #Monocytes 0.5 thou/uL (0.11-0.59); #Neutrophils 5.3 thou/uL (1.40-6.50); %Basophils 0.5 % (0.0-1.0); %Eosinophils 2.8 % (0.0-10.0); %Lymphocytes 11.2 % (21.0-51.0); %Monocytes 6.7 % (0.0-10.0); %Neutrophils 78.7 % (42.0-75.0); Hemoglobin 10.8 g/dL (12.0-16.0); Mean Corpuscular HGB CONC 32.8 g/dL (32.0-36.0); Mean Platelet Volume 8.7 fL (7.4-10.4); Platelet Count 258 thou/uL (130-400); Red Blood Cell (RBC) Count 3.18 mill/uL (4.20-5.40); White Blood Cell (WBC) Count 6.7 thou/uL (4.8-10.8)
[2019-07-21 06:11] LABS: ALT (SGPT) 17 U/L (8-55); AST (SGOT) 18 U/L (5-34); Albumin 3.8 g/dL (3.5-5.0); Alkaline Phosphatase 271 U/L (40-150); Anion Gap 16 mmol/L (10-20); BUN (Urea Nitrogen) 31 mg/dL (7.0-18.7); Bilirubin, Total 0.7 mg/dL (0.2-1.2); Calc. Creatinine Clearance 0 mL/min (70-130); Calcium 10.2 mg/dL (7.8-10.44); Carbon Dioxide 29 mmol/L (22-29); Chloride 95 mmol/L (98-107); Estimated GFR-MDRD 8; Globulin 4.1 g/dL (2.4-3.5); Glucose 262 mg/dL (70-105); Potassium 3.6 mmol/L (3.5-5.1); Protein, Total 7.9 g/dL (6.0-8.3); Sodium 136 mmol/L (136-145)
[2019-07-21] MEDS ORDERED: Acetaminophen 500 MG TAB ONE (06:28)
[2019-07-21 06:33] LABS: CKMB 1.4 ng/mL (0-6.6)
[2019-07-21] MEDS ORDERED: Meclizine HCl 25 MG TAB ONE (06:35)
--- NOTE | 2019-07-21 08:00 | ULT ---
DOPPLER VENOUS ULTRASOUND OF THE RIGHT LOWER EXTREMITY: INDICATION: Right lower extremity pain for 1 week. History of CHF. TECHNIQUE: Keenan scale, color Doppler, and vascular duplex with spectral analysis was performed of the deep venou s structures of both lower extremities. The common femoral vein, superficial femoral vein, popliteal vein, posterior tibial vein, proximal greater saphenous, and proximal profunda veins were assessed bi laterally. FINDINGS: There is normal compression, flow, and augmentation seen within the deep venous structures of the rig ht lower extremity. IMPRESSION: No evidence of deep vein thrombosis within the right lower extremity. POS: BH
--- NOTE | 2019-07-21 08:47 | RAD ---
PORTABLE CHEST: Date: 07/21/19 HISTORY: Syncope and dyspnea. COMPARISON: 06/17/19 study. FINDINGS: Heart size is enlarged. Pulmonary vessels are engorged and parahilar markings are slightly increased, suggesting some mild edema change. Right-sided HemoSplit catheter is present. IMPRESSION: Cardiomegaly with some mild pulmonary edema change. POS: TPC
--- NOTE | 2019-07-22 13:38 | EKG ---
Test Reason : Blood Pressure : / mmHG Vent. Rate : 066 BPM Atrial Rate : 066 BPM P-R Int : 164 ms QRS Dur : 102 ms QT Int : 440 ms P-R-T Axes : 012 001 105 degrees QTc Int : 461 ms Normal sinus rhythm Incomplete right bundle branch block Nonspecific ST and T wave abnormality Prolonged QT Abnormal ECG Confirmed by TORI ATKINS ([id number]), rewrite editor OCTAVIA KENNEDY ([id number]) on 07/22/2019 1:38:23 PM Referred By: Confirmed By:TORI ATKINS
== END 2019-07-21 07:12 | disposition home or self-care (01) ==
LOC: ERS 05:18
DX: I13.2 Hypertensive heart and chronic kidney disease with heart failure and with stage 5 chronic kidney disease, or end stage renal disease (principal); I50.9 Heart failure, unspecified; N18.6 End stage renal disease; E11.22 Type 2 diabetes mellitus with diabetic chronic kidney disease; M25.561 Pain in right knee; D63.8 Anemia in other chronic diseases classified elsewhere; Z86.73 Personal history of transient ischemic attack (TIA), and cerebral infarction without residual deficits; Z79.899 Other long term (current) drug therapy; Z79.891 Long term (current) use of opiate analgesic
CPT/HCPCS: 36415; 71045; 80053; 82553; 84484; 85025; 85379; 93005; J8597

== ENCOUNTER 2019-12-04 00:18 | Emergency (ER) | payer MEDICARE, BC ==
[2019-12-04] MEDS ORDERED: Ondansetron PF 4 MG/2 ML Vial ONE (00:37)
[2019-12-04 00:47] LABS: Hemoglobin 12.6 g/dL (12.0-16.0); Mean Corpuscular HGB CONC 31.2 g/dL (32.0-36.0); Mean Corpuscular Hemoglobin 31.7 pg (27.0-31.0); RBC Distribution Width 13.9 % (11.5-14.5); Red Blood Cell (RBC) Count 3.98 mill/uL (4.20-5.40)
[2019-12-04 01:06] LABS: ALT (SGPT) 12 U/L (8-55); AST (SGOT) 14 U/L (5-34); Albumin 3.8 g/dL (3.5-5.0); Alkaline Phosphatase 456 U/L (40-110); Anion Gap 24 mmol/L (10-20); BUN (Urea Nitrogen) 37 mg/dL (7.0-18.7); Calc. Creatinine Clearance 0 mL/min (70-130); Calcium 9.4 mg/dL (7.8-10.44); Carbon Dioxide 21 mmol/L (22-29); Chloride 96 mmol/L (98-107); Estimated GFR-MDRD 8; Globulin 4.6 g/dL (2.4-3.5); Glucose 266 mg/dL (70-105); Lipase 49 U/L (8-78); Potassium 3.7 mmol/L (3.5-5.1); Protein, Total 8.4 g/dL (6.0-8.3); Sodium 137 mmol/L (136-145)
[2019-12-04] MEDS ORDERED: Sucralfate 1 GM/10 ML UDCUP ONE (01:15)
[2019-12-04 01:21] LABS: Band 9 % (5-11); Lymphocytes 13 % (21-51); MDiff Complete? YES; Monocytes 6 % (0-10); Neutrophil 72 % (42-75); Platelet Count 202 thou/uL (130-400); White Blood Cell (WBC) Count 5.5 thou/uL (4.8-10.8)
[2019-12-04] MEDS ORDERED: Morphine 4 MG/ML VIAL ONE (01:53)
[2019-12-04] MEDS ORDERED: Promethazine HCl 25 MG/ML VIAL ONE (01:53)
[2019-12-04] MEDS ORDERED: Metoclopramide HCl 10 MG/2 ML VIAL ONE (02:38)
== END 2019-12-04 02:31 | disposition home or self-care (01) ==
LOC: ERS 00:18
DX: R11.2 Nausea with vomiting, unspecified (principal); R10.13 Epigastric pain; E11.9 Type 2 diabetes mellitus without complications; D64.9 Anemia, unspecified; E78.5 Hyperlipidemia, unspecified; E78.00 Pure hypercholesterolemia, unspecified; I11.0 Hypertensive heart disease with heart failure; I50.9 Heart failure, unspecified; Z86.73 Personal history of transient ischemic attack (TIA), and cerebral infarction without residual deficits; Z79.899 Other long term (current) drug therapy; Z79.4 Long term (current) use of insulin; Z79.82 Long term (current) use of aspirin
CPT/HCPCS: 80053; 83690; 85025; 93005; J2270; J2405; J2550; J2765

== ENCOUNTER 2019-12-04 17:53 | Inpatient (IN) | payer MEDICARE, BC ==
[~2019-12-04 17:53] MED LIST changes: -Heparin 10,000 UNITS/ 10 ML VIAL ONE; +Iopamidol-370 76% 500 ML 1 ML ONE
[2019-12-04 18:25] LABS: #Lymphocytes 0.5 thou/uL (1.20-3.40); #Monocytes 0.5 thou/uL (0.11-0.59); #Neutrophils 4.2 thou/uL (1.40-6.50); %Basophils 0.7 % (0.0-1.0); %Eosinophils 0.1 % (0.0-10.0); %Lymphocytes 9.7 % (21.0-51.0); %Monocytes 8.6 % (0.0-10.0); %Neutrophils 80.9 % (42.0-75.0); Hemoglobin 12.1 g/dL (12.0-16.0); Mean Corpuscular HGB CONC 31.6 g/dL (32.0-36.0); Mean Corpuscular Hemoglobin 31.7 pg (27.0-31.0); Mean Platelet Volume 9.7 fL (7.4-10.4); Platelet Count 231 thou/uL (130-400); RBC Distribution Width 13.9 % (11.5-14.5); Red Blood Cell (RBC) Count 3.81 mill/uL (4.20-5.40); White Blood Cell (WBC) Count 5.2 thou/uL (4.8-10.8)
[2019-12-04 18:38] LABS: ALT (SGPT) 10 U/L (8-55); AST (SGOT) 12 U/L (5-34); Albumin 3.8 g/dL (3.5-5.0); Alkaline Phosphatase 426 U/L (40-110); Anion Gap 19 mmol/L (10-20); BUN (Urea Nitrogen) 44 mg/dL (7.0-18.7); Bilirubin, Total 0.9 mg/dL (0.2-1.2); Calc. Creatinine Clearance 0 mL/min (70-130); Calcium 9.1 mg/dL (7.8-10.44); Carbon Dioxide 27 mmol/L (22-29); Chloride 96 mmol/L (98-107); Estimated GFR-MDRD 7; Globulin 4.3 g/dL (2.4-3.5); Glucose 285 mg/dL (70-105); Potassium 3.9 mmol/L (3.5-5.1); Protein, Total 8.1 g/dL (6.0-8.3); Sodium 138 mmol/L (136-145)
[2019-12-04] MEDS ORDERED: Ondansetron PF 4 MG/2 ML Vial ONE (21:13)
[2019-12-04] MEDS ORDERED: Morphine 4 MG/ML VIAL ONE (21:40)
--- NOTE | 2019-12-04 22:05 | CT ---
CT Abdomen Pelvis W Con History: Nausea and vomiting Comparison: CT abdomen and pelvis June 11, 2019 Findings: Heart size is enlarged. Heterogeneous appearance to the liver which is markedly enlarged. P ortal vein is patent. Adrenal glands are unremarkable. Extensive arterial medial sclerosis. High-grade third spacing of fluid. Moderate free intraperitoneal fluid. Moderate right effusion. The aortoiliac contour is nonaneurysmal. There is a wedge-shaped focus of nonenhancement inferior james e right kidney likely an infarct versus pyelonephritis Osseous findings of chronic renal osteodystrophy with poor cortical medullary differentiation. Impression: 1. Focal wedge-shaped nonenhancing focus inferior pole right kidney likely infarct, less likely pyelo nephritis given lack of perinephric stranding. Recommend correlation with urinalysis. 2. Marked hepatomegaly and heterogeneous density likely from chronic volume overload. 3. Small-moderate right layering pleural effusion, improved from the comparison exam. 4. Moderate third spacing of fluid and free intraperitoneal fluid. 5. Peripheral hypodensity within the mid spleen suggestive of an infarction.
[2019-12-05 00:24] VITALS: BMI 20.5
[2019-12-05] MEDS ORDERED: Ondansetron ODT 4 MG TAB SL PRN (00:41)
[2019-12-05] MEDS ORDERED: Ondansetron PF 4 MG/2 ML Vial IVP PRN (00:41)
[2019-12-05] MEDS ORDERED: Sodium Chloride 0.9% 1,000 ML IV SCH (00:41)
[2019-12-05] MEDS ORDERED: Carvedilol 25 MG TAB PO SCH (01:00)
[2019-12-05] MEDS ORDERED: hydrALAZINE 25 MG TAB PO SCH (01:00)
[2019-12-05] MEDS: Promethazine HCl 12.5 MG in Sodium Chloride 0.9% 50 ML IVPB PRN ×2 (01:30→20:10)
[2019-12-05] MEDS ORDERED: cloNIDine 0.1 MG TAB PO PRN (02:44)
[2019-12-05] MEDS ORDERED: Dextrose 50% Abboject 50 ML SYRINGE SLOW IVP PRN (03:20)
[2019-12-05] MEDS ORDERED: Nitroglycerin 0.4 MG TAB (25 Tab Bottle) PO PRN (03:20)
[2019-12-05] MEDS ORDERED: Dextrose 5% in Water 1,000 ML IV PRN (03:20)
[2019-12-05] MEDS ORDERED: Insulin Regular 300 UNITS/3 ML VIAL SC PRN ×2 (03:20)
[2019-12-05] MEDS ORDERED: Calcium Carbonate 500 MG ChewTAB PO PRN (03:21)
[2019-12-05] MEDS ORDERED: Bisacodyl 10 MG SUPP PR PRN (03:21)
--- NOTE | 2019-12-05 03:54 | HP ---
PRIMARY CARE PHYSICIAN: Dr. Shashi Martinez. PRIMARY AUTOMATIC SERGING MACHINE OPERATOR: Dr. Medina. CHIEF COMPLAINT: Nausea and vomiting. HISTORY OF PRESENT ILLNESS: The patient is a 49-year-old female with ischemic cardiomyopathy with ejection fraction of 30% to 35%, coronary artery disease, hypertension, diabetes mellitus type 2, and end-stage renal disease, on hemodialysis, presented to the emergency room with above complaints. Please note, the patient was seen in the emergency room 24 hours ago with similar complaint and was discharged home. She presented to the emergency room for worsening nausea and vomiting. Over the last one week, the patient has on and off nausea with intermittent vomiting. She is unable to keep any food down due to persistent nausea. She has been feeling generally weak and fatigued. She also has constant epigastric discomfort without any aggravating or relieving factor. No fever or chills reported. She has one bowel movement every day which is somewhat loose. She denies any chest pain, palpitations, or syncope. No recent immobilization or travel reported. PAST MEDICAL HISTORY: 1. Coronary artery disease. 2. Chronic systolic heart failure, ejection fraction 30% to 35%. 3. End-stage renal disease, on hemodialysis. Usual dialysis days are Wednesday, Wednesday, and Wednesday. The last dialysis was on December 01. From this week onwards, she has been moved to Wednesday, , Wednesday. 4. Hypertension. 5. History of TIA. 6. Seizure disorder. 7. Anemia secondary to renal disease. 8. Macular degeneration. PAST SURGICAL HISTORY: 1. Dialysis access. 2. Bilateral tubal ligation. 3. Cardiac catheterization. ALLERGIES: NO KNOWN DRUG ALLERGIES. CURRENT HOME MEDICATIONS: Per [facility]; 1. Aspirin 81 mg daily. 2. Plavix 75 mg daily. 3. Amlodipine 5 mg daily. 4. Lipitor 40 mg q.p.m. 5. Carvedilol 50 mg b.i.d. 6. Ferric citrate 2 tablets three times a day. 7. NovoLog sliding scale. 8. Levemir 12 units daily. 9. Isosorbide dinitrate 20 mg 3 times a day. 10. Keppra 500 mg q.p.m. 11. Minoxidil 2.5 mg daily. 12. Entresto twice a day. 13. Clonidine 0.2 mg 3 times a day. 14. Hydralazine 50 mg 3 times a day. SOCIAL HISTORY: The patient currently lives at home with her family. She denies current use of smoking. She has a remote history of alcohol abuse. She lives at home with her . FAMILY HISTORY: Positive for heart disease, hypertension, and diabetes. REVIEW OF SYSTEMS: All other review of systems was reviewed and was found negative. PHYSICAL EXAMINATION: VITAL SIGNS: Showed temperature 98.3, respirations of 16, pulse of 75 with a blood pressure of 165/73, with O2 saturation 95% on room air. GENERAL: A 49-year-old female, in no apparent distress. HEENT: Head, atraumatic and normocephalic. Sclerae anicteric. Moist mucous membrane. No oral lesion. NECK: Supple. No JVD. No carotid bruit. LUNGS: Clear to auscultation bilaterally. No wheezing, rales, rhonchi. HEART: S1, S2 present. There is 3/6 systolic murmur over the mitral area as well as left lateral sternal border. No heaves or pulsation. ABDOMEN: Soft. There is kkgv-ks-pcfdochw tenderness in the epigastric region. No rebound or guarding. No costovertebral angle tenderness. EXTREMITIES: No edema or calf tenderness. NEUROLOGIC: Grossly nonfocal. Moves all 4 extremities. PSYCHIATRY: Alert, awake, and oriented x3. SKIN: Warm and dry. LYMPH NODES: No palpable lymph nodes in the neck. PERIPHERAL VASCULAR: Radial pulses palpable bilaterally. MUSCULOSKELETAL: No joint swelling or tenderness. LABORATORY FINDINGS: CBC showed WBC of 5.2 with hemoglobin 12.1, hematocrit 38.2, platelets of 231. Chemistry showed sodium 138, potassium 3.9, chloride 96, bicarb 27, BUN 44, creatinine 6.62. LFTs in normal range. Alkaline phosphatase chronically elevated in [address] scan of the abdomen and pelvis by my review showed possible right kidney infarct as well as splenic infarct. There was marked hepatomegaly due to chronic volume overload along with pleural effusion and ascites. Telemetry monitoring by my review showed sinus rhythm. IMPRESSION: 1. Nausea, vomiting with epigastric discomfort, multifactorial. 2. Volume overload with hepatomegaly, ascites, and pleural effusion. 3. Questionable right renal and splenic infarction, rule out cardioembolic source. 4. Chronic systolic heart failure, ejection fraction 30% to 35% secondary to ischemic cardiomyopathy. 5. Coronary artery disease, medically managed. Last cardiac catheterization was in June of 2019. 6. End-stage renal disease, on hemodialysis. 7. Seizure disorder. 8. History of transient ischemic attack, on aspirin and Plavix. 9. Diabetes mellitus type 2. PLAN: The patient will be monitored on the telemetry unit. Nephrology and Cardiology will be consulted. She has been restarted on aspirin and Plavix. We will resume all of her antihypertensives as well as aspirin and Plavix. Insulin sliding scale. We will discuss with Cardiology if patient probably needs anticoagulation. We will keep her on clear-liquid diet for now. We will check one set of troponin. The patient understands the above plan of care. We will hold anticoagulation for now until the patient is evaluated by Cardiology. Job ID: [id number]
[2019-12-05] MEDS: Acetaminophen 325 MG TAB PO PRN ×3 (04:06→19:44)
[2019-12-05 04:54] LABS: INR-International Normal Ratio 1.2; PTT 47.7 SEC (22.9-36.1); Prothrombin Time 15.4 SEC (12.0-14.7)
[2019-12-05 05:33] LABS: CKMB 2.6 ng/mL (0-6.6)
[2019-12-05] MEDS ORDERED: INSULIN DETEMIR 12 UNIT SQ SCH (09:00)
[2019-12-05] MEDS ORDERED: Insulin Glargine 12 UNITS in Pre-Filled Syringe 1 EACH SC SCH (09:00)
[2019-12-05] MEDS: Amlodipine 5 MG TAB PO SCH (09:06)
[2019-12-05] MEDS: Famotidine 20 MG TAB PO SCH (09:07)
[2019-12-05] MEDS: Carvedilol 25 MG TAB PO SCH ×2 (09:07→20:13)
[2019-12-05] MEDS: hydrALAZINE 25 MG TAB PO SCH ×3 (09:07→19:50)
[2019-12-05] MEDS: cloNIDine 0.2 MG TAB PO SCH ×3 (09:07→19:49)
--- NOTE | 2019-12-05 09:07 | PDOC.HOSPP ---
- Subjective Encounter Date: 12/05/19 Encounter Time: 11:30 Subjective: Called by nurses due to patient became very somnolent this AM. Was up and talking well early in the morning, when cardiac rehab came by wouldn't wake up. I went to go see her. She is somnolent, arousable to stimulation, barely opens eyes and mutters answers to questions. Oriented x4. Able to move all limbs equally, cranial nerves equal bilaterally. Blood sugar 300. Sating well on her home O2. Vitals stable. Mumbles that her nausea is better. No phenergan since late last night. No sedating medications given this AM. - Objective Vital Signs & Weight: Vital Signs (12 hours) Temp Pulse Resp BP BP Pulse Ox 12/05/19 08:03 98 12/05/19 08:00 98.6 F 76 17 182/83 H 94 L 12/05/19 02:42 98.2 F 72 16 169/81 H 98 12/05/19 01:41 70 96 12/05/19 01:39 94 L 12/05/19 01:30 70 182/82 H 12/05/19 00:15 98.1 F 72 15 180/84 H 93 L Weight Weight 119 lb 9.6 oz I&O: 12/04/19 12/05/19 12/06/19 06:59 06:59 06:59 Intake Total 50 Output Total 0 Balance 50 Result Diagrams: 12/04/19 18:07 12/04/19 18:07 Additional Labs: Accuchecks 12/05/19 06:27 POC Glucose 310 H Hospitalist ROS - Review of Systems ROS unobtainable: due to mental status - Medication Medications: Active Medications Generic Name Dose Route Start Last Admin Trade Name Freq PRN Reason Stop Dose Admin Acetaminophen 650 mg 12/05/19 03:21 12/05/19 04:06 Tylenol PO 650 mg Q6H PRN Administration Headache/Fever/Mild Pain (1-3) Promethazine HCl 12.5 mg/ 50.5 mls @ 202 mls/hr 12/05/19 00:52 12/05/19 01:30 Sodium Chloride IVPB 50.5 mls Q6H PRN Administration Nausea/Vomiting Ondansetron HCl 4 mg 12/05/19 00:41 12/05/19 08:04 Zofran Odt SL 12/05/19 10:00 4 mg Q6H PRN Administration Nausea/Vomiting - Exam General - other findings: somnolent, mildly arousable, no distress Heart: RRR, no murmur, no gallops, no rubs Respiratory: CTAB, no wheezes, no rales, no ronchi Gastrointestinal: soft, non-tender, non-distended, normal bowel sounds Neurological: no focal deficits Psychiatric: oriented to person, oriented to place, oriented to time, somnolent Hosp A/P (1) Nausea and vomiting Code(s): R11.2 - NAUSEA WITH VOMITING, UNSPECIFIED Status: Acute (2) Splenic infarct Code(s): D73.5 - INFARCTION OF SPLEEN Status: Acute (3) Renal infarct Code(s): N28.0 - ISCHEMIA AND INFARCTION OF KIDNEY Status: Acute (4) Chronic systolic (congestive) heart failure Code(s): I50.22 - CHRONIC SYSTOLIC (CONGESTIVE) HEART FAILURE Status: Chronic (5) CAD (coronary artery disease) Code(s): I25.10 - ATHSCL HEART DISEASE OF [place] CORONARY ARTERY W/O ANG PCTRS Status: Chronic (6) ESRD (end stage renal disease) on dialysis Code(s): N18.6 - END STAGE RENAL DISEASE; Z99.2 - DEPENDENCE ON RENAL DIALYSIS Status: Chronic (7) DM type 2 (diabetes mellitus, type 2) Status: Chronic Qualifiers: (8) Dyslipidemia Code(s): E78.5 - HYPERLIPIDEMIA, UNSPECIFIED Status: Chronic (9) HTN (hypertension) Code(s): I10 - ESSENTIAL (PRIMARY) HYPERTENSION Status: Chronic Qualifiers: - Plan Cards and renal consulted Concern for possible cardioembolic source of renal and splenic infarcts Concern with new sedation. Will check CT, ABG. No focal signs concerning for CVA at this time.
[2019-12-05 10:00] LABS: CKMB 2.3 ng/mL (0-6.6)
[2019-12-05 10:04] LABS: HBSAg Index 0.28 S/CO (0-0.99); Hep B Surf Ag Non-Reactive S/CO (NonReactive)
[2019-12-05] MEDS: Heparin 5,000 UNITS/ML VIAL SC SCH ×2 (10:15→20:14)
--- NOTE | 2019-12-05 10:26 | CON ---
DATE OF CONSULTATION: HISTORY OF PRESENT ILLNESS: The patient is a 49-year-old woman with a history of coronary artery disease and cardiomyopathy, presented with nausea and vomiting. The patient was seen initially in October of 2017. She was found to have diastolic heart failure and chronic renal insufficiency. The patient subsequently developed end-stage renal disease. In June 2014, she underwent a cardiac catheterization. She was found to have 20% left main lesion, 70% first diagonal , 50% second diagonal, 40% mid LAD lesion, and 70% circumflex lesion. The right coronary artery had no significant disease. The patient has been started on Entresto. She has had poorly controlled hypertension. The patient is admitted with nausea and vomiting. The patient denies having any chest discomfort. PAST MEDICAL HISTORY: 1. Cardiomyopathy. 2. Coronary artery disease. 3. End-stage renal disease. 4. Hypertension. 5. Diabetes mellitus. 6. Dyslipidemia. 7. History of TIA. 8. Seizure disorder. PAST SURGICAL HISTORY: Tubal ligation. SOCIAL HISTORY: Nonsmoker. ALLERGIES: NO KNOWN DRUG ALLERGIES. LABORATORY RESULTS: White blood cell count 5.2, hemoglobin 12.1, hematocrit 38.2, and platelets are 231. Sodium is 138, potassium 3.9, chloride 96, bicarbonate 44, creatinine was 6.6. Troponin is 0.072. Abdominal CT scan revealed her to have possible right kidney infarct and splenic infarct. IMPRESSION: 1. Nausea and vomiting. 2. Coronary artery disease. 3. Ischemic cardiomyopathy. 4. Hypertension. 5. Diabetes mellitus. 6. Possible renal and splenic infarct. PLAN: This patient presents with persistent nausea and vomiting. From a cardiac standpoint , it is possible she had a thromboembolism. I would defer to Nephrology for their evaluation. She is on aspirin and Plavix bit it is unclear when these infarcts occurred. I would favor continuing these medications. We will follow this patient with you through her hospitalization. Job ID: [id number] [facility]
[2019-12-05] MEDS: Sacubitril 49 MG/Valsartan 51 MG TABLET PO SCH ×2 (10:31→20:15)
[2019-12-05] MEDS: Isosorbide Dinitrate 20 MG TAB PO SCH ×3 (10:31→19:49)
[2019-12-05] MEDS: Aspirin 81 mg Enteric Coated Tablet PO SCH (10:31)
[2019-12-05] MEDS: Minoxidil 2.5 MG TAB PO SCH (10:31)
[2019-12-05] MEDS: Insulin Glargine 10 UNITS in Pre-Filled Syringe 1 EACH SC SCH (10:33)
[2019-12-05] MEDS ORDERED: Heparin 10,000 UNITS/ 10 ML VIAL ONE (11:57)
[2019-12-05] MEDS ORDERED: FERRIC CITRATE PO SCH (12:00)
--- NOTE | 2019-12-05 12:20 | CT ---
CT BRAIN WITHOUT CONTRAST: HISTORY: Altered mental status COMPARISON: 09/09/2018. FINDINGS: No evidence of acute infarct, hemorrhage, midline shift or abnormal extra-axial fluid collections is seen. The ventricular size is appropriate and the basilar cisterns are patent. The bony calvarium is intact. There is mucosal disease in the paranasal sinuses. IMPRESSION: No CT evidence of acute intracranial process.
[2019-12-05 14:49] LABS: Actual Bicarbonate (HCO3a) 24.6 mEq/L (22-28); Analyzer IN Cardio OR; Base Excess (BEa) -1.1 mEq/L (-2.0 to +3.0); CO2 Tension 44.7 mmHg (35.0-45.0); Calcium, Ionized 1.05 mmol/L (1.12-1.30); Carboxyhemoglobin (COHb) 1.3 gm% (0.0-3.0); Hemoglobin (Hb) 11.8 g/dL (12.0-16.0); O2 Tension (PaO2) 50.4 mmHg (80.0-100.0); Potassium - ABG Lab 4.15 mmol/L (3.70-5.30); pH, Arterial 7.36 (7.35-7.45)
[2019-12-05 14:50] LABS: ALV-art Gradient 43.455 (0-20); Puncture Site RR
[2019-12-05] MEDS ORDERED: Ferric Citrate [Auryxia] PO SCH (17:00)
--- NOTE | 2019-12-05 19:16 | RAD ---
XR Chest 1 View Portable History: Syncope Comparison: Radiograph 2017 Findings: Lungs are clear. No pneumothorax. No effusion. No confluent airspace consolidation. No acut e osseous abnormality. Impression: No acute intrathoracic abnormality.
[2019-12-05] MEDS: Clopidogrel Bisulfate 75 MG TAB PO SCH (20:13)
[2019-12-05] MEDS: Atorvastatin Calcium 40 MG TAB PO SCH (20:14)
[2019-12-05] MEDS: levETIRAcetam 500 MG TAB PO SCH (20:14)
--- NOTE | 2019-12-05 22:46 | CON ---
DATE OF CONSULTATION: 12/05/2019 CONSULTING PHYSICIAN: Alber Irwin MD REASON FOR CONSULTATION: End-stage renal disease evaluation and care. REASON FOR ADMISSION: Nausea, vomiting, and abdominal pain. HISTORY OF PRESENT ILLNESS: This is a 49-year-old female with history of coronary artery disease, CHF, end-stage renal disease, hypertension, came to the hospital with above complaints. The patient gets dialysis Wednesday, Wednesday, Wednesday. She was at dialysis and is in the process of moving to the town and she used to be my patient. Her last dialysis was managed there and supposed to get dialysis today as outpatient, but could not make it. She was actually seen in the ER yesterday with the same complaint and was sent home, but since she has outburst of symptoms, now she is getting admitted. She was feeling better when I saw her. No fever or chills. No chest pain, or palpitation. PAST MEDICAL HISTORY: Positive for coronary artery disease, CHF, end-stage renal disease, on hemodialysis, hypertension, TIA, seizure disorder, anemia, macular degeneration. PAST SURGICAL HISTORY: Dialysis access, bilateral tubal ligation, cardiac cath. ALLERGIES: NO KNOWN DRUG ALLERGIES. HOME MEDICATIONS: 1. Aspirin. 2. Plavix. 3. Amlodipine. 4. Lipitor. 5. Carvedilol. 6. Ferric citrate. 7. NovoLog. 8. Levemir. 9. Keppra. 10. Minoxidil. 11. Entresto. 12. Clonidine. 13. Hydralazine. SOCIAL HISTORY: No smoking, alcohol, or illicit drug abuse. FAMILY HISTORY: Positive for heart disease. REVIEW OF SYSTEMS: CONSTITUTIONAL: Negative for weight loss or gain, ability to conduct usual activities. SKIN: Negative for rash, itching. EYES: Negative for double vision, pain. ENT/MOUTH: Negative for nose bleeding, neck stiffness, pain, tenderness. CARDIOVASCULAR: Negative for palpitations, dyspnea on exertion, orthopnea. RESPIRATORY: Negative for shortness of breath, wheezing, cough, hemoptysis, fever or night sweats. GASTROINTESTINAL: Negative for poor appetite, abdominal pain, heartburn, nausea, vomiting, constipation, or diarrhea. GENITOURINARY: Negative for urgency, frequency, dysuria, nocturia. MUSCULOSKELETAL: Negative for pain, swelling. NEUROLOGIC/PSYCHIATRIC: Negative for anxiety, depression. ALLERGY/IMMUNOLOGIC: Negative for skin rash, bleeding tendency. Rest all negative review of systems. PHYSICAL EXAMINATION: GENERAL: This is a thin-built female, in no apparent distress. VITAL SIGNS: Temperature 98.2, pulse 74, respiratory rate 18, blood pressure 170/79. HEENT: Atraumatic, normocephalic. Oral mucosa is moist. NECK: Supple. CVS: S1, S2 heard. Systolic murmur in the mitral area. RESPIRATORY: Clear. GASTROINTESTINAL: Soft. ABDOMEN: Soft. EXTREMITIES: No edema. DERMATOLOGIC: No skin rash. NEUROLOGIC: Alert and awake. PSYCHIATRIC: Mood and affect normal. LABORATORY DATA: Hemoglobin is 12.1, potassium is 3.9, BUN is 44, creatinine 6.6. ASSESSMENT AND PLAN: 1. End-stage renal disease. Plan to have dialysis and continue dialysis Wednesday, , Wednesday as tolerated. The patient is already set up at [facility]. 2. Edema, controlled. 3. Hypertension, currently controlled. 4. Anemia of chronic disease. Hemoglobin is stable. 5. Plan to continue dialysis Wednesday, , Wednesday as tolerated. Thank you for the consult. We will follow. Job ID: [id number]
[2019-12-06 04:11] LABS: #Basophils 0.1 thou/uL (0.0-0.2); #Eosinphils 0.1 thou/uL (0.0-0.7); #Lymphocytes 0.9 thou/uL (1.20-3.40); #Monocytes 0.8 thou/uL (0.11-0.59); %Basophils 1.1 % (0.0-1.0); %Eosinophils 2.1 % (0.0-10.0); %Lymphocytes 15.6 % (21.0-51.0); %Monocytes 12.9 % (0.0-10.0); %Neutrophils 68.3 % (42.0-75.0); Hemoglobin 12.1 g/dL (12.0-16.0); Mean Corpuscular HGB CONC 31.6 g/dL (32.0-36.0); Mean Corpuscular Hemoglobin 31.7 pg (27.0-31.0); Mean Platelet Volume 9.3 fL (7.4-10.4); Platelet Count 210 thou/uL (130-400); RBC Distribution Width 13.7 % (11.5-14.5); Red Blood Cell (RBC) Count 3.81 mill/uL (4.20-5.40); White Blood Cell (WBC) Count 5.9 thou/uL (4.8-10.8)
[2019-12-06 04:28] LABS: Anion Gap 14 mmol/L (10-20); BUN (Urea Nitrogen) 25 mg/dL (7.0-18.7); Calc. Creatinine Clearance 12 mL/min (70-130); Calcium 8.3 mg/dL (7.8-10.44); Carbon Dioxide 28 mmol/L (22-29); Chloride 99 mmol/L (98-107); Estimated GFR-MDRD 10; Glucose 92 mg/dL (70-105); Potassium 3.6 mmol/L (3.5-5.1); Sodium 137 mmol/L (136-145)
[2019-12-06] MEDS: Aspirin 81 mg Enteric Coated Tablet PO SCH (08:44)
[2019-12-06] MEDS: Minoxidil 2.5 MG TAB PO SCH (08:45)
[2019-12-06] MEDS: cloNIDine 0.2 MG TAB PO SCH ×3 (08:45→21:20)
[2019-12-06] MEDS: Carvedilol 25 MG TAB PO SCH ×2 (08:45→21:19)
[2019-12-06] MEDS: Sacubitril 49 MG/Valsartan 51 MG TABLET PO SCH ×2 (08:45→21:20)
[2019-12-06] MEDS: hydrALAZINE 25 MG TAB PO SCH ×3 (08:45→21:18)
[2019-12-06] MEDS: Isosorbide Dinitrate 20 MG TAB PO SCH ×3 (08:45→21:20)
[2019-12-06] MEDS: Heparin 5,000 UNITS/ML VIAL SC SCH ×2 (08:46→21:16)
[2019-12-06] MEDS: Famotidine 20 MG TAB PO SCH (08:46)
[2019-12-06] MEDS: Amlodipine 5 MG TAB PO SCH (08:46)
[2019-12-06] MEDS: Insulin Glargine 10 UNITS in Pre-Filled Syringe 1 EACH SC SCH (08:46)
[2019-12-06] MEDS ORDERED: Promethazine 25 MG TAB PO PRN (09:20)
--- NOTE | 2019-12-06 09:20 | PDOC.HOSPP ---
- Subjective Encounter Date: 12/06/19 Encounter Time: 10:50 Subjective: Patient feeling much better, no somnolence today. Nausea markedly improved. Ate clear liquid diet this AM without any nausea and was still hungry afterward. - Objective Vital Signs & Weight: Vital Signs (12 hours) Temp Pulse Resp BP BP Pulse Ox 12/06/19 08:46 65 12/06/19 08:45 65 12/06/19 07:30 97.9 F 65 14 169/82 H 98 12/06/19 03:12 97.4 F L 57 L 18 158/75 H 96 12/06/19 00:00 98.0 F 67 18 129/63 95 12/05/19 21:30 96 Weight Admit Weight 119 lb 9.6 oz Weight 127 lb I&O: 12/05/19 12/06/19 12/07/19 06:59 06:59 06:59 Intake Total 50 237 Output Total 0 0 Balance 50 237 Result Diagrams: 12/06/19 03:50 12/06/19 03:50 Additional Labs: Accuchecks 12/06/19 12/05/19 12/05/19 06:21 20:46 18:09 POC Glucose 106 102 110 12/05/19 12/05/19 12/05/19 16:45 11:34 10:27 POC Glucose 154 H 327 H 302 H 12/05/19 00:19 POC Glucose 256 H Hospitalist ROS - Review of Systems Constitutional: denies: fever, chills Respiratory: denies: cough, shortness of breath Cardiovascular: denies: chest pain, palpitations Gastrointestinal: denies: nausea, vomiting, abdominal pain - Medication Medications: Active Medications Generic Name Dose Route Start Last Admin Trade Name Freq PRN Reason Stop Dose Admin Acetaminophen 650 mg 12/05/19 03:21 12/05/19 19:44 Tylenol PO 650 mg Q6H PRN Administration Headache/Fever/Mild Pain (1-3) Amlodipine Besylate 5 mg 12/05/19 09:00 12/06/19 08:46 Norvasc PO 5 mg QAM ALMITA Administration Aspirin 81 mg 12/05/19 09:00 12/06/19 08:44 Ecotrin PO 81 mg DAILY ALMITA Administration Atorvastatin Calcium 40 mg 12/05/19 21:00 12/05/19 20:14 Lipitor PO 40 mg QPM ALMITA Administration Carvedilol 50 mg 12/05/19 09:00 12/06/19 08:45 Coreg PO 50 mg BID [facility] Administration Clonidine 0.2 mg 12/05/19 09:00 12/06/19 08:45 Catapres PO 0.2 mg TID ALMITA Administration Clopidogrel Bisulfate 75 mg 12/05/19 21:00 12/05/19 20:13 Plavix PO 75 mg QPM ALMITA Administration Famotidine 20 mg 12/05/19 09:00 12/06/19 08:46 Pepcid PO 20 mg 0900 ALMITA Administration Heparin Sodium (Porcine) 5,000 units 12/05/19 09:00 12/06/19 08:46 Heparin SC 5,000 units BID [facility] Administration Hydralazine HCl 50 mg 12/05/19 09:00 12/06/19 08:45 Apresoline PO 50 mg TID [facility] Administration Promethazine HCl 12.5 mg/ 50.5 mls @ 202 mls/hr 12/05/19 00:52 12/05/19 20:10 Sodium Chloride IVPB 50.5 mls Q6H PRN Administration Nausea/Vomiting Insulin Glargine 10 units/ 0.1 mls @ 0 mls/hr 12/05/19 09:00 12/06/19 08:46 Miscellaneous Medication SC 0.1 mls QAM [facility] Administration Isosorbide Dinitrate 20 mg 12/05/19 09:00 12/06/19 08:45 Isordil PO 20 mg TID [facility] Administration Levetiracetam 500 mg 12/05/19 21:00 12/05/19 20:14 Keppra PO 500 mg QPM ALMITA Administration Minoxidil 2.5 mg 12/05/19 09:00 12/06/19 08:45 Minoxidil PO 2.5 mg QAM [facility] Administration Sacubitril/Valsartan 1 tab 12/05/19 09:00 12/06/19 08:45 Entresto 49 Mg-51 Mg Tablet PO 1 tab BID [facility] Administration - Exam General Appearance: NAD, awake alert ENT: moist mucosa Heart: RRR, no murmur, no gallops, no rubs Respiratory: CTAB, no wheezes, no rales, no ronchi Gastrointestinal: soft, non-distended, normal bowel sounds, no guarding, no rigidity Gastrointestinal - other findings: mild TTP PENNIE Psychiatric: normal affect, normal behavior, A&O x 3 Hosp A/P (1) Nausea and vomiting Code(s): R11.2 - NAUSEA WITH VOMITING, UNSPECIFIED Status: Acute (2) Splenic infarct Code(s): D73.5 - INFARCTION OF SPLEEN Status: Acute (3) Renal infarct Code(s): N28.0 - ISCHEMIA AND INFARCTION OF KIDNEY Status: Acute (4) Chronic systolic (congestive) heart failure Code(s): I50.22 - CHRONIC SYSTOLIC (CONGESTIVE) HEART FAILURE Status: Chronic (5) CAD (coronary artery disease) Code(s): I25.10 - ATHSCL HEART DISEASE OF [place] CORONARY ARTERY W/O ANG PCTRS Status: Chronic (6) ESRD (end stage renal disease) on dialysis Code(s): N18.6 - END STAGE RENAL DISEASE; Z99.2 - DEPENDENCE ON RENAL DIALYSIS Status: Chronic (7) DM type 2 (diabetes mellitus, type 2) Status: Chronic Qualifiers: (8) Dyslipidemia Code(s): E78.5 - HYPERLIPIDEMIA, UNSPECIFIED Status: Chronic (9) HTN (hypertension) Code(s): I10 - ESSENTIAL (PRIMARY) HYPERTENSION Status: Chronic Qualifiers: - Plan Cards and renal consulted Concern for possible cardioembolic source of renal and splenic infarcts Patient with hypoxia on RA, but well controlled with 2L NC which patient uses prn at home Attempt to switch to oral phenergan for N/V control and advance diet, possibly home tomorrow.
--- NOTE | 2019-12-06 10:31 | PRG ---
DATE OF SERVICE: 12/06/2019 SUBJECTIVE: Patient was seen and examined at bedside and overnight events noted. Patient denies any shortness of breath or chest pain or palpitation. No history of nausea or vomiting or diarrhea or fever or chills or cramps. OBJECTIVE: GENERAL: This is a thin-built female, in no apparent distress. VITAL SIGNS: Temperature 97.9. Heart rate 65. Respiratory rate 14. Blood pressure @169/82. HEENT: Atraumatic, normocephalic. Oral mucosa is moist. NECK: Supple. CARDIOVASCULAR: S1, S2 heard. Rate and rhythm regular. RESPIRATORY: Clear to auscultation. GASTROINTESTINAL: Abdomen is soft. MUSCULOSKELETAL: No tenderness. No edema. DERMATOLOGIC: No skin rash. NEUROLOGIC: Alert and awake and oriented x3. No focal neurologic deficits. Moving all the extremities. PSYCHIATRIC: Mood and affect normal. LABORATORY DATA: Potassium 3.6, BUN is 25, and creatinine is 4.6. ASSESSMENT AND PLAN: 1. End-stage renal disease. Continue on hemodialysis as tolerated on Wednesday, , and Wednesday. 2. Edema, controlled. 3. Hypertension. 4. Anemia of chronic disease. Continue dialysis on Wednesday, , and Wednesday as tolerated. Job ID: [id number]
[2019-12-06] MEDS: Insulin Regular 300 UNITS/3 ML VIAL SC PRN (17:21)
[2019-12-06] MEDS: Atorvastatin Calcium 40 MG TAB PO SCH (21:17)
[2019-12-06] MEDS: Clopidogrel Bisulfate 75 MG TAB PO SCH (21:18)
[2019-12-06] MEDS: levETIRAcetam 500 MG TAB PO SCH (21:18)
[2019-12-07] MEDS ORDERED: Heparin 10,000 UNITS/ 10 ML VIAL ONE (09:36)
--- NOTE | 2019-12-07 09:36 | PDOC.HOSPP ---
- Subjective Encounter Date: 12/07/19 Encounter Time: 10:50 Subjective: Patient feeling much better. No more nausea. Eating well. Abdominal pain improving, just a little sore now. - Objective Vital Signs & Weight: Vital Signs (12 hours) Temp Pulse Resp BP Pulse Ox 12/07/19 03:02 97.9 F 63 14 143/67 H 98 12/07/19 00:02 65 120/61 Weight Admit Weight 119 lb 9.6 oz Weight 130 lb 4.8 oz I&O: 12/06/19 12/07/19 12/08/19 06:59 06:59 06:59 Intake Total 237 120 Output Total 0 0 Balance 237 120 Result Diagrams: 12/06/19 03:50 12/06/19 03:50 Additional Labs: Accuchecks 12/07/19 12/06/19 12/06/19 05:58 21:06 16:50 POC Glucose 192 H 256 H 208 H 12/06/19 10:58 POC Glucose 177 H Hospitalist ROS - Review of Systems Constitutional: denies: fever, chills Respiratory: denies: cough, shortness of breath Cardiovascular: denies: chest pain, palpitations, orthopnea Gastrointestinal: reports: abdominal pain. denies: nausea, vomiting, diarrhea, constipation - Medication Medications: Active Medications Generic Name Dose Route Start Last Admin Trade Name Freq PRN Reason Stop Dose Admin Acetaminophen 650 mg 12/05/19 03:21 12/05/19 19:44 Tylenol PO 650 mg Q6H PRN Administration Headache/Fever/Mild Pain (1-3) Amlodipine Besylate 5 mg 12/05/19 09:00 12/06/19 08:46 Norvasc PO 5 mg QAM ALMITA Administration Aspirin 81 mg 12/05/19 09:00 12/06/19 08:44 Ecotrin PO 81 mg DAILY [facility] Administration Atorvastatin Calcium 40 mg 12/05/19 21:00 12/06/19 21:17 Lipitor PO 40 mg QPM ALMITA Administration Carvedilol 50 mg 12/05/19 09:00 12/06/19 21:19 Coreg PO 50 mg BID [facility] Administration Clonidine 0.2 mg 12/05/19 09:00 12/06/19 21:20 Catapres PO 0.2 mg TID ALMITA Administration Clopidogrel Bisulfate 75 mg 12/05/19 21:00 12/06/19 21:18 Plavix PO 75 mg QPM ALMITA Administration Famotidine 20 mg 12/05/19 09:00 12/06/19 08:46 Pepcid PO 20 mg 0900 ALMITA Administration Heparin Sodium (Porcine) 5,000 units 12/05/19 09:00 12/06/19 21:16 Heparin SC 5,000 units BID [facility] Administration Hydralazine HCl 50 mg 12/05/19 09:00 12/06/19 21:18 Apresoline PO 50 mg TID [facility] Administration Insulin Glargine 10 units/ 0.1 mls @ 0 mls/hr 12/05/19 09:00 12/06/19 08:46 Miscellaneous Medication SC 0.1 mls QAM [facility] Administration Insulin Human Regular 0 units 12/05/19 03:20 12/06/19 21:21 Humulin R SC 3 unit .BEDTIME SLIDING SC PRN Administration Bedtime Correctional Scale Insulin Human Regular 0 units 12/05/19 05:47 12/06/19 17:21 Humulin R SC 4 unit .MODERATE SLIDING SC PRN Administration Moderate Correctional Scale Isosorbide Dinitrate 20 mg 12/05/19 09:00 12/06/19 21:20 Isordil PO 20 mg TID [facility] Administration Levetiracetam 500 mg 12/05/19 21:00 12/06/19 21:18 Keppra PO 500 mg QPM ALMITA Administration Minoxidil 2.5 mg 12/05/19 09:00 12/06/19 08:45 Minoxidil PO 2.5 mg QAM [facility] Administration Sacubitril/Valsartan 1 tab 12/05/19 09:00 12/06/19 21:20 Entresto 49 Mg-51 Mg Tablet PO 1 tab BID [facility] Administration - Exam General Appearance: NAD, awake alert ENT: moist mucosa Heart: RRR, no murmur, no gallops, no rubs Respiratory: CTAB, no wheezes, no rales, no ronchi Gastrointestinal: soft, non-distended, normal bowel sounds, no guarding, no rigidity Gastrointestinal - other findings: mild TTP diffusely Extremities: no cyanosis, no clubbing, no edema Psychiatric: normal affect, normal behavior, A&O x 3 Hosp A/P (1) Nausea and vomiting Code(s): R11.2 - NAUSEA WITH VOMITING, UNSPECIFIED Status: Acute (2) Splenic infarct Code(s): D73.5 - INFARCTION OF SPLEEN Status: Acute (3) Renal infarct Code(s): N28.0 - ISCHEMIA AND INFARCTION OF KIDNEY Status: Acute (4) Chronic systolic (congestive) heart failure Code(s): I50.22 - CHRONIC SYSTOLIC (CONGESTIVE) HEART FAILURE Status: Chronic (5) CAD (coronary artery disease) Code(s): I25.10 - ATHSCL HEART DISEASE OF [place] CORONARY ARTERY W/O ANG PCTRS Status: Chronic (6) ESRD (end stage renal disease) on dialysis Code(s): N18.6 - END STAGE RENAL DISEASE; Z99.2 - DEPENDENCE ON RENAL DIALYSIS Status: Chronic (7) DM type 2 (diabetes mellitus, type 2) Status: Chronic Qualifiers: (8) Dyslipidemia Code(s): E78.5 - HYPERLIPIDEMIA, UNSPECIFIED Status: Chronic (9) HTN (hypertension) Code(s): I10 - ESSENTIAL (PRIMARY) HYPERTENSION Status: Chronic Qualifiers: - Plan Cards and renal consulted Concern for possible cardioembolic source of renal and splenic infarcts- Dr. Mcdonnell recommends continuing ASA and Plavix for this Patient with hypoxia on RA, but well controlled with 2L NC which patient uses at home Taking good po and no more nausea/vomiting. Ok to d/c home. Confirmed with consultants.
--- NOTE | 2019-12-07 10:37 | PRG ---
DATE OF SERVICE: 12/07/2019 SUBJECTIVE: Patient was seen and examined at bedside and overnight events noted. Patient denies any shortness of breath or chest pain or palpitation. No history of nausea or vomiting or diarrhea or fever or chills or cramps. OBJECTIVE: GENERAL: This is a thin-built female, in no acute distress. VITAL SIGNS: Temperature 97.9. Heart rate 66. Respiratory rate 14. Blood pressure 143/67. HEENT: Atraumatic, normocephalic. Oral mucosa is moist NECK: Supple. CARDIOVASCULAR: S1, S2 heard. Rate and rhythm regular. RESPIRATORY: Clear to auscultation. GASTROINTESTINAL: Abdomen is soft. MUSCULOSKELETAL: No tenderness. No edema. DERMATOLOGIC: No skin rash. NEUROLOGIC: Alert and awake and oriented X3. No focal neurologic deficits. Moving all the extremities. PSYCHIATRIC: Mood and affect normal. LABORATORY DATA: Not done today. ASSESSMENT AND PLAN: 1. End-stage renal disease. Continue dialysis on Wednesday, , and Wednesday as tolerated. 2. Edema, controlled. 3. Hypertension. 4. Anemia of chronic disease, stable. The patient is seen during dialysis, tolerating well. Plan to continue dialysis on Wednesday, , and Wednesday as tolerated. Job ID: [id number]
[2019-12-07] MEDS: hydrALAZINE 25 MG TAB PO SCH ×2 (11:56→15:51)
[2019-12-07] MEDS: cloNIDine 0.2 MG TAB PO SCH ×2 (11:56→15:49)
[2019-12-07] MEDS: Isosorbide Dinitrate 20 MG TAB PO SCH ×2 (11:56→15:49)
[2019-12-07] MEDS: Amlodipine 5 MG TAB PO SCH (12:27)
[2019-12-07] MEDS: Famotidine 20 MG TAB PO SCH (12:27)
[2019-12-07] MEDS: Carvedilol 25 MG TAB PO SCH (12:28)
[2019-12-07] MEDS: Sacubitril 49 MG/Valsartan 51 MG TABLET PO SCH (12:28)
[2019-12-07] MEDS: Aspirin 81 mg Enteric Coated Tablet PO SCH (12:28)
[2019-12-07] MEDS: Minoxidil 2.5 MG TAB PO SCH (12:29)
[2019-12-07] MEDS: Insulin Glargine 10 UNITS in Pre-Filled Syringe 1 EACH SC SCH (12:29)
[2019-12-07] MEDS: Heparin 5,000 UNITS/ML VIAL SC SCH (12:29)
--- NOTE | 2019-12-07 12:40 | PQF ---
SABINE MURRAY, CALLUM FAM MD [id number] [facility]-297 [id number] CLINICAL DOCUMENTATION IMPROVEMENT CLARIFICATION FORM: ICD-10 Updated PLEASE DO AN ADDENDUM TO THE PROGRESS NOTE WITH ANY DOCUMENTATION UPDATES OR ADDITIONS AND CARRY THROUGH TO DC SUMMARY. THANK YOU. DATE: 12/07/2019 ATTN: DR. Linsey MARIN Please exercise your independent, professional judgment in responding to the clarification form. Clinical indicators are provided on the bottom of this form for your review. Please check appropriate box(s): [ X ] Acute On Chronic Respiratory Failure: [ X ] with Hypoxia [ ] with Hypercapnia [ ] Acute Respiratory Failure due to: (etiology) [ ] Chronic Respiratory Failure only [ ] with Hypoxia [ ] with Hypercapnia [ ] Hypoxia [ ] Other diagnosis [ ] Unable to determine In addition, please specify: Present on Admission (POA): [ X ] Yes [ ] No [ ] Unable to determine For continuity of documentation, please document condition throughout progress notes and discharge summary. Thank You. CLINICAL INDICATORS - SIGNS / SYMPTOMS / LABS / RESULTS AND LOCATION IN MR 12/05 ABG pO2 50.4 ABG O2 SAT 82.6 2/3 PN ([facility]) ABD WITH SEVERELY LOW pO2, BUT PULSE OX NEVER BELOW 80'S, AT 96% RIGHT NOW IN DIALYSIS. 12/06 - /6 PN ([facility]) PLAN: PATIENT WITH HYPOXIA ON RA, BUT WELL CONTROLLED WITH 2L/NC WHICH PATIENT USES PRN AT HOME. RISK: HX OF HOME O2 PRN, (PN/TOMAS) 2/ DX VOLUME OVERLOAD AND HEPATOMEGALY, ASCITES AND PLEURAL EFFUSION (H&P/LADHA) 12/05 TREATMENTS: SUPPLEMENTAL OXYGEN /-PRESENT CONTINUOUS TELEMETRY MONITORING 12/05-PRESENT Acute Respiratory Failure: ABG pH < 7.35 or > 7.45; Decreased oxygen saturation (<90% room air or < 95% on oxygen); PCO2 > 50 mm Hg; PO2 < 60 mm Hg; Labored or rapid respirations ARDS: Dx Criteria [[place] ARDS]: Respiratory symptoms within one week of a known clinical insult (e.g. shock, infection, surgery, trauma) Bilateral opacities in CXR/Chest CT not due to CHF or fluid THANK YOU! BRISA (This form is maintained as a part of the permanent medical record) 2014 [employer] All Rights Reserved [email or web address] [phone] [email or web address]
[2019-12-07 15:51] VITALS: BP 142/67
[2019-12-07 15:54] VITALS: TEMP 98
[2019-12-07] MEDS: Insulin Regular 300 UNITS/3 ML VIAL SC PRN (17:27)
--- NOTE | 2019-12-08 03:05 | DIS ---
DATE OF ADMISSION: 12/05/2019 DATE OF DISCHARGE: 12/07/2019 PRIMARY CARE PHYSICIAN: Dr. Shashi Martinez. REASON FOR ADMISSION: Nausea and vomiting, intractable. DIAGNOSES AT DISCHARGE: 1. Nausea, vomiting, resolved. 2. Splenic infarct. 3. Renal infarct. 4. Skwkr-uj-zbjnnos hypoxic respiratory failure. 5. Chronic systolic congestive heart failure. 6. Coronary artery disease. 7. End-stage renal disease, on dialysis. 8. Diabetes mellitus type 2. 9. Dyslipidemia. 10. Hypertension. PROCEDURES: 1. CT of the abdomen and pelvis showing focal wedge-shaped nonenhancing focus inferior pole of the right kidney, likely infarct. Marked hepatomegaly from chronic volume overload. Wqrin-ky-qguwatde right layering pleural effusion, improving and peripheral hypodensity within the mid spleen suggestive of an infarct. 2. CT of the brain without contrast showing no CT evidence of acute intracranial process. CONSULTATIONS: 1. Cardiology, Dr. Mcdonnell. 2. Nephrology, Dr. Medina. SUMMARY OF HOSPITAL COURSE: This is a 49-year-old female with known ischemic cardiomyopathy, coronary artery disease, hypertension, diabetes mellitus type 2 and end-stage renal disease, who also has some chronic hypoxic respiratory failure, is on oxygen at home p.r.n. She presented to the hospital with nausea and vomiting. This has been going on for a couple for about the last week on and off and it became persistent over the last few days and intractable. She was seen in the emergency room and sent home and had continuing of her symptoms, so returned back. She also had some constant epigastric discomfort. She was seen in the emergency room. She was in the low 90s of oxygen saturation and was having trouble breathing, so she was put on oxygen with improvement in her sats. She was given Zofran and eventually had to be given Phenergan with improvement in her nausea and vomiting. The patient was put in observation. She became very somnolent in observation, so she had an ABG done, which showed significant hypoxia, which was easily controlled with nasal cannula O2. She did have dialysis during her hospitalization. With Phenergan, she did have some improvement in her nausea and vomiting. She had CT scan that demonstrating the infarcts, Dr. Mcdonnell was consulted and stated that this very possibly could be cardioembolic. He recommended continuing aspirin and Plavix for prophylaxis of future events. The patient was eventually able to be switched over to oral antiemetics. She has had no nausea, vomiting, and needed no medicine over the last 24 hours and is taking good p.o. and so she is being discharged home. She also notes that her pain in her belly is improving. DISCHARGE MANAGEMENT: Discharged home. FOLLOWUP: Follow up with Dr. Martinez in [address] Mcdonnell and Dr. Medina in their clinics. ACTIVITY: As tolerated. DIET: Diabetic renal diet. MEDICATIONS: 1. Promethazine 12.5 mg by mouth every 6 hours as needed for nausea, vomiting 10 tabs dispensed. 2. Amlodipine 5 mg daily. 3. Aspirin 81 mg daily. 4. Atorvastatin 40 mg at night. 5. Carvedilol 50 mg twice daily. 6. Clonidine 0.2 mg 3 times daily. 7. Clopidogrel 75 mg daily. 8. Hydralazine 50 mg 3 times daily. 9. Isosorbide dinitrate 20 mg 3 times daily. 10. Levetiracetam 500 mg daily. 11. Minoxidil 2.5 mg daily. 12. Entresto 49/51 mg one tablet twice daily. 13. Ferric citrate 210 mg 2 tabs three times a day with meals. 14. NovoLog insulin sliding scale and Levemir 12 units each morning. Job ID: [id number]
--- NOTE | 2019-12-08 05:24 | PQF ---
[employer] Supervisor Crystal Reports Winform Viewer SABINE MURRAY RYAN ANDREW MD [id number] [facility]297 [id number] CLINICAL DOCUMENTATION CLARIFICATION FORM: POST DISCHARGE Addendum to original discharge summary date: ____ Late entry note date: __ DATE: 12/08/19 ATTN:Kun Medeiros Please exercise your independent, professional judgment in responding to the clarification form. Clinical indicators are provided on the bottom of this form for your review Can you please further clarify the etiology of Nausea and Vomiting? Please check appropriate box(s): [ X ] Renal Infarct [ X ] Splenic infarct [ ] Acute on Chronic ESRD [ ] Nausea and Vomiting of unknown etiology [ ] Other diagnosis please specify [ ] Unable to determine In addition, please specify: Present on Admission (POA): [ X ] Yes [ ] No [ ] Unable to determine For continuity of documentation, please document condition throughout progress notes and discharge summary. Thank You. CLINICAL INDICATORS - SIGNS / SYMPTOMS / LABS ED Provider - Acute onset chronic kidney disease DS pg.1- Splenic infarct DS pg.1- Renal Infarct Ds pg.1- Presented with Nausea and Vomiting H and P pg.3- Nausea vomiting with epigastric discomfort, multifactorial Laboratory- Creatinine 6.62H, 4.64H RISK FACTORS CAD_ H and P pg.3 ESRD- H and P pg.3 DM type 2- H and P pg.3 CHF- DS pg.1 Hypertension- DS pg.1 TREATMENTS: Nephrology Consult Dr. Medina 2/ Abdomen/Pelvis CT 2/3 IV fluids- MAR 2/3 Zofran 4mg IV- MAR (This form is maintained as a part of the permanent medical record) 2014 [employer]. All Rights Reserved [email or web address]
== END 2019-12-07 17:45 | disposition home or self-care (01) | DRG 814 ==
LOC: ERS 17:53 → 2SW 22:52 → OBSVTOIN 12-05 15:38 → 2NO 12-05 21:36
PROVIDERS: ADMIT Internal Medicine; ATTEND Internal Medicine
PROC: 5A1D70Z Performance of Urinary Filtration, Intermittent, Less than 6 Hours Per Day (ICD-10-PCS; principal; 2019-12-05)
DX: D73.5 Infarction of spleen (principal); N18.6 End stage renal disease; J96.21 Acute and chronic respiratory failure with hypoxia; N28.0 Ischemia and infarction of kidney; I50.22 Chronic systolic (congestive) heart failure; I13.2 Hypertensive heart and chronic kidney disease with heart failure and with stage 5 chronic kidney disease, or end stage renal disease; I25.10 Atherosclerotic heart disease of native coronary artery without angina pectoris; D63.1 Anemia in chronic kidney disease; I25.5 Ischemic cardiomyopathy; E11.22 Type 2 diabetes mellitus with diabetic chronic kidney disease; E78.5 Hyperlipidemia, unspecified; E78.00 Pure hypercholesterolemia, unspecified; H35.30 Unspecified macular degeneration; G40.909 Epilepsy, unspecified, not intractable, without status epilepticus; Z86.73 Personal history of transient ischemic attack (TIA), and cerebral infarction without residual deficits; Z99.2 Dependence on renal dialysis; Z98.51 Tubal ligation status; Z95.5 Presence of coronary angioplasty implant and graft; Z79.82 Long term (current) use of aspirin; Z79.01 Long term (current) use of anticoagulants; Z79.4 Long term (current) use of insulin; Z79.899 Other long term (current) drug therapy; Z99.81 Dependence on supplemental oxygen
CPT/HCPCS: 36415; 36416; 70450; 71045; 74177; 80048; 80053; 82553; 82805; 83605; 83690; 84484; 85025; 85610; 85730; 87340; 90935; 93005; 93306; 94760; 96372; 96374; 96375; G0257; J1644; J1815; J2270; J2405; J2550; J2765; Q0162; Q9967

== ENCOUNTER 2019-12-27 15:08 | Day surgery (SDC) | payer MEDICARE, BC ==
--- NOTE | 2019-12-26 08:05 | HP ---
HISTORY OF PRESENT ILLNESS: Viji Schaeffer is a 49-year-old female status post June 19, 2019 right arm fistula, perforating branch antecubital vein, radial artery inflow, outflow basilic vein only, and cephalic vein was occluded from previous IV access. She was informed then that she would need a transposition fistula. She dialyzes at [address], Wednesday, , and Wednesday. She is sent regarding evaluation. Plan is for basilic vein transposition fistula, right arm. The procedure and anesthetic block explained to her. She desires a block. Plan is to perform as an outpatient and see me in two weeks postoperatively and begin accessing this approximately 4 weeks postoperatively. Risks and benefits explained. Questions answered. She has previously been considered for peritoneal dialysis, but decided against that. December 2018, cardiac stress test, normal. Echocardiogram in May of 2019, 30% to 35% ejection fraction, vvxs-ia-wntogsmq mitral regurg, moderate to severe tricuspid regurg, and history of June cardiac catheterization in 2019. MEDICATIONS: 1. Plavix 75 mg a day. 2. Atorvastatin 80 mg a day. 3. Insulin. 4. Plavix 75 mg a day. 5. Aspirin 81 mg a day. 6. Carvedilol 25 mg twice a day. 7. Ferric citrate daily. 8. Isosorbide. 9. Entresto. 10. Hydralazine. 11. Clonidine. 12. Minoxidil. 13. Amlodipine. PAST MEDICAL HISTORY: End-stage renal disease, cardiomyopathy, and dialysis on Wednesday, , and Wednesday. PAST SURGICAL HISTORY: Right arm arteriovenous fistula hemodialysis catheter, and history of left arm fistula thrombosed. PHYSICAL EXAMINATION: VITAL SIGNS: 140 pounds and 64 inches. 134/58, 60, and 98.1 degrees. HEAD, EARS, EYES, NOSE, AND THROAT: Unremarkable. LUNGS: Clear to auscultation. ABDOMEN: Soft and nontender. EXTREMITIES: Right arm fistula, left basilic vein outflow only. No cephalic vein component. ASSESSMENT AND PLAN: 1. Basilic vein transposition fistula, regional anesthesia, outpatient. She can continue aspirin and Plavix. Does not have to discontinue these. 2. Cardiomyopathy. 3. On aspirin and Plavix, continue. Job ID: [id number]
[2019-12-26 14:28] VITALS: BMI 21.4
[~2019-12-27 15:08] MED LIST changes: -Iopamidol-370 76% 500 ML 1 ML ONE; +Lidocaine 1% PF 5 ML VIAL ONE; +Ondansetron PF 4 MG/2 ML Vial ONE; +PHENYLEPHRINE-NS 100 MCG/ML 10 ML SYRINGE ONE; +PROPOFOL 200 MG/20 ML VIAL ONE
[2019-12-27] MEDS ORDERED: Heparin 5,000 UNITS/ML VIAL ONE (15:47)
[2019-12-27] MEDS ORDERED: Protamine Sulfate 50 MG/5 ML VIAL ONE (15:47)
[2019-12-27 16:06] LABS: #Eosinphils 0.1 thou/uL (0.0-0.7); #Lymphocytes 0.8 thou/uL (1.20-3.40); #Monocytes 0.6 thou/uL (0.11-0.59); #Neutrophils 5.7 thou/uL (1.40-6.50); %Basophils 0.1 % (0.0-1.0); %Eosinophils 1.8 % (0.0-10.0); %Monocytes 8.2 % (0.0-10.0); %Neutrophils 78.9 % (42.0-75.0); Hemoglobin 7.9 g/dL (12.0-16.0); Mean Corpuscular HGB CONC 33.5 g/dL (32.0-36.0); Mean Corpuscular Hemoglobin 33.5 pg (27.0-31.0); Mean Platelet Volume 10.2 fL (7.4-10.4); Platelet Count 174 thou/uL (130-400); RBC Distribution Width 14.5 % (11.5-14.5); Red Blood Cell (RBC) Count 2.36 mill/uL (4.20-5.40); White Blood Cell (WBC) Count 7.3 thou/uL (4.8-10.8)
[2019-12-27] MEDS ORDERED: Insulin Regular 300 UNITS/3 ML VIAL ONE ×2 (16:08→17:18)
[2019-12-27] MEDS ORDERED: Fentanyl 100 MCG/2 ML VIAL ONE (16:22)
[2019-12-27 16:32] LABS: Anion Gap 16 mmol/L (10-20); BUN (Urea Nitrogen) 52 mg/dL (7.0-18.7); Calc. Creatinine Clearance 13 mL/min (70-130); Calcium 9.5 mg/dL (7.8-10.44); Carbon Dioxide 29 mmol/L (22-29); Chloride 95 mmol/L (98-107); Estimated GFR-MDRD 10; Glucose 384 mg/dL (70-105); Potassium 4.8 mmol/L (3.5-5.1); Sodium 135 mmol/L (136-145)
[2019-12-27] MEDS ORDERED: Bupivacaine PF 0.5% 30 ML VIAL ONE (16:49)
[2019-12-27] MEDS ORDERED: Lidocaine 1% w/Epinephrine 1:100K 20 ML VIAL ONE ×2 (16:49→17:06)
[2019-12-27] MEDS ORDERED: Bupivacaine 0.25% HCL 30 ML VIAL ONE (17:06)
[2019-12-27] MEDS ORDERED: Heparin 10,000 UNITS/1 ML VIAL ONE (17:41)
[2019-12-27] MEDS ORDERED: Heparin 10,000 UNITS/ 10 ML VIAL ONE (19:31)
--- NOTE | 2019-12-28 10:31 | OP ---
DATE OF PROCEDURE: 12/27/2019 PREOPERATIVE DIAGNOSIS: End-stage renal disease, occluded cephalic vein right arm, in need of a basilic vein transposition fistula. POSTOPERATIVE DIAGNOSIS: End-stage renal disease, occluded cephalic vein right arm, in need of a basilic vein transposition fistula. PROCEDURE PERFORMED: Right arm basilic vein transposition fistula. ANESTHESIA: General anesthesia, local 0.25% Marcaine, 60 mL mixed with 1% Xylocaine with epinephrine 20 mL. DESCRIPTION OF PROCEDURE: The patient was taken to the operating room where under general anesthesia, right upper extremity was prepared with ChloraPrep and draped in routine fashion. Local anesthetic was infiltrated in the skin and subcutaneous tissue about the operative site. Incision made from the proximal volar forearm across the antecubital fossa and medial upper arm into the axilla, carried down to skin and subcutaneous tissue, deep fascia, protecting nerves as the basilic vein dissected free ties and clips. Once it was mobilized, it was marked with a marking pen to prevent torsion. Eva Wick tunneler was used to create a tunnel over the anterior upper arm into the axilla with a 12 mm head, changing this to a 6 mm head. The patient was given 6000 units of heparin intravenously. After adequate circulation time, the arterial inflow of the basilic vein near the antecubital fossa was clamped with vascular clamp, transected and pulled back from under the nerve, flushed with heparinized saline solution ensuring good hemostasis and proximal orientation and connected to the tunnel with 3-0 Monocryl and pulled in the tunnel and flushed with heparinized saline solution again to assure good outflow. End-to-end vein anastomosis created after spatulating both ends and creating the anastomosis with continuous suture of 6-0 Prolene. After completing the anastomosis, vascular clamps were released. There was good outflow in the fistula. The patient given 25 mg of protamine intravenously. Good hemostasis ensured with cautery, clips, and 4-0 silk ties. Avitene was placed in the vein harvest bed. Subcutaneous tissue was approximated with 3-0 Monocryl, skin with cydney. Sterile dressing applied. The patient tolerated the procedure well. Job ID: [id number]
--- NOTE | 2019-12-28 16:44 | EKG ---
Test Reason : Blood Pressure : / mmHG Vent. Rate : 070 BPM Atrial Rate : 070 BPM P-R Int : 176 ms QRS Dur : 094 ms QT Int : 420 ms P-R-T Axes : 035 -20 069 degrees QTc Int : 453 ms Normal sinus rhythm Normal ECG When compared with ECG of 04-DEC-2019 00:45, ST no longer depressed in Lateral leads T wave inversion no longer evident in Lateral leads Confirmed by DR. Celestino MICHELLE (3) on 12/28/2019 4:43:55 PM Referred By: JILL Confirmed By:DR. Celestino MICHELLE
== END 2019-12-27 20:00 | disposition home or self-care (01) ==
LOC: SDC 15:08
PROVIDERS: ATTEND Specialist
PROC: 05SB3ZZ Reposition Right Basilic Vein, Percutaneous Approach (ICD-10-PCS; principal; 2019-12-27)
DX: N18.6 End stage renal disease (principal); I42.9 Cardiomyopathy, unspecified; Z79.4 Long term (current) use of insulin; Z79.82 Long term (current) use of aspirin; Z79.899 Other long term (current) drug therapy; Z99.2 Dependence on renal dialysis
CPT/HCPCS: 36416; 80048; 85025; 93005; 93010; J0690; J1644; J1815; J2001; J2405; J2704; J2720; J3010; S0020

== ENCOUNTER 2019-12-30 14:55 | Emergency (ER) | payer MEDICARE, BC ==
[~2019-12-30 14:55] MED LIST changes: +Heparin 10,000 UNITS/ 10 ML VIAL ONE; -Lidocaine 1% PF 5 ML VIAL ONE; -Ondansetron PF 4 MG/2 ML Vial ONE; -PHENYLEPHRINE-NS 100 MCG/ML 10 ML SYRINGE ONE; -PROPOFOL 200 MG/20 ML VIAL ONE
[2019-12-30] MEDS ORDERED: Insulin Regular 300 UNITS/3 ML VIAL ONE (15:32)
[2019-12-30] MEDS ORDERED: Fentanyl 100 MCG/2 ML VIAL ONE (15:32)
[2019-12-30] MEDS ORDERED: Ondansetron PF 4 MG/2 ML Vial ONE (15:32)
[2019-12-30 15:45] LABS: #Eosinphils 0.2 thou/uL (0.0-0.7); #Neutrophils 6.6 thou/uL (1.40-6.50); %Basophils 0.4 % (0.0-1.0); %Eosinophils 2.6 % (0.0-10.0); %Lymphocytes 10.9 % (21.0-51.0); %Monocytes 11.2 % (0.0-10.0); %Neutrophils 74.8 % (42.0-75.0); Mean Corpuscular HGB CONC 33.9 g/dL (32.0-36.0); Mean Corpuscular Hemoglobin 34.6 pg (27.0-31.0); Mean Platelet Volume 9.6 fL (7.4-10.4); Platelet Count 208 thou/uL (130-400); RBC Distribution Width 15.2 % (11.5-14.5); Red Blood Cell (RBC) Count 2.03 mill/uL (4.20-5.40); White Blood Cell (WBC) Count 8.8 thou/uL (4.8-10.8)
[2019-12-30 15:47] LABS: Base Excess-Venous 1.9 mmol/L (-2.0 to 3.0); Bicarbonate (HCO3v) 25.9 mmol/L (22.0-28.0); CO2 Tension (PvCO2) 36.6 mmHg (40.0-50.0); Calcium, Ionized 1.01 mmol/L (See Comments:); Chloride 95 mmol/L (98-107); Hemoglobin - Calc 7.5 g/dL (12.0-16.0); Potassium 3.4 mmol/L (3.5-5.1); Sodium 133 mmol/L (138-145); vO2 Saturation-calc 92.1 % (60.0-85.0)
[2019-12-30 15:58] LABS: ALT (SGPT) Less than 7 U/L (8-55); AST (SGOT) 14 U/L (5-34); Albumin 3.6 g/dL (3.5-5.0); Alkaline Phosphatase 393 U/L (40-110); Anion Gap 21 mmol/L (10-20); BUN (Urea Nitrogen) 49 mg/dL (7.0-18.7); Bilirubin, Total 0.7 mg/dL (0.2-1.2); Calc. Creatinine Clearance 0 mL/min (70-130); Calcium 8.8 mg/dL (7.8-10.44); Carbon Dioxide 25 mmol/L (22-29); Chloride 94 mmol/L (98-107); Estimated GFR-MDRD 8; Globulin 3.9 g/dL (2.4-3.5); Glucose 375 mg/dL (70-105); Potassium 3.5 mmol/L (3.5-5.1); Protein, Total 7.5 g/dL (6.0-8.3); Sodium 136 mmol/L (136-145)
--- NOTE | 2019-12-30 21:59 | CON ---
DATE OF CONSULTATION: REASON FOR CONSULTATION: End-stage kidney disease, for maintenance hemodialysis. HISTORY OF PRESENT ILLNESS: This is a 49-year-old female, on hemodialysis, presented to the hospital with increasing nausea and vomiting. The patient dialyzes Wednesday, , and Wednesday. The patient denies chest pain at this time. The patient was also hyperglycemic. PAST MEDICAL HISTORY: Significant for congestive heart failure, hypertension, anemia, end-stage kidney disease, TIA, seizure disorder, chronic debility, history of tubal ligation, dialysis access surgery, multiple. SOCIOECONOMIC HISTORY: No alcohol or drug use. FAMILY HISTORY: Negative for ESRD. ALLERGIES: REVIEWED. MEDICATIONS: Home medications list reviewed. Hospital medications list reviewed. REVIEW OF SYSTEMS: A 15-point review of system was performed, negative except for positives as noted above. HEENT: Eyes intact, no diplopia. Ears: No hearing loss or earache. Nose: No discharge or bleeding. Chest: No cough or phlegm. Abdomen: No nausea or vomiting. Genitourinary: No hematuria. No Morris catheter. Musculoskeletal: No low back pain. No joint swelling or pain. Neurological: No syncope. No seizures. Skin: No complaints of rash or itching. Psychiatric: No depression. Constitutional: No weight loss or loss of appetite. PHYSICAL EXAMINATION: GENERAL: The patient is awake and alert. VITAL SIGNS: Afebrile, pulse 75, breathing 16, blood pressure 150/92. HEENT: Head normocephalic and atraumatic. Eyes intact, no ulcers. Nose intact, no ulcers. Ears intact, no ulcers. Neck: Supple. No JVD. Chest: Symmetrical and clear. Cardiovascular: Shows S1 and S2, no rub, no murmur. Gastrointestinal: Abdomen is soft, bowel sounds positive. Extremities: Show no edema or ulcers. Skin: Shows no rash or petechiae. Musculoskeletal: Shows no joint swelling or stiffness. Genitourinary: Shows no Morris or CVA tenderness. Neurologic: Motor intact. Cranial nerves intact. ASSESSMENT AND PLAN: 1. Stage 6 chronic kidney disease, plan dialysis. 2. Hypertension, stable. 3. Anemia, stable. We will recheck hemoglobin again and transfuse as needed. 4. Medication based on GFR appropriate. Job ID: [id number]
== END 2019-12-30 21:26 | disposition home or self-care (01) ==
LOC: ERS 14:55
DX: I13.2 Hypertensive heart and chronic kidney disease with heart failure and with stage 5 chronic kidney disease, or end stage renal disease (principal); E11.22 Type 2 diabetes mellitus with diabetic chronic kidney disease; N18.6 End stage renal disease; I50.9 Heart failure, unspecified; E78.5 Hyperlipidemia, unspecified; D64.9 Anemia, unspecified; E78.00 Pure hypercholesterolemia, unspecified; Z86.73 Personal history of transient ischemic attack (TIA), and cerebral infarction without residual deficits; Z79.899 Other long term (current) drug therapy; Z99.2 Dependence on renal dialysis; Z79.82 Long term (current) use of aspirin; Z79.4 Long term (current) use of insulin
CPT/HCPCS: 36430; 80053; 82010; 82330; 82435; 82803; 82962; 83930; 84132; 84295; 85014; 85025; 86850; 86900; 86901; 86920; 93005; 94640; 94760; P9016; 36415; 36416; 96374; 96375; J1644; J1815; J2405; J3010

== ENCOUNTER 2020-01-11 23:25 | Inpatient (IN) | payer MEDICARE, BC ==
[2020-01-12 00:27] LABS: #Eosinphils 0.1 thou/uL (0.0-0.7); #Lymphocytes 0.6 thou/uL (1.20-3.40); #Monocytes 0.5 thou/uL (0.11-0.59); #Neutrophils 6.3 thou/uL (1.40-6.50); %Basophils 0.6 % (0.0-1.0); %Eosinophils 1.2 % (0.0-10.0); %Lymphocytes 7.7 % (21.0-51.0); %Monocytes 6.2 % (0.0-10.0); %Neutrophils 84.3 % (42.0-75.0); Hemoglobin 10.3 g/dL (12.0-16.0); Mean Corpuscular HGB CONC 32.5 g/dL (32.0-36.0); Mean Corpuscular Hemoglobin 33.1 pg (27.0-31.0); Mean Platelet Volume 9.4 fL (7.4-10.4); Platelet Count 229 thou/uL (130-400); RBC Distribution Width 16.2 % (11.5-14.5); Red Blood Cell (RBC) Count 3.11 mill/uL (4.20-5.40); White Blood Cell (WBC) Count 7.5 thou/uL (4.8-10.8)
[2020-01-12 00:40] LABS: ALT (SGPT) 10 U/L (8-55); AST (SGOT) 14 U/L (5-34); Alkaline Phosphatase 368 U/L (40-110); Anion Gap 20 mmol/L (10-20); BUN (Urea Nitrogen) 38 mg/dL (7.0-18.7); Bilirubin, Total 0.9 mg/dL (0.2-1.2); Calc. Creatinine Clearance 0 mL/min (70-130); Calcium 9.7 mg/dL (7.8-10.44); Carbon Dioxide 27 mmol/L (22-29); Chloride 94 mmol/L (98-107); Estimated GFR-MDRD 12; Globulin 4.4 g/dL (2.4-3.5); Glucose 289 mg/dL (70-105); Potassium 3.6 mmol/L (3.5-5.1); Protein, Total 8.4 g/dL (6.0-8.3); Sodium 137 mmol/L (136-145)
[2020-01-12] MEDS ORDERED: Ondansetron PF 4 MG/2 ML Vial ONE ×2 (00:51→02:20)
[2020-01-12] MEDS ORDERED: Fentanyl 100 MCG/2 ML VIAL ONE (00:51)
[2020-01-12 01:03] LABS: CKMB 2.4 ng/mL (0-6.6)
[2020-01-12] MEDS ORDERED: Aspirin 325 MG TAB ONE (02:15)
[2020-01-12] MEDS ORDERED: Nitroglycerin 0.4 MG TAB (25 Tab Bottle) SL PRN (03:22)
[2020-01-12] MEDS ORDERED: Promethazine HCl 25 MG/ML VIAL ONE (04:07)
[2020-01-12] MEDS ORDERED: Nitroglycerin 2% Ointment 1 INCH/1 GM Packet ONE (04:07)
[2020-01-12] MEDS ORDERED: Metoclopramide HCl 10 MG/2 ML VIAL ONE (04:07)
[2020-01-12] MEDS ORDERED: Senokot S 8.6-50 MG TAB PO PRN (04:14)
[2020-01-12] MEDS ORDERED: Dextrose 5% in Water 1,000 ML IV PRN (04:22)
[2020-01-12] MEDS ORDERED: Dextrose 50% Abboject 50 ML SYRINGE SLOW IVP PRN (04:22)
[2020-01-12] MEDS ORDERED: Lorazepam 2 MG/ML VIAL SLOW IVP SCH (04:45)
[2020-01-12] MEDS ORDERED: Lorazepam 2 MG/ML VIAL ONE (04:49)
[2020-01-12] MEDS ORDERED: Acetaminophen 325 MG TAB ONE (05:28)
[2020-01-12] MEDS: Acetaminophen 325 MG TAB PO PRN (05:29)
[2020-01-12 05:44] LABS: CKMB 2.7 ng/mL (0-6.6)
--- NOTE | 2020-01-12 05:52 | HP ---
CHIEF COMPLAINT: Abdominal pain. HISTORY OF PRESENT ILLNESS: The patient is a 49-year-old female with past medical history of end-stage renal disease, on dialysis, who presents to the hospital with complaints of abdominal pain x1 day. The patient stated that she has been actually constipated for the past few days. She did take laxatives and had about 3 to 4 bouts of bowel movements. However, when she woke up today, she was very nauseated and when she went to dialysis, started having significant amount of nausea and cramping. At this point, the dialysis was stopped. According to the son who is at bedside, about 2 L was removed, but then some of the fluid was returned back given the fact that she was significantly cramping all over. She also has been having some generalized abdominal pain. She denies any current diarrhea. She states that she has been constipated. Denies any fevers, but states that she feels cold. Currently, she has been having some chest tightness, but no shortness of breath. In the ER, she was significantly nauseated and had multiple bouts of emesis. PAST MEDICAL HISTORY: 1. Systolic heart failure, EF of 30% to 35%. 2. End-stage renal disease, on hemodialysis. 3. Hypertension. 4. History of TIA. 5. Seizure disorder, questionable. 6. Anemia. 7. Macular degeneration. PAST SURGICAL HISTORY: She has a dialysis access catheter, bilateral tubal ligation, and cardiac catheterization. ALLERGIES: SHE HAS NO KNOWN DRUG ALLERGIES. MEDICATIONS: This is from her list previously, 1. Aspirin 81 mg daily. 2. Plavix 75 mg daily. 3. Amlodipine 5 mg daily. 4. Lipitor 40 mg daily. 5. Carvedilol 50 mg twice a day. 6. NovoLog sliding scale. 7. Levemir 12 units daily. 8. Isosorbide 20 three times a day. 9. Keppra 500 mg q.p.m. 10. Minoxidil 2.5 daily. 11. Entresto twice a day. 12. Clonidine 0.2 mg t.i.d. 13. Hydralazine 50 mg t.i.d. SOCIAL HISTORY: She currently lives at home with her family. Denies any alcohol use, drug use, or smoking history. FAMILY HISTORY: Positive for heart disease, hypertension, and diabetes. REVIEW OF SYSTEMS: All negative except for the ones mentioned above in the HPI. PHYSICAL EXAMINATION: VITAL SIGNS: Temperature of 98.2, 97% on room air, respirations 17, 78 pulse, blood pressure 190/105. GENERAL: She is awake, appears very ill, significantly nauseated, and had multiple bouts of emesis. CV: S1 and S2 present. No murmurs, rubs, or gallops. LUNGS: She is clear on auscultation. No rhonchi or wheezes noted. ABDOMEN: Bowel sounds are present x2. Significant pain upon light palpation all over the abdomen area, unable to say which side is more painful. EXTREMITIES: No edema. Pedal pulses are present x2. NEUROVASCULAR: No focal deficits noted. SKIN: No cuts, lesions, or bruises noted. She does have a tunneled catheter to her right chest wall area. LABORATORY RESULTS: Her BNP is 3815. Her troponin 0.072. Her sodium is 137, potassium of 3.6, BUN of 38, creatinine of 3.84. Her alkaline phosphatase is mildly elevated at 368, however, her bilirubin is normal, and her AST and ALT are normal. WBCs of 7.5, hemoglobin of 10.3, hematocrit of 31.7, and her platelets are 229. She did have a CT of abdomen and pelvis, and I did review this with the ER physician, just appears to have significant amount of ascites, some fatty liver, and also some stool around her colon. ASSESSMENT AND PLAN: The patient is a 49-year-old female, who presents to the hospital with complaints of abdominal pain. 1. Abdominal pain, nausea, vomiting, unclear etiology at this time, possible pancreatitis versus peptic ulcer versus gastroparesis. I will check a lipase on her. I will also check a lactic acid. Upon reviewing her chart, she has had previous bouts of nausea and vomiting in the past. I am not sure if she has ever seen a strategy associate. If she has not, I will go ahead and consult GI; however, initially, I would like to try some medications to see if that would help her with her pain. We will give her some antiemetics and also some Reglan if she has gastroparesis. The patient upon doing her chart notes that she has had splenic and renal infarcts. This could be something similar that is causing her to have significant amount of pain. 2. End-stage renal disease. We will consult Nephrology. 3. Elevated troponins. We will trend her troponins. She did have an echo last time in 2019; however, currently, I am unable to review the results due to computer issues, but from the previous notes, it was noted her EF of 30% to 35%. 4. Deep venous thrombosis prophylaxis. We will put the patient on SCDs and subcu Lovenox and continue to monitor. 5. We will keep the patient n.p.o. until her nausea and vomiting resolves. We will get a right upper quadrant ultrasound for better visualization of her gallbladder. The differential for her abdominal pain, nausea, vomiting could be gallbladder related versus gastroparesis versus pancreatitis versus gastritis. Job ID: [id number]
--- NOTE | 2020-01-12 08:42 | ULT ---
RIGHT UPPER QUADRANT ULTRASOUND: Date: 01/12/2020 PROVIDED CLINICAL HISTORY: Abdominal pain. FINDINGS: The liver appears enlarged, measuring about 22 cm in craniocaudal dimension at the right hepatic lobe . Partially visualized right pleural fluid. Free intraperitoneal fluid is also demonstrated. There is no evidence for intrahepatic or extrahepatic biliary ductal dilatation. Common duct measures about 4 .0 mm. Gallbladder demonstrates no stones. Nonspecific prominence of the gallbladder wall measuring about 5. 0 mm. The gallbladder is not significantly distended. The right kidney demonstrates no evidence for hydronephrosis or mass. The visualized portions of the pancreas appear normal. IMPRESSION: 1. Hepatomegaly. 2. Right pleural fluid and free intraperitoneal fluid. 3. Nonspecific gallbladder wall thickening without evidence for stones or significant gallbladder di stention. POS: [facility]
--- NOTE | 2020-01-12 08:44 | CT ---
PRELIMINARY REPORT/[facility]/EMERGENCY AFTER HOURS PROCEDURE: EXAM: CT Abdomen and Pelvis with Intravenous Contrast CLINICAL HISTORY: F50, Patient has a history of DM, CHF, ESRD on T// dialysis that presents with severe abdominal p ain and vomiting. She reportedly began to develop cramping today during dialysis and had to stop afte r getting 1.5L off. Patient reports mild chest pain with dyspnea, but severe nausea with multiple epi sodes of emesis associated with diffuse abdominal pain. She reports last normal bowel movement 2 days ago, struggles with constipation TECHNIQUE: Axial computed tomography images of the abdomen and pelvis with intravenous contrast. CONTRAST: With; ISOVUE 370,100mL COMPARISON: None provided. FINDINGS: LUNG BASES: Small right-sided pleural effusion. Right basilar subsegmental atelectasis. Moderate ca rdiomegaly. LIVER: The liver is enlarged measuring 24.9 cm in length with heterogeneity and great decrease in den sity. GALLBLADDER AND BILE DUCTS: Unremarkable. No calcified stone. No ductal dilation. PANCREAS: Unremarkable. SPLEEN: Unremarkable. ADRENAL GLANDS: Unremarkable. KIDNEYS, URETERS, AND BLADDER: Unremarkable. No hydronephrosis or nephrolithiasis. No ureteral or roseann dder calculi. STOMACH AND BOWEL: No obstruction. No wall thickening. No CT evidence of colitis or acute diverticuli tis. APPENDIX: No CT evidence for appendicitis. PERITONEUM: Moderate ascites. No free air. LYMPH NODES: No lymphadenopathy. REPRODUCTIVE: Unremarkable as visualized. VASCULATURE: No aortic aneurysm. BONES: No fracture or suspicious osseous abnormality. ABDOMINAL WALL AND SOFT TISSUES: Anasarca. IMPRESSION: No acute intra-abdominal or pelvic abnormality. Hepatomegaly with fatty infiltration. Moderate ascites. Anasarca. Small right-sided pleural effusion with right basilar subsegmental atelectasis. Moderate cardiomegal y. ELECTRONICALLY SIGNED BY: Gustabo Justin MD Jan 12, 2020 1:27:37 AM CDT This report is intended for review by the ordering physician only, in accordance of law. If you recei ve this report in error, please call [facility] at [phone]. FINAL REPORT CT ABDOMEN AND PELVIS WITH IV CONTRAST: I agree with the preliminary report given by [facility]. Comparison is made with exam of 12/04/2019. The mild hepatomegaly and heterogeneous density of the liver is again seen, likely due to chronic vol ume overload. The peripheral hypodensity in the spleen suggestive of infarction appears larger. This was not mentio hilario on the preliminary report. There is agreement with the remainder of the preliminary report given by [facility]. ANGIE Duong.
[2020-01-12] MEDS ORDERED: Insulin Glargine 12 UNITS in Pre-Filled Syringe 1 EACH SC SCH (09:00)
[2020-01-12] MEDS ORDERED: Enoxaparin Sodium 30 MG/0.3 ML SYRINGE SC SCH (09:00)
[2020-01-12] MEDS ORDERED: INSULIN DETEMIR 12 UNIT SQ SCH (09:00)
--- NOTE | 2020-01-12 09:43 | RAD ---
CHEST 1 VIEW: HISTORY: Chest pain. COMPARISON: Radiograph 12/05/2019. FINDINGS: Dialysis catheter tip projects over the inferior SVC. Mild volume overload. Numerous surgical cydney over the right arm. No acute osseous abnormality. IMPRESSION: No acute intrathoracic abnormality. Mild volume overload. POS: [facility]
[2020-01-12] MEDS: Promethazine HCl 25 MG/ML VIAL IM/IV PRN (10:25)
[2020-01-12] MEDS: hydrALAZINE 20 MG/ML VIAL SLOW IVP PRN ×2 (10:53→18:35)
[2020-01-12] MEDS: hydrALAZINE 25 MG TAB PO SCH ×3 (11:25→20:10)
[2020-01-12] MEDS: Minoxidil 2.5 MG TAB PO SCH (11:26)
[2020-01-12] MEDS: Pantoprazole 40 MG VIAL IVP SCH (11:26)
--- NOTE | 2020-01-12 12:21 | CT ---
CT BRAIN WITHOUT CONTRAST: Date: 01/12/2020 HISTORY: Intractable vomiting, headache, TIA, seizure. FINDINGS: Comparison made with exam of 12/05/2019. No evidence of acute infarct, hemorrhage, midline shift, or abnormal extra-axial fluid collections ar e seen. The ventricular size is normal and the basilar cisterns are patent. The bony calvarium is int act. There is mild mucosal disease in the left anterior ethmoid air cells. IMPRESSION: No CT evidence of acute intracranial process. POS: [facility]
[2020-01-12] MEDS ORDERED: Promethazine HCl 25 MG/ML VIAL SLOW IVP SCH (12:30)
[2020-01-12] MEDS: Morphine 4 MG/ML VIAL SLOW IVP PRN (12:38)
--- NOTE | 2020-01-12 12:57 | CON ---
DATE OF CONSULTATION: REASON FOR CONSULTATION: End-stage renal disease for maintenance hemodialysis. HISTORY OF PRESENT ILLNESS: This is a very pleasant 49-year-old female, who presented to the hospital earlier today for abdominal pain. The patient denies chest pain. No orthopnea. No PND. The patient has had multiple hospitalization. She dialysis on Wednesday, , and Wednesday. PAST MEDICAL HISTORY: Significant for heart failure, end-stage renal disease, hypertension, TIA, seizure disorder, anemia, macular degeneration, history of tunneled dialysis catheter, history of tubal ligation, and cardiac catheterization. MEDICATIONS: Home medications list reviewed. Hospital medications list reviewed. ALLERGIES: REVIEWED. REVIEW OF SYSTEMS: Fifteen-point review of system was performed and negative except for positives noted above. HEENT: Eyes intact, no diplopia. Ears: No hearing loss or earache. Nose: No discharge or bleeding. CHEST: No cough or phlegm. ABDOMEN: No nausea or vomiting. GENITOURINARY: No hematuria. No Morris catheter. MUSCULOSKELETAL: No low back pain. No joint swelling or pain. NEUROLOGICAL: No syncope. No seizures. SKIN: No complaints of rash or itching. PSYCHIATRIC: No depression. CONSTITUTIONAL: No weight loss or loss of appetite. PHYSICAL EXAMINATION: GENERAL: The patient is awake and alert. VITAL SIGNS: Afebrile, pulse 75, breathing at 16, and blood pressure 190/105. HEENT: Head normocephalic and atraumatic. Eyes intact, no ulcers. Nose intact, no ulcers. Ears intact, no ulcers. NECK: Supple. No JVD. CHEST: Symmetrical and clear. CARDIOVASCULAR: Shows S1 and S2, no rub, no murmur. GASTROINTESTINAL: Abdomen is soft, bowel sounds positive. EXTREMITIES: Show no edema or ulcers. SKIN: Shows no rash or petechiae. MUSCULOSKELETAL: Shows no joint swelling or stiffness. GENITOURINARY: Shows no Morris or CVA tenderness. NEUROLOGIC: Motor intact. Cranial nerves intact. LABORATORY DATA: Reviewed. ASSESSMENT AND PLAN: 1. Stage 6 chronic kidney disease. Plan dialysis tomorrow. 2. Hypertension, probably because of pain. Titrate blood pressure medicine. 3. Anemia, stable. 4. Medications based on GFR appropriate. 5. Abdominal pain, management per Primary Team. Overall prognosis is poor. Job ID: [id number]
[2020-01-12] MEDS ORDERED: Insulin Glargine 6 UNITS in Pre-Filled Syringe 1 EACH SC SCH (13:00)
[2020-01-12] MEDS ORDERED: Lidocaine 1% PF 5 ML VIAL ONE (15:07)
[2020-01-12] MEDS ORDERED: Sodium Bicarbonate 2.5 MEQ/5 ML VIAL ONE (15:07)
[2020-01-12 15:20] LABS: INR-International Normal Ratio 1.2; Prothrombin Time 15.1 SEC (12.0-14.7)
[2020-01-12 15:21] LABS: PTT 42.8 SEC (22.9-36.1)
[2020-01-12] MEDS ORDERED: Iopamidol-370 76% 500 ML 1 ML ONE (15:23)
[2020-01-12 15:28] VITALS: BMI 21.2
--- NOTE | 2020-01-12 15:52 | ULT ---
Exam: Ultrasound guided paracentesis HISTORY: Ascites. Request made for diagnostic paracentesis COMPARISON: None FINDINGS: Successful ultrasound-guided paracentesis. Total of 20 cc of tiarra color ascites was aspira joslyn. TECHNIQUE: Consent obtained reformatory ultrasound-guided paracentesis. Right lower quadrant was deem ed appropriate. Skin was prepped and draped in a sterile fashion. 1% lidocaine, buffered with sodium bicarbonate was used for local anesthesia. Under ultrasound guidance, a 22-gauge spinal needle is advanced in the peritoneal space. A total of 20 cc of tiarra color ascites was aspirated. No immediate or postprocedural complications IMPRESSION: Successful ultrasound-guided diagnostic paracentesis.
--- NOTE | 2020-01-12 17:07 | CON ---
DATE OF CONSULTATION: 01/12/2020 REQUESTING PHYSICIAN: Blue Ritter MD REASON FOR CONSULTATION: Nausea and vomiting. HISTORY OF PRESENT ILLNESS: Viji Schaeffer is a 49-year-old woman with a history significant for diabetes, CHF with ejection fraction of 30% to 35%, and end-stage renal disease on dialysis Wednesday, and Wednesday. She has macular degeneration, hypertension, and seizure disorder. She reports no chronic abdominal symptoms, but I do note she has had multiple admissions in the recent past for nausea and vomiting. She has not undergone upper or lower endoscopy that I can see. Evidently, yesterday morning, she started having some significant nausea. During dialysis yesterday, the nausea worsened and she started having severe generalized abdominal cramping pain. Dialysis had to be cut short. Upon arrival to the emergency department, she had several episodes of nonbloody emesis and had a couple more episodes overnight. There has been no fever or significant shortness of breath with this. She reports some chronic tendency to constipation, but she has had recent bowel movements with laxative administration. CT imaging this morning demonstrates anasarca with moderate ascites, as well as what appears to be an enlarging splenic infarction, which was seen on a prior scan one month ago. Notably, the pancreas, bowel, and gallbladder all appear normal. She has very mild lipase elevation, significant elevation in BNP. Her nausea and abdominal discomfort have persisted since admission this morning, not having much relief with antiemetics. I cannot see that she has ever had a diagnostic paracentesis in the past. She does not have a leukocytosis and she is not febrile. It does not appear that she takes any acid suppression. REVIEW OF SYSTEMS: Full review of systems including constitutional; head, eyes, ears, nose, and throat; GI; ; cardiovascular; respiratory; musculoskeletal; and neurologic systems is negative except as noted in the HPI. PAST MEDICAL HISTORY: 1. Systolic congestive heart failure with ejection fraction of 30% to 35%. 2. End-stage renal disease, on hemodialysis. 3. Hypertension. 4. TIA. 5. Possible seizure disorder. 6. Chronic anemia. 7. Macular degeneration. 8. Bilateral tubal ligation. 9. Cardiac catheterization. ALLERGIES: NO KNOWN DRUG ALLERGIES. OUTPATIENT MEDICATIONS: 1. Aspirin 81 mg daily. 2. Plavix 75 mg daily. 3. Amlodipine 5 mg daily. 4. Lipitor 40 mg daily. 5. Carvedilol 50 mg twice daily. 6. NovoLog sliding scale. 7. Levemir insulin 12 units daily. 8. Isosorbide 20 mg 3 times daily. 9. Keppra 500 mg daily. 10. Minoxidil 2.5 mg daily. 11. Entresto twice daily. 12. Clonidine 0.2 mg t.i.d. 13. Hydralazine 50 mg t.i.d. SOCIAL HISTORY: No alcohol, smoking, or drug use. FAMILY HISTORY: Positive for heart disease, hypertension, and diabetes. PHYSICAL EXAMINATION: VITAL SIGNS: Temperature 98.2, pulse 78, blood pressure 190/105, and 97% oxygen saturation on room air. GENERAL: A 49-year-old woman, sitting upright in bed, in moderate distress from nausea and abdominal pain. SKIN: No jaundice. No rashes were palpable. EYES: No scleral icterus. Extraocular movements intact. ENT: Mucosal breakdown of the lips. Mucous membranes moist. No oral lesions. LYMPH: No submandibular or supraclavicular lymphadenopathy. THYROID: Nontender to palpation. HEART: Regular rate and rhythm. LUNGS: Clear to auscultation bilaterally. ABDOMEN: There is mild distention of the abdomen with fluid wave. Bowel sounds are active. The abdomen is diffusely tender to palpation. There is no guarding or rebound tenderness. Particularly, she is tender in the upper mid abdomen and left upper quadrant. EXTREMITIES: No peripheral edema. VESSELS: Radial pulses 2+ bilaterally. NEUROLOGIC: Cranial nerves 2 through 12 intact bilaterally. No focal deficits. LABORATORY STUDIES: WBC normal at 7.5, hemoglobin 10.0, and platelets 229. Sodium 137, potassium 3.6, BUN 38, and creatinine 3.84. BNP elevated to 3815. Troponin is negative at 0.05. Lactic acid only 1.0. Lipase 133, which is less than twice the upper limit of normal. GGT is 558, total bilirubin 0.9, alkaline phosphatase 368, AST 14, ALT 10, and albumin 4.0. IMAGING STUDIES: Chest x-ray showed mild volume overload. Brain CT showed no acute processes. Abdominal ultrasound showed hepatomegaly, no evidence of gallbladder or common bile duct dilation, there is free fluid in the abdomen. CT of the abdomen and pelvis demonstrated cardiomegaly, a small right pleural effusion, mild hepatomegaly, there is anasarca and moderate ascites, what appears to be a wedge-shaped splenic infarction is larger since prior exam on 12/04/2019. Normal-appearing gallbladder, pancreas, spleen, bowel, bile ducts, adrenals, kidneys and no lymphadenopathy. ASSESSMENT AND PLAN: 1. Acute generalized abdominal pain. 2. Acute nausea and vomiting. 3. Ascites with anasarca, likely chronic. 4. 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 She has had prior admissions for nausea and vomiting, but symptoms do seem severe. It is possible she may be having recurrent splenic infarctions and these could certainly be a cause of pain and nausea. Gastroparesis is also a consideration, as well as upper gastrointestinal mucosal pathology such as peptic ulcer disease. I really do not see any evidence of pancreatitis with a normal-appearing pancreas on imaging and lipase not really that elevated. Another possibility would be development of spontaneous bacterial peritonitis, despite the absence of leukocytosis. For now, I agree with the initiation of IV Protonix, as well as antiemetics as needed. I am going to order diagnostic paracentesis, send fluid for cell count with differential, culture, total protein, and albumin, to rule out spontaneous bacterial peritonitis. We are going to tentatively plan for diagnostic upper endoscopy tomorrow. Thank you for the consultation. Please call in the meantime with questions or concerns. Job ID: [id number]
[2020-01-12 17:23] LABS: RBC Count-Automated (BF) 8612 /cumm; WBC/Nucleated-Auto (BF) 455 uL
[2020-01-12 17:24] LABS: BF Color Pink; Body Fluid Source Ascites Body Fluid; Clarity Cloudy/Turbid (Clear); Tube # EDTA
[2020-01-12 18:04] LABS: BF Segmented Neutrophils 8 %; Eosinophils 1 %; Lymphocytes 32 %
[2020-01-12 18:05] LABS: Cell Count Non Hematic 58 %
[2020-01-12] MEDS: HumaLOG 300 UNITS/3 ML VIAL SC PRN (19:37)
[2020-01-12] MEDS: Heparin 5,000 UNITS/ML VIAL SC SCH (20:10)
[2020-01-13] MEDS: Promethazine HCl 25 MG/ML VIAL IM/IV PRN ×2 (00:57→20:47)
[2020-01-13] MEDS: hydrALAZINE 20 MG/ML VIAL SLOW IVP PRN ×2 (00:59→12:18)
[2020-01-13] MEDS: Ondansetron PF 4 MG/2 ML Vial IVP PRN ×2 (01:21→11:58)
[2020-01-13] MEDS: Morphine 4 MG/ML VIAL SLOW IVP PRN (04:25)
[2020-01-13 05:05] LABS: #Lymphocytes 0.6 thou/uL (1.20-3.40); #Monocytes 0.9 thou/uL (0.11-0.59); #Neutrophils 6.3 thou/uL (1.40-6.50); %Basophils 0.4 % (0.0-1.0); %Eosinophils 0.4 % (0.0-10.0); %Lymphocytes 7.8 % (21.0-51.0); %Neutrophils 80.4 % (42.0-75.0); Hemoglobin 10.4 g/dL (12.0-16.0); Mean Corpuscular Hemoglobin 33.4 pg (27.0-31.0); Mean Platelet Volume 9.3 fL (7.4-10.4); Platelet Count 232 thou/uL (130-400); Red Blood Cell (RBC) Count 3.11 mill/uL (4.20-5.40); White Blood Cell (WBC) Count 7.8 thou/uL (4.8-10.8)
[2020-01-13 05:35] LABS: Anion Gap 23 mmol/L (10-20); BUN (Urea Nitrogen) 59 mg/dL (7.0-18.7); Calc. Creatinine Clearance 11 mL/min (70-130); Calcium 9.4 mg/dL (7.8-10.44); Carbon Dioxide 24 mmol/L (22-29); Chloride 94 mmol/L (98-107); Estimated GFR-MDRD 8; Glucose 278 mg/dL (70-105); Potassium 3.9 mmol/L (3.5-5.1); Sodium 137 mmol/L (136-145)
[2020-01-13] MEDS ORDERED: Ketamine 50 MG/ML (10ML VIAL) ONE ×2 (08:57→08:58)
[2020-01-13] MEDS ORDERED: FLU VACC QS2019-20(6MOS UP)/PF 60 MCG/0.5 ML SYRINGE IM ONE (09:00)
[2020-01-13] MEDS ORDERED: Prevnar 13-Val Conj/PF 0.5 ML SYRINGE IM ONE (09:00)
[2020-01-13] MEDS ORDERED: Ondansetron HCl/PF 4 MG/2 ML Vial IVP PRN (09:40)
--- NOTE | 2020-01-13 10:06 | OP ---
DATE OF PROCEDURE: 01/13/2020 SOFTWARE RELEASE MANAGER SURGEON: None. PROCEDURE PERFORMED: EGD with biopsies. INDICATIONS: 1. Acute nausea and vomiting. 2. Generalized abdominal pain. MEDICATIONS: See Anesthesia record. FINDINGS: After discussion of the risks, benefits, and alternatives of the procedure, informed consent was obtained and witnessed. Pre-endoscopic cardiopulmonary examination was satisfactory. Time-out was performed before sedation was achieved. Sedation was achieved with Anesthesia assistance in the endoscopy unit. A Pentax adult upper endoscope was placed into the oropharynx and passed through the cricopharyngeus under direct visualization. The esophageal mucosa appeared normal throughout with a normal-appearing Z-line. There was no evidence of any esophageal varices. The endoscope was advanced into the stomach. Forward and retroflexed views of the entire gastric mucosa were obtained. There was no evidence of any gastric varices. Within the gastric fundus and proximal gastric body, there is severe erythema and edema diffusely. There are a few superficial erosions, but no ulcerations noted. The gastric antrum appears relatively normal. I obtained biopsies from the gastric antrum, body, and fundus for histology and to rule out H pylori. The endoscope was advanced through the pylorus and into the first and second portions of the duodenum, which appeared normal. The upper endoscope was completely withdrawn and the patient allowed to recover. The patient tolerated the procedure well. There were no immediate postprocedure complications. IMPRESSION: 1. Severe gastritis in the fundus and proximal body of the stomach, diffuse. No ulcerations. Biopsies obtained. 2. Otherwise normal EGD. RECOMMENDATIONS: 1. Increase pantoprazole 40 mg IV to every 12 hour dosing. 2. Continue antiemetics and supportive care. 3. If there is no clinical improvement and symptoms, or if worsening, consider repeat CT abdomen to evaluate for worsening splenic infarction. Again, her acute presentation remains suspicious. 4. I note the peritoneal fluid studies do not meet criteria for SBP. She has a low serum ascites albumin gradient, with elevated ascites total protein to 4.5, which is consistent with cardiac ascites, not hepatic ascites. Job ID: [id number]
--- NOTE | 2020-01-13 11:20 | EKG ---
Test Reason : Blood Pressure : / mmHG Vent. Rate : 077 BPM Atrial Rate : 077 BPM P-R Int : 196 ms QRS Dur : 090 ms QT Int : 394 ms P-R-T Axes : 030 -29 036 degrees QTc Int : 445 ms Normal sinus rhythm Left atrial enlargement Nonspecific ST and T wave abnormality Abnormal ECG Confirmed by CHRISTY RODAS, NAOMY Huerta ([id number]), assistant production editor OCTAVIA KENNEDY ([id number]) on 01/13/2020 11:19:59 AM Referred By: Confirmed By:NAOMY HARRISON MD
[2020-01-13] MEDS: Pantoprazole 40 MG VIAL IVP SCH ×2 (11:58→20:43)
[2020-01-13] MEDS: HumaLOG 300 UNITS/3 ML VIAL SC PRN (11:59)
[2020-01-13] MEDS: Insulin Glargine 6 UNITS in Pre-Filled Syringe 1 EACH SC SCH (11:59)
[2020-01-13] MEDS: Morphine 2 MG/ML SYRINGE SLOW IVP PRN ×2 (12:21→19:22)
[2020-01-13] MEDS: Minoxidil 2.5 MG TAB PO SCH (12:26)
[2020-01-13] MEDS: hydrALAZINE 25 MG TAB PO SCH ×3 (12:27→20:44)
[2020-01-13] MEDS: Heparin 5,000 UNITS/ML VIAL SC SCH ×2 (12:27→21:02)
[2020-01-13] MEDS ORDERED: Heparin 10,000 UNITS/ 10 ML VIAL ONE (13:10)
--- NOTE | 2020-01-13 15:20 | PDOC.HOSPP ---
- Subjective Encounter Date: 01/13/20 Encounter Time: 12:00 Subjective: Pt seen for followup re:abdominal pain. Pt reports abdo pain, in less distress today. - Objective Vital Signs & Weight: Vital Signs (12 hours) Temp Pulse Resp BP Pulse Ox 01/13/20 12:27 79 01/13/20 12:18 79 01/13/20 12:10 97.9 F 83 20 195/88 H 96 01/13/20 07:50 95 01/13/20 07:46 97.9 F 79 20 190/88 H 95 01/13/20 04:00 98.5 F 78 18 171/79 H 95 Weight Admit Weight 123 lb 9.6 oz Weight 123 lb 9.6 oz Result Diagrams: 01/13/20 04:24 01/13/20 04:24 Additional Labs: Accuchecks 01/13/20 01/13/20 01/12/20 10:53 05:24 23:50 POC Glucose 324 H 283 H 305 H 01/12/20 01/12/20 20:49 18:37 POC Glucose 414 H 384 H Labs and MARs reviewed by me EKG Reviewed by me: Yes (Tele: NSR) Hospitalist ROS - Review of Systems Constitutional: denies: fever, chills, sweats, weakness, malaise Cardiovascular: denies: chest pain, palpitations, orthopnea, paroxysmal noc. dyspnea, edema, light headedness Gastrointestinal: reports: nausea, abdominal pain. denies: vomiting, diarrhea, constipation, melena, hematochezia Genitourinary: denies: dysuria, frequency, incontinence, hematuria, retention Musculoskeletal: denies: neck pain, shoulder pain, arm pain, back pain, hand pain, leg pain, foot pain - Medication Medications: Active Medications Generic Name Dose Route Start Last Admin Trade Name Freq PRN Reason Stop Dose Admin Acetaminophen 650 mg 01/12/20 04:14 01/12/20 05:29 Tylenol PO 650 mg Q4H PRN Administration Headache/Fever/Mild Pain (1-3) Heparin Sodium (Porcine) 5,000 units 01/12/20 21:00 01/13/20 12:27 Heparin SC Not Given Q12HR ALMITA Hydralazine HCl 50 mg 01/12/20 09:00 01/13/20 12:27 Apresoline PO Not Given TID ALMITA Hydralazine HCl 10 mg 01/12/20 10:36 01/13/20 12:18 Apresoline SLOW IVP 10 mg Q6H PRN Administration SBP Greater Than 170 Insulin Glargine 6 units/ 0.06 mls @ 0 mls/hr 01/13/20 09:00 01/13/20 11:59 Miscellaneous Medication SC 0.06 mls QAM ALMITA Administration Insulin Human Lispro 0 units 01/12/20 04:22 01/13/20 11:59 Humalog SC 5 unit .MILD SLIDING SCALE PRN Administration Mild Correctional Scale Minoxidil 2.5 mg 01/12/20 09:00 01/13/20 12:26 Minoxidil PO Not Given QAM [facility] Morphine Sulfate 2 mg 01/13/20 12:18 01/13/20 12:21 Morphine SLOW IVP 2 mg Q4H PRN Administration Pain Ondansetron HCl 4 mg 01/12/20 10:19 01/13/20 11:58 Zofran IVP 4 mg Q6H PRN Administration Nausea/Vomiting Pantoprazole Sodium 40 mg 01/12/20 09:00 01/13/20 11:58 Protonix IVP 40 mg DAILY ALMITA Administration Promethazine HCl 12.5 mg 01/12/20 04:15 01/13/20 00:57 Phenergan IM/IV 12.5 mg Q6H PRN Administration Nausea/Vomiting Sodium Chloride 10 ml 01/12/20 21:00 01/13/20 11:58 Flush - Normal Saline IVF 10 ml Q12HR ALMITA Administration - Exam General Appearance: awake alert Eye: anicteric sclera ENT: moist mucosa Neck: supple, symmetric, no thyromegaly, no lymphadenopathy Heart: RRR, no gallops, no rubs, normal peripheral pulses Respiratory: CTAB, no wheezes, no rales, no ronchi, normal chest expansion Gastrointestinal: soft, non-tender, non-distended, normal bowel sounds, no palpable masses Extremities: no cyanosis Psychiatric: normal affect, normal behavior, A&O x 3 Hosp A/P (1) Abdominal pain Code(s): R10.9 - UNSPECIFIED ABDOMINAL PAIN Status: Acute (2) Gastritis Code(s): K29.70 - GASTRITIS, UNSPECIFIED, WITHOUT BLEEDING Status: Acute (3) CAD (coronary artery disease) Code(s): I25.10 - ATHSCL HEART DISEASE OF [place] CORONARY ARTERY W/O ANG PCTRS Status: Chronic (4) Chronic systolic (congestive) heart failure Code(s): I50.22 - CHRONIC SYSTOLIC (CONGESTIVE) HEART FAILURE Status: Chronic (5) ESRD (end stage renal disease) on dialysis Code(s): N18.6 - END STAGE RENAL DISEASE; Z99.2 - DEPENDENCE ON RENAL DIALYSIS Status: Chronic (6) HTN (hypertension) Code(s): I10 - ESSENTIAL (PRIMARY) HYPERTENSION Status: Chronic Qualifiers: - Plan PT/OT, out of bed/ambulate Continue Protonix IV BID. Await biopsy result. PRN Zofran/phenergan for nausea. Check test. If negative, order repeat CT abdo/pelvis with IV contrast. CAD stable. Dialysis per nephrology service.
[2020-01-13] MEDS ORDERED: Promethazine HCl 25 MG SUPP PR PRN (15:41)
[2020-01-13 16:21] LABS: BHCG - Serum Negative (NEGATIVE); Pregs Control Background? CLEAR/WHITE (CLR/WHITE); Pregs Control Bar Appear? YES (CONTROL BAR)
[2020-01-13] MEDS: Acetaminophen 325 MG TAB PO PRN (20:47)
[2020-01-13] MEDS ORDERED: Lidocaine 2% Viscous Solution 10 ML, Aluminum & Magnesium Hydroxide 30 ML SSW SCH (21:45)
--- NOTE | 2020-01-14 00:52 | PRG ---
DATE OF SERVICE: 01/13/2020 SUBJECTIVE: A 49-year-old female, being seen for end-stage renal disease. The patient denies nausea, vomiting, or chest pain. PHYSICAL EXAMINATION: GENERAL: The patient is awake and alert. VITAL SIGNS: Afebrile, pulse 85, breathing at 16, blood pressure 157/76. HEENT: Head normocephalic and atraumatic. Eyes intact, no ulcers. Nose intact, no ulcers. Ears intact, no ulcers. NECK: Supple. No JVD. CHEST: Symmetrical and clear. CARDIOVASCULAR: Shows S1 and S2, no rub, no murmur. GASTROINTESTINAL: Abdomen is soft, bowel sounds positive. EXTREMITIES: Show no edema or ulcers. SKIN: Shows no rash or petechiae. MUSCULOSKELETAL: Shows no joint swelling or stiffness. GENITOURINARY: Shows no Morris or CVA tenderness. NEUROLOGIC: Motor intact. Cranial nerves intact. LABORATORY DATA: Labs reviewed. ASSESSMENT AND PLAN: 1. Stage 6 chronic kidney disease. Continue hemodialysis per schedule. 2. Hypertension, stable. 3. Anemia, stable. 4. Medication based on GFR appropriate. Job ID: [id number]
[2020-01-14] MEDS: hydrALAZINE 20 MG/ML VIAL SLOW IVP PRN (04:43)
[2020-01-14] MEDS: Morphine 2 MG/ML SYRINGE SLOW IVP PRN ×2 (08:27→21:06)
[2020-01-14] MEDS: Heparin 5,000 UNITS/ML VIAL SC SCH (08:28)
[2020-01-14] MEDS: Insulin Glargine 6 UNITS in Pre-Filled Syringe 1 EACH SC SCH (08:28)
[2020-01-14] MEDS: Pantoprazole 40 MG VIAL IVP SCH ×3 (09:25→21:07)
[2020-01-14 09:44] LABS: #Lymphocytes 0.9 thou/uL (1.20-3.40); #Neutrophils 8.2 thou/uL (1.40-6.50); %Basophils 0.4 % (0.0-1.0); %Eosinophils 0.4 % (0.0-10.0); %Lymphocytes 9.1 % (21.0-51.0); %Monocytes 9.9 % (0.0-10.0); %Neutrophils 80.3 % (42.0-75.0); Hemoglobin 7.8 g/dL (12.0-16.0); Mean Corpuscular HGB CONC 32.7 g/dL (32.0-36.0); Mean Corpuscular Hemoglobin 33.4 pg (27.0-31.0); Mean Platelet Volume 8.8 fL (7.4-10.4); Platelet Count 213 thou/uL (130-400); RBC Distribution Width 15.8 % (11.5-14.5); Red Blood Cell (RBC) Count 2.32 mill/uL (4.20-5.40); White Blood Cell (WBC) Count 10.2 thou/uL (4.8-10.8)
[2020-01-14 09:54] LABS: ALT (SGPT) 9 U/L (8-55); AST (SGOT) 12 U/L (5-34); Albumin 3.6 g/dL (3.5-5.0); Alkaline Phosphatase 266 U/L (40-110); Anion Gap 21 mmol/L (10-20); BUN (Urea Nitrogen) 66 mg/dL (7.0-18.7); Bilirubin, Total 0.8 mg/dL (0.2-1.2); Calc. Creatinine Clearance 16 mL/min (70-130); Calcium 8.8 mg/dL (7.8-10.44); Carbon Dioxide 22 mmol/L (22-29); Chloride 96 mmol/L (98-107); Estimated GFR-MDRD 13; Globulin 3.9 g/dL (2.4-3.5); Glucose 262 mg/dL (70-105); Potassium 4.3 mmol/L (3.5-5.1); Protein, Total 7.5 g/dL (6.0-8.3); Sodium 135 mmol/L (136-145)
--- NOTE | 2020-01-14 10:12 | CT ---
CT abdomen and pelvis with IV contrast HISTORY: Abdominal pain. Vomiting. COMPARISON: 01/12/2020. FINDINGS: Small amount right pleural fluid and dependent atelectasis similar in appearance to the pre vious exam. Diffuse stranding and increased density throughout the subcutaneous fat and intra-abdominal fat is also stable. Ill-defined low-density lesion involving the spleen, described as an infarct on prior exams, is less conspicuous on the current study. Very prominent calcification throughout all of the arterial structures. Small amount of free fluid within the abdomen and pelvis has decreased slightly since the prior study . No evidence of bowel obstruction. Large amount of stool is again demonstrated throughout the colon. D iverticula arise from the colon without adjacent inflammation. IMPRESSION: Interval decrease in free fluid in the abdomen/pelvis. Persistent small right pleural effusion. No new abnormalities are demonstrated.
[2020-01-14 11:19] LABS: Hemoglobin 7.9 g/dL (12.0-16.0)
--- NOTE | 2020-01-14 11:50 | PDOC.HOSPP ---
- Subjective Encounter Date: 01/14/20 Encounter Time: 11:48 Subjective: Pt seen for followup re: abdo pain. c/o epigastric pain. Vomited small amount of blood earlier today. - Objective Vital Signs & Weight: Vital Signs (12 hours) Temp Pulse Resp BP BP Pulse Ox 01/14/20 08:35 94 L 01/14/20 07:21 98.7 F 84 20 182/77 H 95 01/14/20 04:43 81 184/79 H 01/14/20 03:26 98.5 F 81 18 94 L Weight Admit Weight 123 lb 9.6 oz Weight 124 lb 4.8 oz I&O: 01/13/20 01/14/20 01/15/20 06:59 06:59 06:59 Intake Total 350 Output Total 0 Balance 350 Result Diagrams: 01/14/20 10:29 01/14/20 09:31 Additional Labs: Accuchecks 01/14/20 01/13/20 01/13/20 04:47 20:23 16:10 POC Glucose 242 H 174 H 135 H Labs and MARs reviewed by me EKG Reviewed by me: Yes (Tele: NSR) Hospitalist ROS - Review of Systems Cardiovascular: denies: chest pain, palpitations, orthopnea, paroxysmal noc. dyspnea, edema, light headedness Gastrointestinal: reports: nausea, vomiting, other (hematemesis) - Medication Medications: Active Medications Generic Name Dose Route Start Last Admin Trade Name Freq PRN Reason Stop Dose Admin Acetaminophen 650 mg 01/12/20 04:14 01/13/20 20:47 Tylenol PO 650 mg Q4H PRN Administration Headache/Fever/Mild Pain (1-3) Hydralazine HCl 50 mg 01/12/20 09:00 01/13/20 20:44 Apresoline PO 50 mg TID ALMITA Administration Hydralazine HCl 10 mg 01/12/20 10:36 01/14/20 04:43 Apresoline SLOW IVP 10 mg Q6H PRN Administration SBP Greater Than 170 Insulin Glargine 6 units/ 0.06 mls @ 0 mls/hr 01/13/20 09:00 01/14/20 08:28 Miscellaneous Medication SC 0.06 mls QAM ALMITA Administration Insulin Human Lispro 0 units 01/12/20 04:22 01/13/20 11:59 Humalog SC 5 unit .MILD SLIDING SCALE PRN Administration Mild Correctional Scale Minoxidil 2.5 mg 01/12/20 09:00 01/13/20 12:26 Minoxidil PO Not Given QAM ALMITA Morphine Sulfate 2 mg 01/13/20 12:18 01/14/20 08:27 Morphine SLOW IVP 2 mg Q4H PRN Administration Pain Ondansetron HCl 4 mg 01/12/20 10:19 01/13/20 11:58 Zofran IVP 4 mg Q6H PRN Administration Nausea/Vomiting Pantoprazole Sodium 40 mg 01/12/20 09:00 01/13/20 11:58 Protonix IVP 40 mg DAILY ALMITA Administration Pantoprazole Sodium 40 mg 01/13/20 21:00 01/13/20 20:43 Protonix IVP 40 mg Q12HR ALMITA Administration Promethazine HCl 12.5 mg 01/12/20 04:15 01/13/20 20:47 Phenergan IM/IV 12.5 mg Q6H PRN Administration Nausea/Vomiting Promethazine HCl 25 mg 01/13/20 15:41 01/13/20 15:59 Phenergan Suppository NV 25 mg Q6H PRN Administration Nausea/Vomiting Senna/Docusate Sodium 2 tab 01/12/20 04:14 01/13/20 22:22 Senokot S PO 2 tab BID PRN Administration Constipation Sodium Chloride 10 ml 01/12/20 21:00 01/13/20 20:44 Flush - Normal Saline IVF 10 ml Q12HR ALMITA Administration - Exam General Appearance: awake alert ENT: normocephalic atraumatic Neck: supple, symmetric, no thyromegaly Heart: RRR, no rubs Respiratory: CTAB Gastrointestinal: soft Gastrointestinal - other findings: Mild epigastric tenderness Extremities: no cyanosis Psychiatric: normal behavior, oriented to person, oriented to place Hosp A/P (1) Abdominal pain Code(s): R10.9 - UNSPECIFIED ABDOMINAL PAIN Status: Acute (2) Gastritis Code(s): K29.70 - GASTRITIS, UNSPECIFIED, WITHOUT BLEEDING Status: Acute (3) Hematemesis Code(s): K92.0 - HEMATEMESIS Status: Acute (4) CAD (coronary artery disease) Code(s): I25.10 - ATHSCL HEART DISEASE OF [place] CORONARY ARTERY W/O ANG PCTRS Status: Chronic (5) Chronic systolic (congestive) heart failure Code(s): I50.22 - CHRONIC SYSTOLIC (CONGESTIVE) HEART FAILURE Status: Chronic (6) ESRD (end stage renal disease) on dialysis Code(s): N18.6 - END STAGE RENAL DISEASE; Z99.2 - DEPENDENCE ON RENAL DIALYSIS Status: Chronic (7) HTN (hypertension) Code(s): I10 - ESSENTIAL (PRIMARY) HYPERTENSION Status: Chronic Qualifiers: - Plan Hb 7.9 today, similar to her hemoglobin in December. Most likely hemoconcentrated at the time of admission, now correcting. Repeat CT abdo/pelvis unremarkable. Continue Protonix IV BID. Await biopsy result. PRN Zofran/phenergan for nausea. CAD stable. Dialysis per nephrology service.
[2020-01-14] MEDS ORDERED: Heparin 10,000 UNITS/ 10 ML VIAL ONE (13:09)
[2020-01-14 13:19] LABS: Reticulocyte Count 5.8 % (0.5-1.5)
[2020-01-14 13:56] LABS: Hemoglobin 7.6 g/dL (12.0-16.0)
[2020-01-14] MEDS ORDERED: Iopamidol 370 76% 100 ML VIAL ONE (14:30)
--- NOTE | 2020-01-14 14:52 | PRG ---
DATE OF SERVICE: 01/14/2020 SUBJECTIVE: A 49-year-old female being seen for end-stage renal disease. The patient denies nausea, vomiting, or chest pain. OBJECTIVE: See above. The patient is awake and alert. VITAL SIGNS: Afebrile, pulse 75, breathing 16, and blood pressure was 184/79. GENERAL APPEARANCE AND MENTAL STATUS: Fair. HEAD/NECK: Normocephalic. Atraumatic. EYES: EOMI. No deformity. EARS: Clear. No ulcers. NOSE: Intact. No lesions. MOUTH: Clear. No discharge. THROAT: Clear. No exudate. LUNGS: Clear. No crackles. CARDIAC: S1, S2. No rub. ABDOMEN: Benign. Bowel sounds positive. GENITALIA/RECTUM: Morris absent. BACK/EXTREMITIES: Edema 0+. NEUROLOGICAL: Alert and motor intact. SKIN: LYMPHATICS: LABORATORY DATA: Reviewed. Hemoglobin is 7.6. ASSESSMENT AND PLAN: 1. Stage 6 chronic kidney disease. Plan dialysis today after contrast exposure. 2. Anemia. I would recommend transfusion with dialysis. 3. Hypertension. I would recommend ultrafiltration. 4. Medication, based on GFR appropriate. Job ID: [id number]
[2020-01-14] MEDS ORDERED: Metoclopramide HCl 10 MG/2 ML VIAL IVP SCH (15:00)
--- NOTE | 2020-01-14 15:02 | PRG ---
DATE OF SERVICE: 01/14/2020 SUBJECTIVE: Ms. Schaeffer continues to complain of nausea. She had an episode of dark emesis earlier today. She also had a bowel movement, which did appear somewhat dark. She certainly appears more comfortable and abdominal discomfort is a little bit less. She has remained hemodynamically stable. OBJECTIVE: VITAL SIGNS: Temperature 98.7, pulse 84, blood pressure 182/77, and 94% oxygen saturation on 2 L nasal cannula. GENERAL: Chronically ill, lying in bed comfortably. HEART: Regular rate and rhythm. LUNGS: Clear to auscultation bilaterally. ABDOMEN: Bowel sounds are active. The abdomen is soft. There is some tenderness to palpation in the upper and lower abdomen. EXTREMITIES: No peripheral edema. LABORATORY DATA: Hemoglobin dropped to 7.6, hematocrit 23.0, WBC 10.2, and platelets are 213. Sodium 135, potassium 4.3, BUN 66, creatinine 3.79, glucose 2.62, alkaline phosphatase 266, AST 12, ALT 9, total bilirubin 0.8, and albumin 3.6. ASSESSMENT AND PLAN: 1. Severe gastritis, demonstrated on EGD yesterday, biopsies pending. Continue pantoprazole 40 mg IV every 12 hours. 2. Hematemesis. 3. Acute on chronic anemia. The patient has probably had some bleeding from her gastric biopsy sites from yesterday. She remains hemodynamically stable. There is no indication to repeat esophagogastroduodenoscopy at this time. Given her recent Plavix use, ongoing uremia, this puts her at risk for hemorrhage after gastric biopsies. I do expect this to resolve quickly. Continue to monitor hemoglobin and hematocrit, transfuse if needed. 4. Nausea and vomiting, persistent. This is likely multifactorial secondary to gastritis, uremia, heart failure. Consider also the possibility of gastroparesis. We will go ahead and try adding metoclopramide 5 mg IV q.8 hours. Note that her ascites fluid was negative for SBP. 5. Possible splenic infarct, per admission CT. Repeat CT demonstrates this area is less prominent than before, which is a good sign. Job ID: [id number]
[2020-01-14] MEDS ORDERED: Enalaprilat Dihydrate 1.25 MG/ML VIAL SLOW IVP SCH (16:00)
[2020-01-14] MEDS: hydrALAZINE 25 MG TAB PO SCH ×2 (16:22→21:06)
[2020-01-14] MEDS: Minoxidil 2.5 MG TAB PO SCH (16:22)
[2020-01-14] MEDS: HumaLOG 300 UNITS/3 ML VIAL SC PRN ×2 (18:37→21:07)
[2020-01-14 20:07] LABS: Hemoglobin 7.7 g/dL (12.0-16.0)
[2020-01-14] MEDS: Metoclopramide HCl 10 MG/2 ML VIAL IVP SCH (21:06)
[2020-01-15] MEDS: hydrALAZINE 20 MG/ML VIAL SLOW IVP PRN (01:00)
[2020-01-15] MEDS ORDERED: Melatonin 3 MG TAB PO PRN (02:34)
[2020-01-15] MEDS: Morphine 2 MG/ML SYRINGE SLOW IVP PRN (02:46)
[2020-01-15] MEDS: Acetaminophen 325 MG TAB PO PRN (02:53)
[2020-01-15 04:30] LABS: ALT (SGPT) 9 U/L (8-55); AST (SGOT) 13 U/L (5-34); Albumin 3.4 g/dL (3.5-5.0); Alkaline Phosphatase 237 U/L (40-110); Anion Gap 19 mmol/L (10-20); BUN (Urea Nitrogen) 48 mg/dL (7.0-18.7); Bilirubin, Total 0.8 mg/dL (0.2-1.2); Calc. Creatinine Clearance 19 mL/min (70-130); Calcium 8.6 mg/dL (7.8-10.44); Carbon Dioxide 26 mmol/L (22-29); Chloride 96 mmol/L (98-107); Estimated GFR-MDRD 16; Globulin 3.6 g/dL (2.4-3.5); Glucose 133 mg/dL (70-105); Potassium 3.5 mmol/L (3.5-5.1); Sodium 137 mmol/L (136-145)
[2020-01-15 05:14] LABS: Band 1 % (5-11); Eosinophils 2 % (0-10); Hemoglobin 7.3 g/dL (12.0-16.0); Lymphocytes 14 % (21-51); MDiff Complete? YES; Mean Corpuscular HGB CONC 33.1 g/dL (32.0-36.0); Mean Corpuscular Hemoglobin 33.8 pg (27.0-31.0); Monocytes 7 % (0-10); Neutrophil 76 % (42-75); Platelet Count 214 thou/uL (130-400); Red Blood Cell (RBC) Count 2.17 mill/uL (4.20-5.40); White Blood Cell (WBC) Count 9.5 thou/uL (4.8-10.8)
[2020-01-15] MEDS: Metoclopramide HCl 10 MG/2 ML VIAL IVP SCH ×3 (05:33→21:22)
[2020-01-15] MEDS: hydrALAZINE 25 MG TAB PO SCH ×3 (08:43→21:11)
[2020-01-15] MEDS: Amlodipine 5 MG TAB PO SCH (08:43)
[2020-01-15] MEDS: Isosorbide Dinitrate 20 MG TAB PO SCH ×3 (08:44→21:11)
[2020-01-15] MEDS: Carvedilol 25 MG TAB PO SCH ×2 (08:44→21:11)
[2020-01-15] MEDS: cloNIDine 0.2 MG TAB PO SCH ×3 (08:44→21:11)
[2020-01-15] MEDS: Minoxidil 2.5 MG TAB PO SCH (08:44)
[2020-01-15] MEDS: Sacubitril 49 MG/Valsartan 51 MG TABLET PO SCH ×2 (08:44→21:10)
[2020-01-15] MEDS: levETIRAcetam 500 MG TAB PO SCH ×2 (08:44→21:11)
[2020-01-15] MEDS: Insulin Glargine 6 UNITS in Pre-Filled Syringe 1 EACH SC SCH (08:45)
[2020-01-15] MEDS: Pantoprazole 40 MG VIAL IVP SCH (08:45)
[2020-01-15] MEDS ORDERED: Non-Formulary Item 1 EACH (Hydralazine Hcl [Hydralazine Hcl] 100 MG) PO SCH (09:00)
[2020-01-15] MEDS ORDERED: Amlodipine 10 MG TAB PO SCH (09:00)
[2020-01-15] MEDS ORDERED: ISOSORBIDE DINITRATE 20 MG PO SCH (09:00)
--- NOTE | 2020-01-15 11:16 | PRG ---
DATE OF SERVICE: 01/15/2020 SUBJECTIVE: We started Reglan yesterday. Ms. Schaeffer says she is feeling a lot better today. She is not having any abdominal pain. She has not had any further vomiting. Nausea is minimal. She has not really gotten much appetite back, but is ready to try advancing her diet. There has been no further melena. Hemoglobin essentially stabilized, currently at 7.3. PHYSICAL EXAMINATION: VITAL SIGNS: Temperature 98.4, pulse 77, blood pressure 204/84, 99% oxygen saturation on 2 L nasal cannula. GENERAL: No acute distress. HEART: Regular rate and rhythm. LUNGS: Clear to auscultation bilaterally. ABDOMEN: Bowel sounds are present. Soft and nontender to palpation. EXTREMITIES: No peripheral edema. LABORATORY STUDIES: Hemoglobin 7.3, WBC 9.5, platelets 214. Sodium 137, potassium 3.5, BUN 48, creatinine 3.11, glucose 169, alkaline phosphatase 237, AST 13, ALT 9, total bilirubin 0.8. ASSESSMENT/PLAN: 1. Nausea and vomiting, improved. 2. Abdominal pain, improved. 3. Severe gastritis, demonstrated on EGD 2 days ago, biopsy is still pending. Continuing pantoprazole 40 mg IV q.12 hours. 4. Hematemesis, now resolved. This likely represented some bleeding from gastric biopsy sites. Hemoglobin appears to be stabilizing, continue to trend and transfuse if needed, but I suspect this is stopped. No plan for any repeat endoscopy. 5. Possible gastroparesis. The patient has had some symptomatic improvement over the past day after starting Reglan. Recommend advancing her diet as tolerated. Job ID: [id number]
[2020-01-15] MEDS ORDERED: Sodium Chloride 0.65% Nasal 44 ML BOT EA NARE PRN (12:25)
[2020-01-15] MEDS ORDERED: Oxymetazoline HCl 0.05% (30 ML BOT) NS PRN (12:26)
[2020-01-15] MEDS: HumaLOG 300 UNITS/3 ML VIAL SC PRN ×3 (13:40→21:12)
--- NOTE | 2020-01-15 15:24 | PDOC.HOSPP ---
- Subjective Encounter Date: 01/15/20 Encounter Time: 10:00 Subjective: pt up in bed feels well no complains. she has had a bm and has no more n/v - Objective Vital Signs & Weight: Vital Signs (12 hours) Temp Pulse Resp BP Pulse Ox 01/15/20 11:15 98.4 F 69 15 128/62 96 01/15/20 07:37 98.4 F 77 14 204/84 H 99 Weight Admit Weight 123 lb 9.6 oz Weight 124 lb 8.979 oz I&O: 01/14/20 01/15/20 01/16/20 06:59 06:59 06:59 Intake Total 350 400 Output Total 0 Balance 350 400 Result Diagrams: 01/15/20 03:52 01/15/20 03:52 Additional Labs: Accuchecks 01/15/20 01/15/20 01/14/20 10:47 05:42 20:10 POC Glucose 280 H 169 H 185 H 01/14/20 16:51 POC Glucose 176 H Hospitalist ROS - Review of Systems Respiratory: denies: cough, dry, shortness of breath, hemoptysis, SOB with excertion, pleuritic pain, sputum, wheezing, other Cardiovascular: denies: chest pain, palpitations, orthopnea, paroxysmal noc. dyspnea, edema, light headedness, other Gastrointestinal: denies: nausea, vomiting, abdominal pain, diarrhea, constipation, melena, hematochezia, other Genitourinary: denies: dysuria, frequency, incontinence, hematuria, retention, other - Medication Medications: Active Medications Generic Name Dose Route Start Last Admin Trade Name Teofiloq PRN Reason Stop Dose Admin Acetaminophen 650 mg 01/12/20 04:14 01/15/20 02:53 Tylenol PO 650 mg Q4H PRN Administration Headache/Fever/Mild Pain (1-3) Amlodipine Besylate 5 mg 01/15/20 09:00 01/15/20 08:43 Norvasc PO 5 mg DAILY ALMITA Administration Carvedilol 50 mg 01/15/20 09:00 01/15/20 08:44 Coreg PO 50 mg BID ALMITA Administration Clonidine 0.2 mg 01/15/20 09:00 01/15/20 08:44 Catapres PO 0.2 mg TID ALMITA Administration Hydralazine HCl 10 mg 01/12/20 10:36 01/15/20 01:00 Apresoline SLOW IVP 10 mg Q6H PRN Administration SBP Greater Than 170 Hydralazine HCl 100 mg 01/15/20 09:00 01/15/20 08:43 Apresoline PO 100 mg TID ALMITA Administration Insulin Glargine 6 units/ 0.06 mls @ 0 mls/hr 01/13/20 09:00 01/15/20 08:45 Miscellaneous Medication SC 0.06 mls QAM ALMITA Administration Insulin Human Lispro 0 units 01/12/20 04:22 01/15/20 13:40 Humalog SC 4 unit .MILD SLIDING SCALE PRN Administration Mild Correctional Scale Isosorbide Dinitrate 20 mg 01/15/20 09:00 01/15/20 08:44 Isordil PO 20 mg TID ALMITA Administration Levetiracetam 500 mg 01/15/20 09:00 01/15/20 08:44 Keppra PO 500 mg BID ALMITA Administration Melatonin 3 mg 01/15/20 02:34 01/15/20 02:46 Melatonin PO 3 mg HSPRN PRN Administration Insomnia Metoclopramide HCl 10 mg 01/14/20 22:00 01/15/20 05:33 Reglan IVP 10 mg Q8HR ALMITA Administration Minoxidil 2.5 mg 01/12/20 09:00 01/15/20 08:44 Minoxidil PO 2.5 mg QAM ALMITA Administration Morphine Sulfate 2 mg 01/13/20 12:18 01/15/20 02:46 Morphine SLOW IVP 2 mg Q4H PRN Administration Pain Ondansetron HCl 4 mg 01/12/20 10:19 01/13/20 11:58 Zofran IVP 4 mg Q6H PRN Administration Nausea/Vomiting Pantoprazole Sodium 40 mg 01/13/20 21:00 01/15/20 08:45 Protonix IVP 40 mg Q12HR ALMITA Administration Sacubitril/Valsartan 1 tab 01/15/20 09:00 01/15/20 08:44 Entresto 49 Mg-51 Mg Tablet PO 1 tab BID ALMITA Administration Senna/Docusate Sodium 2 tab 01/12/20 04:14 01/13/20 22:22 Senokot S PO 2 tab BID PRN Administration Constipation Sodium Chloride 10 ml 01/12/20 21:00 01/15/20 08:46 Flush - Normal Saline IVF 10 ml Q12HR ALMITA Administration - Exam Neck: negative: supple, symmetric, no JVD, no thyromegaly, no lymphadenopathy, no carotid bruit, JVD Heart: negative: RRR, no murmur, no gallops, no rubs, normal peripheral pulses, irregular, diminshed peripheral pulses, murmur present, II/IV, III/IV Respiratory: negative: CTAB, no wheezes, no rales, no ronchi, normal chest expansion, no tachypnea, normal percussion, rales, rhonchi, tachypneic, wheezes Gastrointestinal: negative: soft, non-tender, non-distended, normal bowel sounds , no palpable masses, no hepatomegaly, no splenomegaly, no bruit, no guarding, no rigidity, tender to palpation, distended, diminished bowl sounds, voluntary guarding Hosp A/P (1) Abdominal pain Code(s): R10.9 - UNSPECIFIED ABDOMINAL PAIN Status: Acute (2) Gastritis Code(s): K29.70 - GASTRITIS, UNSPECIFIED, WITHOUT BLEEDING Status: Acute (3) Hematemesis Code(s): K92.0 - HEMATEMESIS Status: Acute (4) Hypertensive urgency Code(s): I16.0 - HYPERTENSIVE URGENCY Status: Acute (5) Nausea and vomiting Code(s): R11.2 - NAUSEA WITH VOMITING, UNSPECIFIED Status: Acute (6) Renal infarct Code(s): N28.0 - ISCHEMIA AND INFARCTION OF KIDNEY Status: Acute (7) CAD (coronary artery disease) Code(s): I25.10 - ATHSCL HEART DISEASE OF [place] CORONARY ARTERY W/O ANG PCTRS Status: Chronic (8) DM type 2 (diabetes mellitus, type 2) Status: Chronic Qualifiers: (9) ESRD (end stage renal disease) on dialysis Code(s): N18.6 - END STAGE RENAL DISEASE; Z99.2 - DEPENDENCE ON RENAL DIALYSIS Status: Chronic (10) Seizure disorder Code(s): G40.909 - EPILEPSY, UNSP, NOT INTRACTABLE, WITHOUT STATUS EPILEPTICUS Status: Chronic - Plan pt up in bed feels well, will start her home meds. Her hh is low stable. she is on plavix for tia's will ask gi if ok to start. will monitor her for one more day and if her hh is stable will discharge her home in am. she will need stool softeners.
[2020-01-15] MEDS ORDERED: Clopidogrel Bisulfate 75 MG TAB PO SCH ×2 (16:00→21:00)
--- NOTE | 2020-01-15 18:34 | PRG ---
DATE OF SERVICE: 01/15/2020 SUBJECTIVE: Patient was seen and examined at bedside and overnight events noted. Patient denies any shortness of breath or chest pain or palpitation. No history of nausea or vomiting or diarrhea or fever or chills or cramps. OBJECTIVE: GENERAL: This is thin-built female, in no apparent distress. VITAL SIGNS: Temperature 98.4. Pulse 69. Respiratory rate . Blood pressure 128/62. HEENT: Atraumatic, normocephalic. Oral mucosa is moist. NECK: Supple. CARDIOVASCULAR: S1, S2 heard. Rate and rhythm regular. RESPIRATORY: Clear to auscultation. Gastrointestinal: Abdomen is soft. MUSCULOSKELETAL: No tenderness. No edema. Dermatologic: No skin rash. NEUROLOGIC: Alert and awake and oriented x3. No focal neurologic deficits. Moving all the extremities. PSYCHIATRIC: Mood and affect normal. LABORATORY DATA: Potassium 3.5, BUN is 48, creatinine is 3.1. ASSESSMENT AND PLAN: 1. End-stage renal disease. Continue on dialysis Wednesday, , and Wednesday. 2. Anemia of chronic disease. 3. Hypertension. 4. . 5. We will continue on dialysis as tolerated. Job ID: [id number]
[2020-01-15] MEDS ORDERED: Atorvastatin Calcium 40 MG TAB PO SCH (21:00)
--- NOTE | 2020-01-15 23:59 | CON ---
DATE OF CONSULTATION: HISTORY OF PRESENT ILLNESS: The patient is a 49-year-old female patient who presented to the hospital with several gastrointestinal issues and has had recent gastric biopsy. The patient was in need of a nasogastric tube and their primary medical team intended to place a nasogastric tube to the nose on the day of January 11 and had significant epistaxis bilaterally. Now, patient does not need an NG tube, but is having significant nasal congestion and does have some old dried blood in the nasal cavity and given previous nasal trauma myself Dr. Smith, was consulted for evaluation of the nasal cavity mucosa to see if any damage or any other treatment was needed. The patient has a past medical history of end-stage renal disease and presented to the hospital with abdominal complaints originally and stated that she had been constipated for multiple days and was taking laxatives. However, she was significantly nauseated at the time and had generalized abdominal pain and presented to the emergency room for further evaluation. PAST MEDICAL HISTORY: She has heart failure with low ejection fraction, end-stage renal disease, hypertension, history of a transient ischemic attack as well as seizures, history of anemia, as well as macular degeneration. PAST SURGICAL HISTORY: No head and neck surgeries. ALLERGIES: NO KNOWN DRUG ALLERGIES. MEDICATIONS: Please see electronic medical record. SOCIAL AND FAMILY HISTORY: Noncontributory. REVIEW OF SYSTEMS: Review of systems is negative except as listed in HPI. PHYSICAL EXAMINATION: GENERAL: The patient is generally alert and oriented to person, place, and time. The patient is somewhat somnolent. HEENT: Head atraumatic, normocephalic. No skin lesions or cellulitis or infection of the facial skin. EYES: Pupils are equally round and reactive to light. Extraocular movements are intact. No nystagmus on lateral gaze. Ears, pinnae are intact with no damage of bleeding. EAC is clear. Tympanic membrane is visible with no signs of infection. ORAL CAVITY: Lips, teeth, tongue are normal. Mucous membranes are slightly tacky and mucus is thick. Nasal cavity has significant bloody crusting bilaterally and dry mucosa of the anterior nasal septum as well as the inferior turbinates and the nasal septum and middle turbinates. There is mild bleeding in the nasal cavity. However, it is dried and old. The patient is on nasal cannula and is currently on oxygen supplementation. NECK: Soft. Trachea is midline. No lymphadenopathy. Thyroid is normal. NEUROLOGIC: The patient's cranial nerves 2 through 12 are grossly intact. ASSESSMENT AND PLAN: The patient is a 49-year-old female patient who presented with history of abdominal pain, end-stage renal disease, heart failure, and needed an NG tube for short period of time and sustained significant epistaxis with bilateral bleeding and crusting from placement of NG tube with mildly edematous nasal cavity. PLAN: Given significant nasal crusting, recommend nasal saline sprays 3-5 sprays 3-5 times daily and Afrin p.r.n. for nasal congestion with a maximum of 2 sprays twice daily for 5 days. Recommend the patient have humidified O2 via nasal cannula. If the patient is complaining of sinus pain or pressure, we would recommend empiric antibiotic therapy and would have patient follow up as an outpatient in our clinic. Patient can call for an appointment after her hospitalization. The clinic phone number is [phone]. Job ID: [id number]
[2020-01-16 04:47] LABS: Hemoglobin 6.8 g/dL (12.0-16.0)
[2020-01-16] MEDS: Metoclopramide HCl 10 MG/2 ML VIAL IVP SCH ×2 (05:46→14:24)
[2020-01-16] MEDS ORDERED: Clopidogrel Bisulfate 75 MG TAB PO SCH (09:00)
[2020-01-16] MEDS ORDERED: EPOETIN ALFA-EPBX (ESRD) 10,000 UNIT/ML VIAL IVP SCH (13:00)
--- NOTE | 2020-01-16 13:26 | PRG ---
DATE OF SERVICE: 01/16/2020 SUBJECTIVE: Patient was seen and examined at bedside and overnight events noted. Patient denies any shortness of breath or chest pain or palpitation. No history of nausea or vomiting or diarrhea or fever or chills or cramps. OBJECTIVE: GENERAL: This is a well-built female, in no apparent distress. VITAL SIGNS: Temperature 97.6. Heart rate 69. Respiratory rate 16. Blood pressure 147/67. HEENT: Atraumatic, normocephalic. Oral mucosa is moist NECK: Supple. CARDIOVASCULAR: S1, S2 heard. Rate and rhythm regular. RESPIRATORY: Clear to auscultation. GASTROINTESTINAL: Abdomen is soft. MUSCULOSKELETAL: No tenderness. No edema. DERMATOLOGIC: No skin rash. NEUROLOGIC: Alert and awake and oriented X3. No focal neurologic deficits. Moving all the extremities. PSYCHIATRIC: Mood and affect normal. LABORATORY DATA: Labs not done today. ASSESSMENT AND PLAN: 1. End-stage renal disease. Continue dialysis on Wednesday, , and Wednesday as tolerated. 2. Edema. 3. History of anemia. 4. Hypertension. Continue dialysis as tolerated. The patient is seen during dialysis today and tolerating well. Job ID: [id number]
[2020-01-16] MEDS: cloNIDine 0.2 MG TAB PO SCH ×2 (13:28→14:01)
[2020-01-16] MEDS: hydrALAZINE 25 MG TAB PO SCH ×2 (13:28→14:02)
[2020-01-16] MEDS: Isosorbide Dinitrate 20 MG TAB PO SCH ×2 (13:29→14:02)
[2020-01-16] MEDS: Carvedilol 25 MG TAB PO SCH (13:54)
[2020-01-16] MEDS: Sacubitril 49 MG/Valsartan 51 MG TABLET PO SCH (13:54)
[2020-01-16] MEDS: levETIRAcetam 500 MG TAB PO SCH (13:55)
[2020-01-16] MEDS: Minoxidil 2.5 MG TAB PO SCH (13:55)
[2020-01-16] MEDS: Amlodipine 5 MG TAB PO SCH (13:55)
[2020-01-16] MEDS: HumaLOG 300 UNITS/3 ML VIAL SC PRN (14:28)
[2020-01-16] MEDS: Insulin Glargine 6 UNITS in Pre-Filled Syringe 1 EACH SC SCH (16:28)
[2020-01-16 17:04] VITALS: BP 122/60; TEMP 98.7
--- NOTE | 2020-01-16 22:41 | DIS ---
DATE OF ADMISSION: 01/12/2020 DATE OF DISCHARGE: 01/16/2020 DISCHARGE DIAGNOSES: 1. Abdominal pain, nausea, vomiting. 2. Hypertensive urgency. 3. End-stage renal disease, on dialysis. 4. Gastritis. 5. Hematemesis. 6. History of renal infarcts. 7. Transient ischemic attack. 8. Coronary artery disease. 9. Diabetes. 10. Seizure disorder, which is stable. HOSPITAL COURSE: The patient is a 49-year-old female who initially presented to the hospital with complaints of severe abdominal pain, nausea, and vomiting. At this time, she had a CT of abdomen and pelvis, which indicated hepatomegaly with fatty infiltrate and moderate ascites. No acute intraabdominal abnormalities noted. Given the fact the patient has significant abdominal pain, she underwent a GI consult and also paracentesis was ordered, which was negative for SBP. The patient then underwent an endoscopy and was noted to have severe gastritis in the fundus with proximal body of the stomach, diffuse. No ulcerations and biopsies were obtained. Otherwise, normal EGD. Prior to even the EGD, the patient was put on a PPI which was continued. The symptoms improved. She was able to have a bowel movement and then able to tolerate oral food. Her blood pressure also improved significantly. Her culture does indicate Helicobacter pylori and chronic active gastritis. After the endoscopy, given the pain continued and was again unchanged. The only thing that had changed was her ascites had decreased. The patient continued to improve. ENT was consulted since there was an attempt for NG tube placement and the patient after that had significant epistaxis. ENT was consulted to evaluate the nasal cavity mucosa for any damages or any treatment needed. At this time, the recommendation was to use daily nasal spray, 3-5 sprays and also maybe Afrin as needed for congestion, to use humidified air on oxygen. The patient only uses oxygen as needed. She had no more epistaxis while she was here. She continued to improve when she was discharged. She has been on aspirin and Plavix for TIA. I did ask her specifically, she stated that she was on aspirin, had a TIA and then at this time, she was put on Plavix. Given this, I only restarted the Plavix and asked to follow up with her primary to decide if aspirin needs to be continued. During the hospital stay, her H and H did drop and she did require a unit of blood transfusion. I have also spoken with the weaver wire loom who will recheck another H and H during her next dialysis stay and this way, she will have followup in regard to her hemoglobin. Given the fact that I have started her back on the Plavix which needed to be given her high risk, especially with the previous risk of a TIA. HOME MEDICATIONS: Will be as of the following. She is going to be on: 1. Protonix 40 mg twice a day. 2. MiraLAX 17 g daily. 3. Minoxidil 2.5 q.a.m. 4. Phenergan 12.5 q.6 hours p.r.n. 5. Entresto one tablet twice a day. 6. Atorvastatin 40 mg q.p.m. 7. Carvedilol 50 mg b.i.d. 8. Insulin 12 units q.a.m. 9. Clonidine 0.2 t.i.d. 10. Clopidogrel 75 q.p.m. 11. Isosorbide 20 mg t.i.d. 12. units t.i.d. p.r.n. 13. Hydralazine 100 mg t.i.d. 14. Keppra 500 mg b.i.d. 15. Amlodipine 5 mg p.o. daily. PHYSICAL EXAMINATION: VITAL SIGNS: Temperature 98.7, heart rate of 73, oxygen is 99% on room air, blood pressure 122/60. GENERAL: She is awake, alert, and oriented x3. Does not appear in distress. CV: S1 and S2 present. No murmurs, rubs, or gallops. No abdominal pain. DISCHARGE INSTRUCTIONS: She will be discharged home. She will follow up with her primary and she is well aware of to do so. I have talked with her. Job ID: [id number]
--- NOTE | 2020-01-18 10:07 | PQF ---
SABINE MURRAYLUIS MANUEL LORENA [id number] CLINICAL DOCUMENTATION CLARIFICATION FORM: POST DISCHARGE Addendum to original discharge summary date: ____ Late entry note date: __ DATE: 01/18/2020 ATTN: LORENA SAMUEL Please exercise your independent, professional judgment in responding to the clarification form. Clinical indicators are provided on the bottom of this form for your review Please check appropriate box(s): [ x] Abdominal pain/N/V due to Gastritis [ ] Abdominal pain/N/V due to Hematemesis [ ] Abdominal pain/N/V due to Gastroparesis [ ] Abdominal pain/N/V due to Ascites [ ] Abdominal pain/N/V due to unspecified cause [ ] Other diagnosis [ ] Unable to determine For continuity of documentation, please document condition throughout progress notes and discharge summary. Thank You. CLINICAL INDICATORS - SIGNS / SYMPTOMS / LABS - Abdominal pain, nausea,vomiting - DS, 01/15, TAMIKO SAMUELISHMA - Severe gastritis in the fundus with proximal body of the stomach,diffuse- DS, 01/15, GEETHATAMIKO BARRETOLORENA - Hematemesis- DS, 01/15, [facility] - Her culture does indicate Helicobacter pylori and chronic active gastritis-DS , 01/15, [facility] - possible gastroparesis- Progress note, 01/14, Blue De Oliveira MD - Abdominal , nausea, vomiting unclear etiology at this time, possible pancreatitis versus peptic ulcer versus gastroparesis-H&P, 01/11, LORENA SAMUEL RISK FACTORS -ESRD- H&P, 01/11, TAMIKO SAMUELISHMA TREATMENT: -Protonix.IV- 01/11 -Ondansetron.IM- 01/11 -Dextrose.IV- 01/11 (This form is maintained as a part of the permanent medical record) [employer]ainer [employer] [id number] [employer] , [employer]. All Rights Reserved Jerald [email or web address]
== END 2020-01-16 17:15 | disposition home or self-care (01) | DRG 391 ==
LOC: ERS 23:25 → ERHOLD 01-12 01:52 → 2NO 01-12 09:05
PROVIDERS: ADMIT Internal Medicine; ATTEND Internal Medicine
PROC: 0W9G3ZX Drainage of Peritoneal Cavity, Percutaneous Approach, Diagnostic (ICD-10-PCS; principal; 2020-01-12)
PROC: BF4CZZZ Ultrasonography of Hepatobiliary System, All (ICD-10-PCS; 2020-01-12)
PROC: 0DB68ZX Excision of Stomach, Via Natural or Artificial Opening Endoscopic, Diagnostic (ICD-10-PCS; 2020-01-13)
PROC: 30233N1 Transfusion of Nonautologous Red Blood Cells into Peripheral Vein, Percutaneous Approach (ICD-10-PCS; 2020-01-16)
DX: K29.70 Gastritis, unspecified, without bleeding (principal); N18.6 End stage renal disease; K92.0 Hematemesis; G45.9 Transient cerebral ischemic attack, unspecified; R18.8 Other ascites; I13.2 Hypertensive heart and chronic kidney disease with heart failure and with stage 5 chronic kidney disease, or end stage renal disease; I50.22 Chronic systolic (congestive) heart failure; I16.0 Hypertensive urgency; I25.10 Atherosclerotic heart disease of native coronary artery without angina pectoris; D63.1 Anemia in chronic kidney disease; E78.00 Pure hypercholesterolemia, unspecified; E78.5 Hyperlipidemia, unspecified; H35.30 Unspecified macular degeneration; E11.22 Type 2 diabetes mellitus with diabetic chronic kidney disease; G40.909 Epilepsy, unspecified, not intractable, without status epilepticus; Z98.51 Tubal ligation status; Z99.2 Dependence on renal dialysis
CPT/HCPCS: 36415; 36416; 36430; 49083; 70450; 71045; 74177; 76705; 80048; 80053; 82042; 82553; 82977; 83605; 83690; 83880; 84157; 84484; 84703; 85007; 85014; 85018; 85025; 85027; 85046; 85060; 85610; 85730; 86850; 86900; 86901; 87070; 87205; 88305; 88312; 89051; 90935; 93005; 96365; 96375; 96376; C9113; G0257; J0360; J1644; J1815; J2001; J2060; J2270; J2405; J2550; J2765; J3010; P9016; Q5105; Q9967

== ENCOUNTER → 2020-03-06 | Day surgery (SDC) | payer MEDICARE, BC ==
[2020-03-06 08:14] LABS: #Eosinphils 0.4 thou/uL (0.0-0.7); #Lymphocytes 0.8 thou/uL (1.20-3.40); #Monocytes 0.6 thou/uL (0.11-0.59); #Neutrophils 3.6 thou/uL (1.40-6.50); %Basophils 0.5 % (0.0-1.0); %Eosinophils 6.6 % (0.0-10.0); %Lymphocytes 14.5 % (21.0-51.0); %Neutrophils 67.4 % (42.0-75.0); Hemoglobin 13.2 g/dL (12.0-16.0); INR-International Normal Ratio 1.1; Mean Corpuscular HGB CONC 31.8 g/dL (32.0-36.0); Mean Corpuscular Hemoglobin 32.3 pg (27.0-31.0); Mean Platelet Volume 9.9 fL (7.4-10.4); Platelet Count 151 thou/uL (130-400); RBC Distribution Width 14.3 % (11.5-14.5); Red Blood Cell (RBC) Count 4.09 mill/uL (4.20-5.40); White Blood Cell (WBC) Count 5.3 thou/uL (4.8-10.8)
[2020-03-06 08:15] LABS: PTT 47.9 SEC (22.9-36.1)
--- NOTE | 2020-03-06 09:02 | ULT ---
ABDOMINAL ULTRASOUND HISTORY: Abdominal pain, ascites. FINDINGS: Liver: Enlarged measuring 21 cm in craniocaudal dimensions. No focal hepatic lesion is seen. Gallbladder: No gallbladder calculus is seen, but there is thickening of the gallbladder wall diffuse ly with the gallbladder wall measuring 0.6 cm in thickness. Common duct: Common duct is normal in caliber measuring 0.3 in diameter. Pancreas: The limited visualized pancreas demonstrates a normal sonographic appearance. IVC: Limited visualized IVC has a normal sonographic appearance. Aorta: Portions of the abdominal aorta are obscured due to shadowing from bowel gas, but the visualiz ed abdominal aorta is normal in caliber. Spleen: Mildly enlarged measuring 14 cm in craniocaudal dimensions. Multiple echogenic foci are seen in the spleen. No calcified granulomata were present in the spleen on prior CT abdomen on 01/14/2020. This may be related to calcified vessels versus prominent vessels within the spleen. Kidneys: There is a cortically based echogenic focus seen in the midportion right kidney. This may re present a vascular calcification as opposed to a renal calculus. No hydronephrosis is seen bilaterally. Right kidney does appear mildly increased in echogenicity, but there is no renal cortica l thinning present. The right kidney measures 9.9 cm length and the left kidney measures 9.2 cm in length. Minimal amount of intraperitoneal free fluid is seen in each upper quadrant. IMPRESSION: 1. Hepatosplenomegaly. 2. Minimal ascites. 3. Diffuse gallbladder wall thickening with gallbladder wall measuring 0.6 cm. This is nonspecific bu t can be seen with cholecystitis in the correct clinical scenario, hypoproteinemia, liver disease versus other etiologies.
--- NOTE | 2020-03-06 09:06 | ULT ---
EXAM: US Abdomen Limited CLINICAL HISTORY: Evaluate for possible paracentesis.. COMPARISON: 03/06/2020 at 7:45 AM, 01/12/2020 FINDINGS: Minimal ascites, predominantly in the perihepatic region when the patient is in a right lateral decub itus position. IMPRESSION: No significant ascites to warrant ultrasound-guided paracentesis at this time.
== END ==
LOC: ULT 07:29
PROVIDERS: ATTEND Internal Medicine Nephrology
DX: R18.8 Other ascites (principal)
CPT/HCPCS: 36415; 76705; 85025; 85610; 85730; 93975

== ENCOUNTER 2020-03-18 13:11 | Outpatient (CLI) | payer MEDICARE, BC, OTHER ==
[2020-03-18 17:40] LABS: SARS-CoV-2 MS2 Positive; SARS-CoV-2 N Gene Negative; SARS-CoV-2 S Gene Negative; SARS-CoV-2 orf1ab Negative
== END 2020-03-18 13:12 | disposition home or self-care (01) ==
LOC: ERS 13:11
PROVIDERS: ATTEND Internal Medicine Nephrology
DX: Z01.812 Encounter for preprocedural laboratory examination (principal); Z11.59 Encounter for screening for other viral diseases
CPT/HCPCS: 87635; U0003

== ENCOUNTER 2020-03-20 13:43 | Outpatient (CLI) | payer MEDICARE, BC ==
--- NOTE | 2020-03-20 14:24 | ULT ---
EXAM: US Renal Bilateral STANDARD PROVIDED CLINICAL HISTORY: Abdominal pain COMPARISON: 03/06/2020 FINDINGS: The kidneys appear echogenic bilaterally. There is no evidence for hydronephrosis, sonographically ap parent calculus or mass. Ascites is partially visualized. The urinary bladder appears sonographically unremarkable. IMPRESSION: 1. No evidence for hydronephrosis. 2. Ascites.
== END 2020-03-20 13:44 | disposition home or self-care (01) ==
LOC: BICULT 13:43
PROVIDERS: ATTEND Internal Medicine Nephrology
DX: R10.9 Unspecified abdominal pain (principal); R18.8 Other ascites
CPT/HCPCS: 76770

== ENCOUNTER 2020-03-22 15:54 | Emergency (ER) | payer MEDICARE, BC, OTHER ==
[2020-03-22] MEDS ORDERED: Fentanyl 100 MCG/2 ML VIAL ONE (17:47)
[2020-03-22 18:50] LABS: #Eosinphils 0.5 thou/uL (0.0-0.7); #Lymphocytes 0.5 thou/uL (1.20-3.40); #Monocytes 0.6 thou/uL (0.11-0.59); #Neutrophils 4.4 thou/uL (1.40-6.50); %Basophils 0.4 % (0.0-1.0); %Eosinophils 8.2 % (0.0-10.0); %Lymphocytes 8.7 % (21.0-51.0); %Monocytes 9.3 % (0.0-10.0); %Neutrophils 73.5 % (42.0-75.0); Hemoglobin 12.7 g/dL (12.0-16.0); Mean Corpuscular HGB CONC 30.5 g/dL (32.0-36.0); Mean Corpuscular Hemoglobin 30.5 pg (27.0-31.0); Mean Platelet Volume 10.8 fL (7.4-10.4); Platelet Count 180 thou/uL (130-400); RBC Distribution Width 14.8 % (11.5-14.5); Red Blood Cell (RBC) Count 4.14 mill/uL (4.20-5.40)
[2020-03-22 18:53] LABS: INR-International Normal Ratio 1.1; Prothrombin Time 13.9 sec (12.0-14.7)
[2020-03-22 19:07] LABS: ALT (SGPT) 11 U/L (8-55); AST (SGOT) 18 U/L (5-34); Albumin 3.5 g/dL (3.5-5.0); Alkaline Phosphatase 520 U/L (40-110); Anion Gap 22 mmol/L (10-20); BUN (Urea Nitrogen) 54 mg/dL (7.0-18.7); Bilirubin, Total 0.9 mg/dL (0.2-1.2); Calc. Creatinine Clearance 0 mL/min (70-130); Calcium 8.6 mg/dL (7.8-10.44); Carbon Dioxide 22 mmol/L (22-29); Chloride 95 mmol/L (98-107); Estimated GFR-MDRD 7; Globulin 4.6 g/dL (2.4-3.5); Glucose 212 mg/dL (70-105); Potassium 4.2 mmol/L (3.5-5.1); Protein, Total 8.1 g/dL (6.0-8.3); Sodium 135 mmol/L (136-145)
[2020-03-22 19:29] LABS: CKMB 2.6 ng/mL (0-6.6)
--- NOTE | 2020-03-22 19:34 | RAD ---
CHEST ONE VIEW: 03/22/20 HISTORY: Shortness of breath. COMPARISON: Radiograph 01/11/20. FINDINGS: Enlarging right layering pleural effusion. Dialysis catheter tip in similar position in the inferior SVC. There are surgical cydney of the right axilla. Heart size is enlarged. No pneumothorax. IMPRESSION: New relatively large layering right pleural effusion. POS: HOME
--- NOTE | 2020-03-22 19:42 | ULT ---
ULTRASOUND LEFT LOWER EXTREMITY VENOUS DOPPLER: 03/22/20 HISTORY: Pain and edema. COMPARISON: None. FINDINGS: Real time cunningham scale, color Doppler and spectral analysis left lower extremity venous system is perfo rmed. The common femoral, femoral, proximal portions of the greater saphenous and deep femoral veins as wel l as the popliteal and posterior tibial veins are interrogated. There is normal flow and augmentation and compression. The posterior tibial vein is not well seen. Ex tensive soft tissue swelling. IMPRESSION: No deep venous thrombosis to the level of the posterior tibial vein which is not well seen due to sof t tissue swelling. POS: HOME
[2020-03-22] MEDS ORDERED: Nitroglycerin 0.4 MG TAB 1 EACH ONE (20:20)
[2020-03-22] MEDS ORDERED: Aspirin Chewable 81 MG TAB ONE (20:20)
[2020-03-22] MEDS ORDERED: Morphine 4 MG/ML VIAL ONE ×2 (20:28→22:11)
== END 2020-03-22 22:17 | disposition short-term general hospital (02) ==
LOC: ERS 15:54
DX: I13.2 Hypertensive heart and chronic kidney disease with heart failure and with stage 5 chronic kidney disease, or end stage renal disease (principal); I50.9 Heart failure, unspecified; N18.6 End stage renal disease; K02.9 Dental caries, unspecified; Z99.2 Dependence on renal dialysis; E11.22 Type 2 diabetes mellitus with diabetic chronic kidney disease; D64.9 Anemia, unspecified; E78.00 Pure hypercholesterolemia, unspecified; E78.5 Hyperlipidemia, unspecified; Z86.73 Personal history of transient ischemic attack (TIA), and cerebral infarction without residual deficits; Z79.899 Other long term (current) drug therapy; Z79.891 Long term (current) use of opiate analgesic
CPT/HCPCS: 36415; 71045; 80053; 82553; 83880; 84484; 85025; 85610; 93005; 96374; 96375; 96376; J2270; J3010

== ENCOUNTER 2020-03-31 14:14 | Inpatient (IN) | payer MEDICARE, BC, OTHER ==
[2020-03-31] MEDS ORDERED: Acetaminophen 500 MG TAB ONE (15:11)
[2020-03-31] MEDS ORDERED: Cefepime 2 GM VIAL ONE (15:15)
[2020-03-31 15:27] LABS: #Eosinphils 0.8 thou/uL (0.0-0.7); #Lymphocytes 0.7 thou/uL (1.20-3.40); #Monocytes 0.9 thou/uL (0.11-0.59); %Basophils 0.4 % (0.0-1.0); %Eosinophils 8.9 % (0.0-10.0); %Lymphocytes 7.4 % (21.0-51.0); %Monocytes 9.5 % (0.0-10.0); %Neutrophils 73.7 % (42.0-75.0); Hemoglobin 10.7 g/dL (12.0-16.0); INR-International Normal Ratio 1.1; Mean Corpuscular HGB CONC 31.4 g/dL (32.0-36.0); Mean Corpuscular Hemoglobin 31.4 pg (27.0-31.0); Mean Corpuscular Volume 99.9 fL (78.0-98.0); Mean Platelet Volume 10.5 fL (7.4-10.4); Platelet Count 194 thou/uL (130-400); Prothrombin Time 14.6 sec (12.0-14.7); RBC Distribution Width 14.7 % (11.5-14.5); Red Blood Cell (RBC) Count 3.41 mill/uL (4.20-5.40); White Blood Cell (WBC) Count 9.5 thou/uL (4.8-10.8)
[2020-03-31 15:44] LABS: ALT (SGPT) Less than 7 U/L (8-55); AST (SGOT) 12 U/L (5-34); Albumin 3.3 g/dL (3.5-5.0); Alkaline Phosphatase 336 U/L (40-110); Anion Gap 18 mmol/L (10-20); BUN (Urea Nitrogen) 52 mg/dL (7.0-18.7); Calc. Creatinine Clearance 0 mL/min (70-130); Calcium 8.7 mg/dL (7.8-10.44); Carbon Dioxide 25 mmol/L (22-29); Chloride 99 mmol/L (98-107); Estimated GFR-MDRD 7; Globulin 5.2 g/dL (2.4-3.5); Glucose 297 mg/dL (70-105); Potassium 4.3 mmol/L (3.5-5.1); Protein, Total 8.5 g/dL (6.0-8.3); Sodium 138 mmol/L (136-145)
--- NOTE | 2020-03-31 15:47 | RAD ---
PORTABLE CHEST ONE VIEW: Date: 03-31-2020 Time: 2:54 p.m. History: Shortness of breath. Patient went to dialysis today. Fever. Weakness. Patient's dialysis was not completed. Comparison: 03-22-2020 FINDINGS: Large sized right pleural effusions are again seen. The heart size is enlarged. The right sided dialy sis catheter remains in place. There is mild prominence of pulmonary vascularity. Left lung is clear. No pneumothoraces are seen. There are surgical clips in the soft tissues of the right arm. IMPRESSION: Stable exam. POS: OFF
[2020-03-31 16:06] LABS: CKMB 1.5 ng/mL (0-6.6)
[2020-03-31] MEDS ORDERED: Insulin Regular 300 UNITS/3 ML VIAL ONE (16:13)
--- NOTE | 2020-03-31 16:28 | CT ---
CT ABDOMEN AND PELVIS WITHOUT CONTRAST: History: Fever, abdominal pain, and distention. Comparison: 01-14-2020 FINDINGS: Absence of oral and IV contrast reduces the sensitivity of the exam, particularly for evaluation of t he solid organs and bowel. A large right pleural effusion is present with adjacent atelectatic change. No free air is seen in th e abdomen or pelvis. There is moderate ascites and there is edema in the subcutaneous fat in the abdo men and pelvis. Vascular calcifications are present without findings of dilation of the abdominal aor ta. The uterus is present. No calcified gallstones are seen. No calculi are seen in the kidneys, ureters or urinary bladder. No hydroureteronephrosis is noted on either side. No psteolytic or osteoblastic lesions are noted. Smal l bowel loops are not abnormally dilated. IMPRESSION: 1. Large right pleural effusion. 2. Moderate ascites. POS: OFF
[2020-03-31] MEDS ORDERED: Dextrose 50% Abboject 50 ML SYRINGE SLOW IVP PRN (16:37)
[2020-03-31] MEDS ORDERED: Dextrose 5% in Water 1,000 ML IV PRN (16:37)
[2020-03-31 17:23] LABS: Hep B Surf Ag Non-Reactive S/CO (NonReactive)
[2020-03-31 17:28] LABS: HBSAB Concentration 106.79 mIU/mL; Hep B Surf AB Reactive (NonReactive)
[2020-03-31] MEDS ORDERED: Bisacodyl 5 MG TAB PO PRN (17:53)
[2020-03-31] MEDS ORDERED: Senokot S 8.6-50 MG TAB PO PRN (17:53)
[2020-03-31 18:08] VITALS: BMI 23.6
[2020-03-31] MEDS ORDERED: HOLD VANCOMYCIN FOR LEVEL >20 FS SCH (19:00)
[2020-03-31] MEDS ORDERED: Vancomycin HCl 250 MG in Sodium Chloride 0.9% 100 ML IVPB SCH (19:00)
[2020-03-31] MEDS ORDERED: Vancomycin HCl 500 MG in Sodium Chloride 0.9% 100 ML IVPB SCH (19:00)
[2020-03-31] MEDS ORDERED: Vancomycin HCl 750 MG in Sodium Chloride 0.9% 250 ML 250 ML IVPB SCH (19:00)
[2020-03-31] MEDS ORDERED: Vancomycin 1 GM in Premix Bag 1 BAG IVPB SCH ×2 (19:00→21:00)
--- NOTE | 2020-03-31 19:16 | HP ---
PRIMARY CARE PHYSICIAN: Dagmar Martinez. CHIEF COMPLAINT: Fever. HISTORY OF PRESENT ILLNESS: The patient is a 49-year-old female with a past medical history significant for end-stage renal disease, hemodialysis on Tuesdays, and Saturdays, followed by Dr. Medina, CHF, diabetes 2, hypertension, hyperlipidemia and anemia, who presents to the ER for the above complaint. The patient reports that she was at hemodialysis today because the hemodialysis clinic had to reschedule her from yesterday, so while getting ready to have therapy today, vital signs were taken and she was noted to have a fever, T-max of 100.3 Fahrenheit orally, so she was sent to the ER for further workup. The patient denies having any fever or chills. She reports some generalized weakness. She denies any chest pain, heart palpitations, shortness of breath, any recent cough or wheezing. She denies any abdominal pain, nausea, vomiting or diarrhea. She makes some urine, but denies any dysuria. In the ER, vital signs were taken. Temperature 98.3, blood pressure 138/70, heart rate 73 respirations 23, 97% on 3 L nasal cannula. She had 0/10 pain scale. There was an EKG done, that showed normal sinus rhythm at 73 with some flattened T-waves. Her potassium was 4.3. Chest x-ray showed no acute process. CT of the abdomen and pelvis did catch a large right pleural effusion. WBCs are 9.5. Her lactic acid was 1.5. She had a troponin of 0.148, a CK-MB of 1.5, BNP of 3894.7. Her BUN and creatinine were 52 and 6.10 respectively and she had a glucose of 297. She was given vancomycin, cefepime and Levaquin IV piggyback, 1 g of Tylenol, and 6 units of Humulin R. ALLERGIES: THE PATIENT REPORTS NO KNOWN DRUG ALLERGIES. CURRENT MEDICATIONS: 1. Amlodipine 10 mg p.o. daily. 2. Clonidine 0.2 mg p.o. t.i.d. 3. Minoxidil 2.5 mg p.o. daily. 4. Atorvastatin 40 mg p.o. daily. 5. Keppra 500 mg b.i.d. 6. Hydralazine 100 mg p.o. b.i.d. 7. Plavix 75 mg p.o. daily. 8. Entresto 49 mg/51 mg tablet one tablet p.o. b.i.d. 9. Carvedilol 50 mg p.o. b.i.d. 10. NovoLog FlexPen sliding scale. 11. Levemir 12 units q.a.m. 12. Gabapentin 100 mg p.o. p.r.n. t.i.d. for neuropathic pain. PAST MEDICAL HISTORY: 1. End-stage renal disease, hemodialysis, Tuesdays, and Saturdays. Followed by Dr. Medina. 2. Diabetes 2, insulin dependent. 3. Hypertension. 4. Hyperlipidemia. 5. CHF. 6. Anemia, chronic. 7. TIA. 8. Seizures. PAST SURGERY HISTORY: 1. Tubal. 2. HemoSplit to the right subclavian. 3. Right upper extremity fistula. SOCIAL HISTORY: The patient lives in [place] with her family. She denies any history of tobacco use, alcohol intake or illicit drug use. She is disabled. She ambulates with a cane. FAMILY HISTORY: Family history is noncontributory to this case. REVIEW OF SYSTEMS: All other review of systems are negative unless otherwise noted in the HPI. PHYSICAL EXAMINATION: VITAL SIGNS: Temperature 98.3, blood pressure 138/70, heart rate 73, respirations 23, and SpO2 97% on 3 L nasal cannula. Pain scale 0/10. CONSTITUTIONAL: The patient appears older than stated age. Thin and frail. She is nontoxic, in no acute distress. She is alert and oriented to person, place, and time. HEAD: Atraumatic and normocephalic. EYES: Pupils equal, round, and reactive to light. Extraocular muscles are intact. Sclerae are not icteric. ENT: Nares are patent bilaterally. Oropharynx is clear. Uvula midline. Moist mucous membranes. NECK: Supple. Trachea is midline. No lymphadenopathy or JVD. RESPIRATORY: Chest breath sounds are clear. No wheezing, rhonchi or rales. Respirations are even and nonlabored. She does have a hemodialysis port in her right upper chest. CARDIOVASCULAR: She is in a regular rate and rhythm. She has a 4/6 systolic murmur. No rubs or gallops. ABDOMEN: Female, soft, nontender, and mildly distended. No guarding or rigidity. Last bowel movement 3 to 4 days ago per son. BACK: Normal range of motion. No CVA tenderness. UPPER EXTREMITIES: Bilateral upper extremities; there is no swelling, no erythema, palpable radial pulses. The right upper extremity does have an AV fistula. LOWER EXTREMITIES: Normal range of motion. There is trace edema and palpable pedal pulses. NEUROLOGIC: GCS of 15. Oriented to person, place, and time. Follows commands. SKIN: Clean, dry, and intact. LABS AND IMAGING: The patient's EKG reveals normal sinus rhythm, 73, with flattened T-waves. She had a potassium of 4.3. Troponins were 0.148. CK-MB was 1.5. BNP was 3894.7. BUN 52, creatinine 6.10, and glucose 297. Alk phos was 336 with normal bilirubin, AST, and ALT. Lactic acid was 1.5. WBCs 9.5, hemoglobin 10.7, hematocrit 34.1, and platelets 194. PT 14.[address] of abdomen did show a large right pleural effusion. Chest x-ray showed no acute process. IMPRESSION AND PLAN: 1. Fever. We will admit the patient to the telemetry unit, inpatient status. Expected length of stay at least 2 midnights. Upon exam, the patient was comfortable, in no acute distress on 2 L nasal cannula. She is afebrile at the moment. She did receive 1 g of Tylenol in the ER. The patient had a low-grade fever of 100.3 on dialysis, unknown etiology. We will continue vanc and cefepime and Tylenol p.r.n. for fever control. Vital signs are stable. Lactic acid was 1.5. Blood cultures and urine cultures are pending. The patient was tested for COVID, 10 days ago and was negative, but we have re-swabbed and will place on droplet precautions until the test results come back. 2. Large right pleural effusion. The patient is stable on 2 L nasal cannula, but at this time in no respiratory distress. She has no chest pain. She has no pleuritic pain. We will consult Pulmonology for possible thoracentesis. 3. Suspected COVID-19. The patient had a negative screening test 10 days ago. We will re-screen for COVID given her history of end-stage renal disease. We will place on droplet precautions until test results return. 4. End-stage renal disease. The patient goes to dialysis, Tuesdays, and Saturdays. Her HD appointment this Wednesday, was rescheduled to Wednesday. She did not receive any therapy today due to her fever. We have consulted Dr. Medina with Nephrology. He plans to Dialyze her. BNP 3894, appears to be baseline. Her potassium is 4.3. Her EKG showed normal sinus rhythm with some flat T- waves. 5. Diabetes 2. The patient is insulin dependent. She takes Levemir 12 units every q.a.m. and then she is on a NovoLog sliding scale. We will start her Levemir. She had a glucose of 297 in the ER and received 6 units of Humulin R. We will restart her Levemir 12 units q.a.m. We will add mild sliding scale with meals and we will do a consistent carb diet. 6. Congestive heart failure. CT of the abdomen did show a large right pleural effusion. Her BNP is 3894.7, which appears about baseline for her. She is going to receive dialysis today. She has mild swelling to her bilateral lower extremities, but she is in no respiratory distress. We will restart her home medications and continue cardiac monitoring. 7. Hypertension. The patient's blood pressure is controlled at this time. We will restart her home medications. 8. Hyperlipidemia. We will restart home statin. 9. Chronic anemia. Numbers appear stable. She had a hemoglobin of 10.7 and hematocrit of 34.1. 10. We will give heparin for DVT prophylaxis. We will start Protonix for GI prophylaxis. The patient is a full code. MPOA is Haim Fontenot, her spouse. His number is [phone]. Discussed the case with Dr. Villalobos. Job ID: [id number] [id number]
[2020-03-31] MEDS: Isosorbide Dinitrate 20 MG TAB PO SCH (21:02)
[2020-03-31] MEDS: Clopidogrel Bisulfate 75 MG TAB PO SCH (21:02)
[2020-03-31] MEDS: levETIRAcetam 500 MG TAB PO SCH (21:02)
[2020-03-31] MEDS: Heparin 5,000 UNITS/ML VIAL SC SCH (21:02)
[2020-03-31] MEDS: Atorvastatin Calcium 40 MG TAB PO SCH (21:02)
[2020-03-31] MEDS: HYDROcodone/Acetaminophen 5/325 mg Tablet PO SCH (21:03)
[2020-03-31] MEDS: Carvedilol 25 MG TAB PO SCH (21:03)
[2020-03-31] MEDS: cloNIDine 0.2 MG TAB PO SCH (21:04)
[2020-03-31] MEDS: hydrALAZINE 25 MG TAB PO SCH (21:04)
[2020-03-31] MEDS: Sacubitril 49 MG/Valsartan 51 MG TABLET PO SCH (21:10)
[2020-04-01] MEDS: HYDROcodone/Acetaminophen 5/325 mg Tablet PO SCH ×5 (00:33→23:44)
[2020-04-01] MEDS: Acetaminophen 325 MG TAB PO PRN (03:46)
--- NOTE | 2020-04-01 03:55 | CON ---
DATE OF CONSULTATION: 03/31/2020 CONSULTING PHYSICIAN: Dr. Jenkins. REASON FOR CONSULTATION: End-stage renal disease evaluation. REASON FOR ADMISSION: Fever. HISTORY OF PRESENT ILLNESS: This is a 49-year-old female with history of end-stage renal disease, CHF, type 2 diabetes, hypertension, came to the hospital with a fever. The patient was getting started to get dialysis today and she was found to have fever and weakness. She was recently discharged from hospital from [facility]. Discharge summary not yet available. She complains of weakness and fever and she was sent to the hospital and she is being admitted for further evaluation. She is also having blood cultures done. She is due for dialysis today since she missed dialysis yesterday due to the facility issues. No chest pain or palpitation. No nausea or vomiting. PAST MEDICAL HISTORY: Positive for end-stage renal disease, type 2 diabetes, hypertension, hyperlipidemia, CHF, anemia, TIA, seizures. PAST SURGICAL HISTORY: Tubal ligation, dialysis access placement. HOME MEDICATIONS: Reviewed. ALLERGIES: NO KNOWN DRUG ALLERGIES. SOCIAL HISTORY: No smoking, alcohol, or illicit drug use. FAMILY HISTORY: No history of kidney disease. REVIEW OF SYSTEMS: The following complete review of systems was negative, unless otherwise mentioned in the HPI or below: Constitutional: Weight loss or gain, ability to conduct usual activities. Skin: Rash, itching. Eyes: Double vision, pain. Ent/mouth: Nose bleeding, neck stiffness, pain, tenderness. Cardiovascular: Palpitations, dyspnea on exertion, orthopnea. Respiratory: Shortness of breath, wheezing, cough, hemoptysis, fever or night sweats. Gastrointestinal: Poor appetite, abdominal pain, heartburn, nausea,vomiting, constipation, or diarrhea. Genitourinary: Urgency, frequency, dysuria, nocturia. Musculoskeletal: Pain, swelling. Neurologic/psychiatric: Anxiety, depression. Allergy/immunologic: Skin rash, bleeding tendency. PHYSICAL EXAMINATION: GENERAL: This is a thin built female, very lethargic. VITAL SIGNS: Temperature 97.4, pulse 71, respiratory rate 18, blood pressure 123/59. HEENT: Atraumatic, normocephalic. Oral mucosa moist. NECK: Supple. CV: S1 and S2. Rate and rhythm regular. RESPIRATORY: Clear GI: Abdomen is soft. MUSCULOSKELETAL: 1+ edema. DERMATOLOGIC: No skin rash. NEUROLOGIC: Alert and awake. PSYCHIATRIC: Mood and affect normal. LABORATORY DATA: Hemoglobin is 10.7, potassium is 4.3, BUN is 52, creatinine is 6.1. ASSESSMENT AND PLAN: 1. End-stage renal disease. Continue on hemodialysis as tolerated. 2. Edema, controlled. 3. Hypertension. 4. Anemia of chronic disease. PLAN: To continue dialysis as tolerated. Reported to have dialysis today and then TTS as tolerated. We will continue to follow. Thank you for the consult. Job ID: [id number] [email or web address]
[2020-04-01] MEDS ORDERED: Cefepime 2 GM in Sodium Chloride 0.9% 100 ML IVPB SCH (04:00)
[2020-04-01 05:11] LABS: #Lymphocytes 0.7 thou/uL (1.20-3.40); #Monocytes 0.9 thou/uL (0.11-0.59); #Neutrophils 6.4 thou/uL (1.40-6.50); %Basophils 0.3 % (0.0-1.0); %Eosinophils 10.7 % (0.0-10.0); %Lymphocytes 8.2 % (21.0-51.0); %Monocytes 10.3 % (0.0-10.0); %Neutrophils 70.5 % (42.0-75.0); Hemoglobin 10.1 g/dL (12.0-16.0); Mean Corpuscular HGB CONC 31.4 g/dL (32.0-36.0); Mean Corpuscular Hemoglobin 31.4 pg (27.0-31.0); Mean Platelet Volume 10.1 fL (7.4-10.4); Platelet Count 185 thou/uL (130-400); RBC Distribution Width 14.6 % (11.5-14.5); Red Blood Cell (RBC) Count 3.22 mill/uL (4.20-5.40)
[2020-04-01 05:34] LABS: Anion Gap 14 mmol/L (10-20); BUN (Urea Nitrogen) 25 mg/dL (7.0-18.7); Calc. Creatinine Clearance 17 mL/min (70-130); Calcium 8.2 mg/dL (7.8-10.44); Carbon Dioxide 27 mmol/L (22-29); Chloride 99 mmol/L (98-107); Estimated GFR-MDRD 13; Glucose 233 mg/dL (70-105); Potassium 3.7 mmol/L (3.5-5.1); Sodium 136 mmol/L (136-145)
[2020-04-01] MEDS: HumaLOG 300 UNITS/3 ML VIAL SC PRN ×2 (05:43→12:51)
[2020-04-01] MEDS: Insulin Glargine 12 UNITS in Pre-Filled Syringe 1 EACH SC SCH (08:49)
[2020-04-01] MEDS: Sacubitril 49 MG/Valsartan 51 MG TABLET PO SCH ×2 (08:50→20:21)
[2020-04-01] MEDS: cloNIDine 0.2 MG TAB PO SCH ×3 (08:50→20:21)
[2020-04-01] MEDS: hydrALAZINE 25 MG TAB PO SCH ×3 (08:50→20:21)
[2020-04-01] MEDS: Amlodipine 10 MG TAB PO SCH (08:50)
[2020-04-01] MEDS: Minoxidil 2.5 MG TAB PO SCH (08:51)
[2020-04-01] MEDS: levETIRAcetam 500 MG TAB PO SCH ×2 (08:51→20:22)
[2020-04-01] MEDS: Carvedilol 25 MG TAB PO SCH ×2 (08:51→20:21)
[2020-04-01] MEDS: Isosorbide Dinitrate 20 MG TAB PO SCH ×3 (08:51→20:21)
[2020-04-01] MEDS: Heparin 5,000 UNITS/ML VIAL SC SCH ×3 (08:51→20:22)
[2020-04-01] MEDS ORDERED: Prevnar 13-Val Conj/PF 0.5 ML SYRINGE IM ONE (09:00)
[2020-04-01] MEDS ORDERED: INSULIN DETEMIR 12 UNIT SQ SCH (09:00)
[2020-04-01 10:11] LABS: SARS-CoV-2 MS2 Positive; SARS-CoV-2 N Gene Negative; SARS-CoV-2 S Gene Negative; SARS-CoV-2 orf1ab Negative
--- NOTE | 2020-04-01 11:25 | RAD ---
EXAM: CHEST ONE VIEW HISTORY: Post thoracentesis. COMPARISON: 03/31/2020 FINDINGS: Tunneled right internal jugular vein hemodialysis catheter remains in place. Cardiac silhouette is en larged. Pulmonary vasculature is borderline increased. There is been interval decrease in right pleural effusion and associated atelectasis related to interval thoracentesis. No pneumothorax is franco reciated. Left lung remains clear. Mild elevation right hemidiaphragm is present. The osseous structures are intact. IMPRESSION: 1. Significant interval decrease in size/resolution of right pleural effusion and atelectasis related to recent thoracentesis. No pneumothorax is appreciated. 2. Mild cardiomegaly.
--- NOTE | 2020-04-01 11:33 | CON ---
DATE OF CONSULTATION: HISTORY OF PRESENT ILLNESS: Viji Schaeffer is a 49-year-old female, who was admitted to the hospital with febrile illness. We were consulted regarding a large right pleural effusion. Clearly she has had a pleural effusion in the past. So it has clearly been increasing in size. An x-ray taken in September 2019 did not show to any significant effusion. Subsequent x-rays taken in December of 2019 showed she had pleural effusion, but apparently asymptomatic. She was at the dialysis center with fever and was send by galley hand to the hospital. This morning, her lopez test was negative. Nonsmoker. No prior history of TB, pneumonia, or bronchial asthma. PAST MEDICAL HISTORY: Otherwise pertinent for diabetes, chronic renal failure, hypertension, three times a week dialysis. PREVIOUS SURGERIES: Access. She recently went to [facility] for some kind of a cardiac evaluation. HOME MEDICATIONS: Includes 1. Keppra 500 twice a day. 2. Hydralazine 50 three times a day. 3. Catapres 0.2. 4. Entresto twice a day. 5. Insulin. 6. Minoxidil 2.5. 7. Lipitor 40. 8. Plavix 75. 9. Coreg 50. ALLERGIES: NONE. SOCIAL HISTORY: Unremarkable. FAMILY HISTORY: Unremarkable. REVIEW OF SYSTEMS: Ten-point negative. PHYSICAL EXAMINATION: GENERAL: She is in no acute distress. VITAL SIGNS: Temperature 96, pulse 74, saturations are 95% on 3 L, respirations 16, blood pressure 140/65. CHEST: Decreased breath sounds in the entire right lung. CARDIAC: Normal S1, S2. ABDOMEN: No masses LABORATORY DATA: Creatinine 3.8. White count 9000, platelet count is normal. I do not see a recent echocardiogram in her. As noted, her x-ray shows significant right chronic pleural effusion. IMPRESSION: Right pleural effusion, chronic renal failure, apparently some kind of aortic problem, elevated BNP, renal failure, diabetes. A thoracentesis will be performed to relieve some of the fluid, both for diagnostic and therapeutic purposes. Further recommendation as above. Consultation note, 70 minutes, 50% direct patient care. Job ID: [id number]
--- NOTE | 2020-04-01 12:16 | PRG ---
DATE OF SERVICE: 04/01/2020 SUBJECTIVE: This is a 49-year-old female, being seen for end-stage kidney disease. The patient denies any nausea, vomiting, or chest pain. OBJECTIVE: General: The patient is awake and alert. Vital Signs: Afebrile, pulse 67, breathing at 16, blood pressure 114/58. HEENT: Head normocephalic and atraumatic. Eyes intact, no ulcers. Nose intact, no ulcers. Ears intact, no ulcers. Neck: Supple. No JVD. Chest: Symmetrical and clear. Cardiovascular: Shows S1 and S2, no rub, no murmur. Gastrointestinal: Abdomen is soft, bowel sounds positive. Extremities: Show no edema or ulcers. Skin: Shows no rash or petechiae. Musculoskeletal: Shows no joint swelling or stiffness. Genitourinary: Shows no Morris or CVA tenderness. Neurologic: Motor intact. Cranial nerves intact. LABORATORY DATA: Reviewed. ASSESSMENT AND PLAN: 1. Chronic kidney disease stage 6, stable. 2. Hypertension, stable. 3. Anemia, stable. 4. Medication based on GFR appropriate. Job ID: [id number]
[2020-04-01 12:34] LABS: Fluid, pH - Pleural Fld 7.24 (7.60 - 7.66)
[2020-04-01 12:36] LABS: Pleural Fluid, Protein 3.9 g/dL
[2020-04-01 14:00] LABS: RBC Count-Automated (BF) 10591 /cu.mm; WBC/Nucleated-Auto (BF) 2012 uL
[2020-04-01 14:04] LABS: BF Color Yellow; Body Fluid Source Pleural Fluid; Clarity Cloudy/Turbid (Clear); Tube # 3
[2020-04-01 14:41] LABS: BF Segmented Neutrophils 31 %; Cell Count Non Hematic 41 %; Eosinophils 20 %; Lymphocytes 4 %
[2020-04-01] MEDS ORDERED: Cefepime 0.5 GM, Admixture Fee 1 EACH in Sodium Chloride 0.9% 100 ML IVPB SCH (15:00)
--- NOTE | 2020-04-01 15:34 | PDOC.HOSPP ---
- Subjective Encounter Date: 04/01/20 Encounter Time: 13:30 Subjective: pt resting; no acute c/o - covid neg. moved to tele bed. afebrile this am. plan for thoracentesis. - Objective Vital Signs & Weight: Vital Signs (12 hours) Temp Pulse Resp BP BP Pulse Ox 04/01/20 11:47 67 18 114/58 L 99 04/01/20 08:50 74 95 04/01/20 08:00 96.2 F L 72 16 142/67 H 95 04/01/20 04:00 98.6 F 74 14 115/54 L 98 Weight Admit Weight 137 lb 8 oz Weight 137 lb 8 oz Result Diagrams: 04/01/20 04:55 04/01/20 04:55 Additional Labs: Accuchecks 04/01/20 11:56 POC Glucose 323 H Hospitalist ROS - Medication Medications: Active Medications Generic Name Dose Route Start Last Admin Trade Name Freq PRN Reason Stop Dose Admin Acetaminophen 650 mg 03/31/20 17:57 04/01/20 03:46 Tylenol PO 650 mg Q4H PRN Administration Headache/Fever/Mild Pain (1-3) Hydrocodone Bitart/Acetaminophen 1 tab 03/31/20 18:00 04/01/20 12:49 [place] 5/325 PO 1 tab Q6HR ALMITA Administration Amlodipine Besylate 5 mg 04/01/20 09:00 04/01/20 08:50 Norvasc PO 5 mg DAILY ALMITA Administration Atorvastatin Calcium 40 mg 03/31/20 21:00 03/31/20 21:02 Lipitor PO 40 mg QPM ALMITA Administration Carvedilol 50 mg 03/31/20 21:00 04/01/20 08:51 Coreg PO 50 mg BID ALMITA Administration Clonidine 0.2 mg 03/31/20 21:00 04/01/20 08:50 Catapres PO 0.2 mg TID ALMITA Administration Clopidogrel Bisulfate 75 mg 03/31/20 21:00 03/31/20 21:02 Plavix PO 75 mg QPM ALMITA Administration Heparin Sodium (Porcine) 5,000 units 03/31/20 21:00 04/01/20 08:51 Heparin SC 5,000 units TID ALMITA Administration Hydralazine HCl 50 mg 03/31/20 21:00 04/01/20 08:50 Apresoline PO 50 mg TID ALMITA Administration Insulin Glargine 12 units/ 0.12 mls @ 0 mls/hr 04/01/20 09:00 04/01/20 08:49 Miscellaneous Medication SC 0.12 mls QAM ALMITA Administration Insulin Human Lispro 0 units 03/31/20 16:37 04/01/20 12:51 Humalog SC 8 unit .MODERATE SLIDING SC PRN Administration Moderate Correctional Scale Isosorbide Dinitrate 20 mg 03/31/20 21:00 04/01/20 08:51 Isordil PO 20 mg TID ALMITA Administration Levetiracetam 500 mg 03/31/20 21:00 04/01/20 08:51 Keppra PO 500 mg BID ALMITA Administration Minoxidil 2.5 mg 04/01/20 09:00 04/01/20 08:51 Minoxidil PO 2.5 mg QAM ALMITA Administration Pantoprazole Sodium 40 mg 03/31/20 21:00 04/01/20 08:51 Protonix PO 40 mg BID ALMITA Administration Sacubitril/Valsartan 1 tab 03/31/20 21:00 04/01/20 08:50 Entresto 49 Mg-51 Mg Tablet PO 1 tab BID ALMITA Administration - Exam General Appearance: NAD, awake alert Eye: PERRL ENT: normocephalic atraumatic Neck: supple, symmetric Heart: RRR Respiratory: no wheezes, normal chest expansion, no tachypnea, rales Gastrointestinal: soft, non-tender, normal bowel sounds Extremities: no edema Neurological: no focal deficits Psychiatric: normal affect, normal behavior, A&O x 3 Hosp A/P - Plan Febrile episode --resolved --willl wait 24hrs for atul result --if neg. dc vanc +cefepime R. Pleural effusion Elevated BNP hx of CHF --renal etiol/HD vs.. cardiac cs.. liver? --echo ordered, no recent echo - will follow on that --plan for dx and therapuetic thoracentesis -on netresto HX of TIA in the past -on plavix Hx of seizure - on keprra AOKD --not on epoitin HTN --cont'd w.. norvasc, apresoline, minoxidil DVT ppx - heparin -change to bid as HD pt. full code
[2020-04-01] MEDS ORDERED: Gabapentin 100 MG CAP PO SCH (19:15)
[2020-04-01] MEDS: Cefepime 0.5 GM in Sodium Chloride 0.9% 100 ML IVPB SCH (19:21)
[2020-04-01] MEDS: Clopidogrel Bisulfate 75 MG TAB PO SCH (20:21)
[2020-04-01] MEDS: Atorvastatin Calcium 40 MG TAB PO SCH (20:21)
[2020-04-02 04:38] LABS: #Basophils 0.1 thou/uL (0.0-0.2); #Eosinphils 0.6 thou/uL (0.0-0.7); #Monocytes 1.3 thou/uL (0.11-0.59); #Neutrophils 9.9 thou/uL (1.40-6.50); %Basophils 0.5 % (0.0-1.0); %Eosinophils 4.3 % (0.0-10.0); %Lymphocytes 7.6 % (21.0-51.0); %Monocytes 10.3 % (0.0-10.0); %Neutrophils 77.3 % (42.0-75.0); Hemoglobin 9.4 g/dL (12.0-16.0); Mean Corpuscular HGB CONC 30.8 g/dL (32.0-36.0); Mean Corpuscular Hemoglobin 30.4 pg (27.0-31.0); Mean Corpuscular Volume 98.6 fL (78.0-98.0); Mean Platelet Volume 10.1 fL (7.4-10.4); Platelet Count 214 thou/uL (130-400); RBC Distribution Width 14.8 % (11.5-14.5); Red Blood Cell (RBC) Count 3.08 mill/uL (4.20-5.40); White Blood Cell (WBC) Count 12.7 thou/uL (4.8-10.8)
[2020-04-02] MEDS: HYDROcodone/Acetaminophen 5/325 mg Tablet PO SCH ×4 (05:57→23:29)
--- NOTE | 2020-04-02 06:37 | OP ---
DATE OF PROCEDURE: 04/01/2020 INDICATIONS FOR PROCEDURE: Viji Schaeffer is a 49-year-old female, who was brought into the ER with pleural effusion. X-ray shows a large right pleural effusion. Coronavirus test was negative. PROCEDURE PERFORMED: Thoracentesis. DESCRIPTION OF PROCEDURE: After informed consent, right posterior thorax was cleaned with chlorhexidine. 1% lidocaine was infiltrated into the right 9th intercostal space all the way to the pleura. The pleural cavity was entered in and about 20 mL of serosanguineous fluid was removed. Thereafter, using 8-Yoruba catheter, total about 1700 mL of fluid was removed. Fluid sent for appropriate studies including cytology and culture. Job ID: [id number]
[2020-04-02] MEDS: levETIRAcetam 500 MG TAB PO SCH ×2 (08:18→20:54)
[2020-04-02] MEDS: Isosorbide Dinitrate 20 MG TAB PO SCH ×3 (08:19→20:55)
[2020-04-02] MEDS: Gabapentin 100 MG CAP PO SCH ×3 (08:19→20:54)
[2020-04-02] MEDS: Heparin 5,000 UNITS/ML VIAL SC SCH ×2 (08:19→20:55)
[2020-04-02 08:27] LABS: Vancomycin, Random 16.5 ug/mL (See Comment)
[2020-04-02] MEDS: Insulin Glargine 12 UNITS in Pre-Filled Syringe 1 EACH SC SCH (08:31)
--- NOTE | 2020-04-02 09:25 | PRG ---
DATE OF SERVICE: 04/02/2020 SUBJECTIVE: A 49-year-old female. This morning, she is better. She is status post thoracentesis. OBJECTIVE: VITAL SIGNS: Temperature 98, pulse 89, respirations 14, saturations 95% on 3 L, blood pressure 109/55. CHEST: Good breath sounds bilaterally. CARDIAC: Normal S1, S2. No gallop. ABDOMEN: No masses. ASSESSMENT AND PLAN: Chronic renal failure, pleural effusion, bloody exudate. Awaiting cytology. Pulmonary dhillon, I would probably discontinue pretty much all antibiotics. I do not see evidence of any sepsis infection. Await cytology results. Job ID: [id number]
[2020-04-02 09:36] LABS: ALT (SGPT) Less than 7 U/L (8-55); AST (SGOT) 18 U/L (5-34); Alkaline Phosphatase 352 U/L (40-110); Bilirubin, Direct 0.8 mg/dL (0.1-0.3); Bilirubin, Total 1.1 mg/dL (0.2-1.2); Protein, Total 7.3 g/dL (6.0-8.3)
[2020-04-02] MEDS: Acetaminophen 325 MG TAB PO PRN (09:45)
[2020-04-02] MEDS: Amlodipine 10 MG TAB PO SCH (09:47)
[2020-04-02] MEDS: cloNIDine 0.2 MG TAB PO SCH (09:47)
[2020-04-02] MEDS: Carvedilol 25 MG TAB PO SCH ×2 (09:47→20:55)
[2020-04-02] MEDS: hydrALAZINE 25 MG TAB PO SCH ×3 (09:48→20:54)
[2020-04-02] MEDS: Minoxidil 2.5 MG TAB PO SCH (10:15)
--- NOTE | 2020-04-02 11:18 | PRG ---
DATE OF SERVICE: 04/02/2020 SUBJECTIVE: A 49-year-old female, being seen for end-stage renal disease. The patient denied any nausea, vomiting, or chest pain. PHYSICAL EXAMINATION: General: The patient is awake and alert. Vital Signs: Afebrile, pulse 98, breathing at 16, blood pressure 109/55. HEENT: Head normocephalic and atraumatic. Eyes intact, no ulcers. Nose intact, no ulcers. Ears intact, no ulcers. Neck: Supple. No JVD. Chest: Symmetrical and clear. Cardiovascular: Shows S1 and S2, no rub, no murmur. Gastrointestinal: Abdomen is soft, bowel sounds positive. Extremities: Show no edema or ulcers. Skin: Shows no rash or petechiae. Musculoskeletal: Shows no joint swelling or stiffness. Genitourinary: Shows no Morris or CVA tenderness. Neurologic: Motor intact. Cranial nerves intact. LABORATORY DATA: Reviewed. ASSESSMENT AND PLAN: 1. Stage 6 chronic kidney disease, stable. 2. Hypertension, stable. 3. Anemia, stable. 4. Medication based on GFR, appropriate. Job ID: [id number]
--- NOTE | 2020-04-02 12:42 | PDOC.HOSPP ---
- Subjective Encounter Date: 04/02/20 Encounter Time: 08:30 Subjective: doing well, her BP on the low side, she takes all the meds and SBP in 130 range at home. as she is getting HD today, will reduce the doses w.. holds PRN. - Objective Vital Signs & Weight: Vital Signs (12 hours) Temp Pulse Resp BP Pulse Ox 04/02/20 09:48 89 04/02/20 09:47 89 04/02/20 08:00 98.4 F 89 14 109/55 L 95 04/02/20 03:06 99.7 F H 82 16 102/54 L 92 L Weight Admit Weight 137 lb 8 oz Weight 137 lb 8 oz I&O: 04/01/20 04/02/20 04/03/20 06:59 06:59 06:59 Intake Total 550 Output Total 0 Balance 550 Result Diagrams: 04/02/20 04:16 04/01/20 04:55 Additional Labs: Accuchecks 04/02/20 04/02/20 04/01/20 10:31 06:21 20:21 POC Glucose 120 H 120 H 233 H Hospitalist ROS - Medication Medications: Active Medications Generic Name Dose Route Start Last Admin Trade Name Freq PRN Reason Stop Dose Admin Acetaminophen 650 mg 03/31/20 17:57 04/02/20 09:45 Tylenol PO 650 mg Q4H PRN Administration Headache/Fever/Mild Pain (1-3) Hydrocodone Bitart/Acetaminophen 1 tab 03/31/20 18:00 04/02/20 05:57 [place] 5/325 PO 1 tab Q6HR ALMITA Administration Atorvastatin Calcium 40 mg 03/31/20 21:00 04/01/20 20:21 Lipitor PO 40 mg QPM ALMITA Administration Clopidogrel Bisulfate 75 mg 03/31/20 21:00 04/01/20 20:21 Plavix PO 75 mg QPM ALMITA Administration Gabapentin 100 mg 04/02/20 09:00 04/02/20 08:19 Neurontin PO 100 mg TID ALMITA Administration Heparin Sodium (Porcine) 5,000 units 04/01/20 21:00 04/02/20 08:19 Heparin SC 5,000 units BID ALMITA Administration Insulin Glargine 12 units/ 0.12 mls @ 0 mls/hr 04/01/20 09:00 04/02/20 08:31 Miscellaneous Medication SC Not Given QAM ALMITA Cefepime HCl 0.5 gm/ 100 mls @ 200 mls/hr 04/01/20 18:00 04/01/20 19:21 Miscellaneous Medication 1 IVPB 100 mls each/ Sodium Chloride 1800 ALMITA Administration Insulin Human Lispro 0 units 03/31/20 16:37 04/01/20 12:51 Humalog SC 8 unit .MODERATE SLIDING SC PRN Administration Moderate Correctional Scale Levetiracetam 500 mg 03/31/20 21:00 04/02/20 08:18 Keppra PO 500 mg BID ALMITA Administration Minoxidil 2.5 mg 04/01/20 09:00 04/02/20 10:15 Minoxidil PO Not Given QAM ALMITA Pantoprazole Sodium 40 mg 03/31/20 21:00 04/02/20 08:19 Protonix PO 40 mg BID ALMITA Administration Sacubitril/Valsartan 1 tab 03/31/20 21:00 04/01/20 20:21 Entresto 49 Mg-51 Mg Tablet PO 1 tab BID ALMITA Administration - Exam General Appearance: NAD, awake alert Eye: PERRL ENT: normocephalic atraumatic Neck: supple Heart: RRR Respiratory: CTAB, normal chest expansion Gastrointestinal: soft, normal bowel sounds Neurological: no focal deficits Psychiatric: A&O x 3 Hosp A/P - Plan Febrile episode --resolved --willl wait 24hrs for atul result --if neg. dc vanc +cefepime R. Pleural effusion Elevated BNP hx of CHF --renal etiol/HD vs.. cardiac cs.. liver? --echo ordered, no recent echo - will follow on that --plan for dx and therapuetic thoracentesis -on entresto HX of TIA in the past -on plavix Hx of seizure - on keprra AOKD --not on epoitin Hypotension in HD pt and on several BP meds -- she takes all the meds and SBP in 130 range at home. as she is getting HD today, will reduce the doses w.. holds PRN. HTN --cont'd w.. norvasc [off for now] apresoline [reduced the doses], minoxidil DVT ppx - heparin -change to bid as HD pt. full code 2nd - dc/d IV abx -monitor w.. reduced BP meds - how her BP in next 24 hrs. -s/p 1.7 liter removed, exudate -will FU on serum LDH and other fluid study.
[2020-04-02] MEDS ORDERED: Heparin 10,000 UNITS/ 10 ML VIAL ONE (14:03)
[2020-04-02] MEDS: Sacubitril 49 MG/Valsartan 51 MG TABLET PO SCH ×2 (14:33→20:54)
[2020-04-02] MEDS: Cefepime 0.5 GM in Sodium Chloride 0.9% 100 ML IVPB SCH (17:56)
[2020-04-02] MEDS: Atorvastatin Calcium 40 MG TAB PO SCH (20:54)
[2020-04-02] MEDS: Clopidogrel Bisulfate 75 MG TAB PO SCH (20:54)
[2020-04-03 04:38] LABS: Anion Gap 16 mmol/L (10-20); BUN (Urea Nitrogen) 21 mg/dL (7.0-18.7); Calc. Creatinine Clearance 22 mL/min (70-130); Calcium 8.6 mg/dL (7.8-10.44); Carbon Dioxide 26 mmol/L (22-29); Chloride 98 mmol/L (98-107); Estimated GFR-MDRD 16; Glucose 140 mg/dL (70-105); Sodium 136 mmol/L (136-145)
[2020-04-03] MEDS: HYDROcodone/Acetaminophen 5/325 mg Tablet PO SCH ×4 (05:47→23:58)
[2020-04-03] MEDS: Sacubitril 49 MG/Valsartan 51 MG TABLET PO SCH ×2 (08:54→20:27)
[2020-04-03] MEDS: Minoxidil 2.5 MG TAB PO SCH (08:55)
[2020-04-03] MEDS: levETIRAcetam 500 MG TAB PO SCH ×2 (08:55→20:26)
[2020-04-03] MEDS: Carvedilol 25 MG TAB PO SCH ×2 (08:55→20:26)
[2020-04-03] MEDS: Gabapentin 100 MG CAP PO SCH ×3 (08:55→20:26)
[2020-04-03] MEDS: hydrALAZINE 25 MG TAB PO SCH ×3 (08:56→20:26)
[2020-04-03] MEDS: Heparin 5,000 UNITS/ML VIAL SC SCH ×2 (08:59→20:27)
[2020-04-03] MEDS: Isosorbide Dinitrate 20 MG TAB PO SCH ×3 (09:07→20:33)
[2020-04-03] MEDS: Insulin Glargine 12 UNITS in Pre-Filled Syringe 1 EACH SC SCH (09:10)
[2020-04-03 09:21] LABS: #Basophils 0.1 thou/uL (0.0-0.2); #Eosinphils 0.8 thou/uL (0.0-0.7); #Lymphocytes 0.5 thou/uL (1.20-3.40); #Monocytes 1.1 thou/uL (0.11-0.59); #Neutrophils 9.3 thou/uL (1.40-6.50); %Basophils 0.5 % (0.0-1.0); %Eosinophils 6.4 % (0.0-10.0); %Lymphocytes 4.5 % (21.0-51.0); %Monocytes 9.4 % (0.0-10.0); %Neutrophils 79.3 % (42.0-75.0); Hemoglobin 9.7 g/dL (12.0-16.0); Mean Corpuscular HGB CONC 31.5 g/dL (32.0-36.0); Mean Corpuscular Hemoglobin 31.3 pg (27.0-31.0); Mean Corpuscular Volume 99.4 fL (78.0-98.0); Mean Platelet Volume 9.8 fL (7.4-10.4); Platelet Count 223 thou/uL (130-400); RBC Distribution Width 14.6 % (11.5-14.5); Red Blood Cell (RBC) Count 3.08 mill/uL (4.20-5.40); White Blood Cell (WBC) Count 11.7 thou/uL (4.8-10.8)
--- NOTE | 2020-04-03 09:26 | PRG ---
DATE OF SERVICE: 04/03/2020 SUBJECTIVE: This morning, she is awake, alert, and responsive. OBJECTIVE: VITAL SIGNS: Temperature 98, pulse 79, respirations 20, saturations 90% on 3 L, blood pressure 145/65. CHEST: Good breath sounds. Right lung and left lung unremarkable. CARDIAC: Normal S1 and S2. No gallops. ABDOMEN: No masses. LABORATORY DATA: All cultures are negative. Creatinine is 3. Large pleural effusion. Cytology negative. Culture negative. No sign of infection at this stage. ASSESSMENT AND PLAN: Chronic renal failure. Discontinue all antibiotics. Disposition as per primary care physician and Nephrology. Pulmonary dhillon, I do not have much to offer at this stage. Job ID: [id number]
--- NOTE | 2020-04-03 11:22 | PRG ---
DATE OF SERVICE: 04/03/2020 SUBJECTIVE: A 49-year-old female being seen for end-stage renal disease. The patient denies any nausea, vomiting, or chest pain. PHYSICAL EXAMINATION: GENERAL: The patient is awake and alert. VITAL SIGNS: Afebrile, pulse 75, breathing at 16, blood pressure 145/65. HEENT: Head normocephalic and atraumatic. Eyes intact, no ulcers. Nose intact, no ulcers. Ears intact, no ulcers. NECK: Supple. No JVD. CHEST: Symmetrical and clear. CARDIOVASCULAR: Shows S1 and S2, no rub, no murmur. GASTROINTESTINAL: Abdomen is soft, bowel sounds positive. EXTREMITIES: Show no edema or ulcers. SKIN: Shows no rash or petechiae. MUSCULOSKELETAL: Shows no joint swelling or stiffness. GENITOURINARY: Shows no Morris or CVA tenderness. NEUROLOGIC: Motor intact. Cranial nerves intact. LABORATORY DATA: Labs showed hemoglobin 9.7 ASSESSMENT AND PLAN: 1. Stage 6 chronic kidney disease, stable. 2. Hypertension, stable. 3. Anemia, stable. 4. Medication based on GFR, appropriate. Job ID: [id number]
--- NOTE | 2020-04-03 11:39 | PDOC.HOSPP ---
- Subjective Encounter Date: 04/03/20 Encounter Time: 10:10 Subjective: son at bedside. they want to talk to GI. they are not sure what medicine GI prescribed last time. BP high, talk to son at length, counselled them to keep med list in the phone, if possible. - Objective Vital Signs & Weight: Vital Signs (12 hours) Temp Pulse Resp BP Pulse Ox 04/03/20 07:13 99.8 F H 78 20 145/65 H 93 L 04/03/20 03:45 99.0 F 75 18 126/60 95 04/02/20 23:53 99.1 F 116/56 L Weight Admit Weight 137 lb 8 oz Weight 123 lb 7.342 oz I&O: 04/02/20 04/03/20 04/04/20 06:59 06:59 06:59 Intake Total 550 Output Total 0 Balance 550 Result Diagrams: 04/03/20 09:11 04/03/20 03:50 Additional Labs: Accuchecks 04/03/20 04/03/20 04/02/20 11:10 05:55 20:53 POC Glucose 165 H 153 H 149 H 04/02/20 17:11 POC Glucose 139 H Hospitalist ROS - Medication Medications: Active Medications Generic Name Dose Route Start Last Admin Trade Name Freq PRN Reason Stop Dose Admin Acetaminophen 650 mg 03/31/20 17:57 04/02/20 09:45 Tylenol PO 650 mg Q4H PRN Administration Headache/Fever/Mild Pain (1-3) Hydrocodone Bitart/Acetaminophen 1 tab 03/31/20 18:00 04/03/20 05:47 [place] 5/325 PO 1 tab Q6HR ALMITA Administration Atorvastatin Calcium 40 mg 03/31/20 21:00 04/02/20 20:54 Lipitor PO 40 mg QPM ALMITA Administration Carvedilol 12.5 mg 04/02/20 21:00 04/03/20 08:55 Coreg PO 12.5 mg BID ALMITA Administration Clopidogrel Bisulfate 75 mg 03/31/20 21:00 04/02/20 20:54 Plavix PO 75 mg QPM ALMITA Administration Gabapentin 100 mg 04/02/20 09:00 04/03/20 08:55 Neurontin PO 100 mg TID ALMITA Administration Heparin Sodium (Porcine) 5,000 units 04/01/20 21:00 04/03/20 08:59 Heparin SC 5,000 units BID ALMITA Administration Hydralazine HCl 25 mg 04/02/20 15:00 04/03/20 08:56 Apresoline PO 25 mg TID ALMITA Administration Insulin Glargine 12 units/ 0.12 mls @ 0 mls/hr 04/01/20 09:00 04/03/20 09:10 Miscellaneous Medication SC Not Given QAM ALMITA Insulin Human Lispro 0 units 03/31/20 16:37 04/01/20 12:51 Humalog SC 8 unit .MODERATE SLIDING SC PRN Administration Moderate Correctional Scale Isosorbide Dinitrate 10 mg 04/02/20 15:00 04/03/20 09:07 Isordil PO 10 mg TID ALMITA Administration Levetiracetam 500 mg 03/31/20 21:00 04/03/20 08:55 Keppra PO 500 mg BID ALMITA Administration Minoxidil 2.5 mg 04/01/20 09:00 04/03/20 08:55 Minoxidil PO 2.5 mg QAM ALMITA Administration Pantoprazole Sodium 40 mg 03/31/20 21:00 04/03/20 08:56 Protonix PO 40 mg BID ALMITA Administration Sacubitril/Valsartan 1 tab 03/31/20 21:00 04/03/20 08:54 Entresto 49 Mg-51 Mg Tablet PO 1 tab BID ALMITA Administration - Exam General Appearance: NAD, awake alert Eye: PERRL ENT: normocephalic atraumatic Neck: supple Heart: RRR, normal peripheral pulses Respiratory: CTAB, normal chest expansion Gastrointestinal: soft, normal bowel sounds Neurological: no focal deficits Psychiatric: A&O x 3 Hosp A/P - Plan Febrile episode --resolved --willl wait 24hrs for atul result --if neg. dc vanc +cefepime R. Pleural effusion Elevated BNP hx of CHF --renal etiol/HD vs.. cardiac cs.. liver? --echo ordered, no recent echo - will follow on that --plan for dx and therapuetic thoracentesis -on entresto HX of TIA in the past -on plavix Hx of seizure - on keprra AOKD --not on epoitin Hypotension in HD pt and on several BP meds -- she takes all the meds and SBP in 130 range at home. as she is getting HD today, will reduce the doses w.. holds PRN. HTN --cont'd w.. norvasc [off for now] apresoline [reduced the doses], minoxidil DVT ppx - heparin -change to bid as HD pt. full code 2nd - dc/d IV abx -monitor w.. reduced BP meds - how her BP in next 24 hrs. -s/p 1.7 liter removed, exudate -will FU on serum LDH and other fluid study. 3rd- restart back on home doses of some BP meds, as BP climbing up. abdominal discomfort and GERD sxs --on PPI bid -GI c/s placed, per family request.
[2020-04-03] MEDS: Atorvastatin Calcium 40 MG TAB PO SCH (20:26)
[2020-04-03] MEDS: Clopidogrel Bisulfate 75 MG TAB PO SCH (20:26)
--- NOTE | 2020-04-04 00:25 | CON ---
DATE OF CONSULTATION: 04/03/2020 REQUESTING PHYSICIAN: Rubin Mallory MD REASON FOR CONSULTATION: Abdominal pain. HISTORY OF PRESENT ILLNESS: Viji Schaeffer is a 49-year-old woman, whom I met during prior hospitalization in December 2019. She has a history significant for congestive heart failure with pulmonary hypertension as well as end-stage renal disease on dialysis and diabetes. When I saw her back in December, she was undergoing evaluation for ascites and an episode of hematemesis. I performed EGD at that time, which showed severe nonerosive gastritis in the gastric fundus and body. Gastric biopsies came back positive for H. pylori gastritis. Ascites workup at that time included paracentesis, which showed a low serum ascites for albumin gradient and of very high fluid total protein, most consistent with cardiac ascites. She really has no indication of significant chronic liver disease. At any rate, during that December hospitalization, we did trial her on Reglan for a few days and she seemed to respond pretty well to it. We had called in triple therapy for her H. pylori in January and she says she completed 2 weeks of therapy. She says she generally does not have any chronic gastrointestinal symptoms. She was admitted here again on 03/31/2020, four days ago. She presented with fevers and some shortness of breath and cough and was found to have a large right pleural effusion. She underwent thoracentesis of 1.7 L with fluid cytology negative. She is currently breathing a lot better. Fevers have resolved on antibiotics, but now just over the past 2 to 3 days since her admission, she is having recurrent symptoms of epigastric pain as well as the sensation of dysphagia. She says that she feels as if food will hang up in the epigastrium or perhaps lower chest transiently and then she will eventually vomit it back up. She does not appear to have been on chronic acid suppression prior to admission. She also reports that during an interval hospitalization in [place], she had been having nausea, was given Reglan, and even given Reglan orally as an outpatient; however, she developed involuntary limb movements with this and so she stopped the medication. REVIEW OF SYSTEMS: Full review of systems including constitutional, head, eyes, ears, nose, throat, GI, , cardiovascular, respiratory, musculoskeletal, and neurologic systems is negative except as noted in the HPI. ALLERGIES: NO KNOWN DRUG ALLERGIES. OUTPATIENT MEDICATIONS: 1. Amlodipine. 2. Clonidine. 3. Minoxidil. 4. Atorvastatin. 5. Keppra. 6. Hydralazine. 7. Plavix 75 mg daily. 8. Entresto. 9. Carvedilol. 10. NovoLog insulin sliding scale. 11. Levemir 12 units q.a.m. 12. Gabapentin. PAST MEDICAL HISTORY: End-stage renal disease on hemodialysis on Wednesday, , and Wednesday. Diabetes type 2, insulin dependent, hypertension, hyperlipidemia, CHF with pulmonary hypertension, anemia chronic, TIA, seizures, and tubal ligation. SOCIAL HISTORY: The patient lives in [place]. No history of tobacco or alcohol abuse or drug abuse. She is disabled and walks with a cane. FAMILY HISTORY: Noncontributory. PHYSICAL EXAMINATION: VITAL SIGNS: Temperature 99.5, pulse 74, blood pressure 128/62, and 93% oxygen saturation on 3 L nasal cannula. GENERAL: A 49-year-old woman, sitting up in bed comfortably, in no distress. She does appear chronically ill. SKIN: No jaundice. No rashes were palpable. HEENT: Eyes, no scleral icterus. Extraocular movements intact. ENT mucous membranes moist. No oral lesions. LYMPH: No submandibular or supraclavicular lymphadenopathy. THYROID: Nontender to palpation. HEART: Regular rate and rhythm. LUNGS: Decreased breath sounds on the right. No wheezing. No respiratory distress. ABDOMEN: Bowel sounds are present. Soft. Some tenderness to palpation in the epigastrium, but no guarding or rebound tenderness. EXTREMITIES: No peripheral edema. VESSELS: Radial pulses 2+ bilaterally. NEURO: Cranial nerves 2 through 12 intact bilaterally. No focal deficits. LABORATORY STUDIES: WBC 11.7, hemoglobin 9.7, and platelets 223. INR 1.1. Sodium 136, potassium 4.0, BUN 21, creatinine 3.04, glucose 158, and calcium 8.6. LFTs show total bilirubin 1.1, alkaline phosphatase 352, AST 18, ALT less than 7, and albumin 3.0. COVID PCR is negative. Hepatitis B surface antigen is nonreactive. Hepatitis B surface antibody is reactive demonstrating immunity. Acid-fast bacilli smear from 04/01/2020 shows no growth to-date. Blood culture from 03/31/2020 shows no growth at 48 hours x2. IMAGING STUDIES: CT of the abdomen and pelvis from 03/31/2020, showed large right pleural effusion and moderate ascites. ASSESSMENT AND PLAN: 1. Dysphagia, seems acute over the past 2 to 3 days. 2. Epigastric pain, associated with the dysphagia. 3. Vomiting. 4. History of Helicobacter pylori infection December 2019, treated with triple therapy in January. The patient has had some issues with nausea over the past few months with all of her hospitalizations, and she may indeed have gastroparesis, though this has not been confirmed. Regardless, she evidently had involuntary limb movements with the Reglan and so I would not recommend going back to this medication. Her current symptoms seem more acute and include this dysphagia and epigastric pain, and I wonder if she may have somehow developed pill esophagitis or ulceration. Further investigation is warranted, and we will plan for diagnostic esophagogastroduodenoscopy tomorrow. We should plan for gastric biopsies on that examination, hopefully confirm successful Helicobacter pylori eradication. 5. Cardiac ascites. Paracentesis fluid studies from December were consistent with cardiac ascites. The patient has some elevation in alkaline phosphatase consistent with passive hepatic congestion, no other evidence of primary liver disease contributing to her fluid retention. Job ID: [id number]
[2020-04-04] MEDS: HYDROcodone/Acetaminophen 5/325 mg Tablet PO SCH ×4 (05:45→23:24)
--- NOTE | 2020-04-04 09:57 | PRG ---
DATE OF SERVICE: 04/04/2020 SUBJECTIVE: Viji Schaeffer this morning is awake, responsive. Vague abdominal pain, but no shortness of breath. OBJECTIVE: VITAL SIGNS: Saturations are 92% on room air, temperature 98, pulse 70, and blood pressure 130/63. CHEST: Decreased breath sounds. She had no wheezing. CARDIAC: Normal S1, S2. No gallops. ABDOMEN: No masses. ASSESSMENT: Chronic renal failure, pleural effusion, exudate. Cytology culture negative. Small ascites, diabetes, history of congestive heart failure, the ejection fraction is normal. Pulmonary dhillon, continue supportive care. PT. Input from GI. Job ID: [id number]
[2020-04-04] MEDS ORDERED: Promethazine HCl 25 MG/ML VIAL SLOW IVP PRN (11:08)
--- NOTE | 2020-04-04 12:18 | PRG ---
DATE OF SERVICE: 04/04/2020 SUBJECTIVE: A 49-year-old female, being seen for end-stage renal disease. The patient denies any nausea, vomiting, or chest pain OBJECTIVE: GENERAL: The patient is awake and alert. VITAL SIGNS: Afebrile, pulse 73, breathing at 16, blood pressure 135/64. HEENT: Head normocephalic and atraumatic. Eyes intact, no ulcers. Nose intact, no ulcers. Ears intact, no ulcers. NECK: Supple. No JVD. CHEST: Symmetrical and clear. CARDIOVASCULAR: Shows S1 and S2, no rub, no murmur. GASTROINTESTINAL: Abdomen is soft, bowel sounds positive. EXTREMITIES: Show no edema or ulcers. SKIN: Shows no rash or petechiae. MUSCULOSKELETAL: Shows no joint swelling or stiffness. GENITOURINARY: Shows no Morris or CVA tenderness. NEUROLOGIC: Motor intact. Cranial nerves intact. LABORATORY DATA: Show hemoglobin 9.7. ASSESSMENT AND RECOMMENDATIONS: 1. Stage 6 chronic kidney disease. Continue hemodialysis. 2. Hypertension, stable. 3. Anemia, stable. 4. Medication based on GFR, appropriate. Job ID: [id number]
[2020-04-04] MEDS ORDERED: PROPOFOL 200 MG/20 ML VIAL ONE (12:36)
[2020-04-04] MEDS ORDERED: PHENYLEPHRINE-NS 100 MCG/ML 10 ML SYRINGE ONE (12:36)
[2020-04-04] MEDS ORDERED: Dexamethasone 20 MG/5 ML VIAL ONE (12:36)
[2020-04-04] MEDS ORDERED: Ondansetron PF 4 MG/2 ML Vial ONE (12:36)
[2020-04-04] MEDS ORDERED: EPHEDRINE 25 MG/5 ML SYRINGE ONE (12:36)
[2020-04-04] MEDS ORDERED: Succinylcholine Chloride 20 MG/ML 10 ml SYRINGE FS ONE (12:36)
[2020-04-04] MEDS: Insulin Glargine 12 UNITS in Pre-Filled Syringe 1 EACH SC SCH (12:49)
[2020-04-04] MEDS: Sacubitril 49 MG/Valsartan 51 MG TABLET PO SCH ×2 (12:54→20:45)
[2020-04-04] MEDS: Isosorbide Dinitrate 20 MG TAB PO SCH ×3 (12:54→20:45)
[2020-04-04] MEDS: Minoxidil 2.5 MG TAB PO SCH (12:54)
[2020-04-04] MEDS: Gabapentin 100 MG CAP PO SCH ×3 (12:55→20:45)
[2020-04-04] MEDS: hydrALAZINE 25 MG TAB PO SCH ×3 (12:55→20:45)
[2020-04-04] MEDS: levETIRAcetam 500 MG TAB PO SCH ×2 (12:56→20:45)
[2020-04-04] MEDS: Carvedilol 25 MG TAB PO SCH ×2 (12:56→20:44)
[2020-04-04] MEDS: Heparin 5,000 UNITS/ML VIAL SC SCH ×2 (12:57→20:45)
--- NOTE | 2020-04-04 15:00 | PDOC.HOSPP ---
- Objective Vital Signs & Weight: Vital Signs (12 hours) Temp Pulse Resp BP BP BP Pulse Ox 04/04/20 14:05 94 L 04/04/20 12:55 67 130/64 04/04/20 12:35 98.0 F 67 18 130/64 94 L 04/04/20 08:10 98.3 F 73 16 135/64 92 L 04/04/20 04:03 98.3 F 70 20 133/63 92 L Weight Admit Weight 137 lb 8 oz Weight 123 lb 7.342 oz I&O: 04/03/20 04/04/20 04/05/20 06:59 06:59 06:59 Intake Total 870 Balance 870 Result Diagrams: 04/03/20 09:11 04/03/20 03:50 Additional Labs: Accuchecks 04/04/20 04/04/20 04/03/20 12:53 05:39 20:08 POC Glucose 150 H 151 H 168 H 04/03/20 17:32 POC Glucose 158 H Hospitalist ROS - Medication Medications: Active Medications Generic Name Dose Route Start Last Admin Trade Name Freq PRN Reason Stop Dose Admin Acetaminophen 650 mg 03/31/20 17:57 04/02/20 09:45 Tylenol PO 650 mg Q4H PRN Administration Headache/Fever/Mild Pain (1-3) Hydrocodone Bitart/Acetaminophen 1 tab 03/31/20 18:00 04/04/20 13:03 [place] 5/325 PO 1 tab Q6HR ALMITA Administration Atorvastatin Calcium 40 mg 03/31/20 21:00 04/03/20 20:26 Lipitor PO 40 mg QPM ALMITA Administration Carvedilol 12.5 mg 04/02/20 21:00 04/04/20 12:56 Coreg PO 12.5 mg BID ALMITA Administration Clopidogrel Bisulfate 75 mg 03/31/20 21:00 04/03/20 20:26 Plavix PO 75 mg QPM ALMITA Administration Gabapentin 100 mg 04/02/20 09:00 04/04/20 12:55 Neurontin PO 100 mg TID ALMITA Administration Heparin Sodium (Porcine) 5,000 units 04/01/20 21:00 04/04/20 12:57 Heparin SC 5,000 units BID ALMITA Administration Hydralazine HCl 50 mg 04/03/20 15:00 04/04/20 12:55 Apresoline PO 50 mg TID ALMITA Administration Insulin Glargine 12 units/ 0.12 mls @ 0 mls/hr 04/01/20 09:00 04/04/20 12:49 Miscellaneous Medication SC 0.12 mls QAM ALMITA Administration Insulin Human Lispro 0 units 03/31/20 16:37 04/01/20 12:51 Humalog SC 8 unit .MODERATE SLIDING SC PRN Administration Moderate Correctional Scale Isosorbide Dinitrate 10 mg 04/02/20 15:00 04/04/20 12:54 Isordil PO 10 mg TID ALMITA Administration Levetiracetam 500 mg 03/31/20 21:00 04/04/20 12:56 Keppra PO 500 mg BID ALMITA Administration Minoxidil 2.5 mg 04/01/20 09:00 04/04/20 12:54 Minoxidil PO 2.5 mg QAM ALMITA Administration Pantoprazole Sodium 40 mg 03/31/20 21:00 04/04/20 12:56 Protonix PO 40 mg BID ALMITA Administration Sacubitril/Valsartan 1 tab 03/31/20 21:00 04/04/20 12:54 Entresto 49 Mg-51 Mg Tablet PO 1 tab BID ALMITA Administration Hosp A/P - Plan Febrile episode --resolved --willl wait 24hrs for atul result --if neg. dc vanc +cefepime R. Pleural effusion Elevated BNP hx of CHF Prob cardiac ascites --renal etiol/HD vs.. cardiac cs.. liver? --echo ordered, no recent echo - will follow on that --plan for dx and therapuetic thoracentesis -on entresto HX of TIA in the past -on plavix Hx of seizure - on keprra AOKD --not on epoitin Hypotension in HD pt and on several BP meds -- she takes all the meds and SBP in 130 range at home. as she is getting HD today, will reduce the doses w.. holds PRN. HTN --cont'd w.. norvasc [off for now] apresoline [reduced the doses], minoxidil DVT ppx - heparin -change to bid as HD pt. full code 2nd - dc/d IV abx -monitor w.. reduced BP meds - how her BP in next 24 hrs. -s/p 1.7 liter removed, exudate -will FU on serum LDH and other fluid study. 3rd- restart back on home doses of some BP meds, as BP climbing up. abdominal discomfort and GERD sxs --on PPI bid -GI c/s placed, per family request. 4th Prob cardiac ascites hepatic congestion --flux atul neg --exudate --fungal atul pending -No AFB in smear --bld atul neg x 5 days prob gastroparesis Recent hx of dysphagia and Hylori infection - completed triple abx regimen -Had EGD today- to r/o pill - induced esophagitis-rpt pending.
[2020-04-04] MEDS: HumaLOG 300 UNITS/3 ML VIAL SC PRN ×2 (17:57→20:46)
[2020-04-04] MEDS: Atorvastatin Calcium 40 MG TAB PO SCH (20:44)
[2020-04-04] MEDS: Clopidogrel Bisulfate 75 MG TAB PO SCH (20:45)
[2020-04-05 05:03] LABS: #Eosinphils 0.1 thou/uL (0.0-0.7); #Lymphocytes 0.7 thou/uL (1.20-3.40); #Monocytes 1.2 thou/uL (0.11-0.59); #Neutrophils 8.3 thou/uL (1.40-6.50); %Basophils 0.2 % (0.0-1.0); %Eosinophils 1.3 % (0.0-10.0); %Lymphocytes 6.9 % (21.0-51.0); %Monocytes 11.4 % (0.0-10.0); %Neutrophils 80.2 % (42.0-75.0); Hemoglobin 9.6 g/dL (12.0-16.0); Mean Corpuscular HGB CONC 32.7 g/dL (32.0-36.0); Mean Corpuscular Hemoglobin 31.7 pg (27.0-31.0); Mean Corpuscular Volume 97.2 fL (78.0-98.0); Mean Platelet Volume 9.9 fL (7.4-10.4); Platelet Count 285 thou/uL (130-400); RBC Distribution Width 14.4 % (11.5-14.5); Red Blood Cell (RBC) Count 3.01 mill/uL (4.20-5.40); White Blood Cell (WBC) Count 10.4 thou/uL (4.8-10.8)
[2020-04-05] MEDS: HYDROcodone/Acetaminophen 5/325 mg Tablet PO SCH ×4 (05:18→19:07)
[2020-04-05] MEDS: Heparin 5,000 UNITS/ML VIAL SC SCH ×2 (07:41→20:30)
[2020-04-05] MEDS: levETIRAcetam 500 MG TAB PO SCH ×2 (07:44→20:30)
[2020-04-05] MEDS: Gabapentin 100 MG CAP PO SCH ×3 (07:44→20:30)
--- NOTE | 2020-04-05 08:54 | PRG ---
DATE OF SERVICE: 04/05/2020 SUBJECTIVE: This is a 49-year-old female being seen for end-stage renal disease. The patient denied nausea, vomiting, or chest pain. OBJECTIVE: GENERAL: The patient is awake and alert. VITAL SIGNS: Afebrile, pulse 68, breathing 16, and blood pressure 130/61. HEENT: Head normocephalic and atraumatic. Eyes intact, no ulcers. Nose intact, no ulcers. Ears intact, no ulcers. NECK: Supple. No JVD. CHEST: Symmetrical and clear. CARDIOVASCULAR: Shows S1 and S2, no rub, no murmur. GASTROINTESTINAL: Abdomen is soft, bowel sounds positive. EXTREMITIES: Show no edema or ulcers. SKIN: Shows no rash or petechiae. MUSCULOSKELETAL: Shows no joint swelling or stiffness. GENITOURINARY: Shows no Morris or CVA tenderness. NEUROLOGIC: Motor intact. Cranial nerves intact. LABORATORY DATA: Labs show hemoglobin 9.6. ASSESSMENT AND PLAN: 1. Stage 6 chronic kidney disease. Continue hemodialysis. 2. Hypertension, stable. 3. Anemia, stable. 4. Medications based on glomerular filtration rate are appropriate. Job ID: [id number]
[2020-04-05] MEDS: Insulin Glargine 12 UNITS in Pre-Filled Syringe 1 EACH SC SCH (09:10)
--- NOTE | 2020-04-05 09:59 | PRG ---
DATE OF SERVICE: 04/05/2020 SUBJECTIVE: This morning, she is awake, alert, and responsive. Afebrile, no evidence of any respiratory distress. OBJECTIVE: VITAL SIGNS: Temperature 98, pulse 60, respirations 14, saturation is 96% on room air, and blood pressure 130/60. CHEST: No wheezing or crackles. CARDIAC: Normal S1, S2. No gallops. ABDOMEN: No masses. LABORATORY DATA: Lytes normal. White count 10,000. ASSESSMENT: Abdominal pain. Workup in progress. Pleural effusion, stable. Chronic renal failure, dialysis. Pulmonary dhillon, there is not much to offer. Please call as needed. Job ID: [id number]
[2020-04-05] MEDS: HumaLOG 300 UNITS/3 ML VIAL SC PRN ×2 (12:20→19:08)
--- NOTE | 2020-04-05 12:48 | PDOC.HOSPP ---
- Subjective Encounter Date: 04/05/20 Encounter Time: 11:20 Subjective: EGD reprot pending, pt had MBS; resting, wondering when she is going to go for HD. - Objective Vital Signs & Weight: Vital Signs (12 hours) Temp Pulse Resp BP BP Pulse Ox 04/05/20 07:50 96 04/05/20 07:30 97.5 F L 80 18 103/55 L 96 04/05/20 04:08 98.4 F 68 14 130/61 97 Weight Admit Weight 137 lb 8 oz Weight 123 lb 7.342 oz I&O: 04/04/20 04/05/20 04/06/20 06:59 06:59 06:59 Intake Total 870 2096 Balance 870 2096 Result Diagrams: 04/05/20 04:41 04/03/20 03:50 Additional Labs: Accuchecks 04/05/20 04/05/20 04/04/20 11:19 06:00 20:38 POC Glucose 182 H 259 H 344 H 04/04/20 04/04/20 04/04/20 17:59 16:58 12:53 POC Glucose 272 H 265 H 150 H Hospitalist ROS - Medication Medications: Active Medications Generic Name Dose Route Start Last Admin Trade Name Freq PRN Reason Stop Dose Admin Acetaminophen 650 mg 03/31/20 17:57 04/02/20 09:45 Tylenol PO 650 mg Q4H PRN Administration Headache/Fever/Mild Pain (1-3) Hydrocodone Bitart/Acetaminophen 1 tab 03/31/20 18:00 04/05/20 12:21 [place] 5/325 PO 1 tab Q6HR ALMITA Administration Atorvastatin Calcium 40 mg 03/31/20 21:00 04/04/20 20:44 Lipitor PO 40 mg QPM ALMITA Administration Carvedilol 12.5 mg 04/02/20 21:00 04/04/20 20:44 Coreg PO 12.5 mg BID ALMITA Administration Clopidogrel Bisulfate 75 mg 03/31/20 21:00 04/04/20 20:45 Plavix PO 75 mg QPM ALMITA Administration Gabapentin 100 mg 04/02/20 09:00 04/05/20 07:44 Neurontin PO 100 mg TID ALMITA Administration Heparin Sodium (Porcine) 5,000 units 04/01/20 21:00 04/05/20 07:41 Heparin SC 5,000 units BID ALMITA Administration Hydralazine HCl 50 mg 04/03/20 15:00 04/04/20 20:45 Apresoline PO 50 mg TID ALMITA Administration Insulin Glargine 12 units/ 0.12 mls @ 0 mls/hr 04/01/20 09:00 04/05/20 09:10 Miscellaneous Medication SC 0.12 mls QAM ALMITA Administration Insulin Human Lispro 0 units 03/31/20 16:37 04/05/20 12:20 Humalog SC 2 unit .MODERATE SLIDING SC PRN Administration Moderate Correctional Scale Isosorbide Dinitrate 10 mg 04/02/20 15:00 04/04/20 20:45 Isordil PO 10 mg TID ALMITA Administration Levetiracetam 500 mg 03/31/20 21:00 04/05/20 07:44 Keppra PO 500 mg BID ALMITA Administration Minoxidil 2.5 mg 04/01/20 09:00 04/04/20 12:54 Minoxidil PO 2.5 mg QAM ALMITA Administration Pantoprazole Sodium 40 mg 03/31/20 21:00 04/05/20 07:44 Protonix PO 40 mg BID ALMITA Administration Sacubitril/Valsartan 1 tab 03/31/20 21:00 04/04/20 20:45 Entresto 49 Mg-51 Mg Tablet PO 1 tab BID ALMITA Administration - Exam General Appearance: NAD, awake alert Eye: PERRL ENT: normocephalic atraumatic Neck: supple Heart: RRR Respiratory: CTAB, normal chest expansion Gastrointestinal: soft, normal bowel sounds Neurological: no focal deficits Psychiatric: A&O x 3 Hosp A/P - Plan Febrile episode --resolved R. Pleural effusion Elevated BNP hx of CHF Prob cardiac ascites --renal etiol/HD vs.. cardiac cs.. liver? --echo ordered, no recent echo - will follow on that --plan for dx and therapuetic thoracentesis -on entresto -s/p 1.7 liter of exudate removed hepatic congestion --flux atul neg --exudate --fungal atul pending -No AFB in smear --bld atul neg x 5 days HX of TIA in the past -on plavix Hx of seizure - on keprra AOKD --not on epoitin Hypotension in HD pt and on several BP meds -- she takes all the meds and SBP in 130 range at home. as she is getting HD today, will reduce the doses w.. holds PRN. HTN --cont'd w.. norvasc [off for now] apresoline [reduced the doses], minoxidil Abdominal discomfort and GERD sxs --on PPI bid prob gastroparesis Recent hx of dysphagia and Hylori infection - completed triple abx regimen -Had EGD on 4th- to r/o pill - induced esophagitis-rpt pending. -Had MBS study today - pending GI clearance for dc. DVT ppx - heparin -change to bid as HD pt. full code
--- NOTE | 2020-04-05 13:50 | RAD ---
Barium swallow esophagram double contrast: 04/05/2020 HISTORY: 49-year-old female with dysphagia. Question of achalasia noted on EGD by ordering physician. TECHNIQUE: Qualitative Field Project Manager radiograph of chest obtained. Upright administration of effervescent granules, thick liquid barium, and barium tablet with water. Prone [place] straw administration of thin liquid barium. FINDINGS: The entire esophagus is mildly patulous, but there is no severe dilation as seen with achalasia. On t he images, no high-grade stricture is identified, but there was holdup of the barium tablet at the esophagogastric junction for approximately 2 minutes,, which eventually passed into the stomach after patient began drinking thin liquid barium through the straw while prone. Mild to moderate gastroesophageal reflux is demonstrated. There is no moderate sized or large hiatal hernia. Qualitative Field Project Manager radiograph demonstrates cardiomegaly, right internal jugular double lumen dialysis catheter, an d pulmonary venous engorgement. It also demonstrates dense opacification moderate sized regions of of the lateral aspect of the right lung, which could be artifact due to overlying structures, althoug h actual pathology is not excluded. IMPRESSION: 1. Temporary holdup of barium tablet at esophagogastric junction, suggestive of at least a mild stric ture. Recommend correlation with findings on endoscopy. 2. Gastroesophageal reflux.
[2020-04-05] MEDS: Carvedilol 25 MG TAB PO SCH ×2 (15:47→20:31)
[2020-04-05] MEDS: hydrALAZINE 25 MG TAB PO SCH ×3 (15:47→20:31)
[2020-04-05] MEDS: Minoxidil 2.5 MG TAB PO SCH (15:48)
[2020-04-05] MEDS: Sacubitril 49 MG/Valsartan 51 MG TABLET PO SCH ×2 (15:48→20:32)
[2020-04-05] MEDS: Isosorbide Dinitrate 20 MG TAB PO SCH ×2 (15:48→20:32)
--- NOTE | 2020-04-05 16:15 | OP ---
DATE OF PROCEDURE: 04/04/2020 PROCEDURE PERFORMED: Esophagogastroduodenoscopy with dilatation. PREPROCEDURE DIAGNOSES: Odynophagia, dysphagia. POSTPROCEDURE DIAGNOSES: 1. Bolus obstruction of the esophagus with poor relaxation at the LES concerning for possible achalasia. 2. Stasis changes in the esophagus. 3. Normal stomach with no retained gastric contents. ANESTHESIA: TIVA conversion to general endotracheal anesthesia. OR TIME: 1 hour. DESCRIPTION OF PROCEDURE: After the patient was informed of the risks, benefits, and possible complications of endoscopy including perforation, reaction to medication, and aspiration, informed consent was obtained. The patient was brought to endoscopy suite, where she was sedated in gradual fashion. Once she was comfortable, a bite block was placed inside the orifice. The endoscope was advanced through the esophagus the distal 2/3 that was found to be impacted with food. At this time, we removed the scope, and the patient was intubated for airway protection. The bolus was removed over the next 45 minutes. There was no evidence of stricture or mass in the esophagus. There was no relaxation at the LES on continued observation and poor esophageal motility. There was stasis changes in the mucosa of the distal 2/3 of the esophagus. There was no overt changes to suggest eosinophilic esophagitis. The stomach was entered and normal in forward and retroflexed views. There was no retained content in the stomach. Duodenum was normal in third portion. The scope was removed. The patient tolerated the procedure well without complications. Job ID: [id number]
--- NOTE | 2020-04-05 16:51 | PRG ---
DATE OF SERVICE: 04/05/2020 SUBJECTIVE: Ms. Schaeffer is tolerating full liquids. In talking with her, she states that she has had a bolus obstruction in her esophagus in the past and had to have an EGD with removal of food. That was in [place] not long ago. Her barium swallow today with a tablet showed slight hung up at the of the GE junction in the past. There was poor esophageal motility apparently. The esophagus was mildly patulous and no high-grade stricture was noted. "Mild stricture was suggested by radiology." In reviewing the films, the tablet did go down and did not hang up. There was slightly dilated esophagus. There was no classic bird beak seen on those films, but there is not really any good imaging at this location on the still images, other than of the tablet, except for image 16 of 35, there may be a little narrow waist there. OBJECTIVE: GENERAL: She is resting comfortably in bed. VITAL SIGNS: Temperature is 97, pulse 80, blood pressure 103/56. ABDOMEN: Soft, nontender. ASSESSMENT: The patient had acute dysphagia for 2 to 3 days with epigastric pain. At time of her endoscopy, she was found to have food impaction in the entire distal 2/3 of the esophagus, it was removed over an hour. There was no distinct stricture at the GE junction. There were stasis changes in the esophagus. There was poor relaxation of the lower esophageal sphincter, which to me looks like possible achalasia. The followup upper GI is nonconclusive on the films. There is no classic bird beak. This could represent early achalasia. It could represent esophageal motility disorder related to scleroderma, although she does not have a clear diagnosis of that. She does have some clinical features with tight skin on the nose and fingertips, but it is not classic. RECOMMENDATIONS: I think her diet can be advanced. She can stay on PPI at all times. Diet is soft, low residue diet, and she will need to follow up with Dr. Singh in the outpatient setting in a week or two to set up esophageal manometry. Dr. Stanley is on-call this weekend if needed. Otherwise, she can follow up with me in the outpatient setting. Job ID: [id number]
--- NOTE | 2020-04-05 17:33 | OP ---
DATE OF PROCEDURE: 04/04/2020 PROCEDURE PERFORMED: Esophagogastroduodenoscopy. PREPROCEDURE DIAGNOSIS: Odynophagia/dysphagia. POSTPROCEDURE DIAGNOSES: 1. Bolus esophagus of food in the entire distal esophagus with poor motility and poor relaxation at the GE junction. 2. Food bolus in the entire esophagus removed over 1 hour. RECOMMENDATIONS: 1. Liquid diet today. 2. Barium esophagram with tablet tomorrow. ANESTHESIA: TIVA converted to general endotracheal anesthesia. PROCEDURE IN DETAIL: After the patient was informed of the risks, benefits, and possible complications of endoscopy including perforation, reaction to medication, and aspiration, informed consent was obtained. The patient was brought to endoscopy suite, where she was sedated in gradual fashion. When she was comfortable, a bite block was placed in esophageal orifice, endoscope was advanced through the esophagus. Food was encountered in the esophagus. At first, we kind of irrigated and could tell that this was impacting the entire esophagus. Decision was made to remove the scope and have the patient intubated, which was done rapidly without complication. Once the patient's airway was secured, the endoscope was readvanced in the esophagus and for the distal 2/3 of the esophagus, the esophagus was noted to be full of food material. We were able to clear this over the next hour with a basket and irrigation and suction. There was no overt stricture seen at the GE junction, but there was quite a bit of mucosal change in the entire distal 2/3 of the esophagus, consistent with stasis changes. The stomach was entered and otherwise normal in forward and retroflexed views. The duodenum was normal. There was no evidence of mass at the GE junction. The GE junction was watched from above for some period of time and it never relaxed, had the appearance somewhat of achalasia or some type of decreased motility issue. The scope was removed. The patient tolerated the procedure well. No complications. Job ID: [id number]
[2020-04-05] MEDS: Clopidogrel Bisulfate 75 MG TAB PO SCH (20:30)
[2020-04-05] MEDS: Atorvastatin Calcium 40 MG TAB PO SCH (20:30)
--- NOTE | 2020-04-05 21:55 | PDOC.EVN ---
Event Note - Event Note Event Note: Nurse called, hypothermic 95F rectal, BP 98/50, HR 58 on BB, sp02 96 2L NC, patient reports feeling a little cold. Sepsis workup repeat. 250ml NS IV bolus. cortisol in am.
[2020-04-05] MEDS ORDERED: Sodium Chloride 0.9% 250 ML IV SCH (22:00)
[2020-04-05 22:41] LABS: Lactic Acid 1.4 mmol/L (0.5-2.2)
--- NOTE | 2020-04-05 22:49 | RAD ---
FRONTAL RADIOGRAPH CHEST: Date: 04/05/2020 COMPARISON: 04/01/2020. HISTORY: Sepsis. FINDINGS: Stable right-sided dialysis catheter. Stable enlargement of the cardiac silhouette. Left lung appears clear. There is new air space disease in the right lung base. There is new blunting of the right costophreni c angle with lateral pleural thickening from right lung apex through right lung base, new as well. Fo tian opacity in the mid right lung zone may signify new air space disease or fluid trapped within the fissure. IMPRESSION: New pleural and parenchymal opacity on the right. Findings may be related to infectious pneumonitis/a spiration with parapneumonic effusion. Recommend short-term follow-up imaging following treatment to document resolution. POS: [facility]
[2020-04-06] MEDS: HYDROcodone/Acetaminophen 5/325 mg Tablet PO SCH ×5 (00:07→23:26)
[2020-04-06 04:55] LABS: #Eosinphils 1.3 thou/uL (0.0-0.7); #Lymphocytes 0.9 thou/uL (1.20-3.40); #Monocytes 0.9 thou/uL (0.11-0.59); #Neutrophils 5.3 thou/uL (1.40-6.50); %Basophils 0.1 % (0.0-1.0); %Eosinophils 15.1 % (0.0-10.0); %Lymphocytes 10.3 % (21.0-51.0); %Monocytes 10.9 % (0.0-10.0); %Neutrophils 63.6 % (42.0-75.0); Hemoglobin 9.8 g/dL (12.0-16.0); Mean Corpuscular HGB CONC 32.6 g/dL (32.0-36.0); Mean Corpuscular Hemoglobin 31.9 pg (27.0-31.0); Mean Platelet Volume 10.1 fL (7.4-10.4); Platelet Count 296 thou/uL (130-400); RBC Distribution Width 14.4 % (11.5-14.5); Red Blood Cell (RBC) Count 3.07 mill/uL (4.20-5.40); White Blood Cell (WBC) Count 8.4 thou/uL (4.8-10.8)
[2020-04-06 05:15] LABS: Anion Gap 22 mmol/L (10-20); BUN (Urea Nitrogen) 59 mg/dL (7.0-18.7); Calc. Creatinine Clearance 10 mL/min (70-130); Calcium 8.1 mg/dL (7.8-10.44); Carbon Dioxide 21 mmol/L (22-29); Chloride 93 mmol/L (98-107); Estimated GFR-MDRD 7; Glucose 128 mg/dL (70-105); Potassium 5.6 mmol/L (3.5-5.1); Sodium 130 mmol/L (136-145)
[2020-04-06] MEDS: HumaLOG 300 UNITS/3 ML VIAL SC PRN ×2 (06:17→18:50)
[2020-04-06] MEDS ORDERED: Ondansetron ORAL SOLN. 4 MG/5 ML UDCUP PO PRN (10:24)
[2020-04-06] MEDS ORDERED: Ondansetron ODT 4 MG TAB PO PRN (10:35)
--- NOTE | 2020-04-06 10:44 | PRG ---
DATE OF SERVICE: 04/06/2020 SUBJECTIVE: A 49-year-old female is being seen for end-stage renal disease. The patient denied any nausea, vomiting, or chest pain. OBJECTIVE: GENERAL: The patient is awake and alert. VITAL SIGNS: Afebrile, pulse 77, breathing at 16, blood pressure 124/65. HEENT: Head normocephalic and atraumatic. Eyes intact, no ulcers. Nose intact, no ulcers. Ears intact, no ulcers. NECK: Supple. No JVD. CHEST: Symmetrical and clear. CARDIOVASCULAR: Shows S1 and S2, no rub, no murmur. GASTROINTESTINAL: Abdomen is soft, bowel sounds positive. EXTREMITIES: Show no edema or ulcers. SKIN: Shows no rash or petechiae. MUSCULOSKELETAL: Shows no joint swelling or stiffness. GENITOURINARY: Shows no Morris or CVA tenderness. NEUROLOGIC: Motor intact. Cranial nerves intact. LABORATORY DATA: Hemoglobin 9.8. Potassium 5.6. ASSESSMENT AND PLAN: 1. Stage 6 chronic kidney disease. Plan dialysis. 2. Hypertension, stable. 3. Anemia, stable. 4. Medication based on GFR appropriate. Job ID: [id number]
[2020-04-06] MEDS ORDERED: Heparin 10,000 UNITS/ 10 ML VIAL ONE (13:52)
--- NOTE | 2020-04-06 14:09 | EKG ---
Test Reason : Blood Pressure : / mmHG Vent. Rate : 073 BPM Atrial Rate : 073 BPM P-R Int : 176 ms QRS Dur : 098 ms QT Int : 386 ms P-R-T Axes : 025 -26 093 degrees QTc Int : 425 ms Normal sinus rhythm Nonspecific T wave abnormality Abnormal ECG Confirmed by LESLYE TAYLOR DO ([id number]), managing editor OCTAVIA KENNEDY ([id number] on 04/06/2020 2:08:45 PM Referred By: Confirmed By:LESLYE TAYLOR DO
[2020-04-06] MEDS: Minoxidil 2.5 MG TAB PO SCH (14:23)
[2020-04-06] MEDS: Gabapentin 100 MG CAP PO SCH ×3 (14:23→21:25)
[2020-04-06] MEDS: levETIRAcetam 500 MG TAB PO SCH ×2 (14:23→21:24)
[2020-04-06] MEDS: Sacubitril 49 MG/Valsartan 51 MG TABLET PO SCH ×2 (14:23→21:27)
[2020-04-06] MEDS: Carvedilol 25 MG TAB PO SCH ×2 (14:23→21:25)
[2020-04-06] MEDS: Isosorbide Dinitrate 20 MG TAB PO SCH ×3 (14:24→21:24)
[2020-04-06] MEDS: hydrALAZINE 25 MG TAB PO SCH ×3 (14:24→21:26)
[2020-04-06] MEDS: Heparin 5,000 UNITS/ML VIAL SC SCH ×2 (14:25→21:28)
[2020-04-06] MEDS: Insulin Glargine 12 UNITS in Pre-Filled Syringe 1 EACH SC SCH (14:45)
--- NOTE | 2020-04-06 18:02 | PRG ---
DATE OF SERVICE: 04/06/2020 This is a cross coverage for Dr. Bejarano. SUBJECTIVE: Ms. Viji Schaeffer is a 49-year-old female with chronic kidney disease, on dialysis, EGD by Dr. Rodrigo Bejarano and was found to have some some esophageal motility disorder. She needs a manometry scan as an outpatient. The patient is doing well. She does not have any difficulty swallowing at present time. No nausea or vomiting. No abdominal pain. No chest pain. OBJECTIVE: VITAL SIGNS: Afebrile, pulse is 70, and blood pressure is 120/70. HEENT: Conjunctivae are clear. CARDIOVASCULAR: First and second sounds. LUNGS: Clear to auscultation. ABDOMEN: Soft. No organomegaly. No tenderness. No masses. RECOMMENDATIONS: 1. Diet as tolerated. 2. The patient will follow up with Dr. Blue Singh as outpatient. An outpatient esophageal manometry will be scheduled at a later date. We will sign off from today and if any issues, please call us back. Job ID: [id number]
--- NOTE | 2020-04-06 21:11 | PDOC.HOSPP ---
- Subjective Encounter Date: 04/06/20 Encounter Time: 09:00 Subjective: overnight, hypothermic and borderline hypotensive. this morning, complains of nausea prior to dialysis. Otherwise no complaints. - Objective Vital Signs & Weight: Vital Signs (12 hours) Temp Pulse Resp BP Pulse Ox 04/06/20 20:21 99.2 F 81 18 120/58 L 95 04/06/20 16:55 98.3 F 83 17 123/58 L 94 L 04/06/20 14:20 98.2 F 81 18 152/70 H 95 Weight Admit Weight 137 lb 8 oz Weight 136 lb 3.931 oz I&O: 04/05/20 04/06/20 04/07/20 06:59 06:59 06:59 Intake Total 2095 1270 243 Output Total 3000 Balance 0 1270 -2520 Result Diagrams: 04/06/20 04:19 04/06/20 04:19 Additional Labs: Accuchecks 04/06/20 04/06/20 04/06/20 20:52 17:44 14:48 POC Glucose 147 H 202 H 181 H 04/06/20 05:53 POC Glucose 161 H Hospitalist ROS - Review of Systems Constitutional: denies: chills, sweats Respiratory: denies: cough, shortness of breath, pleuritic pain Cardiovascular: denies: chest pain, palpitations, orthopnea Gastrointestinal: reports: nausea, abdominal pain. denies: vomiting, diarrhea, constipation, melena, hematochezia - Medication Medications: Active Medications Generic Name Dose Route Start Last Admin Trade Name Freq PRN Reason Stop Dose Admin Acetaminophen 650 mg 03/31/20 17:57 04/02/20 09:45 Tylenol PO 650 mg Q4H PRN Administration Headache/Fever/Mild Pain (1-3) Hydrocodone Bitart/Acetaminophen 1 tab 03/31/20 18:00 04/06/20 18:52 [place] 5/325 PO 1 tab Q6HR ALMITA Administration Atorvastatin Calcium 40 mg 03/31/20 21:00 04/05/20 20:30 Lipitor PO 40 mg QPM ALMITA Administration Carvedilol 12.5 mg 04/02/20 21:00 04/06/20 14:23 Coreg PO 12.5 mg BID ALMITA Administration Clopidogrel Bisulfate 75 mg 03/31/20 21:00 04/05/20 20:30 Plavix PO 75 mg QPM ALMITA Administration Gabapentin 100 mg 04/02/20 09:00 04/06/20 14:53 Neurontin PO Not Given TID [facility] Heparin Sodium (Porcine) 5,000 units 04/01/20 21:00 04/06/20 14:25 Heparin SC 5,000 units BID ALMITA Administration Hydralazine HCl 50 mg 04/03/20 15:00 04/06/20 14:53 Apresoline PO Not Given TID [facility] Insulin Glargine 12 units/ 0.12 mls @ 0 mls/hr 04/01/20 09:00 04/06/20 14:45 Miscellaneous Medication SC 0.12 mls QAM ALMITA Administration Insulin Human Lispro 0 units 03/31/20 16:37 04/06/20 18:50 Humalog SC 4 unit .MODERATE SLIDING SC PRN Administration Moderate Correctional Scale Isosorbide Dinitrate 10 mg 04/02/20 15:00 04/06/20 14:53 Isordil PO Not Given TID [facility] Levetiracetam 500 mg 03/31/20 21:00 04/06/20 14:23 Keppra PO 500 mg BID [facility] Administration Minoxidil 2.5 mg 04/01/20 09:00 04/06/20 14:23 Minoxidil PO 2.5 mg QAM ALMITA Administration Ondansetron HCl 4 mg 04/06/20 10:35 04/06/20 10:44 Zofran Odt PO 4 mg Q6H PRN Administration Nausea/Vomiting Pantoprazole Sodium 40 mg 03/31/20 21:00 04/06/20 14:24 Protonix PO 40 mg BID [facility] Administration Sacubitril/Valsartan 1 tab 03/31/20 21:00 04/06/20 14:23 Entresto 49 Mg-51 Mg Tablet PO 1 tab BID [facility] Administration - Exam General Appearance: NAD, awake alert Heart: RRR, no murmur, no gallops Respiratory: CTAB, no wheezes, no rales Gastrointestinal: soft, non-tender, non-distended, normal bowel sounds Hosp A/P - Plan #esophageal dysmotility, possible achalasia -tolerating diet but earlier this morning, complained of nausea -per GI, will have manometry as outpatient -continue same diet -zofran PRN nausea #exudative pleural effusion infectious workup negative may be due to uremia though less common #ESRD -on scheduled HD
[2020-04-06] MEDS: Clopidogrel Bisulfate 75 MG TAB PO SCH (21:25)
[2020-04-06] MEDS: Atorvastatin Calcium 40 MG TAB PO SCH (21:26)
[2020-04-07 04:41] LABS: #Eosinphils 0.9 thou/uL (0.0-0.7); #Lymphocytes 0.8 thou/uL (1.20-3.40); #Monocytes 0.9 thou/uL (0.11-0.59); #Neutrophils 4.7 thou/uL (1.40-6.50); %Basophils 0.2 % (0.0-1.0); %Lymphocytes 10.8 % (21.0-51.0); %Monocytes 12.1 % (0.0-10.0); Hemoglobin 9.2 g/dL (12.0-16.0); Mean Corpuscular HGB CONC 31.6 g/dL (32.0-36.0); Mean Corpuscular Hemoglobin 31.2 pg (27.0-31.0); Mean Corpuscular Volume 98.5 fL (78.0-98.0); Mean Platelet Volume 9.1 fL (7.4-10.4); Platelet Count 268 thou/uL (130-400); RBC Distribution Width 14.3 % (11.5-14.5); Red Blood Cell (RBC) Count 2.96 mill/uL (4.20-5.40); White Blood Cell (WBC) Count 7.3 thou/uL (4.8-10.8)
[2020-04-07 05:04] LABS: Anion Gap 14 mmol/L (10-20); BUN (Urea Nitrogen) 21 mg/dL (7.0-18.7); Calc. Creatinine Clearance 20 mL/min (70-130); Calcium 7.9 mg/dL (7.8-10.44); Carbon Dioxide 28 mmol/L (22-29); Chloride 97 mmol/L (98-107); Estimated GFR-MDRD 15; Glucose 143 mg/dL (70-105); Potassium 4.4 mmol/L (3.5-5.1); Sodium 135 mmol/L (136-145)
[2020-04-07] MEDS: HYDROcodone/Acetaminophen 5/325 mg Tablet PO SCH ×2 (05:41→11:51)
[2020-04-07] MEDS: Carvedilol 25 MG TAB PO SCH (10:19)
[2020-04-07] MEDS: Gabapentin 100 MG CAP PO SCH (10:19)
[2020-04-07] MEDS: Heparin 5,000 UNITS/ML VIAL SC SCH (10:20)
[2020-04-07] MEDS: levETIRAcetam 500 MG TAB PO SCH (10:20)
[2020-04-07] MEDS: Isosorbide Dinitrate 20 MG TAB PO SCH (10:20)
[2020-04-07] MEDS: hydrALAZINE 25 MG TAB PO SCH (10:20)
[2020-04-07] MEDS: Sacubitril 49 MG/Valsartan 51 MG TABLET PO SCH (10:20)
[2020-04-07] MEDS: Minoxidil 2.5 MG TAB PO SCH (10:21)
[2020-04-07] MEDS: Insulin Glargine 12 UNITS in Pre-Filled Syringe 1 EACH SC SCH (10:21)
[2020-04-07 11:51] VITALS: BP 130/65; TEMP 98.4
--- NOTE | 2020-04-07 13:43 | PRG ---
DATE OF SERVICE: 04/07/2020 SUBJECTIVE: A 49-year-old female being seen for end-stage renal disease. The patient denies any nausea, vomiting, or chest pain. OBJECTIVE: GENERAL: The patient is awake and alert. VITAL SIGNS: Afebrile. Pulse 75, breathing at 16, blood pressure was 130/65. HEENT: Head normocephalic and atraumatic. Eyes intact, no ulcers. Nose intact, no ulcers. Ears intact, no ulcers. NECK: Supple. No JVD. CHEST: Symmetrical and clear. CARDIOVASCULAR: Shows S1 and S2, no rub, no murmur. GASTROINTESTINAL: Abdomen is soft, bowel sounds positive. EXTREMITIES: Show no edema or ulcers. SKIN: Shows no rash or petechiae. MUSCULOSKELETAL: Shows no joint swelling or stiffness. GENITOURINARY: Shows no Morris or CVA tenderness. NEUROLOGIC: Motor intact. Cranial nerves intact. LABORATORY DATA: Reviewed. ASSESSMENT AND PLAN: 1. Stage 6 chronic kidney disease. Plan dialysis. 2. Hypertension, stable. 3. Anemia, stable. 4. Medication based on GFR appropriate. Job ID: [id number]
--- NOTE | 2020-04-07 15:53 | DIS ---
DATE OF ADMISSION: 03/31/2020 DATE OF DISCHARGE: 04/07/2020 HOSPITAL COURSE: Ms. Schaeffer is a 49-year-old female with medical history of end-stage renal disease, H. pylori gastritis (completed treatment), who presented with fever and shortness of breath. She was diagnosed with mild pulmonary congestion and community-acquired pneumonia. Improved promptly after initiation of antibiotics and hemodialysis. In addition to that during her inpatient stay, the patient complained about feeling of food stuck in her throat. The Gastroenterology was consulted and she underwent an EGD, whose findings were consistent with esophageal dysmotility and possible achalasia. The patient's diet was changed to dysphagic diet and she tolerated the diet well. On presentation, the patient also had a large right pleural effusion, which was drained with thoracentesis and was found to be exudative. Cytology was negative for malignant cells and the fluid was most consistent with a parapneumonic effusion. On the day of discharge, the patient was feeling and breathing well. She was saturating 92% on room air. She was discharged with followup appointments with her primary care physician and Gastroenterology as per the request to do outpatient manometry. PHYSICAL EXAMINATION: VITAL SIGNS: Blood pressure 120/59, temperature 98 Fahrenheit, pulse 73, respiratory rate 18, oxygen saturation 92% on room air. GENERAL: Sitting comfortably on bed. No apparent distress. HEENT: Normocephalic, atraumatic. PERRL. HEART: Regular rate and rhythm. No murmur. No gallops. No rubs. RESPIRATORY: Clear to auscultation bilaterally. No wheezes. No rales. There were reduced breath sounds on the right side up to mid field levels. GI: Soft, nontender, nondistended. Normal bowel sounds. MEDICATIONS: New medications; no new medications. Modified medications; Coreg 50 p.o. b.i.d. was reduced to 25 p.o. b.i.d. because of bradycardia and episodes of borderline hypotension. Continued medications: 1. Atorvastatin. 2. Clopidogrel. 3. Hydralazine. 4. Keppra. 5. Minoxidil. 6. Pantoprazole. 7. Entresto. 8. Amlodipine. 9. Clonidine. 10. Ferric citrate. 11. Insulin aspart. 12. Insulin detemir. 13. MiraLAX p.r.n. 14. Promethazine p.rsindi Job ID: [id number]
== END 2020-04-07 13:11 | disposition home or self-care (01) | DRG 186 ==
LOC: ERS 14:14 → OBSVTOIN 16:29 → 2SW 16:29 → 2NO 04-01 13:41
PROVIDERS: ADMIT Internal Medicine; ATTEND Internal Medicine
PROC: 5A1D70Z Performance of Urinary Filtration, Intermittent, Less than 6 Hours Per Day (ICD-10-PCS; 2020-03-31)
PROC: 0W993ZZ Drainage of Right Pleural Cavity, Percutaneous Approach (ICD-10-PCS; principal; 2020-04-01)
PROC: 5A1D70Z Performance of Urinary Filtration, Intermittent, Less than 6 Hours Per Day (ICD-10-PCS; 2020-04-02)
PROC: 0DJ08ZZ Inspection of Upper Intestinal Tract, Via Natural or Artificial Opening Endoscopic (ICD-10-PCS; 2020-04-04)
PROC: 5A1D70Z Performance of Urinary Filtration, Intermittent, Less than 6 Hours Per Day (ICD-10-PCS; 2020-04-06)
PROC: 0D758ZZ Dilation of Esophagus, Via Natural or Artificial Opening Endoscopic (ICD-10-PCS; 2020-04-06)
DX: J90 Pleural effusion, not elsewhere classified (principal); J18.9 Pneumonia, unspecified organism; N18.6 End stage renal disease; N17.9 Acute kidney failure, unspecified; I13.0 Hypertensive heart and chronic kidney disease with heart failure and stage 1 through stage 4 chronic kidney disease, or unspecified chronic kidney disease; R18.8 Other ascites; Z20.828 Contact with and (suspected) exposure to other viral communicable diseases; E11.22 Type 2 diabetes mellitus with diabetic chronic kidney disease; D63.1 Anemia in chronic kidney disease; R56.9 Unspecified convulsions; I95.9 Hypotension, unspecified; R13.10 Dysphagia, unspecified; E78.5 Hyperlipidemia, unspecified; E78.00 Pure hypercholesterolemia, unspecified; Z86.73 Personal history of transient ischemic attack (TIA), and cerebral infarction without residual deficits; Z79.4 Long term (current) use of insulin; Z98.51 Tubal ligation status
CPT/HCPCS: 36415; 36416; 71045; 74176; 74220; 80048; 80053; 80076; 80202; 82150; 82533; 82553; 82945; 83605; 83615; 83880; 84157; 84478; 84484; 85025; 85060; 85610; 86706; 87040; 87070; 87116; 87205; 87206; 87340; 87635; 88112; 88305; 89051; 90935; 93005; 93306; 96365; 96366; 96367; G0257; J0692; J1100; J1642; J1644; J1815; J1956; J2405; J2704; J3370; J3490; Q0162; U0003

== ENCOUNTER 2020-04-17 15:17 | Observation (INO) | payer MEDICARE, BC ==
[2020-04-17 15:52] LABS: #Eosinphils 0.5 thou/uL (0.0-0.7); #Lymphocytes 0.8 thou/uL (1.20-3.40); #Monocytes 0.6 thou/uL (0.11-0.59); %Basophils 0.6 % (0.0-1.0); %Eosinophils 6.5 % (0.0-10.0); %Lymphocytes 10.1 % (21.0-51.0); %Monocytes 7.5 % (0.0-10.0); %Neutrophils 75.4 % (42.0-75.0); Hemoglobin 8.1 g/dL (12.0-16.0); Mean Corpuscular HGB CONC 31.6 g/dL (32.0-36.0); Mean Corpuscular Hemoglobin 31.4 pg (27.0-31.0); Mean Corpuscular Volume 99.3 fL (78.0-98.0); Mean Platelet Volume 8.8 fL (7.4-10.4); Platelet Count 293 thou/uL (130-400); RBC Distribution Width 16.7 % (11.5-14.5); Red Blood Cell (RBC) Count 2.57 mill/uL (4.20-5.40); White Blood Cell (WBC) Count 7.9 thou/uL (4.8-10.8)
[2020-04-17 16:14] LABS: ALT (SGPT) Less than 7 U/L (8-55); AST (SGOT) 10 U/L (5-34); Albumin 3.4 g/dL (3.5-5.0); Alkaline Phosphatase 491 U/L (40-110); Anion Gap 17 mmol/L (10-20); BUN (Urea Nitrogen) 35 mg/dL (7.0-18.7); Bilirubin, Total 0.9 mg/dL (0.2-1.2); Calc. Creatinine Clearance 0 mL/min (70-130); Carbon Dioxide 26 mmol/L (22-29); Chloride 97 mmol/L (98-107); Estimated GFR-MDRD 11; Globulin 4.9 g/dL (2.4-3.5); Potassium 3.9 mmol/L (3.5-5.1); Protein, Total 8.3 g/dL (6.0-8.3); Sodium 136 mmol/L (136-145)
[2020-04-17 16:22] LABS: Glucose 602 mg/dL (70-105)
--- NOTE | 2020-04-17 16:50 | RAD ---
PORTABLE CHEST ONE VIEW: 04/17/20 at 4:24 p.m. HISTORY: Dyspnea, abnormal labs, low hemoglobin. COMPARISON: 04/05/20. FINDINGS/IMPRESSION: Right sided dialysis catheter remains in place. The heart is enlarged. There is a right sided pleural effusion with adjacent infiltrate/atelectatic change. No pneumothoraces or tan pulmonary edema are seen. The left lung is unremarkable. POS: [facility]
--- NOTE | 2020-04-17 16:58 | CT ---
CT ABDOMEN AND PELVIS WITH IV CONTRAST: 04/17/20 HISTORY: Low hemoglobin. COMPARISON: 03/21/20 and 01/14/20. FINDINGS: A right pleural effusion is again seen slightly smaller than on 03/31/20. Adjacent atelectatic change is present. Moderate ascites is again noted. Edema in the subcutaneous fat is again noted. There are nodular densities in the subcutaneous fat of the lower anterior abdominal wall which are new since last exam. These measure up to 12 mm. The liver, spleen, pancreas, adrenal glands and kidneys are s table. No calcified gallstones are present. The small bowel loops are not abnormally dilated. There i s fecal material in the colon. Uterus is present. There are vascular calcifications without evidence of aneurysmal dilatation of the abdominal aorta. No osteolytic or osteoblastic lesions are identified . IMPRESSION: 1. Right pleural effusion. 2. Ascites. 3. New nodules in the subcutaneous fat of the lower anterior abdominal wall. POS: [facility]
[2020-04-17 17:01] LABS: INR-International Normal Ratio 1.3; Prothrombin Time 16.3 sec (12.0-14.7)
[2020-04-17 17:18] LABS: CKMB 4.7 ng/mL (0-6.6)
--- NOTE | 2020-04-17 19:00 | PDOC.HHP ---
Hospitalist HPI - History of Present Illness Anemia/dyspnea on exertion History of Present Illness: Patient with complex PMH including HTN, HDL, CAD, CVA, ESRD on HD and chronic anemia with possible GIB presents to ED at the advice of dialysis center after her follow up labs revealed worsening anemia. She does have recent initial work up by GI with what appears to be upper endoscopy that did not reveal much findings per patient. She does tell me that about 3 days ago she had episode of soft maroon bowel movement x1 episode. She decided to stop Plavix after such episode and has not had any further evidence of bleeding. Other than above denies tan blood in stool. She admits to mild dyspnea on exertion but she is unsure if this is more than her usual SOB. In ED she is resting comfortably with no evidence of distress. Labs reveals anemia that is not too far from her usual range currently at 8.1/25.5. Occult blood positive. She is also noted to have elevated glucose level of 600. VS are stable with elevated blood pressure. No tachycardia or hypoxia. Hospitalist ROS - Review of Systems Constitutional: reports: weakness. denies: fever, chills Eyes: denies: pain, vision change, conjunctivae inflammation ENT: denies: ear pain, ear discharge, nose pain Respiratory: reports: shortness of breath, SOB with excertion. denies: cough, dry, pleuritic pain, sputum, wheezing Cardiovascular: reports: edema. denies: chest pain, palpitations, orthopnea, paroxysmal noc. dyspnea Gastrointestinal: reports: melena. denies: nausea, vomiting, abdominal pain, diarrhea, hematochezia Genitourinary: denies: dysuria, frequency, incontinence Musculoskeletal: denies: neck pain, back pain Skin: denies: rash Neurological: reports: weakness - Exam General Appearance: NAD, awake alert Eye: PERRL, anicteric sclera ENT: normocephalic atraumatic Neck: supple, no JVD Heart: RRR, no murmur, no gallops, no rubs Respiratory: CTAB, no wheezes Respiratory - other findings: decreased breath sounds bl at bases Gastrointestinal: soft, non-tender, non-distended Gastrointestinal - other findings: trunk edema +'ve Extremities: no cyanosis, no clubbing, no edema Skin: normal turgor Neurological: cranial nerve grossly intact Musculoskeletal: normal tone Psychiatric: normal affect, normal behavior, A&O x 3 Hospitalist Results - Labs Result Diagrams: 04/17/20 15:37 04/17/20 15:37 Lab results: WBC 7.9 thou/uL (4.8-10.8) 04/17/20 15:37 Hgb 8.1 g/dL (12.0-16.0) L 04/17/20 15:37 Hct 25.5 % (36.0-47.0) L 04/17/20 15:37 MCV 99.3 fL (78.0-98.0) H 04/17/20 15:37 Plt Count 293 thou/uL (130-400) 04/17/20 15:37 Neutrophils % 75.4 % (42.0-75.0) H 04/17/20 15:37 Sodium 136 mmol/L (136-145) 04/17/20 15:37 Potassium 3.9 mmol/L (3.5-5.1) 04/17/20 15:37 Chloride 97 mmol/L (98-107) L 04/17/20 15:37 Carbon Dioxide 26 mmol/L (22-29) 04/17/20 15:37 BUN 35 mg/dL (7.0-18.7) H 04/17/20 15:37 Creatinine 4.25 mg/dL (0.6-1.1) H 04/17/20 15:37 Glucose 602 mg/dL (70-105) H* 04/17/20 15:37 Calcium 9.0 mg/dL (7.8-10.44) 04/17/20 15:37 Total Bilirubin 0.9 mg/dL (0.2-1.2) 04/17/20 15:37 AST 10 U/L (5-34) 04/17/20 15:37 ALT Less than 7 U/L (8-55) L 04/17/20 15:37 Alkaline Phosphatase 491 U/L (40-110) H 04/17/20 15:37 CK-MB (CK-2) 4.7 ng/mL (0-6.6) 04/17/20 16:26 Troponin I 0.042 ng/mL (< 0.028) H 04/17/20 16:26 B-Natriuretic Peptide 4787.8 pg/mL (0-100) H 04/17/20 16:26 Serum Total Protein 8.3 g/dL (6.0-8.3) 04/17/20 15:37 Albumin 3.4 g/dL (3.5-5.0) L 04/17/20 15:37 - Radiology Interpretation Chest x-ray Status: image reviewed by me (Right sided dialysis catheter remains in place. The heart is enlarged. There is a right sided pleural effusion with adjacent infiltrate/atelectatic change. No pneumothoraces or tan pulmonary edema are seen. The left lung is unremarkable.) Hospitalist H&P A/P - Plan Plan: Problem List 1. Acute on chronic anemia 2. Possible lower GI bleed 3. Hyperglycemia in diabetic 4. Uncontrolled hypertension 5. ESRD on HD 6. Elevated troponin 7. History of CAD/CVA Assessment and Plan 1. Acute on chronic anemia - admit patient for observation - current H&H range not far from fluctuating range - she does have positive stool for occult blood - multifactorial anemia in setting of CKD and slow LGIB - will keep NPO after MN - start IV protonix daily - type & screen now & monitor H&H - GI has been consulted for further advice 2. Possible lower GI bleed - GI consult - rest of care per above plan 3. Hyperglycemia in diabetic - refers good compliance with insulin - does not follow a particular diet - insulin recently increased to long acting 15U daily - titrate insulin as necessary 4. Uncontrolled hypertension - refers good compliance with medications - restart home medication - titrate medications as necessary - nephrology assisting with chronic management 5. ESRD on HD - on chronic HD TTS - some evidenc of chronic fluid overload; ascites + pleural effusion, BNP elevation - clinically with no evidence of pulmonary edema - she does have chronic dyspnea on exertion - nephrology consult for fluid management via HD 6. Elevated troponin - in setting of poor renal clearance and possible demand - address anemia, hypertension and renal disease as above 7. History of CAD/CVA - will continue to hold Plavix - continue with statin - await GI clearance to restart antiplatelets DVT PPX: Mechanical FULL CODE
[2020-04-17] MEDS ORDERED: Acetaminophen 325 MG TAB PO PRN (19:12)
[2020-04-17] MEDS ORDERED: Ondansetron PF 4 MG/2 ML Vial IVP PRN (19:12)
[2020-04-17] MEDS ORDERED: Dextrose 50% Abboject 50 ML SYRINGE SLOW IVP PRN (19:40)
[2020-04-17] MEDS ORDERED: Dextrose 5% in Water 1,000 ML IV PRN (19:40)
[2020-04-17 19:49] LABS: Troponin I 0.036 ng/mL (< 0.028)
[2020-04-17 21:23] VITALS: BMI 20.3
[2020-04-17] MEDS ORDERED: cloNIDine 0.2 MG TAB PO SCH (22:15)
[2020-04-17] MEDS ORDERED: Carvedilol 25 MG TAB PO SCH (22:15)
[2020-04-17] MEDS ORDERED: Atorvastatin Calcium 40 MG TAB PO SCH (22:15)
[2020-04-17] MEDS ORDERED: levETIRAcetam 500 MG TAB PO SCH (22:15)
[2020-04-17] MEDS ORDERED: Sacubitril 49 MG/Valsartan 51 MG TABLET PO SCH (22:15)
[2020-04-17] MEDS ORDERED: hydrALAZINE 25 MG TAB PO SCH (22:15)
[2020-04-17 23:10] LABS: Troponin I 0.032 ng/mL (< 0.028)
[2020-04-18] MEDS: HumaLOG 300 UNITS/3 ML VIAL SC PRN ×2 (00:35→05:58)
--- NOTE | 2020-04-18 01:31 | CON ---
DATE OF CONSULTATION: This is a Nephrology consult. REASON FOR CONSULTATION: End-stage renal disease for maintenance hemodialysis. HISTORY OF PRESENT ILLNESS: This is a very pleasant 49-year-old female, who is presented to the hospital with shortness of breath and altered mental status. The patient has a history of recurrent admissions. The patient denies any chest pain. The patient's last admission was less than two weeks ago. PAST MEDICAL HISTORY: Hypertension, , diabetes mellitus, hyperlipidemia, congestive heart failure, anemia, seizure disorder, tubal ligation, dialysis access, AV fistula, tunneled dialysis catheter. SOCIAL HISTORY: No alcohol or drug use. FAMILY HISTORY: Negative for ESRD. ALLERGIES: REVIEWED. MEDICATIONS: Home medication list reviewed. Hospital medication list reviewed. REVIEW OF SYSTEMS: Fifteen-point review of system was performed negative except for positives noted above. HEENT: Eyes intact, no diplopia. Ears: No hearing loss or earache. Nose: No discharge or bleeding. CHEST: No cough or phlegm. ABDOMEN: No nausea or vomiting. GENITOURINARY: No hematuria. No Morris catheter. MUSCULOSKELETAL: No low back pain. No joint swelling or pain. NEUROLOGICAL: No syncope. No seizures. SKIN: No complaints of rash or itching. PSYCHIATRIC: No depression. CONSTITUTIONAL: No weight loss or loss of appetite. PHYSICAL EXAMINATION: GENERAL: The patient is awake and alert. VITAL SIGNS: Afebrile, pulse , breathing at 16, blood pressure 123/59. HEENT: Head normocephalic and atraumatic. Eyes intact, no ulcers. Nose intact, no ulcers. Ears intact, no ulcers. NECK: Supple. No JVD. CHEST: Symmetrical and clear. CARDIOVASCULAR: Shows S1 and S2, no rub, no murmur. GASTROINTESTINAL: Abdomen is soft, bowel sounds positive. EXTREMITIES: Show no edema or ulcers. SKIN: Shows no rash or petechiae. MUSCULOSKELETAL: Shows no joint swelling or stiffness. GENITOURINARY: Shows no Morris or CVA tenderness. NEUROLOGIC: Motor intact. Cranial nerves intact. LABORATORY DATA: Reviewed. ASSESSMENT AND PLAN: 1. Stage 6 chronic kidney disease. Plan, dialysis. 2. Hypertension, stable. 3. Anemia, stable. 4. Medication based on GFR appropriate. Job ID: [id number]
[2020-04-18 04:56] LABS: Band 1 % (5-11); Eosinophils 2 % (0-10); Hemoglobin 7.4 g/dL (12.0-16.0); Hypochromia SLIGHT = 6-15 cells (100X) (0-5/hpf); Lymphocytes 6 % (21-51); MDiff Complete? YES; Mean Corpuscular HGB CONC 31.9 g/dL (32.0-36.0); Mean Corpuscular Hemoglobin 31.3 pg (27.0-31.0); Mean Corpuscular Volume 98.2 fL (78.0-98.0); Mean Platelet Volume 9.1 fL (7.4-10.4); Monocytes 3 % (0-10); Neutrophil 88 % (42-75); Platelet Count 265 thou/uL (130-400); Platelet Morphology Comment Appears Adequate; RBC Distribution Width 16.6 % (11.5-14.5); Red Blood Cell (RBC) Count 2.37 mill/uL (4.20-5.40); White Blood Cell (WBC) Count 8.8 thou/uL (4.8-10.8)
[2020-04-18 05:02] LABS: Anion Gap 16 mmol/L (10-20); BUN (Urea Nitrogen) 40 mg/dL (7.0-18.7); Calc. Creatinine Clearance 14 mL/min (70-130); Calcium 8.7 mg/dL (7.8-10.44); Carbon Dioxide 25 mmol/L (22-29); Chloride 96 mmol/L (98-107); Estimated GFR-MDRD 10; Glucose 296 mg/dL (70-105); Potassium 3.9 mmol/L (3.5-5.1); Sodium 133 mmol/L (136-145)
[2020-04-18] MEDS ORDERED: FERRIC CITRATE 210 MG PO SCH (08:00)
[2020-04-18] MEDS ORDERED: Non-Formulary Item 1 EACH (Insulin Detemir [Levemir Flextouch] 15 UNITS) SQ SCH (09:00)
[2020-04-18] MEDS ORDERED: Pantoprazole 40 MG VIAL IVP SCH (09:00)
[2020-04-18] MEDS: Sacubitril 49 MG/Valsartan 51 MG TABLET PO SCH ×2 (10:22→20:51)
[2020-04-18] MEDS: hydrALAZINE 25 MG TAB PO SCH ×3 (10:23→20:51)
[2020-04-18] MEDS: levETIRAcetam 500 MG TAB PO SCH ×2 (10:23→20:51)
[2020-04-18] MEDS: Folic Acid/Vit B Comp W-C PO SCH (10:23)
[2020-04-18] MEDS: Carvedilol 25 MG TAB PO SCH ×2 (10:24→17:44)
[2020-04-18] MEDS: Minoxidil 2.5 MG TAB PO SCH (10:24)
[2020-04-18] MEDS: Amlodipine 5 MG TAB PO SCH (10:24)
[2020-04-18] MEDS: cloNIDine 0.2 MG TAB PO SCH ×3 (10:24→20:51)
[2020-04-18] MEDS: Insulin Glargine 15 UNITS in Pre-Filled Syringe 1 EACH SC SCH (10:25)
[2020-04-18] MEDS ORDERED: Heparin 10,000 UNITS/ 10 ML VIAL ONE (12:48)
--- NOTE | 2020-04-18 13:34 | PRG ---
DATE OF SERVICE: 04/18/2020 SUBJECTIVE: A 49-year-old female being seen for end-stage renal disease. The patient denied nausea, vomiting, or chest pain. OBJECTIVE: GENERAL: The patient is awake and alert. VITAL SIGNS: Afebrile, pulse 75, breathing is 16, and blood pressure 130/75. HEENT: Head normocephalic and atraumatic. Eyes intact, no ulcers. Nose intact, no ulcers. Ears intact, no ulcers. NECK: Supple. No JVD. CHEST: Symmetrical and clear. CARDIOVASCULAR: Shows S1 and S2, no rub, no murmur. GASTROINTESTINAL: Abdomen is soft, bowel sounds positive. EXTREMITIES: Show no edema or ulcers. SKIN: Shows no rash or petechiae. MUSCULOSKELETAL: Shows no joint swelling or stiffness. GENITOURINARY: Shows no Morris or CVA tenderness. NEUROLOGIC: Motor intact. Cranial nerves intact. LABORATORY DATA: Reviewed. ASSESSMENT AND PLAN: 1. Stage 6 chronic kidney disease, stable. 2. Hypertension, stable. 3. Anemia, stable. 4. Medications based on GFR are appropriate. Job ID: [id number]
[2020-04-18 19:17] LABS: Iron 31 ug/dL (50-170); Iron Binding Capacity, Total 239 mcg/dL (265-497)
[2020-04-18] MEDS ORDERED: Atorvastatin Calcium 40 MG TAB PO SCH (21:00)
--- NOTE | 2020-04-19 01:25 | CON ---
DATE OF CONSULTATION: 04/18/2020 REASON FOR CONSULTATION: Anemia, possible GI bleeding. CONSULTING PROVIDER: Dr. Eddie Santiago. HISTORY OF PRESENT ILLNESS: The patient is a 49-year-old female with past medical history of hypertension, hyperlipidemia, coronary artery disease, cerebrovascular accident, end-stage renal disease, on hemodialysis, pulmonary hypertension, diabetes, and chronic anemia, presenting with complaints of worsening anemia. She states that she was in her usual state of health except for some mild increase in fatigue when she was evaluated by the dialysis center and noted to have worsening of her anemia. At that time with the decrease in her H and H, she was prompted to go to the hospital for further evaluation. In the meantime, the patient had a bloody bowel movement approximately 3 days ago that she characterized as bright red blood per rectum with blood mixed in with the stool rather than blood coating the stool. She had a smaller amount of bright red blood per rectum on the next bowel movement and has not had any additional bleeding episodes since. She denies any tan hematemesis, melena, or large amount of hematochezia. Otherwise, she states that she is doing well and denies any nausea, vomiting, fevers, chills, dysphagia, odynophagia, constipation or weight loss. Of note, the patient was recently evaluated with an upper endoscopy for complaints of dysphagia, at which time she had a food bolus impaction in the distal esophagus. Noted as part of the operative note was no relaxation of the lower esophageal sphincter, was seen with chronic stasis changes seen in the esophagus concerning for the presence of achalasia. REVIEW OF SYSTEMS: A 10-category review of systems was obtained with all responses negative except for the pertinent positives as listed in HPI. PAST MEDICAL HISTORY: As per HPI. PAST SURGICAL HISTORY: Arteriovenous fistula for hemodialysis, bilateral tubal ligation. FAMILY HISTORY: Denies any GI malignancies. SOCIAL HISTORY: Denies any tobacco, alcohol, or illicit drug use. OUTPATIENT MEDICATIONS: Reviewed. ALLERGIES: NO KNOWN DRUG ALLERGIES. PHYSICAL EXAMINATION: VITAL SIGNS: Temperature 98.2, pulse 73, blood pressure 143/63, respiratory rate 16, saturating 96% on 2 L nasal cannula. GENERAL: The patient was lying in bed, in no acute distress. No conversational dyspnea noted. Alert and oriented x4. HEENT: Normocephalic, atraumatic. NECK: Supple. No JVD or scleral icterus noted. CARDIOVASCULAR: Regular rate and rhythm with no discernible murmurs, gallops, or rubs. RESPIRATORY: Clear to auscultation bilaterally with no discernible wheezes or rales. ABDOMEN: Normoactive bowel sounds. Soft, nondistended, mild tenderness to palpation in the left lower quadrant. EXTREMITIES: No cyanosis, clubbing, or edema. LABORATORY DATA: CBC with a white blood cell count of 8.8, hemoglobin 7.4, hematocrit 23.3, platelets 265. INR 1.3. Chemistry with a sodium of 133, potassium 3.9, chloride 96, CO2 of 25, BUN 40, creatinine 4.51, glucose 296. AST 10, ALT less than 7, alkaline phosphatase 491, total bilirubin 0.9. BNP 4787. Iron 31, TIBC 239, ferritin pending at this time. IMAGING DATA: EGD was performed on April 05, 2020 with a food impaction in the distal esophagus that was safely extracted. There was no relaxation of the lower esophageal sphincter with stasis changes seen in the esophagus concerning for the presence of achalasia. No evidence of bleeding or blood clots was seen during that examination. ASSESSMENT AND PLAN: The patient is a 49-year-old female with past medical history of hypertension, hyperlipidemia, coronary artery disease, cerebrovascular accident, end-stage renal disease, on hemodialysis, pulmonary hypertension, diabetes, and chronic anemia, presenting with mildly worsening of her anemia in light of chronic kidney disease, but having a possible bloody bowel movement three days ago. Possible GI bleeding: The patient is presenting with a history of chronic anemia with iron indices obtained during this admission more consistent of chronic disease/renal disease rather than a chronic GI bleeding source. She did have a bloody bowel movement approximately 3 days ago, but has not had any recurrence and also does have a history of hemorrhoids, making this a more likely explanation. She did have an EGD approximately 2 weeks ago, which did not show any evidence of active or recent bleeding that could contribute to a chronic anemia type process. She denies any episodes of hematemesis or melena making an upper GI bleeding source highly unlikely. At this time, with worsening of her anemia and based on her iron indices, it appears to be more indicative of anemia of chronic disease/renal disease. However, a lower GI bleed source cannot be ruled out at this time, although it is less likely to be found especially since she is no longer having any active bleeding. RECOMMENDATIONS: 1. We would continue to trend her H and H and transfuse as necessary to maintain an H and H of 7/. 2. Continue to monitor clinically for signs of active GI bleeding. 3. We will continue to hold any anticoagulation on this patient for the time being in light of possible bleeding source. 4. We will follow up on the ferritin and repeat CBC tomorrow. If either of them are indicative of active bleeding (CBC) or iron deficiency anemia (ferritin), then I would consider colonoscopy for further evaluation. 5. We will continue PPI daily in light of recent food bolus impaction and possible achalasia. We will continue to follow. Please call with any questions. Job ID: [id number]
[2020-04-19] MEDS ORDERED: HumaLOG 300 UNITS/3 ML VIAL SC PRN (03:33)
[2020-04-19 04:40] LABS: #Basophils 0.1 thou/uL (0.0-0.2); #Eosinphils 0.5 thou/uL (0.0-0.7); #Lymphocytes 0.8 thou/uL (1.20-3.40); #Monocytes 0.6 thou/uL (0.11-0.59); #Neutrophils 4.7 thou/uL (1.40-6.50); %Basophils 0.9 % (0.0-1.0); %Eosinophils 8.2 % (0.0-10.0); %Lymphocytes 11.4 % (21.0-51.0); %Monocytes 8.5 % (0.0-10.0); %Neutrophils 71.1 % (42.0-75.0); Hemoglobin 7.7 g/dL (12.0-16.0); Mean Corpuscular HGB CONC 31.7 g/dL (32.0-36.0); Mean Corpuscular Volume 97.6 fL (78.0-98.0); Mean Platelet Volume 9.1 fL (7.4-10.4); Platelet Count 249 thou/uL (130-400); RBC Distribution Width 16.8 % (11.5-14.5); Red Blood Cell (RBC) Count 2.49 mill/uL (4.20-5.40); White Blood Cell (WBC) Count 6.6 thou/uL (4.8-10.8)
[2020-04-19 04:52] LABS: Anion Gap 14 mmol/L (10-20); BUN (Urea Nitrogen) 16 mg/dL (7.0-18.7); Calc. Creatinine Clearance 24 mL/min (70-130); Calcium 8.4 mg/dL (7.8-10.44); Carbon Dioxide 28 mmol/L (22-29); Chloride 97 mmol/L (98-107); Estimated GFR-MDRD 19; Glucose 290 mg/dL (70-105); Potassium 4.1 mmol/L (3.5-5.1); Sodium 135 mmol/L (136-145)
[2020-04-19] MEDS: HumaLOG 300 UNITS/3 ML VIAL SC PRN ×2 (06:37→15:39)
--- NOTE | 2020-04-19 07:38 | PDOC.HOSPP ---
- Subjective Encounter Date: 04/18/20 Encounter Time: 14:00 Subjective: pt up in bed no complains - Objective Vital Signs & Weight: Vital Signs (12 hours) Temp Pulse Resp BP BP Pulse Ox 04/19/20 03:10 98.2 F 66 16 160/72 H 98 04/18/20 23:40 67 142/64 H 04/18/20 20:51 73 143/63 H 04/18/20 19:40 98.2 F 73 16 130/61 96 Weight Weight 130 lb 3.2 oz I&O: 04/18/20 04/19/20 04/20/20 06:59 06:59 06:59 Intake Total 50 480 Output Total 0 0 Balance 50 480 Result Diagrams: 04/19/20 04:13 04/19/20 03:46 Additional Labs: Accuchecks 04/19/20 04/19/20 04/18/20 05:48 03:15 20:08 POC Glucose 228 H 314 H 291 H 04/18/20 04/18/20 04/18/20 18:12 12:44 10:25 POC Glucose 146 H 111 H 106 Hospitalist ROS - Review of Systems Respiratory: denies: cough, dry, shortness of breath, hemoptysis, SOB with excertion, pleuritic pain, sputum, wheezing, other Cardiovascular: denies: chest pain, palpitations, orthopnea, paroxysmal noc. dyspnea, edema, light headedness, other Gastrointestinal: denies: nausea, vomiting, abdominal pain, diarrhea, constipation, melena, hematochezia, other - Medication Medications: Active Medications Generic Name Dose Route Start Last Admin Trade Name Teofiloq PRN Reason Stop Dose Admin Acetaminophen 650 mg 04/17/20 19:12 04/17/20 22:30 Tylenol PO 650 mg Q4H PRN Administration Headache/Fever/Mild Pain (1-3) Amlodipine Besylate 5 mg 04/18/20 09:00 04/18/20 10:24 Norvasc PO 5 mg DAILY ALMITA Administration Atorvastatin Calcium 40 mg 04/18/20 21:00 04/18/20 20:51 Lipitor PO 40 mg QPM ALMITA Administration Carvedilol 25 mg 04/18/20 08:00 04/18/20 17:44 Coreg PO 25 mg BID-WM ALMITA Administration Clonidine 0.2 mg 04/18/20 09:00 04/18/20 20:51 Catapres PO 0.2 mg TID ALMITA Administration Hydralazine HCl 50 mg 04/18/20 09:00 04/18/20 20:51 Apresoline PO 50 mg TID ALMITA Administration Insulin Glargine 15 units/ 0.15 mls @ 0 mls/hr 04/18/20 09:00 04/18/20 10:25 Miscellaneous Medication SC Not Given QAM ALMITA Insulin Human Lispro 0 units 04/17/20 19:40 04/19/20 06:37 Humalog SC 4 unit .MODERATE SLIDING SC PRN Administration Moderate Correctional Scale Insulin Human Lispro 0 units 04/19/20 03:33 04/19/20 03:42 Humalog SC 4 unit .BEDTIME SLIDING SC PRN Administration BEDTIME SLIDING SCALE Protocol Levetiracetam 500 mg 04/18/20 09:00 04/18/20 20:51 Keppra PO 500 mg BID ALMITA Administration Minoxidil 2.5 mg 04/18/20 09:00 04/18/20 10:24 Minoxidil PO 2.5 mg QAM ALMITA Administration Pantoprazole Sodium 40 mg 04/18/20 09:00 04/18/20 10:22 Protonix IVP 40 mg DAILY ALMITA Administration Sacubitril/Valsartan 1 tab 04/18/20 09:00 04/18/20 20:51 Entresto 49 Mg-51 Mg Tablet PO 1 tab BID ALMITA Administration Vitamin B Complex/Vit C/Folic Acid 1 tab 04/18/20 09:00 04/18/20 10:23 Nephro-Yeimy Tablet PO 1 tab DAILY ALMITA Administration - Exam Heart: negative: RRR, no murmur, no gallops, no rubs, normal peripheral pulses, irregular, diminshed peripheral pulses, murmur present, II/IV, III/IV Respiratory: negative: CTAB, no wheezes, no rales, no ronchi, normal chest expansion, no tachypnea, normal percussion, rales, rhonchi, tachypneic, wheezes Gastrointestinal: negative: soft, non-tender, non-distended, normal bowel sounds , no palpable masses, no hepatomegaly, no splenomegaly, no bruit, no guarding, no rigidity, tender to palpation, distended, diminished bowl sounds, voluntary guarding Extremities: negative: no cyanosis, no clubbing, no edema, 1+ LE edema, clubbing Hosp A/P (1) Anemia Code(s): D64.9 - ANEMIA, UNSPECIFIED Status: Chronic Qualifiers: Anemia type: due to chronic kidney disease (2) CAD (coronary artery disease) Code(s): I25.10 - ATHSCL HEART DISEASE OF [place] CORONARY ARTERY W/O ANG PCTRS Status: Chronic (3) DM type 2 (diabetes mellitus, type 2) Status: Chronic Qualifiers: (4) ESRD (end stage renal disease) on dialysis Code(s): N18.6 - END STAGE RENAL DISEASE; Z99.2 - DEPENDENCE ON RENAL DIALYSIS Status: Chronic (5) Seizure disorder Code(s): G40.909 - EPILEPSY, UNSP, NOT INTRACTABLE, WITHOUT STATUS EPILEPTICUS Status: Chronic - Plan pt's hh is low normal she is not symptomatic. she had some dark stool a few days ago. gi consulted. No need for blood transfusion as of yet.
[2020-04-19] MEDS ORDERED: Ferrous Gluconate 324 MG TAB PO SCH (08:00)
[2020-04-19] MEDS: Carvedilol 25 MG TAB PO SCH (08:48)
[2020-04-19] MEDS: cloNIDine 0.2 MG TAB PO SCH ×2 (08:48→15:39)
[2020-04-19] MEDS: levETIRAcetam 500 MG TAB PO SCH (08:48)
[2020-04-19] MEDS: Sacubitril 49 MG/Valsartan 51 MG TABLET PO SCH (08:48)
[2020-04-19] MEDS: Minoxidil 2.5 MG TAB PO SCH (08:48)
[2020-04-19] MEDS: Amlodipine 5 MG TAB PO SCH (08:48)
[2020-04-19] MEDS: Folic Acid/Vit B Comp W-C PO SCH (08:49)
[2020-04-19] MEDS: hydrALAZINE 25 MG TAB PO SCH ×2 (08:49→15:38)
[2020-04-19] MEDS: Insulin Glargine 15 UNITS in Pre-Filled Syringe 1 EACH SC SCH (08:51)
[2020-04-19] MEDS ORDERED: Docusate 100 MG CAP PO SCH (09:00)
--- NOTE | 2020-04-19 09:55 | PRG ---
DATE OF SERVICE: 04/19/2020 SUBJECTIVE: A 49-year-old female, being seen for end-stage renal disease. The patient denied nausea, vomiting, or chest pain. OBJECTIVE: GENERAL: On examination, the patient is awake and alert. VITAL SIGNS: Afebrile , pulse 75, breathing 16, blood pressure 140/65. HEENT: Head normocephalic and atraumatic. Eyes intact, no ulcers. Nose intact, no ulcers. Ears intact, no ulcers. Neck: Supple. No JVD. Chest: Symmetrical and clear. Cardiovascular: Shows S1 and S2, no rub, no murmur. Gastrointestinal: Abdomen is soft, bowel sounds positive. Extremities: Show no edema or ulcers. Skin: Shows no rash or petechiae. Musculoskeletal: Shows no joint swelling or stiffness. Genitourinary: Shows no Morris or CVA tenderness. Neurologic: Motor intact. Cranial nerves intact. LABORATORY DATA: Reviewed. ASSESSMENT AND PLAN: 1. Stage 6 chronic kidney disease, plan dialysis. 2. Hypertension, stable. 3. Anemia, would recommend transfusion with dialysis. 4. Medication based on GFR appropriate. Job ID: [id number]
[2020-04-19] MEDS ORDERED: Heparin 10,000 UNITS/ 10 ML VIAL ONE (10:04)
--- NOTE | 2020-04-19 11:39 | PRG ---
DATE OF SERVICE: 04/19/2020 REASON FOR CONSULTATION: Anemia, possible GI bleeding. SUBJECTIVE: During the course of this hospitalization, the patient denies any episodes of hematemesis, melena, or hematochezia. She states that she is feeling better this morning and was able to tolerate a diet yesterday. Currently, she denies any nausea, vomiting, fevers, chills, abdominal pain, GI bleeding, dysphagia, or odynophagia. OBJECTIVE: VITAL SIGNS: Temperature 97.8, pulse 65, blood pressure 140/65, respiratory rate 16, saturating 98% on 2 L nasal cannula. GENERAL: The patient was lying in bed, in no acute distress. Alert and oriented x4. CARDIOVASCULAR: Regular rate and rhythm. RESPIRATORY: Clear to auscultation bilaterally. ABDOMEN: Normoactive bowel sounds. Soft, nontender, nondistended. EXTREMITIES: No cyanosis, clubbing, or edema. LABORATORY DATA: CBC with a white blood cell count of 6.6, hemoglobin 7.7, hematocrit 24.3, platelets 249. Chemistry with sodium of 135, potassium 4.1, chloride 97, CO2 of 28, BUN 16, creatinine 2.66, glucose 290, iron 31, ferritin 482, TIBC 239. IMAGING DATA: No current GI imaging is available for review. ASSESSMENT AND PLAN: The patient is a 49-year-old female with past medical history of hypertension; hyperlipidemia; coronary artery disease; cerebrovascular accident; end-stage renal disease, on hemodialysis; pulmonary hypertension; diabetes; and chronic anemia presenting with worsening of her anemia secondary to a decreasing H and H, but iron indices are most consistent with anemia of renal disease. Anemia of renal disease: The patient is presenting with a history of chronic anemia with iron indices obtained during this admission consistent with anemia of renal disease given her low/normal iron, low TIBC, and high ferritin. During the course of this hospitalization, she has not had any observed evidence of GI bleeding nor has she had any further decrease in her H and H consistent with continued GI blood loss or blood loss from any source. She recently underwent an upper endoscopy approximately 2 weeks ago, which did not show any evidence of bleeding at that time. Based on her current symptoms, stable H and H, and characterization of her anemia, a lower GI bleeding source is not likely. RECOMMENDATIONS: 1. Would continue to trend her H and H and transfuse as necessary to maintain an H and H of 7/21. 2. Continue to monitor clinically for signs of active GI bleeding. 3. No endoscopic evaluation is indicated at this time. 4. We will continue the patient on PPI daily in light of recent food bolus impaction. 5. Would defer to Nephrology about the use of erythropoietin in light of her anemia of renal disease. We will sign off. Please call with any questions. Job ID: [id number]
[2020-04-19 15:38] VITALS: BP 125/60; TEMP 97.9
--- NOTE | 2020-04-20 02:59 | DIS ---
DATE OF ADMISSION: 04/17/2020 DATE OF DISCHARGE: 04/19/2020 DISCHARGE DIAGNOSES: 1. Anemia, most likely secondary to chronic disease. 2. End-stage renal disease, on dialysis. 3. Hypertension. 4. Esophageal dysmotility. HOSPITAL COURSE: The patient is a very pleasant 49-year-old female, who initially was sent from dialysis for anemia. Apparently, she did have some bloody stools about 3 days ago and then they improved. At this time, she was seen by GI, who recommended to transfuse blood as needed and to maintain H and H. Continue to monitor for overt bleeding. She did have a FOBT that was positive. I recommended outpatient followup. Recommended also PPI daily. The patient states that she feels well. She has no signs of bleeding currently. We will give her 1 unit of blood and I have asked her to come in if this changes. The patient will be discharged home today. She did have a CT of abdomen and pelvis, which indicated right pleural effusion, ascites, new nodules in the subcutaneous fat of the lower abdominal wall. MEDICATIONS: Not changed. It will be: 1. Keppra 500 mg at bedtime. 2. Minoxidil 2.5 daily. 3. Entresto one b.i.d. 4. Clonidine 0.1 t.i.d. 5. Hydralazine 100 mg b.i.d. 6. Norvasc 10 mg daily. 7. Insulin NovoLog 6 to 10 units as needed. 8. Atorvastatin 40 mg q.p.m. 9. Coreg 25 mg twice a day. 10. Plavix 75 mg q.p.m. 11. Insulin 15 units subcu q.a.m. 12. Neurontin 100 mg t.i.d. 13. Renvela 600 mg p.o. t.i.d. PHYSICAL EXAMINATION: VITAL SIGNS: Temperature of 97.8, pulse 65, respirations 16, 98% on 2 L, blood pressure 140/65. GENERAL: She is awake, alert, and oriented x3, does not appear in distress. CV: S1, S2 present. No murmurs, rubs, or gallops. ABDOMEN: Soft, nontender. Bowel sounds present x2. She will be discharged home. She will follow up with her primary and dialysis. Job ID: [id number]
--- NOTE | 2020-04-20 14:32 | EKG ---
Test Reason : Blood Pressure : / mmHG Vent. Rate : 071 BPM Atrial Rate : 071 BPM P-R Int : 176 ms QRS Dur : 098 ms QT Int : 424 ms P-R-T Axes : 020 -24 131 degrees QTc Int : 460 ms Normal sinus rhythm Possible Left atrial enlargement Nonspecific T wave abnormality Prolonged QT Abnormal ECG Confirmed by LANE CASTILLO ([id number]), videotape editor OCTAVIA KENNEDY ([id number]) on 04/20/2020 2:31:38 PM Referred By: Confirmed By:LANE Roper
== END 2020-04-19 17:05 | disposition home or self-care (01) ==
LOC: ERS 15:17 → ERHOLD 18:56 → INTOOBSV 18:56 → 2NO 21:58
PROVIDERS: ADMIT Internal Medicine; ATTEND Internal Medicine
DX: I13.2 Hypertensive heart and chronic kidney disease with heart failure and with stage 5 chronic kidney disease, or end stage renal disease (principal); E11.22 Type 2 diabetes mellitus with diabetic chronic kidney disease; N18.6 End stage renal disease; I50.9 Heart failure, unspecified; D63.1 Anemia in chronic kidney disease; K22.4 Dyskinesia of esophagus; E11.65 Type 2 diabetes mellitus with hyperglycemia; E78.5 Hyperlipidemia, unspecified; I25.10 Atherosclerotic heart disease of native coronary artery without angina pectoris; R79.89 Other specified abnormal findings of blood chemistry; J90 Pleural effusion, not elsewhere classified; R18.8 Other ascites; G40.909 Epilepsy, unspecified, not intractable, without status epilepticus; I27.20 Pulmonary hypertension, unspecified; Z86.73 Personal history of transient ischemic attack (TIA), and cerebral infarction without residual deficits; Z79.02 Long term (current) use of antithrombotics/antiplatelets; Z79.4 Long term (current) use of insulin; Z79.899 Other long term (current) drug therapy; Z99.2 Dependence on renal dialysis
CPT/HCPCS: 36430; 71045; 74177; 80048 ×2; 80053; 82274; 82553; 82728; 82962 ×2; 83540; 83550; 83880; 84484 ×2; 85007; 85025 ×2; 85027; 85610; 85730; 86850; 86900; 86901; 86920; 93005; 99285; P9016; 36415; 36416; 96374; C9113; G0378; J1644; J1815

== ENCOUNTER 2020-05-22 06:28 | Outpatient (CLI) | payer MEDICARE, BC, OTHER ==
[2020-05-23 14:37] LABS: SARS-CoV-2 MS2 Positive; SARS-CoV-2 N Gene Negative; SARS-CoV-2 S Gene Negative; SARS-CoV-2 orf1ab Negative
== END 2020-05-22 06:29 | disposition home or self-care (01) ==
LOC: LABBT 06:28
PROVIDERS: ATTEND Internal Medicine
DX: Z01.812 Encounter for preprocedural laboratory examination (principal); Z11.59 Encounter for screening for other viral diseases; I50.9 Heart failure, unspecified; N18.9 Chronic kidney disease, unspecified; I50.810 Right heart failure, unspecified; D64.9 Anemia, unspecified; R13.19 Other dysphagia
CPT/HCPCS: 87635; U0003

== ENCOUNTER 2020-05-24 22:36 | Emergency (ER) | payer MEDICARE, BC ==
[2020-05-25 01:19] LABS: #Eosinphils 0.4 thou/uL (0.0-0.7); #Lymphocytes 0.6 thou/uL (1.20-3.40); #Monocytes 0.7 thou/uL (0.11-0.59); #Neutrophils 4.6 thou/uL (1.40-6.50); %Basophils 0.4 % (0.0-1.0); %Eosinophils 6.7 % (0.0-10.0); %Monocytes 11.2 % (0.0-10.0); %Neutrophils 72.6 % (42.0-75.0); Hemoglobin 10.4 g/dL (12.0-16.0); Mean Corpuscular HGB CONC 31.9 g/dL (32.0-36.0); Mean Corpuscular Hemoglobin 32.5 pg (27.0-31.0); Mean Platelet Volume 9.6 fL (7.4-10.4); Platelet Count 249 thou/uL (130-400); RBC Distribution Width 15.3 % (11.5-14.5); Red Blood Cell (RBC) Count 3.18 mill/uL (4.20-5.40); White Blood Cell (WBC) Count 6.3 thou/uL (4.8-10.8)
[2020-05-25 01:41] LABS: ALT (SGPT) 10 U/L (8-55); AST (SGOT) 10 U/L (5-34); Albumin 4.1 g/dL (3.5-5.0); Alkaline Phosphatase 419 U/L (40-110); Anion Gap 18 mmol/L (10-20); BUN (Urea Nitrogen) 42 mg/dL (7.0-18.7); Bilirubin, Total 0.8 mg/dL (0.2-1.2); CK (CPK) 39 U/L (29-168); Calc. Creatinine Clearance 0 mL/min (70-130); Calcium 9.1 mg/dL (7.8-10.44); Carbon Dioxide 27 mmol/L (22-29); Chloride 92 mmol/L (98-107); Estimated GFR-MDRD 9; Globulin 4.5 g/dL (2.4-3.5); Glucose 517 mg/dL (70-105); Potassium 4.4 mmol/L (3.5-5.1); Protein, Total 8.6 g/dL (6.0-8.3); Sodium 133 mmol/L (136-145)
[2020-05-25 02:03] LABS: CKMB 3.2 ng/mL (0-6.6)
[2020-05-25] MEDS ORDERED: Insulin Regular 300 UNITS/3 ML VIAL ONE (03:14)
--- NOTE | 2020-05-25 10:32 | CT ---
PRELIMINARY REPORT/DIRECT RADIOLOGY/EMERGENCY AFTER HOURS PROCEDURE EXAM: CT Head Without Intravenous Contrast. CLINICAL HISTORY: EMS REPORTS THAT THE FAMILY STATED THAT THE PT HAD A SYNCOPAL EPISODE WITH FALL, CA UGHT BY FAMILY COMPARISON: CT\SR - CT BRAIN WO CON - 01/12/2020 11:04 AM CDT FINDINGS: BRAIN: No acute intracranial hemorrhage, mass-effect, or midline shift. No CT evidence of acute infarct in a large vascular territory. Atherosclerotic calcifications at the skull base. VENTRICLES: No hydrocephalus. ORBITS: Unremarkable. SINUSES AND MASTOIDS: Minimal paranasal sinus mucosal thickening. No air-fluid levels. Trace thickeni ng/fluid in the mastoid air cells. SOFT TISSUES: No sizable scalp hematoma. BONES: No depressed calvarial fracture. IMPRESSION: No acute posttraumatic intracranial abnormality. ELECTRONICALLY SIGNED BY: Omar Carmona MD May 25, 2020 1:35:08 AM CDT FINAL REPORT CT BRAIN WITHOUT CONTRAST: I agree with the preliminary report provided. No definite acute intracranial abnormality demonstrate d. POS: BH
== END 2020-05-25 03:10 | disposition home or self-care (01) ==
LOC: ERS 22:36
DX: R42 Dizziness and giddiness (principal); R53.1 Weakness; R55 Syncope and collapse; E78.5 Hyperlipidemia, unspecified; E78.00 Pure hypercholesterolemia, unspecified; I13.0 Hypertensive heart and chronic kidney disease with heart failure and stage 1 through stage 4 chronic kidney disease, or unspecified chronic kidney disease; E11.22 Type 2 diabetes mellitus with diabetic chronic kidney disease; N18.9 Chronic kidney disease, unspecified; D63.1 Anemia in chronic kidney disease; I50.9 Heart failure, unspecified; F41.9 Anxiety disorder, unspecified; Z86.73 Personal history of transient ischemic attack (TIA), and cerebral infarction without residual deficits; Z99.2 Dependence on renal dialysis
CPT/HCPCS: 36415; 36416; 70450; 80053; 82550; 82553; 84484; 85025; 93005; J1815

== ENCOUNTER 2020-08-26 06:19 | Observation (INO) | payer MEDICARE, BC, OTHER ==
[2020-08-26 07:05] LABS: #Eosinphils 0.3 thou/uL (0.0-0.7); #Lymphocytes 0.8 thou/uL (1.20-3.40); #Monocytes 0.6 thou/uL (0.11-0.59); #Neutrophils 7.2 thou/uL (1.40-6.50); %Basophils 0.1 % (0.0-1.0); %Eosinophils 3.1 % (0.0-10.0); %Lymphocytes 9.3 % (21.0-51.0); %Monocytes 7.2 % (0.0-10.0); %Neutrophils 80.3 % (42.0-75.0); Mean Corpuscular HGB CONC 31.4 g/dL (32.0-36.0); Mean Corpuscular Hemoglobin 30.5 pg (27.0-31.0); Mean Corpuscular Volume 97.1 fL (78.0-98.0); Mean Platelet Volume 9.1 fL (7.4-10.4); Platelet Count 328 thou/uL (130-400); RBC Distribution Width 16.4 % (11.5-14.5); Red Blood Cell (RBC) Count 3.29 mill/uL (4.20-5.40); White Blood Cell (WBC) Count 8.9 thou/uL (4.8-10.8)
--- NOTE | 2020-08-26 07:24 | CT ---
CT OF THE BRAIN WITHOUT CONTRAST: Date: 08/26/2020 INDICATION: 50-year-old female with expressive aphasia intermittently since Wednesday with increasing weakness and h istory of dialysis. COMPARISON: Prior CT of the brain without contrast dated 05/25/2020. FINDINGS: No acute infarct, hemorrhage, or hydrocephalus is present. There are prominent vascular calcification s involving the intracranial vasculature. There is a prominent vascular calcification involving the s calp vasculature. Mastoid air cells and paranasal sinuses are clear. The skull is intact. IMPRESSION: No acute intracranial abnormality. POS: GEETHA
[2020-08-26 07:30] LABS: ALT (SGPT) 10 U/L (8-55); AST (SGOT) 12 U/L (5-34); Albumin 3.3 g/dL (3.5-5.0); Alkaline Phosphatase 390 U/L (40-110); Anion Gap 19 mmol/L (10-20); BUN (Urea Nitrogen) 46 mg/dL (9.8-20.1); Bilirubin, Total 0.6 mg/dL (0.2-1.2); Calc. Creatinine Clearance 0 mL/min (70-130); Calcium 8.9 mg/dL (7.8-10.44); Carbon Dioxide 23 mmol/L (22-29); Chloride 89 mmol/L (98-107); Estimated GFR-MDRD 8; Globulin 4.8 g/dL (2.4-3.5); Potassium 4.7 mmol/L (3.5-5.1); Protein, Total 8.1 g/dL (6.0-8.3); Sodium 126 mmol/L (136-145)
[2020-08-26 07:31] LABS: Glucose 661 mg/dL (70-105)
--- NOTE | 2020-08-26 07:35 | RAD ---
Exam: Chest one view HISTORY:Expressive aphasia, intermittent since Wednesday. Increasing weakness. Comparison: 04/17/2020 FINDINGS: Cardiac silhouette:Cardiomegaly Aorta: Unremarkable Pulmonary vessels: Slightly prominent Costophrenic angles: Small bilateral pleural effusions, left greater than right LUNGS: Scattered interstitial and alveolar opacities. Lines and tubes: Stable right-sided HemoSplit dialysis catheter Pneumothorax: None Osseous abnormalities: None IMPRESSION: Volume overload. Superimposed pneumonia in the lung bases cannot be excluded.
[2020-08-26] MEDS ORDERED: Aspirin 325 MG TAB ONE (07:58)
[2020-08-26] MEDS ORDERED: Insulin Regular 300 UNITS/3 ML VIAL ONE (07:58)
[2020-08-26] MEDS ORDERED: Lorazepam 2 MG/ML VIAL ONE (09:07)
[2020-08-26 09:15] LABS: CKMB 3.6 ng/mL (0-6.6)
[2020-08-26] MEDS ORDERED: Lorazepam 1 MG TAB ONE (09:22)
--- NOTE | 2020-08-26 09:28 | PDOC.HHP ---
Hospitalist HPI - History of Present Illness Difficulty speaking History of Present Illness: This is 50-year-old female patient with a history of ESRD, diabetes mellitus, CHF and previous TIA presenting with episodes of intermittent aphasia for the past 3 days. Most of the history was taken from as she could not speak very well. She was able to answer some questions however. notes for the past 3 days her blood sugar has been going really high and sometimes glucometer reads just high. Also notes that she intermittently becomes unable to speak however this intermittently resolves. He denies any associated head trauma, weakness or complaints of paresthesia or numbness. No changes in gait no facial paralysis. She was recently admitted and discharged on 04/2020 on account of anemia. At presentation BP was 137/60, pulse 71, respiratory 16, temp 97.6, saturation 87 on 3 L oxygen. Labs showed troponin of 0.053, sodium 136, potassium 4.7, creatinine 5.5, glucose was elevated at 661, hemoglobin was 10.0. Imaging showed CT scan of the brain was negative for acute intracranial process chest x-ray notable for volume overload possible pneumonia in the lung bases cannot be excluded. She was given lorazepam, insulin 10 units and aspirin in the ED. Hospitalist team was consulted to admit. Hospitalist ROS - Review of Systems Constitutional: reports: weakness. denies: fever, chills, sweats Respiratory: reports: shortness of breath, SOB with excertion. denies: cough, hemoptysis Cardiovascular: denies: chest pain, palpitations, orthopnea Gastrointestinal: denies: nausea, vomiting, abdominal pain, diarrhea Genitourinary: denies: dysuria, frequency Neurological: reports: change in speech. denies: weakness, numbness, incoordination, confusion, seizures Hospitalist History - Past Medical History Other Medical History: ESRD, diabetes mellitus, CHF, TIA - Past Surgical History Other Surgical History: None of significance. - Family History Family History: reports: diabetes mellitus - Social History Smoking Status: Never smoker Alcohol: reports: None Living Situation: With Family Activity level: uses cane/walker - Exam General Appearance: awake alert, ill appearing Eye: PERRL, anicteric sclera Neck: supple, symmetric, no JVD, no thyromegaly Heart: RRR, no murmur, no gallops, no rubs Respiratory: no wheezes, no rales, no ronchi, no tachypnea Gastrointestinal: soft, non-tender, non-distended, normal bowel sounds Extremities: no cyanosis, no clubbing, no edema Neurological: cranial nerve grossly intact, no weakness, no focal deficits Neurological - other findings: Slow to respond to questions Psychiatric: A&O x 3, flat affect Hospitalist Results - Labs Result Diagrams: 08/26/20 06:58 08/26/20 06:58 Lab results: WBC 8.9 thou/uL (4.8-10.8) 08/26/20 06:58 Hgb 10.0 g/dL (12.0-16.0) L 08/26/20 06:58 Hct 31.9 % (36.0-47.0) L 08/26/20 06:58 MCV 97.1 fL (78.0-98.0) 08/26/20 06:58 Plt Count 328 thou/uL (130-400) 08/26/20 06:58 Neutrophils % 80.3 % (42.0-75.0) H 08/26/20 06:58 Sodium 126 mmol/L (136-145) L 08/26/20 06:58 Potassium 4.7 mmol/L (3.5-5.1) 08/26/20 06:58 Chloride 89 mmol/L (98-107) L 08/26/20 06:58 Carbon Dioxide 23 mmol/L (22-29) 08/26/20 06:58 BUN 46 mg/dL (9.8-20.1) H 08/26/20 06:58 Creatinine 5.50 mg/dL (0.6-1.1) H 08/26/20 06:58 Glucose 661 mg/dL (70-105) H* 08/26/20 06:58 Calcium 8.9 mg/dL (7.8-10.44) 08/26/20 06:58 Total Bilirubin 0.6 mg/dL (0.2-1.2) 08/26/20 06:58 AST 12 U/L (5-34) 08/26/20 06:58 ALT 10 U/L (8-55) 08/26/20 06:58 Alkaline Phosphatase 390 U/L (40-110) H 08/26/20 06:58 Ammonia 18 umol/L (18-72) 08/26/20 07:32 CK-MB (CK-2) 3.6 ng/mL (0-6.6) 08/26/20 07:32 Troponin I 0.053 ng/mL (< 0.028) H 08/26/20 07:32 Serum Total Protein 8.1 g/dL (6.0-8.3) 08/26/20 06:58 Albumin 3.3 g/dL (3.5-5.0) L 08/26/20 06:58 Hospitalist H&P A/P - Plan Plan: This a 50-year-old female patient with a history of ESRD, diabetes mellitus, CHF who presents with 3-day history of uncontrolled blood glucose and intermittent aphasia for the past 3 days. Possible stroke Given intermittent aphasia and risk factors This may also be due to severe hyperglycemia Received aspirin 324 CT scan negative Order MRI Neurochecks Fall precautions Neurology consult Uncontrolled diabetes mellitus Blood glucose above 600 improved to 432 with insulin. Patient on home insulin sliding scale NovoLog We will continue on correctional dose insulin Levemir 15 units Glucose monitoring. Volume overload X-ray indicating of congestion Secondary to missing dialysis today. Low suspicion for pneumonia at the momentno fever or leukocytosis. Consulted nephrology for dialysis. -ESRD For Dialysis today CHF Continue goal-directed therapy Verify medications. VT prophylaxis SCD CODE STATUSfull code DPOAhusband
[2020-08-26] MEDS ORDERED: Dextrose 50% Abboject 50 ML SYRINGE SLOW IVP PRN (10:04)
[2020-08-26] MEDS ORDERED: Dextrose 5% in Water 1,000 ML IV PRN (10:04)
[2020-08-26] MEDS ORDERED: Heparin 10,000 UNITS/ 10 ML VIAL ONE (10:05)
[2020-08-26] MEDS ORDERED: Insulin Glargine 15 UNITS in Pre-Filled Syringe 1 EACH SC SCH (10:30)
[2020-08-26] MEDS ORDERED: traMADol HCl 50 MG TAB PO PRN (12:11)
[2020-08-26 12:15] VITALS: BMI 22.2
--- NOTE | 2020-08-26 12:45 | CON ---
DATE OF CONSULTATION: 08/26/2020 CONSULTING PHYSICIAN: Pete Schofield MD REASON FOR CONSULTATION: End-stage renal disease evaluation and care. REASON FOR ADMISSION: speech problems HISTORY OF PRESENT ILLNESS: This is a 50-year-old female with history of end- stage renal disease, hypertension, CHF, and diabetes, came to the hospital with above complaints and is due for dialysis today and Nephrology consulted for maintenance hemodialysis. The patient denies any fever or chills and she complains reports of difficulty speaking and finding words. No chest pain or palpitation. PAST MEDICAL HISTORY: Positive for end-stage renal disease, on hemodialysis; type 2 diabetes; CHF; TIA; and hypertension. PAST SURGICAL HISTORY: Dialysis access placement. HOME MEDICATIONS: Reviewed. ALLERGIES: NO KNOWN DRUG ALLERGIES. SOCIAL HISTORY: No smoking, alcohol, or illicit drug abuse. FAMILY HISTORY: Positive for diabetes. REVIEW OF SYSTEMS: CONSTITUTIONAL: Negative for weight loss or gain, ability to conduct usual activities. SKIN: Negative for rash, itching. EYES: Negative for double vision, pain. ENT/MOUTH: Negative for nose bleeding, neck stiffness, pain, tenderness. CARDIOVASCULAR: Negative for palpitations, dyspnea on exertion, orthopnea. RESPIRATORY: Negative for shortness of breath, wheezing, cough, hemoptysis, fever or night sweats. GASTROINTESTINAL: Negative for poor appetite, abdominal pain, heartburn, nausea, vomiting, constipation, or diarrhea. GENITOURINARY: Negative for urgency, frequency, dysuria, nocturia. MUSCULOSKELETAL: Negative for pain, swelling. NEUROLOGIC/PSYCHIATRIC: Negative for anxiety, depression. ALLERGY/IMMUNOLOGIC: Negative for skin rash, bleeding tendency. PHYSICAL EXAMINATION: GENERAL: This is a well-built female, in no apparent distress. VITAL SIGNS: Reviewed. HEENT: Atraumatic, normocephalic. Oral mucosa moist. NECK: Supple. CV: S1 and S2. Rate and rhythm regular. RESPIRATORY: Clear. GASTROINTESTINAL: Soft. MUSCULOSKELETAL: No tenderness. No edema. DERMATOLOGIC: No skin rash. NEUROLOGIC: Alert and awake. PSYCHIATRIC: Mood and affect normal. LABORATORY DATA: Hemoglobin 10.0. Potassium 4.7, sodium 126, BUN 46, creatinine is 5.5, and glucose 661. ASSESSMENT AND PLAN: 1. End-stage renal disease. Patient seen on dialysis. The patient is fluid overloaded. We will remove fluid with dialysis. Might plan to have an extra dialysis tomorrow too and then continue dialysis on Wednesday, Wednesday, and Wednesday schedule. 2. Edema, remove fluid. 3. Fluid overload. 4. Anemia of chronic disease. 5. Hypertension. 6. Hyperglycemia with type 2 diabetes. Plan : To have dialysis today with fluid removal. Plan for dialysis tomorrow too and continue dialysis on Wednesday, Wednesday, and Wednesday schedule. Limit fluid intake and salt intake. Continue renal diet. Thank you for the consult. I will follow the case along with you. Job ID: [id number] [facility] NETWORKJacquelin
[2020-08-26] MEDS ORDERED: Lorazepam 2 MG/ML VIAL SLOW IVP PRN (13:39)
--- NOTE | 2020-08-26 14:18 | CON ---
NEUROLOGY CONSULTATION DATE OF CONSULTATION: 08/26/2020 REASON FOR CONSULTATION: Episodes of intermittent aphasia. HISTORY OF PRESENT ILLNESS: Ms. Viji Schaeffer is a 50-year-old female with history significant for end-stage renal disease, diabetes mellitus, congestive heart failure, prior TIA, presented with intermittent episodes of aphasia for the past 3 days. Per the patient, for the past 3 days, her blood sugar was extremely high and there has been intermittent episodes during which she was unable to speak for some time and then they resolved on its own. The patient denies any focal paresthesias, focal numbness, nausea, vomiting, headache, chest pain, abdominal pain, problems with swallowing, dizziness, vertigo, blurred vision, loss of vision, loss of consciousness, or abnormal involuntary movement associated with the episode. She was recently admitted and discharged in May 2020 because of anemia. In the emergency room, her blood pressure was 137/60, pulse 71, respiratory rate 16. A head CT was done, which was negative for acute intracranial pathology. Chest x- ray showed volume overload, possible pneumonia could not be excluded. She was given insulin, aspirin, and lorazepam, and admitted for further evaluation. REVIEW OF SYSTEMS: All 14 systems were reviewed and were negative except the pertinent positives and negatives mentioned in the HPI. PAST MEDICAL HISTORY: Diabetes mellitus, end-stage renal disease, congestive heart failure, TIA. PAST SURGICAL HISTORY: Not significant. FAMILY HISTORY: Significant for diabetes mellitus. SOCIAL HISTORY: The patient denies smoking, alcohol, or illegal drug use. She lives with family. She uses cane and walker. ALLERGIES: NKDA PHYSICAL EXAMINATION: General Appearance: awake alert, ill appearing Eye: PERRL, anicteric sclera Neck: supple, symmetric, no JVD, no thyromegaly Heart: RRR, no murmur, no gallops, no rubs Respiratory: no wheezes, no rales, no ronchi, no tachypnea Gastrointestinal: soft, non-tender, non-distended, normal bowel sounds Extremities: no cyanosis, no clubbing, no edema Neurological: Mental status, the patient is alert and oriented to person, place, and time. Speech is clear. Cranial nerves 2 through 12 intact. Motor, muscle tone and bulk are normal. Strength 5/5 bilaterally. Sensory, withdraws to nailbed pressure bilaterally. Cerebellar, finger-nose testing intact. Gait deferred due to the patient's safety reason. DATA REVIEWED: I reviewed the labs. They are significant for anemia with hemoglobin of 10, hematocrit 31.9, and also BUN of 46 and creatinine 5.5 and hyperglycemia with blood glucose 661. The CT scan did not reveal acute intracranial pathology. Lab results: WBC 8.9 thou/uL (4.8-10.8) 08/26/20 06:58 Hgb 10.0 g/dL (12.0-16.0) L 08/26/20 06:58 Hct 31.9 % (36.0-47.0) L 08/26/20 06:58 MCV 97.1 fL (78.0-98.0) 08/26/20 06:58 Plt Count 328 thou/uL (130-400) 08/26/20 06:58 Neutrophils % 80.3 % (42.0-75.0) H 08/26/20 06:58 Sodium 126 mmol/L (136-145) L 08/26/20 06:58 Potassium 4.7 mmol/L (3.5-5.1) 08/26/20 06:58 Chloride 89 mmol/L (98-107) L 08/26/20 06:58 Carbon Dioxide 23 mmol/L (22-29) 08/26/20 06:58 BUN 46 mg/dL (9.8-20.1) H 08/26/20 06:58 Creatinine 5.50 mg/dL (0.6-1.1) H 08/26/20 06:58 Glucose 661 mg/dL (70-105) H* 08/26/20 06:58 Calcium 8.9 mg/dL (7.8-10.44) 08/26/20 06:58 Total Bilirubin 0.6 mg/dL (0.2-1.2) 08/26/20 06:58 AST 12 U/L (5-34) 08/26/20 06:58 ALT 10 U/L (8-55) 08/26/20 06:58 Alkaline Phosphatase 390 U/L (40-110) H 08/26/20 06:58 Ammonia 18 umol/L (18-72) 08/26/20 07:32 CK-MB (CK-2) 3.6 ng/mL (0-6.6) 08/26/20 07:32 Troponin I 0.053 ng/mL (< 0.028) H 08/26/20 07:32 Serum Total Protein 8.1 g/dL (6.0-8.3) 08/26/20 06:58 Albumin 3.3 g/dL (3.5-5.0) L 08/26/20 06:58 ASSESSMENT AND PLAN: Ms. Schaeffer is a 50-year-old female with history significant for end-stage renal disease, diabetes mellitus, congestive heart failure, presented with 3-day history of uncontrolled glucose and episodes of intermittent aphasia. Head CT reviewed, which was negative for acute intracranial pathology. Intermittent episodes of aphasia can be secondary to metabolic abnormality, hyperglycemia, and versus acute intracranial process versus seizure emanating from the frontotemporal region. Consider MRI of the brain to rule out acute intracranial process. Permissive control of blood pressure at this time. Strict control of blood glucose. Continue aspirin and statin for secondary stroke prevention. Check hemoglobin A1c, fasting lipid panel, and TSH. Telemetry to rule out arrhythmias. EEG to rule out cortical irritability and seizures. Continue neuro checks every 4 hours. Fall precautions. PT/OT/Speech. Continue medical management per primary team and Nephrology. We will continue to follow. Thank you for the consult. Job ID: [id number] [facility]
[2020-08-26] MEDS: HumaLOG 300 UNITS/3 ML VIAL SC PRN (16:08)
[2020-08-26 16:37] LABS: SARS-CoV-2 MS2 Positive; SARS-CoV-2 N Gene Negative; SARS-CoV-2 S Gene Negative; SARS-CoV-2 by NAA Not Detected (NotDetected); SARS-CoV-2 orf1ab Negative
[2020-08-26] MEDS ORDERED: Acetaminophen 325 MG TAB PO PRN (21:15)
[2020-08-26 22:40] LABS: Troponin I 0.034 ng/mL (< 0.028)
[2020-08-27 05:17] LABS: #Basophils 0.1 thou/uL (0.0-0.2); #Eosinphils 0.4 thou/uL (0.0-0.7); #Lymphocytes 1.1 thou/uL (1.20-3.40); #Monocytes 0.8 thou/uL (0.11-0.59); #Neutrophils 7.1 thou/uL (1.40-6.50); %Basophils 0.6 % (0.0-1.0); %Lymphocytes 11.4 % (21.0-51.0); %Monocytes 8.1 % (0.0-10.0); Hemoglobin 10.7 g/dL (12.0-16.0); Mean Corpuscular HGB CONC 30.4 g/dL (32.0-36.0); Mean Corpuscular Hemoglobin 29.5 pg (27.0-31.0); Mean Corpuscular Volume 96.9 fL (78.0-98.0); Mean Platelet Volume 8.5 fL (7.4-10.4); Platelet Count 386 thou/uL (130-400); Red Blood Cell (RBC) Count 3.62 mill/uL (4.20-5.40); White Blood Cell (WBC) Count 9.4 thou/uL (4.8-10.8)
[2020-08-27 05:31] LABS: Anion Gap 17 mmol/L (10-20); BUN (Urea Nitrogen) 24 mg/dL (9.8-20.1); Calc. Creatinine Clearance 18 mL/min (70-130); Calcium 8.7 mg/dL (7.8-10.44); Carbon Dioxide 25 mmol/L (22-29); Chloride 94 mmol/L (98-107); Estimated GFR-MDRD 14; Glucose 108 mg/dL (70-105); Potassium 4.2 mmol/L (3.5-5.1); Sodium 132 mmol/L (136-145)
[2020-08-27] MEDS: HumaLOG 300 UNITS/3 ML VIAL SC PRN ×2 (07:30→10:47)
[2020-08-27] MEDS ORDERED: Ondansetron ODT 8 MG TAB PO PRN (08:46)
[2020-08-27] MEDS ORDERED: Meclizine HCl 25 MG TAB PO PRN (08:46)
[2020-08-27] MEDS ORDERED: Lorazepam 2 MG/ML VIAL SLOW IVP PRN (08:48)
[2020-08-27] MEDS ORDERED: Non-Formulary Item 1 EACH (Loratadine [Claritin] 10 MG Capsule) PO SCH (09:00)
[2020-08-27] MEDS ORDERED: Loratadine 10 MG TAB PO SCH (09:00)
[2020-08-27] MEDS ORDERED: Aspirin 81 mg Enteric Coated Tablet PO SCH (09:00)
[2020-08-27] MEDS ORDERED: levETIRAcetam 500 MG TAB PO SCH (09:00)
[2020-08-27] MEDS ORDERED: Sacubitril 49 MG/Valsartan 51 MG TABLET PO SCH (09:00)
[2020-08-27] MEDS ORDERED: Minoxidil 2.5 MG TAB PO SCH (09:00)
[2020-08-27] MEDS ORDERED: Carvedilol 25 MG TAB PO SCH (09:00)
[2020-08-27] MEDS ORDERED: Non-Formulary Item 1 EACH (Hydralazine Hcl [Hydralazine Hcl] 100 MG Tablet) PO SCH (09:00)
[2020-08-27] MEDS ORDERED: Insulin Glargine 15 UNITS in Pre-Filled Syringe 1 EACH SC SCH (09:00)
[2020-08-27] MEDS ORDERED: cloNIDine 0.1mg/24 Hour PATCH TD SCH (09:00)
[2020-08-27] MEDS ORDERED: Amlodipine 10 MG TAB PO SCH (09:00)
[2020-08-27] MEDS ORDERED: Heparin 10,000 UNITS/ 10 ML VIAL ONE (09:36)
[2020-08-27] MEDS: hydrALAZINE 25 MG TAB PO SCH ×2 (10:03→16:50)
[2020-08-27] MEDS: Isosorbide Dinitrate 20 MG TAB PO SCH ×2 (10:03→16:50)
[2020-08-27] MEDS: Sevelamer Carbonate 800 MG TAB PO SCH ×2 (11:21→16:51)
[2020-08-27 11:50] VITALS: BP 118/72; TEMP 97.9
--- NOTE | 2020-08-27 12:00 | PRG ---
DATE OF SERVICE: 08/27/2020 SUBJECTIVE: Patient was seen and examined at bedside and overnight events noted. Patient denies any shortness of breath or chest pain or palpitation. No history of nausea or vomiting or diarrhea or fever or chills or cramps. OBJECTIVE: GENERAL: This is a well-built female, in no apparent distress. VITAL SIGNS: Temperature 98.0. Heart rate 71. Respiratory rate 22. Blood pressure 130/73. HEENT: Atraumatic, normocephalic. Oral mucosa is moist NECK: Supple. CARDIOVASCULAR: S1, S2 heard. Rate and rhythm regular. RESPIRATORY: Clear to auscultation. GASTROINTESTINAL: Abdomen is soft. MUSCULOSKELETAL: No tenderness. No edema. DERMATOLOGIC: No skin rash. NEUROLOGIC: Alert and awake and oriented X3. No focal neurologic deficits. Moving all the extremities. PSYCHIATRIC: Mood and affect normal. LABORATORY DATA: Potassium 4.2, BUN is 24, creatinine is 3.4. ASSESSMENT AND PLAN: 1. End-stage renal disease. Continue dialysis as tolerated. 2. Edema. 3. Hyponatremia. Limit fluid intake. We will remove fluid. 4. History of hypertension. 5. Anemia of chronic disease. Plan to have dialysis as tolerated. We will have an extra dialysis today with fluid removal, and then continue dialysis on Wednesday, Wednesday, and Wednesday schedule. We will follow. Job ID: [id number]
--- NOTE | 2020-08-27 13:29 | PDOC.NEUPN ---
- Subjective Encounter Date: 08/27/20 Subjective: Patient feels better today. at bedside - Objective Vital Signs & Weight: Vital Signs (12 hours) Temp Pulse Resp BP Pulse Ox 08/27/20 11:19 97.9 F 69 20 118/72 94 L 08/27/20 10:03 71 08/27/20 10:02 71 08/27/20 07:17 98 F 71 20 130/73 94 L 08/27/20 04:00 97.8 F 70 16 136/72 93 L Weight Weight 129 lb 8 oz I&O: 08/26/20 08/27/20 08/28/20 06:59 06:59 06:59 Intake Total 700 601 Output Total 4000 Balance -3300 601 Result Diagrams: 08/27/20 04:51 08/27/20 04:51 Additional Labs: Accuchecks 08/27/20 08/27/20 08/27/20 10:41 07:17 04:47 POC Glucose 195 H 190 H 110 H 08/27/20 08/27/20 08/26/20 02:40 00:00 22:23 POC Glucose 83 105 H 117 H 08/26/20 08/26/20 08/26/20 22:23 20:20 17:59 POC Glucose 117 H 133 H 126 H 08/26/20 08/26/20 16:00 14:20 POC Glucose 173 H 195 H Radiology Reviewed by me: Yes EKG Reviewed by me: Yes ROS - Review of Systems Constitutional: denies: fever, chills, sweats, weakness, malaise, other Eyes: denies: pain, vision change, conjunctivae inflammation, eyelid inflammation, redness, other ENT: denies: ear pain, ear discharge, nose pain, nose discharge, nose marah estion, mouth pain, mouth swelling, throat pain, throat swelling, other Respiratory: denies: cough, dry, shortness of breath, hemoptysis, SOB with excertion, pleuritic pain, sputum, wheezing, other Neurological: reports: change in speech All Systems: All other systems reviewed; all pertinent +/- noted in HPI/Subj - Medication Medications: Active Medications Generic Name Dose Route Start Last Admin Trade Name Freq PRN Reason Stop Dose Admin Acetaminophen 650 mg 08/26/20 21:15 08/26/20 21:28 Acetaminophen 325 Mg Tab PO 650 mg Q4H PRN Administration Headache/Fever or Pain Amlodipine Besylate 5 mg 08/27/20 09:00 08/27/20 10:02 Amlodipine 10 Mg Tab PO 5 mg DAILY ALMITA Administration Aspirin 81 mg 08/27/20 09:00 08/27/20 10:02 Aspirin 81 Mg Enteric Coated Tablet PO 81 mg DAILY ALMITA Administration Carvedilol 25 mg 08/27/20 09:00 08/27/20 10:02 Carvedilol 25 Mg Tab PO 25 mg BID ALMITA Administration Clonidine 0.1 mg 08/27/20 09:00 08/27/20 10:03 Clonidine 0.1mg/24 Hour Patch TD 0.1 mg Q7DAYS ALMITA Administration Hydralazine HCl 50 mg 08/27/20 09:00 08/27/20 10:03 Hydralazine 25 Mg Tab PO 50 mg TID ALMITA Administration Insulin Glargine 15 units/ 0.15 mls @ 0 mls/hr 08/27/20 09:00 08/27/20 08:20 Miscellaneous Medication SC 0.15 mls QAM ALMITA Administration Insulin Human Lispro 0 units 08/26/20 10:04 08/27/20 10:47 Humalog 300 Units/3 Ml Vial SC 2 unit .MODERATE SLIDING SC PRN Administration Moderate Correctional Scale Isosorbide Dinitrate 20 mg 08/27/20 09:00 08/27/20 10:03 Isosorbide Dinitrate 20 Mg Tab PO 20 mg TID ALMITA Administration Levetiracetam 500 mg 08/27/20 09:00 08/27/20 10:03 Levetiracetam 500 Mg Tab PO 500 mg BID ALMITA Administration Loratadine 10 mg 08/27/20 09:00 08/27/20 10:04 Loratadine 10 Mg Tab PO 10 mg DAILY ALMITA Administration Lorazepam 0.5 mg 08/27/20 08:48 08/27/20 12:08 Lorazepam 2 Mg/Ml Vial SLOW IVP 0.5 mg Q6H PRN Administration Anxiety/Agitation Minoxidil 2.5 mg 08/27/20 09:00 08/27/20 10:04 Minoxidil 2.5 Mg Tab PO 2.5 mg QAM ALMITA Administration Sacubitril/Valsartan 1 tab 08/27/20 09:00 08/27/20 10:04 Sacubitril 49 Mg/Valsartan 51 Mg Tablet PO 1 tab BID ALMITA Administration Sevelamer Carbonate 800 mg 08/27/20 12:00 08/27/20 11:21 Sevelamer Carbonate 800 Mg Tab PO 800 mg TID-WM ALMITA Administration Tramadol HCl 50 mg 08/26/20 12:11 08/26/20 12:49 Tramadol Hcl 50 Mg Tab PO 50 mg Q12H PRN Administration Pain - Exam General Appearance: awake alert ENT: normocephalic atraumatic Neck: supple Respiratory: CTAB Cardiovascular: RRR Gastrointestinal: soft Extremities: no cyanosis Skin: normal turgor Neurological: no new deficit Musculoskeletal: generalized weakness PSYCH: normal affect, normal behavior, A&O x 3, oriented to person, oriented to place, oriented to time Results - Labs Result Diagrams: 08/27/20 04:51 08/27/20 04:51 Lab results: WBC 9.4 thou/uL (4.8-10.8) 08/27/20 04:51 Hgb 10.7 g/dL (12.0-16.0) L 08/27/20 04:51 Hct 35.1 % (36.0-47.0) L 08/27/20 04:51 MCV 96.9 fL (78.0-98.0) 08/27/20 04:51 Plt Count 386 thou/uL (130-400) 08/27/20 04:51 Neutrophils % 76.0 % (42.0-75.0) H 08/27/20 04:51 Sodium 132 mmol/L (136-145) L 08/27/20 04:51 Potassium 4.2 mmol/L (3.5-5.1) 08/27/20 04:51 Chloride 94 mmol/L (98-107) L 08/27/20 04:51 Carbon Dioxide 25 mmol/L (22-29) 08/27/20 04:51 BUN 24 mg/dL (9.8-20.1) H 08/27/20 04:51 Creatinine 3.44 mg/dL (0.6-1.1) H 08/27/20 04:51 Glucose 108 mg/dL (70-105) H 08/27/20 04:51 Calcium 8.7 mg/dL (7.8-10.44) 08/27/20 04:51 Total Bilirubin 0.6 mg/dL (0.2-1.2) 08/26/20 06:58 AST 12 U/L (5-34) 08/26/20 06:58 ALT 10 U/L (8-55) 08/26/20 06:58 Alkaline Phosphatase 390 U/L (40-110) H 08/26/20 06:58 Ammonia 18 umol/L (18-72) 08/26/20 07:32 CK-MB (CK-2) 3.6 ng/mL (0-6.6) 08/26/20 07:32 Troponin I 0.034 ng/mL (< 0.028) H 08/26/20 22:06 Serum Total Protein 8.1 g/dL (6.0-8.3) 08/26/20 06:58 Albumin 3.3 g/dL (3.5-5.0) L 08/26/20 06:58 - Radiology Interpretation CT scan - head Status: image reviewed by me, report reviewed by me Additional Comment: No acute intracranial pathology. PN A/P - Plan Daily Plan: plan discussed w/ family, PT/OT, speech therapy, DVT proph w/SCDs Ms. Schaeffer is a 50-year-old female with a history significant for end-stage renal disease and diabetes on hemodialysis presented with hyperglycemia and intermittent episodes of aphasia. EEG reviewed which was negative for seizure activity. Consider MRI of the brain to rule out acute intracranial process. Neurochecks every 4 hours. Continue aspirin and high intensity statin for secondary stroke prevention. Monitor blood pressure and blood glucose. Continue telemetry Continue home medications Continue medical management per primary team. PT/OT/speech Plan discussed in detail with the patient, and during MDR rounds.
--- NOTE | 2020-08-27 13:33 | PDOC.EEG ---
Neurology EEG Report - Report Report: This EEG was performed using 24 channel [employer] video digital EEG machine with 24 disc electrodes. This was an extended 2 hours 4 minutes of inpatient video EEG recording. Digital analysis of the EEG was done for Wayne and seizure detection which revealed no abnormalities. Background: The posterior background rhythm is 8.5 to 9 Hz. The background rhythm attenuates with eye opening enhances with eye closure. Hyperventilation: Not performed Photic stimulation: Bioccipital symmetric driving response is observed Sleep: No stage changes is observed EEG diagnosis: Rare theta activity seen during the recording Clinical interpretation: This EEG is consistent with mild generalized nonspecific cerebral dysfunction.
--- NOTE | 2020-08-27 13:47 | MRI ---
EXAM: MRI of the brain without contrast HISTORY: Intermittent aphasia COMPARISON: CT brain 08/26/2020 and MRI brain 09/07/2018 TECHNIQUE: Multiplanar multisequence MR images were obtained of the brain without IV contrast. FINDINGS: The brain demonstrates normal signal intensity on all obtained sequences. No restricted diffusion. No hydronephrosis. No extra-axial fluid collection or intracranial hemorrhage. The expected flow voids are present. Corpus callosum, pituitary, and craniocervical junction are within normal limits. The calvarium and overlying soft tissues are unremarkable. Paranasal sinuses are well aerated. A small amount fluid is seen in the right mastoid air cells. IMPRESSION: No evidence of acute intracranial abnormality.
--- NOTE | 2020-08-27 14:48 | PDOC.DS.DS ---
Provider - Provider Date of Admission: 08/26/20 09:29 Date of Discharge: 08/27/20 Admitting Provider: Pete Schofield MD Consultations:: Neurology Primary Care Physician: GUNNER AC MD Course - Hospital Course Hospital Course: Is a 50-year-old female with a history of end-stage renal disease on hemodialysis who presented via the emergency department having some symptoms of dysarthria. Was initially concerns for possible CVA. However her blood sugar was over 600. CT was negative. Hospital course patient was placed in observation status. She underwent EEG of the brain as well as MRI of the brain. Both of these were unremarkable for any acute findings. She underwent dialysis. Her blood sugar subsequently leveled out and remained well within the normal range. Her symptoms resolved and she felt completely back to baseline. She reported that she had had similar symptoms in the past associated with severe hyperglycemia. Ultimately it was felt that this was likely the source of her symptoms. She was felt to be stable for discharge to follow-up with her primary care provider to discuss her diabetic regimen. Resuscitation Status: 08/26/20 09:55 Resuscitation Status Routine Resuscitation Status: FULL: Full Resuscitation - Labs Lab Results: 08/27/20 04:51 08/27/20 04:51 Abnormal Lab Results - Last 48 hrs 08/26/20 06:58: RBC 3.29 L, Hgb 10.0 L, Hct 31.9 L, MCHC 31.4 L, RDW 16.4 H, Neutrophils % 80.3 H, Lymphocytes % 9.3 L, Neutrophils # 7.2 H, Lymphocytes # 0.8 L, Monocytes # 0.6 H 08/26/20 06:58: Sodium 126 L, Chloride 89 L, BUN 46 H, Creatinine 5.50 H, Alkaline Phosphatase 390 H, Albumin 3.3 L, Globulin 4.8 H, Albumin/Globulin Ratio 0.7 L 08/26/20 07:32: Troponin I 0.053 H 08/26/20 22:06: Troponin I 0.034 H 08/27/20 04:51: Sodium 132 L, Chloride 94 L, BUN 24 H, Creatinine 3.44 H 08/27/20 04:51: RBC 3.62 L, Hgb 10.7 L, Hct 35.1 L, MCHC 30.4 L, RDW 17.0 H, Neutrophils % 76.0 H, Lymphocytes % 11.4 L, Neutrophils # 7.1 H, Lymphocytes # 1.1 L, Monocytes # 0.8 H - Physical Exam Vitals: Vital Signs (12 hours) Temp Pulse Resp BP Pulse Ox 08/27/20 11:19 97.9 F 69 20 118/72 94 L 08/27/20 10:03 71 08/27/20 10:02 71 08/27/20 07:17 98 F 71 20 130/73 94 L 08/27/20 04:00 97.8 F 70 16 136/72 93 L Weight Weight 129 lb 8 oz Physical Exam: The patient was seen and examined on the day of discharge. Problem - Problem (1) Dysarthria Code(s): R47.1 - DYSARTHRIA AND ANARTHRIA Status: Acute (2) Hyperglycemia due to diabetes mellitus Code(s): E11.65 - TYPE 2 DIABETES MELLITUS WITH HYPERGLYCEMIA Status: Acute (3) Anemia due to chronic kidney disease Code(s): N18.9 - CHRONIC KIDNEY DISEASE, UNSPECIFIED; D63.1 - ANEMIA IN CHRONIC KIDNEY DISEASE Status: Chronic Qualifiers: Chronic kidney disease stage: on chronic dialysis Qualified Code(s): N18.6 - End stage renal disease; D63.1 - Anemia in chronic kidney disease; Z99.2 - Dependence on renal dialysis (4) CAD (coronary artery disease) Code(s): I25.10 - ATHSCL HEART DISEASE OF [place] CORONARY ARTERY W/O ANG PCTRS Status: Chronic (5) Chronic systolic (congestive) heart failure Code(s): I50.22 - CHRONIC SYSTOLIC (CONGESTIVE) HEART FAILURE Status: Chronic (6) DM type 2 (diabetes mellitus, type 2) Status: Chronic Qualifiers: (7) Dyslipidemia Code(s): E78.5 - HYPERLIPIDEMIA, UNSPECIFIED Status: Chronic (8) ESRD (end stage renal disease) on dialysis Code(s): N18.6 - END STAGE RENAL DISEASE; Z99.2 - DEPENDENCE ON RENAL DIALYSIS Status: Chronic (9) HTN (hypertension) Code(s): I10 - ESSENTIAL (PRIMARY) HYPERTENSION Status: Chronic Qualifiers: (10) Seizure disorder Code(s): G40.909 - EPILEPSY, UNSP, NOT INTRACTABLE, WITHOUT STATUS EPILEPTICUS Status: Chronic Plan - Discharge Medications Home Medications: Medication Instructions Recorded Confirmed Type Insulin Detemir [Levemir Flextouch] 9 units SQ QAM 12/15/18 08/26/20 History Insulin Aspart [Novolog] 6 - 10 unit SQ SEEPHYS PRN 01/11/19 08/26/20 History Atorvastatin Calcium [Lipitor] 40 mg PO QPM 12/05/19 08/26/20 History Clopidogrel Bisulfate [Plavix] 75 mg PO QPM 12/05/19 08/26/20 History Minoxidil 2.5 mg PO QAM 12/05/19 08/26/20 History Sacubitril/Valsartan 49/51 1 tab PO BID 12/05/19 08/26/20 History [Entresto 49 mg-51 mg Tablet] Amlodipine [Norvasc] 5 mg PO DAILY 01/13/20 08/26/20 History hydrALAZINE HCl 50 mg PO TID 01/13/20 08/26/20 History levETIRAcetam [Keppra] 500 mg PO BID 01/13/20 08/26/20 History Carvedilol [Coreg] 25 mg PO BID tab 04/07/20 08/26/20 Rx Sevelamer Carbonate [Renvela] 800 mg PO TID-WM 04/17/20 08/26/20 History Ferric Citrate [Auryxia] 420 mg PO TID-WM 08/26/20 08/26/20 History Insulin Aspart (Niacinamide) 100 unit SQ ASDIR 08/26/20 08/26/20 History [Fiasp 100 Unit/ml Flextouch] Isosorbide Dinitrate [Isordil] 20 mg PO TID 08/26/20 08/26/20 History Loratadine [Claritin] 10 mg PO DAILY 08/26/20 08/26/20 History Meclizine HCl [Antivert] 25 mg PO TID PRN 08/26/20 08/26/20 History Ondansetron [Zofran ODT] 8 mg PO Q6HR PRN 08/26/20 08/26/20 History cloNIDine [Clonidine] 1 each TD Q7DAYS 08/26/20 08/26/20 History Allergies: No Known Drug Allergies Allergy (Verified 05/21/20 13:26) per pt - Discharge Instructions Activity:: Activity as Tolerated Nourishment:: Diabetic Diet, Renal Diet - Follow up Plan Referrals: GUNNER AC MD [Primary Care Provider] - Disposition: HOME Quality - Care Measures CORE MEASURES:: N/A
[2020-08-27] MEDS ORDERED: Atorvastatin Calcium 40 MG TAB PO SCH (21:00)
[2020-08-27] MEDS ORDERED: Clopidogrel Bisulfate 75 MG TAB PO SCH (21:00)
== END 2020-08-27 18:43 | disposition home or self-care (01) ==
LOC: ERS 06:19 → 2SE 09:29
PROVIDERS: ADMIT Student in an Organized Health Care Education/Training Program; ATTEND Internal Medicine
DX: E11.65 Type 2 diabetes mellitus with hyperglycemia (principal); R47.1 Dysarthria and anarthria; I13.2 Hypertensive heart and chronic kidney disease with heart failure and with stage 5 chronic kidney disease, or end stage renal disease; E11.22 Type 2 diabetes mellitus with diabetic chronic kidney disease; N18.6 End stage renal disease; I50.22 Chronic systolic (congestive) heart failure; D63.1 Anemia in chronic kidney disease; E87.70 Fluid overload, unspecified; E78.5 Hyperlipidemia, unspecified; E78.00 Pure hypercholesterolemia, unspecified; F41.9 Anxiety disorder, unspecified; E87.1 Hypo-osmolality and hyponatremia; I25.10 Atherosclerotic heart disease of native coronary artery without angina pectoris; G40.909 Epilepsy, unspecified, not intractable, without status epilepticus; Z86.73 Personal history of transient ischemic attack (TIA), and cerebral infarction without residual deficits; Z79.02 Long term (current) use of antithrombotics/antiplatelets; Z79.4 Long term (current) use of insulin; Z79.899 Other long term (current) drug therapy; Z99.2 Dependence on renal dialysis; Z20.828 Contact with and (suspected) exposure to other viral communicable diseases
CPT/HCPCS: 70450; 70551; 71045; 80048; 80053; 82140; 82553; 82962 ×2; 84484 ×2; 85025 ×2; 93005; 94760; 95712; 95819; 95957; 96374 ×2; 99285; G0378 ×3; U0003; 36415; 36416; 87635; 90935; G0257; J1644; J1815; J2060